=== PATIENT | female | born 1960 | race American Indian/Alaskan Native ===

== ENCOUNTER 2025-09-04 16:32 | Inpatient (IN) | payer OTHER, MEDICAID ==
[~2025-09-04] VITALS: Ht 160 cm; Wt 45.4 kg
--- NOTE | 2025-09-04 18:36 | ED.PDOC ---
Musculoskeletal HPI Comments 64-year-old female who came to ER with son due to bilateral lower extremity swelling. Per son, patient lives with his stepdad who claims that he does not take care of his mom. Patient coming in with bilateral leg swelling, multiple scabs and shallow laceration on both legs. Patient has been seen by her provider but the issue about her legs has never been addressed. Chief Complaint: Lower Extremity Time Seen by MD: 18:36 Reviewed Notes: Nurses Notes Information Source: Patient, Relative Mode of Arrival: EMS Location: Bilateral Extremity Location: Leg Past Medical History PAST MEDICAL HISTORY: HTN Surgical History: Denies all surgeries SLATE PICKER History: Denies all SLATE PICKER Hx Family History Family History: Reviewed,noncontributory to illness Social History Smoker: Non-Smoker Alcohol: Denies ETOH Use Drugs: Denies Drug Use Lives In: Home Constitutional: denies: chills, diaphoresis, fatigue, fever, malaise, sweats, weakness, others EENTM: denies: blurred vision, double vision, ear bleeding, ear discharge, ear drainage, ear pain, ear ringing, eye pain, eye redness, hearing loss, mouth pain, mouth swelling, nasal discharge, nose bleeding, nose congestion, nose pain, photophobia, tearing, throat pain, throat swelling, voice changes, others Respiratory: denies: cough, hemoptysis, orthopnea, SOB at rest, shortness of breath, SOB with excertion, stridor, wheezing, others Cardiovascular: denies: chest pain, dizzy spells, diaphoresis, Dyspnea on exertion, edema, irregular heart beat, left arm pain, lightheadedness, palpitati ons, PND, syncope, others Gastrointestinal: denies: abdomen distended, abdominal pain, blood streaked bowels, constipated, diarrhea, dysphagia, difficulty swallowing, hematemesis, melena, nausea, poor appetite, poor fluid intake, rectal bleeding, rectal pain, vomiting, others Genitourinary: denies: abnormal vagina bleeding, burning, dyspareunia, dysuria, flank pain, frequency, hematuria, incontinence, pain, , vagina discharge, urgency, others Neurological: denies: dizziness, fainting, headache, left sided numbness, left sided weakness, numbness, paresthesia, pre-existing deficit, right sided numbness, right sided weakness, seizure, speech problems, tingling, tremors, weakness, others Musculoskeletal: denies: back pain, gout, joint pain, joint swelling, muscle pain, muscle stiffness, neck pain, others Integumetry: reports: wounds (Both legs); denies: bruises, change in color, change in hair/nails, dryness, laceration, lesions, lumps, rash, others Allergic/Immunocompromised: denies: Difficulty Healing, Frequent Infections, Hives, Itching, others Hematologic/Lymphatic: denies: anemia, blood clots, easy bleeding, easy bruising, swollen glands, others Endocrine: denies: excessive hunger, excessive sweating, excessive thirst, excessive urination, flushing, intolerance to cold, intolerance to heat, unexplained weight gain, unexplained weight loss, others Psychiatric: denies: anxiety, bipolar disorder, depression, hopeless, panic disorder, schizophrenia, sleepless, suicidal, others Physical Exam General Appearance: No Apparent Distress, Normal HEENT: Normal ENT Inspection, Pharynx Normal, TMs Normal Neck: Full Range of Motion, Non-Tender, Normal, Normal Inspection Respiratory: Chest Non-Tender, Lungs Clear, No Accessory Muscle Use, No Respiratory Distress, Normal Breath Sounds Cardiovascular: No Edema, No JVD, No Murmur, No Gallop, Normal Peripheral Pulses, Regular Rate/Rhythm Breast Exam: Deferred Gastrointestinal: No Organomegaly, Non Tender, No Pulsatile Mass, Normal Bowel Sounds, Soft Genitalia: Deferred Pelvic: Deferred Rectal: Deferred Extremities: No calf tenderness, Normal capillary refill, Normal range of motion, Pedal edema (+2 pedal edema), Other (Multiple scabs both legs, shallow ulcers both legs,right >left) Musculoskeletal : Apperance: Normal Neurologic: Alert, charge coordinator II-XII nml as Tested, No Motor Deficits, Normal Affect, Normal Mood, No Sensory Deficits Cerebellar Function: Normal Reflexes: Normal Skin: Dry, Normal Color, Warm Lymphatic: No Adenopathy Was a procedure done? Was a procedure done?: No Differential Diagnosis EXT Differential Diagnosis: Cellulitis, CHF, Septic, Other X-Ray, Labs, Meds, VS Vital Signs Date Time Temp Pulse Resp B/P (MAP) Pulse Ox O2 Delivery O2 Flow Rate FiO2 09/04/25 19:33 98.2 108 16 147/83 100 98.2 Lab Test 09/04/25 21:20 09/04/25 19:55 Range/Units Urine Color Yellow Yellow Urine Clarity Clear Clear Urine pH 6.0 5.0-9.0 Urine Specific [place] 1.013 1.001-1.035 Urine Protein Negative Negative Urine Ketones Negative Negative Urine Blood Negative Negative /uL Urine Nitrite Negative Negative Urine Bilirubin Negative Negative Urine Urobilinogen 4 H Negative mg/dL Urine Leukocyte Esterase Negative Negative /uL Urine RBC <1 0 - 4 /hpf Urine Microscopic WBC 1 0-5 /HPF Urine Squamous Epithelial Cells Few <5 /hpf Urine Bacteria Few H None Seen /hpf Urine Glucose Normal Normal mg/dL White Blood Count 9.2 4.4-10.8 10^3/uL Red Blood Count 3.48 L 4.0-5.20 10^6/uL Hemoglobin 10.7 L 12.2-16.2 g/dL Hematocrit 31.6 L 36.0-46.0 % Mean Corpuscular Volume 90.7 80.0-100.0 fL Mean Corpuscular Hemoglobin 30.6 28.0-32.0 pg Mean Corpuscular Hemoglobin Concent 33.7 32.0-36.0 g/dL Red Cell Distribution Width 14.8 H 11.8-14.3 % Platelet Count 625 H 140-450 10^3/uL Mean Platelet Volume 6.4 L 6.9-10.8 fL Neutrophils (%) (Auto) 65.4 37.0-80.0 % Lymphocytes (%) (Auto) 26.1 10.0-50.0 % Monocytes (%) (Auto) 7.6 0.0-12.0 % Eosinophils (%) (Auto) 0.5 0.0-7.0 % Basophils (%) (Auto) 0.4 0.0-2.0 % Neutrophils # (Auto) 6.0 1.6-8.6 10 ^3/uL Lymphocytes # (Auto) 2.4 0.4-5.4 10 ^3/uL Monocytes # (Auto) 0.7 0-1.3 10 ^3/uL Eosinophils # (Auto) 0 0-0.8 10 ^3/uL Basophils # (Auto) 0 0-0.2 10 ^3/uL Nucleated Red Blood Cells 0.0 % Sodium Level 139 136-145 mmol/L Potassium Level 2.9 L 3.5-5.1 mmol/L Chloride Level 100 98-107 mmol/L Carbon Dioxide Level 34 H 20-31 mmol/L Anion Gap 5 5-15 Blood Urea Nitrogen 10 9-23 mg/dL Creatinine 0.47 L 0.550-1.02 mg/dL Glomerular Filtration Rate Calc 105 >90 mL/min BUN/Creatinine Ratio 21.3 H 10.0-20.0 Serum Glucose 94 74-106 mg/dL Calcium Level 8.6 L 8.7-10.4 mg/dL Total Bilirubin 0.3 0.2-1.0 mg/dL Direct Bilirubin 0.1 <0.3 mg/dL Aspartate Amino Transferase (AST) 22 13-40 U/L Alanine Aminotransferase (ALT) 24 7-40 U/L Alkaline Phosphatase 115 46-116 U/L Troponin I High Sensitivity 11 </=34 ng/L Total Protein 7.1 5.7-8.2 g/dL Albumin 3.4 3.2-4.8 g/dL Time of 1ST Reevaluation: 18:32 Reevaluation 1ST: Unchanged Patient Education/Counseling: Diagnosis, Treatment Family Education/Counseling: Diagnosis, Treatment Comments This is a patient who presents with ulcers of the legs and edema. She is not in heart failure, not in renal failure, nor hepatic failure. She is also not hypoalbuminemic. Patient is according to the son has been progressively getting weaker and is able to barely ambulate at home. Patient will be admitted for further evaluation and treatment of progressive weakness, pedal edema and possible pneumonia on the chest x-ray. She is not septic but she will receive antibiotics and blood cultures. Departure 1 Departure Time of Disposition: 21:46 Impression: Primary Impression: Physical deconditioning Additional Impressions: Pedal edema Pneumonia Disposition: ADMITTED INPATIENT Admit to: Med Surg Condition: Stable Discharged With: Self, Relative Critical Care Note Critical Care Time?: No Stability Stability form required: No Heart Score Heart Score: Heart Score Response (Comments) Value History N/A 0 EKG N/A 0 Age N/A 0 Risk Factors N/A 0 Troponin N/A 0 Total 0 I personally scribed for ALCON MARRERO MD ([email or web address]) on 09/04/25 at 18:36. Electronically submitted by Marvin Ludwig ([email or web address]). ALCON MARRERO MD Sep 04, 2025 18:36
[2025-09-04 20:05] LABS: Hematocrit 31.6 % (36.0-46.0); Hemoglobin 10.7 g/dL (12.2-16.2); Mean Corpuscular Hemoglobin 30.6 pg (28.0-32.0); Mean Corpuscular Volume 90.7 fL (80.0-100.0); Nucleated Red Blood Cells % 0.0 %
[2025-09-04 20:23] LABS: Alanine Aminotransferase 24 U/L (7-40); Albumin 3.4 g/dL (3.2-4.8); Alkaline Phosphatase 115 U/L (46-116); Anion Gap 5 (5-15); BUN/Creatinine Ratio 21.3 (10.0-20.0); Bilirubin, Direct 0.1 mg/dL (<0.3); Blood Urea Nitrogen 10 mg/dL (9-23); Chloride 100 mmol/L (98-107); Glucose 94 mg/dL (74-106); Sodium 139 mmol/L (136-145); Total Protein 7.1 g/dL (5.7-8.2)
--- NOTE | 2025-09-04 21:17 | DVH ---
EXAM: XY CHEST XRAY 1 VIEW HISTORY: edema TECHNIQUE: 1 view of the chest COMPARISON: None FINDINGS/IMPRESSION: LUNGS: Left perihilar to hilar hazy opacification which may reflect underlying infiltrate however cystic lung change in the left lung apex with a surrounding opacification. Recommend further evaluation with CT of the chest with contrast. MEDIASTINUM: Unremarkable. BONES: No acute osseous abnormality. OTHER: None.
[2025-09-04 21:18] LABS: Bilirubin, Total 0.3 mg/dL (0.2-1.0); Calcium 8.6 mg/dL (8.7-10.4); Carbon Dioxide 34 mmol/L (20-31); Potassium 2.9 mmol/L (3.5-5.1)
[2025-09-04 21:42] LABS: Urine Protein, UAD Negative (Negative)
[2025-09-04] MEDS ORDERED: DOCUSATE SOD 100 MG CAP PO PRN (23:45)
[2025-09-04] MEDS ORDERED: ONDANSETRON HCL 4 MG/2 ML VIAL IV PRN (23:45)
[2025-09-04] MEDS ORDERED: MORPHINE SULFATE INJ 2 MG/ml SYRG IV PRN (23:45)
[2025-09-04] MEDS ORDERED: NITROGLYCERIN 0.4 MG SL TAB SL PRN (23:45)
[2025-09-04 23:47] VITALS: PULSE 79; RESP 28; O2SAT 98
--- NOTE | 2025-09-04 23:47 | DVHHP2 ---
History of Present Illness Reason for Visit: Pneumonia, unspecified organism History of Present Illness The patient is a 64-year-old female with past medical history of hypertension who presented to [facility] ED with complaint of bilateral lower extremity swelling and open wound. As reported by son, patient lives with his stepfather who does not take care of his mom. Patient was seen and evaluated in the ED with with bilateral leg swelling, multiple scabs and shallow laceration on both legs. Son reports that patient has been seen by her provider but the issue about her legs has never been addressed. Laboratory data shows WBC 9.2, hemoglobin 10.7, hematocrit 31.6, platelets 625, sodium 139, potassium 2.9, BUN 10, creatinine 0.47, GFR 105, glucose 94, calcium 8.6, troponin 11, TSH 1.16, blood pressure 147/83, heart rate 108, temperature 98.3 F, O2 saturation 99% on room air. Chest x-ray revealing left perihilar to hilar hazy opacification which may reflect underlying infiltrates however cystic lung change in the left lung apex with a surrounding opacification. Patient was started on IV antibiotic regimen Zosyn, please see medication orders section in the computer. On my assessment, son at bedside, patient denied chest pain, no headache, dizziness, diaphoresis, shortness of breaths, no nausea, vomiting, fever, no chills. Patient was admitted for further evaluation and medical management. Past Medical History HTN Past Surgical History Denies all surgeries Family History Reviewed, noncontributory to the management of this case. Past Social History The patient lives at home, denies smoking, alcohol or illicit drugs abuse. Review of Systems Constitutional: Yes: Weakness; No: Fever, Chills, Sweats, Malaise, Other Eyes: No: Pain, Vision change, Conjunctivae inflammation, Eyelid inflammation, Other, Redness ENT: No: Ear pain, Ear discharge, Nose pain, Nose discharge, Nose congestion, Mouth pain, Mouth swelling, Throat pain, Throat swelling, Other Respiratory: No: Cough, Dry, Shortness of breath, SOB with excertion, Wheezing, Hemoptysis, Pleuritic Pain, Sputum, Wheezing, Other Cardiovascular: Edema (Lower extremity); No: Chest Pain, Palpitations, Orthopnea, Paroxysmal Noc. Dyspnea, Lt Headedness, Other Gastrointestinal: No: Nausea, Vomiting, Abdominal Pain, Diarrhea, Constipation, Melena, Hematochezia, Other Genitourinary: No Dysuria, No Frequency, No Incontinence, No Hematuria, No Retention, No Other Musculoskeletal: No: other, neck pain, shoulder pain, arm pain, back pain, hand pain, leg pain, foot pain Skin: Other (Open wound bilateral legs); No: Rash, Lesions, Jaundice, Bruising Neurological: No: Weakness, Numbness, Incoordination, Change in speech, Confusion, Seizures, Other Allergies: Coded Allergies: NO KNOWN ALLERGIES (Unverified , 09/04/25) Exam Vital Signs Vital Signs Date Time Temp Pulse Resp B/P (MAP) Pulse Ox O2 Delivery O2 Flow Rate FiO2 09/04/25 19:33 98.2 108 16 147/83 100 98.2 General Appearance: Alert, Oriented X3, Cooperative, No acute distress HEENT: Atraumatic, PERRLA, EOMI, Mucous membr. moist/pink Respiratory: Normal air movement, Other (Diminished breath sounds) Cardiovascular: Regular rate, Normal S1, Normal S2, No murmurs Abdominal: Normal bowel sounds, Soft, No tenderness, No hepatospenomegaly, No masses Extremities: No clubbing, No cyanosis, Normal pulses, No tenderness/swelling, Other (Pedal edema) Skin: No rashes, No significant lesion Neuro: Normal speech, Normal tone, Sensation intact, Cranial nerves 3-12 NL, Reflexes 2+, Other (Generalized weakness) Psych/Mental Status: Mental status NL, Mood NL Labs/Xrays Labs Test 09/04/25 22:08 09/04/25 21:20 09/04/25 19:55 Range/Units Urine Color Yellow Yellow Urine Clarity Clear Clear Urine pH 6.0 5.0-9.0 Urine Specific [place] 1.013 1.001-1.035 Urine Protein Negative Negative Urine Ketones Negative Negative Urine Blood Negative Negative /uL Urine Nitrite Negative Negative Urine Bilirubin Negative Negative Urine Urobilinogen 4 H Negative mg/dL Urine Leukocyte Esterase Negative Negative /uL Urine RBC <1 0 - 4 /hpf Urine Microscopic WBC 1 0-5 /HPF Urine Squamous Epithelial Cells Few <5 /hpf Urine Bacteria Few H None Seen /hpf Urine Glucose Normal Normal mg/dL White Blood Count 9.2 4.4-10.8 10^3/uL Red Blood Count 3.48 L 4.0-5.20 10^6/uL Hemoglobin 10.7 L 12.2-16.2 g/dL Hematocrit 31.6 L 36.0-46.0 % Mean Corpuscular Volume 90.7 80.0-100.0 fL Mean Corpuscular Hemoglobin 30.6 28.0-32.0 pg Mean Corpuscular Hemoglobin Concent 33.7 32.0-36.0 g/dL Red Cell Distribution Width 14.8 H 11.8-14.3 % Platelet Count 625 H 140-450 10^3/uL Mean Platelet Volume 6.4 L 6.9-10.8 fL Neutrophils (%) (Auto) 65.4 37.0-80.0 % Lymphocytes (%) (Auto) 26.1 10.0-50.0 % Monocytes (%) (Auto) 7.6 0.0-12.0 % Eosinophils (%) (Auto) 0.5 0.0-7.0 % Basophils (%) (Auto) 0.4 0.0-2.0 % Neutrophils # (Auto) 6.0 1.6-8.6 10 ^3/uL Lymphocytes # (Auto) 2.4 0.4-5.4 10 ^3/uL Monocytes # (Auto) 0.7 0-1.3 10 ^3/uL Eosinophils # (Auto) 0 0-0.8 10 ^3/uL Basophils # (Auto) 0 0-0.2 10 ^3/uL Nucleated Red Blood Cells 0.0 % Sodium Level 139 136-145 mmol/L Potassium Level 2.9 L 3.5-5.1 mmol/L Chloride Level 100 98-107 mmol/L Carbon Dioxide Level 34 H 20-31 mmol/L Anion Gap 5 5-15 Blood Urea Nitrogen 10 9-23 mg/dL Creatinine 0.47 L 0.550-1.02 mg/dL Glomerular Filtration Rate Calc 105 >90 mL/min BUN/Creatinine Ratio 21.3 H 10.0-20.0 Serum Glucose 94 74-106 mg/dL Calcium Level 8.6 L 8.7-10.4 mg/dL Total Bilirubin 0.3 0.2-1.0 mg/dL Direct Bilirubin 0.1 <0.3 mg/dL Aspartate Amino Transferase (AST) 22 13-40 U/L Alanine Aminotransferase (ALT) 24 7-40 U/L Alkaline Phosphatase 115 46-116 U/L Troponin I High Sensitivity 11 </=34 ng/L Total Protein 7.1 5.7-8.2 g/dL Albumin 3.4 3.2-4.8 g/dL Thyroid Stimulating Hormone (TSH) 1.16 0.55-4.78 uIU/mL PATIENT: SHAYY IVERSON ACCT: [id number] UNIT: [id number] : 1960 LOC: ER ROOM / BED: / AGE / SEX: 64 / F ADM STATUS: REG ER SERVICE 34 ORDERING PHYSICIAN: ALCON MARRERO MD PROCEDURE(s): CXR1 - CHEST XRAY 1 VIEW REASON: edema ORDER NUMBER(s): [id number], ACCESSION NUMBER(s): [id number] EXAM: XY CHEST XRAY 1 VIEW HISTORY: edema TECHNIQUE: 1 view of the chest COMPARISON: None FINDINGS/IMPRESSION: LUNGS: Left perihilar to hilar hazy opacification which may reflect underlying infiltrate however cystic lung change in the left lung apex with a surrounding opacification. Recommend further evaluation with CT of the chest with contrast. MEDIASTINUM: Unremarkable. BONES: No acute osseous abnormality. SEPSIS Sepsis Screen Date sepsis recognized/suspect: Sep 04, 2025 Time Sepsis recognized/suspect: 1640 Recent Procedure: No On Antibiotic Therapy: No Respiratory Rate >20: No Heart Rate >90: No Temp<36 C (96.8 F) or >38.3 C: No SBP <90 or MAP <65 mmHG: No New Acute Mental Status Change: No Is the patient on CPAP, BIPAP,: No Physician Orders Chest Xray 1 View (09/04/25 18:35) Electrocardigram (09/04/25 18:35) Blood Culture (09/04/25 21:43) Ceftriaxone 1gm/50ml (Rocephin) (09/04/25 21:45) Free T4 (Free Thyroxine) (09/04/25 21:46) * Wound Consult (09/04/25 ) Amlodipine Tablet (Norvasc Tablet) (09/05/25 10:00) Clonidine Hcl Tablet (Catapres Tablet) (09/04/25 23:45) Potassium Er Tablet (Klor-Con Tablet) (09/04/25 23:45) Zosyn Extended Infusion (09/05/25 06:00) Furosemide Injection (Lasix Injection) (09/04/25 23:45) Furosemide Injection (Lasix Injection) (09/05/25 10:00) Admit (09/04/25 23:36) Allergies (09/04/25 23:36) Code Status (09/04/25 23:36) 0.9% Ns 1000 Ml (09/04/25 23:45) Oxygen Per Hour (09/04/25 23:36) Hydrocodone-Acet 5/325mg Tab ([place] 5/32 (09/04/25 23:45) Ondansetron Hcl (Zofran) (09/04/25 23:45) Docusate Sodium Capsule (Colace Capsule) (09/04/25 23:45) Zinc Sulfate (09/05/25 10:00) Ascorbic Acid Tablet (Vitamin C Tablet) (09/05/25 10:00) Multiple Vitamin Tablet (Mvi Tab) (09/05/25 10:00) Fall Risk Precautions In Place QSHIFT (09/04/25 23:36) Complete Blood Count (09/05/25 04:00) Comprehensive Metabolic Panel (09/05/25 04:00) Cardiac Diet-2gna,Lofat,Lochol (09/05/25 Breakfast) Condition: Serious (09/04/25 23:36) Acetaminophen Tablet (Tylenol Tablet) (09/04/25 23:45) Maintain Bed Rest (09/04/25 23:36) Nitroglycerin Sublingual (Ntrostat Subli (09/04/25 23:45) Morphine Sulfate Injection (09/04/25 23:45) Stat Ekg For Chest Pain (09/04/25 23:36) Notify Md Of Changes From Base (09/04/25 23:36) Insole Buffer For 24 Hours (09/04/25 23:36) Emergency Dysrhythmia Protocol (09/04/25 23:36) Rhythm Strips Once Every Shift (09/04/25 23:36) Oxygen By Nasal Cannula (09/04/25 23:36) Vital Signs Date Time Temp Pulse Resp B/P (MAP) Pulse Ox O2 Delivery O2 Flow Rate FiO2 09/04/25 19:33 98.2 108 16 147/83 100 98.2 Laboratory Tests Test 09/04/25 19:55 White Blood Count 9.2 10^3/uL (4.4-10.8) Assessment/Plan Assessment/Plan Pneumonia, unspecified organism Pedal edema Thrombocytosis Open wound of right lower leg Generalized weakness Plan 1. Admit to telemetry unit 2. Breathing treatment 3. Pain control management 4. IV antibiotic management 5. Management of fluids and electrolytes 6. Consultation for hospitalist/wound care 7. Diagnostic test chest x-ray 8. DVT prophylaxis-on aspirin 9. Repeat labs CBC, CMP in a.m. 10. Home medication reviewed and reconciled 11. Continue with current medical management 12. Treatment plan discussed with patient and RN. Patient verbalized understanding. Plan discussed with: Patient, Other (RN) My Orders Orders - JEREMIAS HOWE DNP Procedure Category Date Status Time * Wound Consult CONS 09/04/25 Transmitted Amlodipine Tablet PHA 09/05/25 Transmitted (Norvasc Tablet) 10:00 Clonidine Hcl Tablet PHA 09/04/25 Transmitted (Catapres Tablet) 23:45 Potassium Er Tablet PHA 09/04/25 Verified (Klor-Con Tablet) 23:45 Zosyn Extended PHA 09/05/25 Verified Infusion 06:00 Furosemide Injection PHA 09/04/25 Verified (Lasix Injection) 23:45 Furosemide Injection PHA 09/05/25 Verified (Lasix Injection) 10:00 Admit ADMIT 09/04/25 Verified 23:36 Allergies SONIA 09/04/25 Verified 23:36 Code Status CODE 09/04/25 Verified 23:36 0.9% Ns 1000 Ml PHA 09/04/25 Verified 23:45 Oxygen Per Hour RT 09/04/25 Verified 23:36 Hydrocodone-Acet PHA 09/04/25 Verified 5/325mg Tab ([place] 23:45 Ondansetron Hcl PHA 09/04/25 Verified (Zofran) 23:45 Docusate Sodium PHA 09/04/25 Verified Capsule (Colace 23:45 Zinc Sulfate PHA 09/05/25 Verified 10:00 Ascorbic Acid Tablet PHA 09/05/25 Verified (Vitamin C Tablet) 10:00 Multiple Vitamin PHA 09/05/25 Verified Tablet (Mvi Tab) 10:00 Fall Risk Precautions SONIA 09/04/[address] 23:36 Complete Blood Count LAB 09/05/25 Verified 04:00 Comprehensive LAB 09/05/25 Verified Metabolic Panel 04:00 Cardiac DIET 09/05/25 Verified Diet-2gna,Lofat,Lochol Breakfast Condition: Serious [facility] 09/04/25 Verified 23:36 Acetaminophen Tablet [facility] 09/04/25 Verified (Tylenol Tablet) 23:45 Maintain Bed Rest [facility] 09/04/25 Verified 23:36 Nitroglycerin [facility] 09/04/25 Verified Sublingual (Ntrostat 23:45 Morphine Sulfate [facility] 09/04/25 Verified Injection 23:45 Stat Ekg For Chest [facility] 09/04/25 Verified Pain 23:36 Notify Md Of Changes [facility] 09/04/25 Verified From Base 23:36 Insole Buffer For [facility] 09/04/25 Verified 24 Hours 23:36 Emergency Dysrhythmia [facility] 09/04/25 Verified Protocol 23:36 Rhythm Strips Once [facility] 09/04/25 Verified Every Shift 23:36 Oxygen By Nasal RT 09/04/25 Verified Cannula 23:36 Problem List: (1) Pneumonia, unspecified organism (2) Pedal edema (3) Thrombocytosis (4) Open wound of right lower leg (5) Generalized weakness Date of Service: Sep 04, 2025 Billing Provider: JEREMIAS HOWE DNP Common Visit Codes: [id number] INP/OBS CARE (HIGH) JEREMIAS HOWE DNP Sep 04, 2025 23:47
[2025-09-05] VITALS (10 sets, daily range): BP systolic 118–157; BP diastolic 76–95; PULSE 71–94; RESP 16–20; TEMP 97.4–98.4; O2SAT 91–100
[2025-09-05] MEDS: POTASSIUM CHL 20 Meq TABLET PO ONE (00:22)
[2025-09-05] MEDS: SODIUM CHLORIDE 0.9% 1,000 ML IV SCH (00:25)
[2025-09-05] MEDS: cefTRIAXone SOD 1,000 MG VL ONE (00:26)
[2025-09-05] MEDS: FUROSEMIDE 20 MG/2 ML VIAL IV ONE (01:29)
[2025-09-05 03:05] LABS: Hematocrit 30.2 % (36.0-46.0); Hemoglobin 10.2 g/dL (12.2-16.2); Mean Corpuscular Hemoglobin 30.5 pg (28.0-32.0); Mean Corpuscular Volume 90.5 fL (80.0-100.0); Nucleated Red Blood Cells % 0.0 %
[2025-09-05 03:21] LABS: Alanine Aminotransferase 19 U/L (7-40); Albumin 3.2 g/dL (3.2-4.8); Alkaline Phosphatase 99 U/L (46-116); Anion Gap 8 (5-15); BUN/Creatinine Ratio 21.1 (10.0-20.0); Bilirubin, Total 0.4 mg/dL (0.2-1.0); Chloride 99 mmol/L (98-107); Glucose 90 mg/dL (74-106); Sodium 141 mmol/L (136-145); Total Protein 6.6 g/dL (5.7-8.2)
[2025-09-05 03:24] LABS: Blood Urea Nitrogen 8 mg/dL (9-23); Calcium 8.4 mg/dL (8.7-10.4); Carbon Dioxide 34 mmol/L (20-31); Potassium 3.1 mmol/L (3.5-5.1)
[2025-09-05] MEDS: PIPERACILLIN-TAZOB 3.375GM 100 ML IV SCH ×2 (05:56→10:16)
[2025-09-05] MEDS: POTASSIUM EFFERVESENT TAB 25 MEQ PO ONE (08:57)
[2025-09-05] MEDS: ZINC SULFATE 220mg CAP or TAB PO SCH (08:59)
[2025-09-05] MEDS: MULTIPLE VITAMIN TAB PO SCH (08:59)
[2025-09-05] MEDS: ASCORBIC ACID 500 MG TAB PO SCH (09:00)
[2025-09-05] MEDS ORDERED: FUROSEMIDE 20 MG/2 ML VIAL IV SCH (10:00)
[2025-09-05 10:03] LABS: Base Excess 10.0 mmol/L (-2.0-3.0)
[2025-09-05] MEDS: ENOXAPARIN SOD 40 MG/0.4 ML SYRINGE SC SCH (10:16)
[2025-09-05] MEDS: HYDROcodone-ACET 5/325MG TAB PO PRN (10:25)
[2025-09-05 10:51] LABS: INR 1.02 (0.9-1.15); Partial Thromboplastin Time 27.3 SEC (24.5-34.5); Prothrombin Time 10.8 sec (9.3-11.8)
--- NOTE | 2025-09-05 10:53 | DVH ---
CLINICAL INFORMATION: Lobar pneumonia. TECHNIQUE: Axial CT imaging of the chest was performed without IV contrast. Sagittal and coronal reformatted images were made, stored and reviewed. Evaluation is limited without IV contrast. One or more of the following dose reduction techniques were used: Automated exposure control. Adjustment of mA and/or kV according to patient size. CTDIvol = 4.56 mGy DLP = 191.4 mGy-cm COMPARISON: XY CHEST XRAY 1 VIEW on DOS: 09/04/25 FINDINGS: Aorta: At moderate atherosclerotic calcification of the thoracic aorta. No aneurysm. Cardiac: Heart size is within normal limits. Trace pericardial effusion. Dense coronary artery calcification. Mediastinum/ronna: Mildly prominent mediastinal lymph nodes, with the largest measuring up to 1.4 x 0.9 cm in the AP window, likely reactive lymph nodes. Lungs: Focal consolidation in the left upper lobe with cavitation. The consolidation extends up to 12.2 x 4.6 x 7.1 cm. The cavitation measures up to 5.3 cm in greatest dimension. There is a small left pleural effusion. Pulmonary arteries: No gross abnormality. Chest wall: No mass or other abnormality. Upper abdomen: Visualized structures in the upper abdomen are unremarkable. Bones: Chronic appearing mild compression fracture at the superior endplate of the T7 vertebral body with up to 20% loss of height. No acute appearing fracture. No suspicious intraosseous lesion. IMPRESSION: 1. Focal consolidation in involving large portions of the left upper lobe with cavitation near the left lung apex, likely infectious or inflammatory etiology. Differential considerations could include TB or fungal infection. Malignancy would be less likely but not completely excluded. 2. Small left pleural effusion. Potentially critical findings Critical Result: Left upper lobe consolidation with cavitation. Differential considerations include TB or fungal infection. Findings discussed with the patient's RN, Sally at 09/05/2025 12:50 PM FLAGSETTER, and acknowledged receipt and understanding of the findings. ..
[2025-09-05 10:57] LABS: Magnesium 1.9 mg/dL (1.6-2.6); Triglycerides 111.0 mg/dL (< 150)
[2025-09-05 10:58] LABS: HDL Cholesterol 41.0 mg/dL (40-59)
[2025-09-05 10:59] LABS: Cholesterol 142.0 mg/dL (< 200)
--- NOTE | 2025-09-05 13:52 | DVHPNRES ---
Progress Note Date Seen: Sep 05, 2025 Resident Creating Document: KAYE LEONARDO Medical Necessity Reason Pt with a Central, PICC or Fol: No Subjective Review of Systems Patient is a 64-year-old female with past medical history of HTN, presented to [facility] ED with complaint of bilateral lower extremity swelling and open wounds. Patient is poor historian. According to the son, the patient resides with his stepfather, who reportedly does not provide adequate care for her. The son stated that although the patient has been seen by her primary care provider, the issue concerning her legs has never been addressed. Chest x-ray revealing left perihilar to hilar hazy opacification which may reflect underlying infiltrates however cystic lung change in the left lung apex with a surrounding opacification. Past surgical history: Denies all surgeries Home medications: Past Hospitalization: Social & Personal history: Smoking >40 years 1 pack a day. Alcohol >20 years. Drug: denies Allergies: none Patient seen and examined at bedside. Patient is alert and oriented to time, place person and responding to all questions. Eyes: No Pain, No Vision change, No Conjunctivae inflammation, No Eyelid inflammation, No Other, No Redness ENT: No Ear pain, No Ear discharge, No Nose pain, No Nose discharge, No Nose congestion, No Mouth pain, No Mouth swelling, No Throat pain, No Throat swelling, No Other Cardiovascular: No Chest Pain, No Palpitations, No Orthopnea, No Paroxysmal No Dyspnea, No Edema, No Lt Headedness, No Other Respiratory: No Cough, No Dry, No Shortness of breath, No SOB with exertion, No Wheezing, No Hemoptysis, No Pleuritic Pain, No Sputum, No Other Gastrointestinal: No Nausea, No Vomiting, No Abdominal Pain, No Diarrhea, No Constipation, No Melena, No Hematochezia, No Other Genitourinary: No Dysuria, No Frequency, No Incontinence, No Hematuria, No Retention, No Other Musculoskeletal: No other, No neck pain, No shoulder pain, No arm pain, No back pain, No hand pain, leg pain, foot pain Skin: Rash, No Lesions, No Jaundice, No Bruising, No Other Objective vital signs Vital Sign Date Time Temp Pulse Resp B/P (MAP) Pulse Ox O2 Delivery O2 Flow Rate FiO2 09/05/25 13:00 97.9 93 20 123/87 (99) 94 97.9 09/05/25 08:00 Nasal Cannula* 2 28 Total Intake and Output 09/04/25 09/04/25 09/05/25 15:00 23:00 07:00 Intake Total 220 ml Output Total 400 ml Balance -180 ml medications Current Medications Medications Dose Ordered Sig/Denae Route Start Time Stop Time Status Last Admin Dose Admin Amlodipine Besylate 5 mg DAILY PO 09/05/25 10:00 09/05/25 09:00 5 MG Clonidine HCl 0.1 mg Q4HP PRN PO 09/04/25 23:45 Sodium Chloride 1,000 ml @ 60 mls/hr [id number] IV 09/04/25 23:45 09/05/25 00:25 60 MLS/HR Acetaminophen/ Hydrocodone Bitart 1 tab Q4HP PRN PO 09/04/25 23:45 09/05/25 10:25 1 TAB Ondansetron HCl 4 mg Q4HP PRN IV 09/04/25 23:45 Docusate Sodium 100 mg BIDPRN PRN PO 09/04/25 23:45 Zinc Sulfate 220 mg DAILY PO 09/05/25 10:00 09/05/25 08:59 220 MG Ascorbic Acid 500 mg BID PO 09/05/25 10:00 09/05/25 09:00 500 MG Multivitamins 1 tab DAILY PO 09/05/25 10:00 09/05/25 08:59 1 TAB Acetaminophen 650 mg Q6HP PRN PO 09/04/25 23:45 Nitroglycerin 0.4 mg Q5MINP PRN SL 09/04/25 23:45 Morphine Sulfate 2 mg Q30M PRN IV 09/04/25 23:45 Aspirin 81 mg DAILY PO 09/05/25 10:00 09/05/25 08:59 81 MG Enoxaparin Sodium 40 mg DAILY SC 09/05/25 10:00 09/05/25 10:16 40 MG Piperacillin Sod/ Tazobactam Sod 100 ml @ 25 mls/hr Q8H IV 09/05/25 09:45 09/05/25 10:16 25 MLS/HR Examination General Appearance: Generalized weakness. Cachectic, thin Head Exam: Normal inspection Neck Exam: Normal inspection. Non-tender. Normal alignment Pulmonary/Respiratory: Diminished breath sounds. Chest non-tender. Clear bilateral breath sounds, no crackles, no wheezing. Cardiovascular/Chest: Regular rate and rhythm. Systolic murmurs. No JVD. Peripheral Pulses: 2+ Radial (R). 2+ Radial (L). 2+ Pedal (R). 2+ Pedal (L) Abdominal Exam: Normal bowel sounds. Soft. normal abdomen, no visible veins, Nontender. No hepatospenomegaly. No masses Ankle Exam: Negative ankle edema Lower extremities: Bilateral leg swelling, multiple scabs, and shallow lacerations on both legs. Pedal edema Neuro/Mental Status: A&O x2. Coherent. Thoughts/Psych: Normal thought pattern. Appropriate mood and affect. Good judgement and insight Skin Exam: Normal inspection. Normal color. Warm. Dry laboratory and microbiology Laboratory Tests 09/05/25 02:30 Test 09/05/25 02:30 Range/Units Serum Glucose 90 74-106 mg/dL Labs and/or images reviewed: Labs reviewed by me (RN), Image(s) reviewed by me Problem List/Assessment/Plan Problem List/Assessment/Plan # Acute respiratory failure # Community acquired pneumonia Gram +/-, rule out tuberculosis, fungal # Rule out malignancy # Sepsis due to above # Left pleural effusion Chest CT: Focal consolidation in involving large portions of the left upper lobe with cavitation near the left lung apex, likely infectious or inflammatory etiology. Small left pleural effusion. Chest X-ray: Left perihilar to hilar hazy opacification which may reflect underlying infiltrate however cystic lung change in the left lung apex with a surrounding opacification. Zinc sulfate 220 Mg PO daily Zosyn IV q8h Zofran 4 MG IV q4h Nitroglycerin 0.4 MG SL q5 Multiple vitamin pain management with Morphin and [place] Lovenox 40 Mg SC daily Clonidine 0.1 MG PO q4h Aspirin 81 MG PO daily Vitamin C 500 Mg PO bid Amlodipine 5 MG PO daily IV NS 1000 mL QuantiFERON-TB Gold UA and UDS ABG Blood culture Wound culture Infectious disease consult Wound consult Dietary consult # Cellulitis of bilateral limbs # Rule out DVT # Rule out osteomyelitis Currently under empiric IV antibiotics (Zosyn, Vancomycin and Micafungin) Ordered pancultures Wound care on board Ordered bilateral lower limb CT and venous US # Hypokalemia Replenished # Chronic normocytic anemia # Thrombocytosis Secondary to sepsis # Severe protein malnutrition (BMI 17.4) Nutritional consult placed # Questionable Dementia Diet: Cardiac DVT prophylaxis: Lovenox 40mg Goals of care: Full code Plan discussed with patient Plan discussed with Dr. Bolton Plan discussed with: Patient, Son, Other Visit Coding STANDARD RES Billing Provider: FROYLAN BOLTON MD Date of Service if different f: Sep 05, 2025 Common Visit Codes: [id number] INP/OBS CARE(HIGH) KAYE LEONARDO RESIDENT Sep 05, 2025 13:52 RUPALI CHILDS RESIDENT Sep 05, 2025 23:59
[2025-09-05] MEDS ORDERED: VANCOMYCIN PER PHARMACY 0 MG IV SCH (23:45)
[2025-09-06] VITALS (8 sets, daily range): BP systolic 123–177; BP diastolic 66–90; PULSE 71–91; RESP 14–20; TEMP 97.4–98.2; O2SAT 93–99
[2025-09-06] MEDS: MICAFUNGIN SODIUM 100 MG in SODIUM CHL 0.9% 100 ML IV ONE (01:00)
--- NOTE | 2025-09-06 01:15 | DVH ---
Bilateral lower extremity venous duplex Clinical History: bilateral limb swelling Comparison: None Technique: Duplex Doppler evaluation of the deep venous systems of both lower extremities from the common femoral veins to the popliteal veins including color Doppler and spectral/pulsed waveform analysis was performed. Findings: RIGHT SIDE: The common femoral vein demonstrates appropriate compressibility and waveform variability. There is compressibility/patency of the great saphenous vein at the proximal thigh. The femoral vein demonstrates appropriate compressibility and waveform variability. The deep femoral vein demonstrates appropriate compressibility and waveform variability. The popliteal vein demonstrates appropriate compressibility and waveform variability. There is normal compressibility at the tibioperoneal trunk. LEFT SIDE: The common femoral vein demonstrates appropriate compressibility and waveform variability. There is compressibility/patency of the great saphenous vein at the proximal thigh. The femoral vein demonstrates appropriate compressibility and waveform variability. The deep femoral vein demonstrates appropriate compressibility and waveform variability. The popliteal vein demonstrates appropriate compressibility and waveform variability. There is normal compressibility at the tibioperoneal trunk. Impression: 1. No right or left femoropopliteal venous thrombosis.
[2025-09-06] MEDS: VANCOMYCIN 1GM/250ML KIT 250 ML IV ONE (01:23)
[2025-09-06 03:02] LABS: Amphetamine Screen, Urine Neg (NEGATIVE); Cannabinoid Screen, Urine Neg (NEGATIVE); Opiate Scree,Urine Neg (NEGATIVE)
[2025-09-06 03:09] LABS: Urine Protein, UAD Negative (Negative)
[2025-09-06 03:15] LABS: Barbiturate Scree,Urine Neg (NEGATIVE); Benzodiazephine Screen, Urine Neg (NEGATIVE); Cocaine Screen, Urine Neg (NEGATIVE); Phencyclidine Screen, Urine Neg (NEGATIVE)
[2025-09-06] MEDS: POTASSIUM EFFERVESENT TAB 25 MEQ PO ONE (09:09)
[2025-09-06 12:18] LABS: Chloride 102 mmol/L (98-107); Sodium 138 mmol/L (136-145)
--- NOTE | 2025-09-06 12:18 | DVH ---
EXAMINATION: CT LEFT LOWER EXTREMITY W/O CON INDICATION: R/o osteomyellitis. Pain and swelling. COMPARISON: None TECHNIQUE: CT of the left lower extremity was performed without contrast. Volume transverse images were obtained and reconstructed in multiple planes using bone and soft tissue algorithms. Radiation Dose : CTDIvol 7.75 mGy, DLP 763.02 mGy*cm. The dose indicators for CT are the volume Computed Tomography (CT) Dose Index (CTDIvol) and the Dose Length Product (DLP), and are measured in units of mGy and mGy-cm, respectively. These indicators are not patient dose, but values generated from the CT scanner acquisition factors. The report includes radiation exposure data for exposures received during this examination. FINDINGS: Generalized soft tissue edema throughout the left lower extremity predominantly inferiorly. No organized fluid collections. No fracture or malalignment. No destructive bony changes. Rivas catheter in-situ. IMPRESSION: Soft tissue swelling with no obvious CT evidence for osteomyelitis. All CT scans at this medical facility are performed using dose modulation techniques as appropriate to a performed exam including the following: Automated exposure control was utilized; adjustment of the MA and/or KV according to patient size; and use of iterative reconstruction technique.
[2025-09-06 12:19] LABS: Anion Gap 6 (5-15); Carbon Dioxide 30 mmol/L (20-31)
[2025-09-06 12:20] LABS: Calcium 8.6 mg/dL (8.7-10.4); Potassium 5.2 mmol/L (3.5-5.1)
[2025-09-06 12:24] LABS: BUN/Creatinine Ratio 16.7 (10.0-20.0)
[2025-09-06 12:25] LABS: Blood Urea Nitrogen 7 mg/dL (9-23); Glucose 74 mg/dL (74-106)
[2025-09-06 13:27] LABS: Hemoglobin 11.1 g/dL (12.2-16.2)
[2025-09-06 13:29] LABS: Hematocrit 33.1 % (36.0-46.0); Mean Corpuscular Hemoglobin 30.6 pg (28.0-32.0); Mean Corpuscular Volume 91.5 fL (80.0-100.0); Nucleated Red Blood Cells % 0.1 %
--- NOTE | 2025-09-06 14:25 | DVHPNRES ---
Progress Note Date Seen: Sep 06, 2025 Resident Creating Document: KAYE LEONARDO Medical Necessity Reason Pt with a Central, PICC or Fol: No Subjective Review of Systems Patient is a 64-year-old female with past medical history of HTN, presented to [facility] ED with complaint of bilateral lower extremity swelling and open wounds. Patient is poor historian. According to the son, the patient resides with his stepfather, who reportedly does not provide adequate care for her. The son stated that although the patient has been seen by her primary care provider, the issue concerning her legs has never been addressed. Chest x-ray revealing left perihilar to hilar hazy opacification which may reflect underlying infiltrates however cystic lung change in the left lung apex with a surrounding opacification. On 09/03/25, Patient was seen and examined at bedside. Overnight events were reviewed. Patient unable to express her symptoms this morning. Past surgical history: Denies all surgeries Home medications: Past Hospitalization: Social & Personal history: Smoking >40 years 1 pack a day. Alcohol >20 years. Drug: denies Allergies: none Patient seen and examined at bedside. Patient is alert and oriented to time, place person and responding to all questions. Eyes: No Pain, No Vision change, No Conjunctivae inflammation, No Eyelid inflammation, No Other, No Redness ENT: No Ear pain, No Ear discharge, No Nose pain, No Nose discharge, No Nose congestion, No Mouth pain, No Mouth swelling, No Throat pain, No Throat swelling, No Other Cardiovascular: No Chest Pain, No Palpitations, No Orthopnea, No Paroxysmal No Dyspnea, No Edema, No Lt Headedness, No Other Respiratory: No Cough, No Dry, No Shortness of breath, No SOB with exertion, No Wheezing, No Hemoptysis, No Pleuritic Pain, No Sputum, No Other Gastrointestinal: No Nausea, No Vomiting, No Abdominal Pain, No Diarrhea, No Constipation, No Melena, No Hematochezia, No Other Genitourinary: No Dysuria, No Frequency, No Incontinence, No Hematuria, No Retention, No Other Musculoskeletal: No other, No neck pain, No shoulder pain, No arm pain, No back pain, No hand pain, leg pain, foot pain Skin: Rash, No Lesions, No Jaundice, No Bruising, No Other Objective vital signs Vital Sign Date Time Temp Pulse Resp B/P (MAP) Pulse Ox O2 Delivery O2 Flow Rate FiO2 09/06/25 09:08 137/74 09/06/25 08:58 98.1 87 20 97 98.1 09/06/25 08:00 Room Air* 0 21 Total Intake and Output 09/05/25 09/05/25 09/06/25 15:00 23:00 07:00 Intake Total 100 ml 200 ml 650 ml Output Total 200 ml 1300 ml Balance 100 ml 0 ml -650 ml medications Current Medications Medications Dose Ordered Sig/Denae Route Start Time Stop Time Status Last Admin Dose Admin Amlodipine Besylate 5 mg DAILY PO 09/05/25 10:00 09/06/25 09:08 5 MG Clonidine HCl 0.1 mg Q4HP PRN PO 09/04/25 23:45 09/05/25 22:22 0.1 MG Acetaminophen/ Hydrocodone Bitart 1 tab Q4HP PRN PO 09/04/25 23:45 09/05/25 10:25 1 TAB Ondansetron HCl 4 mg Q4HP PRN IV 09/04/25 23:45 Docusate Sodium 100 mg BIDPRN PRN PO 09/04/25 23:45 Zinc Sulfate 220 mg DAILY PO 09/05/25 10:00 09/06/25 09:03 220 MG Ascorbic Acid 500 mg BID PO 09/05/25 10:00 09/06/25 09:03 500 MG Multivitamins 1 tab DAILY PO 09/05/25 10:00 09/06/25 09:03 1 TAB Acetaminophen 650 mg Q6HP PRN PO 09/04/25 23:45 Nitroglycerin 0.4 mg Q5MINP PRN SL 09/04/25 23:45 Morphine Sulfate 2 mg Q30M PRN IV 09/04/25 23:45 Aspirin 81 mg DAILY PO 09/05/25 10:00 09/06/25 09:09 81 MG Enoxaparin Sodium 40 mg DAILY SC 09/05/25 10:00 09/06/25 09:09 40 MG Piperacillin Sod/ Tazobactam Sod 100 ml @ 25 mls/hr Q8H IV 09/05/25 09:45 09/06/25 09:03 25 MLS/HR Vancomycin HCl 0 ml @ 0 mls/hr PER PHARMACY IV 09/05/25 23:45 Micafungin Sodium 100 mg/Sodium Chloride 100 ml @ 100 mls/hr DAILY IV 09/07/25 10:00 Vancomycin HCl 250 ml @ 250 mls/hr Q12H IV 09/06/25 14:15 Examination General Appearance: Generalized weakness. Cachectic, thin Head Exam: Normal inspection Neck Exam: Normal inspection. Non-tender. Normal alignment Pulmonary/Respiratory: Diminished breath sounds. Chest non-tender. Clear bilateral breath sounds, no crackles, no wheezing. Cardiovascular/Chest: Regular rate and rhythm. Systolic murmurs. No JVD. Peripheral Pulses: 2+ Radial (R). 2+ Radial (L). 2+ Pedal (R). 2+ Pedal (L) Abdominal Exam: Normal bowel sounds. Soft. normal abdomen, no visible veins, Nontender. No hepatospenomegaly. No masses Ankle Exam: Negative ankle edema Lower extremities: Bilateral leg swelling, multiple scabs, and shallow lacerations on both legs. Pedal edema Neuro/Mental Status: A&O x2. Coherent. Thoughts/Psych: Normal thought pattern. Appropriate mood and affect. Good judgement and insight Skin Exam: Normal inspection. Normal color. Warm. Dry laboratory and microbiology Laboratory Tests 09/06/25 12:56 09/06/25 11:32 Test 09/06/25 11:32 Range/Units Serum Glucose 74 74-106 mg/dL Microbiology Date/Time Source Procedure Growth Status 09/05/25 11:23 Leg Right Gram Stain - Final Resulted 09/05/25 11:23 Leg Right Wound Culture - Preliminary Resulted 09/04/25 21:29 Blood Blood Culture - Preliminary NO GROWTH AFTER 24 HOURS OF INCUBATION. Resulted Labs and/or images reviewed: Labs reviewed by me, Image(s) reviewed by me Problem List/Assessment/Plan Problem List/Assessment/Plan # Tuberculosis vs Fungal infection # Rule out malignancy # Sepsis due to above # Left pleural effusion # Acute hypoxic respiratory failure # Chronic normocytic anemia Chest CT: Focal consolidation in involving large portions of the left upper lobe with cavitation near the left lung apex, likely infectious or inflammatory etiology. Small left pleural effusion. Chest X-ray: Left perihilar to hilar hazy opacification which may reflect underlying infiltrate however cystic lung change in the left lung apex with a surrounding opacification. Echocardiogram pending QuantiFERON-TB Gold - 09/06 still pending Zinc sulfate 220 Mg PO daily Zosyn IV q8h Zofran 4 MG IV q4h Nitroglycerin 0.4 MG SL q5 Multiple vitamin pain management with Morphin and [place] Lovenox 40 Mg SC daily Clonidine 0.1 MG PO q4h Aspirin 81 MG PO daily Vitamin C 500 Mg PO bid Amlodipine 5 MG PO daily IV NS 1000 mL UA and UDS ABG Blood culture Wound culture Infectious disease consult Wound consult Dietary consult MRSA negative Started 09/03 Vancomycin per pharmacy Diet: Cardiac DVT prophylaxis: Lovenox 40mg Goals of care: Full code Plan discussed with patient Plan discussed with Dr. Bolton Plan discussed with: Patient, Other (RN) My Orders My Orders Orders - KAYE LEONARDO Procedure Category Date Status Time Basic Metabolic Panel LAB 09/07/25 Verified 04:00 Complete Blood Count LAB 09/07/25 Verified 04:00 Visit Coding STANDARD RES Billing Provider: CRYSTAL ROMEO MD Date of Service if different f: Sep 06, 2025 Common Visit Codes: [id number] INP/OBS CARE(HIGH) KAYE LEONARDO Sep 06, 2025 14:25
--- NOTE | 2025-09-06 16:19 | DVHSR ---
APPROVED REPORT EXAM: Two-dimensional and M-mode echocardiogram with Doppler and color Doppler. Blood Pressure: 137/74 mmHg INDICATION Dyspnea RISK FACTORS Height: 5'3", Weight: 99 DIMENSIONS LVDd 2.0 (3.8-5.7cm) LA (2D) 3.4 (1.9-4.0cm) Aortic Root 2.7 (2.0-3.7cm) LVDs 1.4 (2.5-4.0cm) LA (MM) (1.9-4.0cm) Aortic Cusp Exc 0.6 (1.5-2.0cm) EF (%) 60.0 (55-70%) Rt. Atrium 3.3 (1.9-4.0cm) Asc. Aorta 2.1 cm IVSd 1.4 (0.7-1.1cm) RV (D) (1.8-2.4cm) PWd 1.3 (0.7-1.1cm) Mitral Valve Mitral Mitral Stenosis E/A ratio 0.0 2D MVA cm2 Aortic Valve Aortic Valve Aortic Stenosis V1 1.09m/s AO Mean GR. 11mmHg V2 2.29m/s AO Peak GR. 21mmHg LVOT Diameter 1.9 (1.8-2.4cm) Doppler TANO 1.35cm2 2D TANO 1.06cm2 Tricuspid Valve TR Velocity 2.90m/s RVSP 42mmHg Other Information Quality : Technically Limited Rhythm : Technically limited study due to body habitus and patient position. Conclusion lvef 60% severe lvh aortic sclerosis, modeate to severe , TANO by planimeter is 1.1 cm2 mean gradient is 11 mmhg, this is closer to a mild (coronary CT calcium of AV can be helpful) RV enlarged left atrium enlarged
[2025-09-06] MEDS: VANCOMYCIN 1GM/250ML KIT 250 ML IV SCH (16:20)
--- NOTE | 2025-09-06 21:20 | DVH ---
EXAMINATION: CT LOWER EXTREMITY NON JOINT RIGH INDICATION: CELLULITIS COMPARISON: CT LEFT LOWER EXTREMITY W/O CON on DOS: 09/06/25 TECHNIQUE: CT of the right leg was performed without contrast. Volume transverse images were obtained reconstructed in multiple planes using bone and soft tissue algorithms. FINDINGS: Large [id number] limits assessment. Mild subcutaneous stranding in the lower leg. Superficial appearing ulceration at the medial aspect of the proximal lower leg with dressing material in place. Circumferential subcutaneous stranding and edema from the mid to distal lower leg extending into the ankle and foot, slightly greater in degree than the imaged portions of the contralateral leg. No obvious fluid collection. Soft tissue gas. Diffuse osteopenia without erosion or periostitis to suggest osteomyelitis. No obvious hip or knee effusion. Mild appearing degenerative change. Unremarkable CT appearance of muscles and tendons. Peripheral atherosclerosis. IMPRESSION: 1. Soft tissue ulceration at the medial aspect of the proximal lower leg. No evidence of abscess or osteomyelitis by noncontrast CT assessment. 2. Asymmetric subcutaneous fluid in the mid to distal lower leg extending to the foot, which may be passive or infectious/inflammatory.
[2025-09-07] VITALS (8 sets, daily range): BP systolic 107–162; BP diastolic 63–91; PULSE 65–91; RESP 16–18; TEMP 97.9–98.3; O2SAT 92–97
[2025-09-07 10:23] LABS: Nucleated Red Blood Cells % 0.1 %
[2025-09-07 10:25] LABS: Hematocrit 34.9 % (36.0-46.0); Hemoglobin 11.6 g/dL (12.2-16.2); Mean Corpuscular Hemoglobin 30.6 pg (28.0-32.0); Mean Corpuscular Volume 92.4 fL (80.0-100.0)
[2025-09-07 10:32] LABS: Anion Gap 7 (5-15); Chloride 100 mmol/L (98-107); Potassium 5.0 mmol/L (3.5-5.1); Sodium 139 mmol/L (136-145)
[2025-09-07 10:33] LABS: Calcium 9.0 mg/dL (8.7-10.4)
[2025-09-07 10:38] LABS: BUN/Creatinine Ratio 14.3 (10.0-20.0); Glucose 78 mg/dL (74-106)
[2025-09-07 10:42] LABS: Blood Urea Nitrogen 7 mg/dL (9-23); Carbon Dioxide 32 mmol/L (20-31)
[2025-09-07] MEDS: MICAFUNGIN SODIUM 100 MG in SODIUM CHL 0.9% 100 ML IV SCH (10:47)
--- NOTE | 2025-09-07 14:42 | DVHPNRES ---
Progress Note Date Seen: Sep 07, 2025 Resident Creating Document: KAYE LEONARDO Medical Necessity Reason Pt with a Central, PICC or Fol: No Subjective Review of Systems Patient is a 64-year-old female with past medical history of HTN, presented to [facility] ED with complaint of bilateral lower extremity swelling and open wounds. Patient is poor historian. According to the son, the patient resides with his stepfather, who reportedly does not provide adequate care for her. The son stated that although the patient has been seen by her primary care provider, the issue concerning her legs has never been addressed. Chest x-ray revealing left perihilar to hilar hazy opacification which may reflect underlying infiltrates however cystic lung change in the left lung apex with a surrounding opacification. On 09/06/25, Patient was seen and examined at bedside. Overnight events were reviewed. Patient unable to express her symptoms this morning. On 09/07/25, Patient appeared more alert and responsive. Two sputum samples were successfully collected and sent to the laboratory for analysis. Past surgical history: Denies all surgeries Home medications: Past Hospitalization: Social & Personal history: Smoking >40 years 1 pack a day. Alcohol >20 years. Drug: denies Allergies: none Patient seen and examined at bedside. Patient is alert and oriented to time, place person and responding to all questions. Eyes: No Pain, No Vision change, No Conjunctivae inflammation, No Eyelid inflammation, No Other, No Redness ENT: No Ear pain, No Ear discharge, No Nose pain, No Nose discharge, No Nose congestion, No Mouth pain, No Mouth swelling, No Throat pain, No Throat swelling, No Other Cardiovascular: No Chest Pain, No Palpitations, No Orthopnea, No Paroxysmal No Dyspnea, No Edema, No Lt Headedness, No Other Respiratory: No Cough, No Dry, No Shortness of breath, No SOB with exertion, No Wheezing, No Hemoptysis, No Pleuritic Pain, No Sputum, No Other Gastrointestinal: No Nausea, No Vomiting, No Abdominal Pain, No Diarrhea, No Constipation, No Melena, No Hematochezia, No Other Genitourinary: No Dysuria, No Frequency, No Incontinence, No Hematuria, No Retention, No Other Musculoskeletal: No other, No neck pain, No shoulder pain, No arm pain, No back pain, No hand pain, leg pain, foot pain Skin: Rash, No Lesions, No Jaundice, No Bruising, No Other Objective vital signs Vital Sign Date Time Temp Pulse Resp B/P (MAP) Pulse Ox O2 Delivery O2 Flow Rate FiO2 09/07/25 09:48 136/74 09/07/25 09:00 97.9 88 18 95 97.9 09/06/25 20:00 Nasal Cannula* 2 28 Total Intake and Output 09/06/25 09/06/25 09/07/25 15:00 23:00 07:00 Intake Total 100 ml 700 ml 475 ml Output Total 575 ml 400 ml Balance 100 ml 125 ml 75 ml medications Current Medications Medications Dose Ordered Sig/Denae Route Start Time Stop Time Status Last Admin Dose Admin Amlodipine Besylate 5 mg DAILY PO 09/05/25 10:00 09/07/25 09:48 5 MG Clonidine HCl 0.1 mg Q4HP PRN PO 09/04/25 23:45 09/07/25 00:44 0.1 MG Acetaminophen/ Hydrocodone Bitart 1 tab Q4HP PRN PO 09/04/25 23:45 09/07/25 00:43 1 TAB Ondansetron HCl 4 mg Q4HP PRN IV 09/04/25 23:45 Docusate Sodium 100 mg BIDPRN PRN PO 09/04/25 23:45 Zinc Sulfate 220 mg DAILY PO 09/05/25 10:00 09/07/25 09:42 220 MG Ascorbic Acid 500 mg BID PO 09/05/25 10:00 09/07/25 09:42 500 MG Multivitamins 1 tab DAILY PO 09/05/25 10:00 09/07/25 09:42 1 TAB Acetaminophen 650 mg Q6HP PRN PO 09/04/25 23:45 Nitroglycerin 0.4 mg Q5MINP PRN SL 09/04/25 23:45 Morphine Sulfate 2 mg Q30M PRN IV 09/04/25 23:45 Aspirin 81 mg DAILY PO 09/05/25 10:00 09/07/25 09:42 81 MG Enoxaparin Sodium 40 mg DAILY SC 09/05/25 10:00 09/07/25 09:42 40 MG Piperacillin Sod/ Tazobactam Sod 100 ml @ 25 mls/hr Q8H IV 09/05/25 09:45 09/07/25 12:21 25 MLS/HR Vancomycin HCl 0 ml @ 0 mls/hr PER PHARMACY IV 09/05/25 23:45 Micafungin Sodium 100 mg/Sodium Chloride 100 ml @ 100 mls/hr DAILY IV 09/07/25 10:00 09/07/25 10:47 100 MLS/HR Vancomycin HCl 250 ml @ 250 mls/hr Q12H IV 09/06/25 14:15 09/07/25 01:59 250 MLS/HR Examination General Appearance: Generalized weakness. Cachectic, thin Head Exam: Normal inspection Neck Exam: Normal inspection. Non-tender. Normal alignment Pulmonary/Respiratory: Diminished breath sounds. Chest non-tender. Clear bilateral breath sounds, no crackles, no wheezing. Cardiovascular/Chest: Regular rate and rhythm. Systolic murmurs. No JVD. Peripheral Pulses: 2+ Radial (R). 2+ Radial (L). 2+ Pedal (R). 2+ Pedal (L) Abdominal Exam: Normal bowel sounds. Soft. normal abdomen, no visible veins, Nontender. No hepatospenomegaly. No masses Ankle Exam: Negative ankle edema Lower extremities: Bilateral leg swelling, multiple scabs, and shallow lacerations on both legs. Pedal edema Neuro/Mental Status: A&O x2. Coherent. Thoughts/Psych: Normal thought pattern. Appropriate mood and affect. Good judgement and insight Skin Exam: Normal inspection. Normal color. Warm. +1 sacral decubitus wound noted. laboratory and microbiology Laboratory Tests 09/07/25 09:30 Test 09/07/25 09:30 Range/Units Serum Glucose 78 74-106 mg/dL Microbiology Date/Time Source Procedure Growth Status 09/06/25 03:30 Nose MRSA Screen - Final Complete 09/06/25 02:06 Voided Urine Urine Culture - Preliminary No growth Resulted 09/04/25 21:29 Blood Blood Culture - Preliminary NO GROWTH AFTER 48 HOURS OF INCUBATION. Resulted Labs and/or images reviewed: Labs reviewed by me, Image(s) reviewed by me Problem List/Assessment/Plan Problem List/Assessment/Plan # Acute respiratory failure # Community acquired pneumonia Gram +/-, rule out tuberculosis, fungal # Rule out malignancy # Sepsis due to above # Left pleural effusion Chest CT: Focal consolidation in involving large portions of the left upper lobe with cavitation near the left lung apex, likely infectious or inflammatory etiology. Small left pleural effusion. Chest X-ray: Left perihilar to hilar hazy opacification which may reflect underlying infiltrate however cystic lung change in the left lung apex with a surrounding opacification. Zinc sulfate 220 Mg PO daily Currently under empiric IV antibiotics (Zosyn, Vancomycin and Micafungin) Lovenox 40 Mg SC daily QuantiFERON-TB Gold negative Ordered panculture Infectious disease consult Wound consult Dietary consult Pending echocardiogram Send out for sample of AFB culture on 09/07/2025 with respiratory induction # Cellulitis of bilateral limbs # Rule out DVT # Rule out osteomyelitis Currently under empiric IV antibiotics (Zosyn, Vancomycin and Micafungin) Ordered pancultures Wound care on board Ordered bilateral lower limb CT and venous US # Hypokalemia Replenished # Chronic normocytic anemia # Thrombocytosis Secondary to sepsis # Severe protein malnutrition (BMI 17.4) Nutritional consult placed # Questionable Dementia On multivitamins To be evaluated as outpatient Diet: Cardiac DVT prophylaxis: Lovenox 40mg Goals of care: Full code Plan discussed with patient Plan discussed with Dr. Grijalva Plan discussed with: Patient, Other (RN) My Orders My Orders Orders - KAYE LEONARDO RESIDENT Procedure Category Date Status Time Notify Provider NOTICE 09/06/25 Transmitted Malnutrition 16:18 Dietary Evaluation Review Recommendations by RD: Increase Calorie Intake Comments: Nutrition Recommendation 1) Ensure high protein 240ml TID 2) Lukas 1 pk BID 3) Monitor PO intake, lab values, weight trend, and I/O Expected Outcomes/Goals: Gain/maintain body weight Wound to improve FU 3-5 days Body Fat Depletion (Severe): Mod to Severe Depletion Muscle Mass (Severe): Mod to Severe Depletion Fluid Accumulation (Non Severe: Mild fluid retention Protein Calorie Malnutrition: Severe Visit Coding STANDARD RES Billing Provider: CRYSTAL GRIJALVA MD Date of Service if different f: Sep 07, 2025 Common Visit Codes: [id number] INP/OBS CARE(HIGH) KAYE LEONARDO RESIDENT Sep 07, 2025 14:42 RUPALI CHILDS Sep 07, 2025 23:00
[2025-09-07] MEDS: PIPERACILLIN-TAZOB 3.375GM 100 ML IV SCH (21:00)
[2025-09-08] VITALS (8 sets, daily range): BP systolic 118–144; BP diastolic 63–87; PULSE 69–88; RESP 16–18; TEMP 97.8–98.3; O2SAT 95–98
[2025-09-08] MEDS: VANCOMYCIN 750MG KIT 100 ML IV SCH (00:29)
[2025-09-08 06:06] LABS: Hematocrit 34.8 % (36.0-46.0); Hemoglobin 11.4 g/dL (12.2-16.2); Mean Corpuscular Hemoglobin 30.5 pg (28.0-32.0); Mean Corpuscular Volume 92.9 fL (80.0-100.0); Nucleated Red Blood Cells % 0.2 %
[2025-09-08 06:17] LABS: Anion Gap 7 (5-15); Carbon Dioxide 30 mmol/L (20-31); Chloride 102 mmol/L (98-107); Potassium 3.7 mmol/L (3.5-5.1); Sodium 139 mmol/L (136-145)
[2025-09-08 06:23] LABS: BUN/Creatinine Ratio 12.8 (10.0-20.0); Glucose 80 mg/dL (74-106)
[2025-09-08 06:26] LABS: Blood Urea Nitrogen 6 mg/dL (9-23); Calcium 8.6 mg/dL (8.7-10.4)
--- NOTE | 2025-09-08 13:20 | DVHPNRES ---
Progress Note Date Seen: Sep 08, 2025 Resident Creating Document: KAYE LEONARDO Medical Necessity Reason Pt with a Central, PICC or Fol: Yes (RN) The following are medically ne: Rivas Catheter Subjective Review of Systems Patient is a 64-year-old female with past medical history of HTN, presented to [facility] ED with complaint of bilateral lower extremity swelling and open wounds. Patient is poor historian. According to the son, the patient resides with his stepfather, who reportedly does not provide adequate care for her. The son stated that although the patient has been seen by her primary care provider, the issue concerning her legs has never been addressed. Chest x-ray revealing left perihilar to hilar hazy opacification which may reflect underlying infiltrates however cystic lung change in the left lung apex with a surrounding opacification. On 09/06/25, Patient was seen and examined at bedside. Overnight events were reviewed. Patient unable to express her symptoms this morning. On 09/07/25, Patient appeared more alert and responsive. Two sputum samples were successfully collected and sent to the laboratory for analysis. On 09/08/25, QuantiFERON-TB Gold negative; sputum samples collected and sent to lab yesterday, results pending. Wound care ongoing. Past surgical history: Denies all surgeries Home medications: Past Hospitalization: Social & Personal history: Smoking >40 years 1 pack a day. Alcohol >20 years. Drug: denies Allergies: none Patient seen and examined at bedside. Patient is alert and oriented to time, place person and responding to all questions. Eyes: No Pain, No Vision change, No Conjunctivae inflammation, No Eyelid inflammation, No Other, No Redness ENT: No Ear pain, No Ear discharge, No Nose pain, No Nose discharge, No Nose congestion, No Mouth pain, No Mouth swelling, No Throat pain, No Throat swelling, No Other Cardiovascular: No Chest Pain, No Palpitations, No Orthopnea, No Paroxysmal No Dyspnea, No Edema, No Lt Headedness, No Other Respiratory: No Cough, No Dry, No Shortness of breath, No SOB with exertion, No Wheezing, No Hemoptysis, No Pleuritic Pain, No Sputum, No Other Gastrointestinal: No Nausea, No Vomiting, No Abdominal Pain, No Diarrhea, No Constipation, No Melena, No Hematochezia, No Other Genitourinary: No Dysuria, No Frequency, No Incontinence, No Hematuria, No Retention, No Other Musculoskeletal: No other, No neck pain, No shoulder pain, No arm pain, No back pain, No hand pain, leg pain, foot pain Skin: Rash, No Lesions, No Jaundice, No Bruising, No Other Objective vital signs Vital Sign Date Time Temp Pulse Resp B/P (MAP) Pulse Ox O2 Delivery O2 Flow Rate FiO2 09/08/25 10:03 144/75 09/08/25 08:35 97.8 73 18 98 97.8 09/08/25 08:00 Room Air* 0 21 Total Intake and Output 09/07/25 09/07/25 09/08/25 15:00 23:00 07:00 Intake Total 100 ml 350 ml 700 ml Output Total 1700 ml Balance 100 ml 350 ml -1000 ml medications Current Medications Medications Dose Ordered Sig/Denae Route Start Time Stop Time Status Last Admin Dose Admin Amlodipine Besylate 5 mg DAILY PO 09/05/25 10:00 09/08/25 10:03 5 MG Clonidine HCl 0.1 mg Q4HP PRN PO 09/04/25 23:45 09/07/25 00:44 0.1 MG Acetaminophen/ Hydrocodone Bitart 1 tab Q4HP PRN PO 09/04/25 23:45 09/08/25 00:25 1 TAB Ondansetron HCl 4 mg Q4HP PRN IV 09/04/25 23:45 Docusate Sodium 100 mg BIDPRN PRN PO 09/04/25 23:45 Zinc Sulfate 220 mg DAILY PO 09/05/25 10:00 09/08/25 09:58 220 MG Ascorbic Acid 500 mg BID PO 09/05/25 10:00 09/08/25 09:58 500 MG Multivitamins 1 tab DAILY PO 09/05/25 10:00 09/08/25 10:04 1 TAB Acetaminophen 650 mg Q6HP PRN PO 09/04/25 23:45 Nitroglycerin 0.4 mg Q5MINP PRN SL 09/04/25 23:45 Morphine Sulfate 2 mg Q30M PRN IV 09/04/25 23:45 Aspirin 81 mg DAILY PO 09/05/25 10:00 09/08/25 09:57 81 MG Enoxaparin Sodium 40 mg DAILY SC 09/05/25 10:00 09/08/25 10:03 40 MG Vancomycin HCl 0 ml @ 0 mls/hr PER PHARMACY IV 09/05/25 23:45 Micafungin Sodium 100 mg/Sodium Chloride 100 ml @ 100 mls/hr DAILY IV 09/07/25 10:00 09/08/25 09:56 100 MLS/HR Vancomycin HCl 100 ml @ 100 mls/hr Q8H IV 09/08/25 00:00 09/08/25 08:13 100 MLS/HR Piperacillin Sod/ Tazobactam Sod 100 ml @ 25 mls/hr Q8H IV 09/07/25 20:00 09/08/25 12:53 25 MLS/HR Examination General Appearance: Generalized weakness. Cachectic, thin Head Exam: Normal inspection Neck Exam: Normal inspection. Non-tender. Normal alignment Pulmonary/Respiratory: Diminished breath sounds. Chest non-tender. Clear bilateral breath sounds, no crackles, no wheezing. Cardiovascular/Chest: Regular rate and rhythm. Systolic murmurs. No JVD. Peripheral Pulses: 2+ Radial (R). 2+ Radial (L). 2+ Pedal (R). 2+ Pedal (L) Abdominal Exam: Normal bowel sounds. Soft. normal abdomen, no visible veins, Nontender. No hepatospenomegaly. No masses Ankle Exam: Negative ankle edema Lower extremities: Bilateral leg swelling, multiple scabs, and shallow lacerations on both legs. Pedal edema Neuro/Mental Status: A&O x2. Coherent. Thoughts/Psych: Normal thought pattern. Appropriate mood and affect. Good judgement and insight Skin Exam: Normal inspection. Normal color. Warm. +1 sacral decubitus wound noted. laboratory and microbiology Laboratory Tests 09/08/25 05:11 Test 09/08/25 05:11 Range/Units Serum Glucose 80 74-106 mg/dL Microbiology Date/Time Source Procedure Growth Status 09/07/25 15:13 Sputum Gram Stain - Final Resulted 09/07/25 15:13 Sputum Respiratory Culture - Preliminary No growth Resulted 09/06/25 03:30 Nose MRSA Screen - Final Complete 09/06/25 02:06 Voided Urine Urine Culture - Final Complete 09/04/25 21:29 Blood Blood Culture - Preliminary NO GROWTH AFTER 72 HOURS OF INCUBATION. Resulted Labs and/or images reviewed: Labs reviewed by me, Image(s) reviewed by me Problem List/Assessment/Plan Problem List/Assessment/Plan Problem List/Assessment/Plan # Acute respiratory failure # Acute on chronic, diastolic, congestive heart failure (HFpEF, EF 60%) # Community acquired pneumonia Gram +/-, rule out tuberculosis, fungal # Rule out malignancy # Sepsis due to above # Left pleural effusion Chest CT: Focal consolidation in involving large portions of the left upper lobe with cavitation near the left lung apex, likely infectious or inflammatory etiology. Small left pleural effusion. Chest X-ray: Left perihilar to hilar hazy opacification which may reflect underlying infiltrate however cystic lung change in the left lung apex with a surrounding opacification. Zinc sulfate 220 Mg PO daily Currently under empiric IV antibiotics (Zosyn, Vancomycin and Micafungin) Lovenox 40 Mg SC daily QuantiFERON-TB Gold negative Ordered panculture Infectious disease consult Wound consult: Enterobacter cloacae, Staphylococcus aureus Dietary consult Echocardiogram: lvef 60%. severe lvh. aortic sclerosis, modeate to severe , TANO by planimeter is 1.1 cm2 mean gradient is 11 mmhg, this is closer to a mild (coronary CT calcium of AV can be helpful). RV enlarged. left atrium enlarged Send out for sample of AFB culture on 09/07/2025 with respiratory induction # Cellulitis of bilateral limbs # Ruled out DVT # Ruled out osteomyelitis Lower Extremity CT: Soft tissue swelling with no obvious CT evidence for osteomyelitis. Extremity Venous Study: No right or left femoropopliteal venous thrombosis. Currently under empiric IV antibiotics (Zosyn, Vancomycin and Micafungin) Ordered pancultures Wound care on board Ordered bilateral lower limb CT and venous US # Hypokalemia Replenished # Chronic normocytic anemia # Thrombocytosis Secondary to sepsis # Severe protein malnutrition (BMI 17.4) Nutritional consult placed # Questionable Dementia On multivitamins To be evaluated as outpatient Diet: Cardiac DVT prophylaxis: Lovenox 40mg Goals of care: Full code Plan discussed with patient Plan discussed with Dr. Grijalva Plan discussed with: Patient, Other (RN) Dietary Evaluation Review Recommendations by RD: Increase Calorie Intake Comments: Nutrition Recommendation 1) Ensure high protein 240ml TID 2) Lukas 1 pk BID 3) Monitor PO intake, lab values, weight trend, and I/O Expected Outcomes/Goals: Gain/maintain body weight Wound to improve FU 3-5 days Body Fat Depletion (Severe): Mod to Severe Depletion Muscle Mass (Severe): Mod to Severe Depletion Fluid Accumulation (Non Severe: Mild fluid retention Protein Calorie Malnutrition: Severe Visit Coding STANDARD RES Billing Provider: CRYSTAL GRIJALVA MD Date of Service if different f: Sep 08, 2025 Common Visit Codes: [id number] INP/OBS CARE(HIGH) JORDENLORELEIASHTYN RESIDENT Sep 08, 2025 13:20
[2025-09-09] VITALS (7 sets, daily range): BP systolic 125–144; BP diastolic 64–97; PULSE 61–84; RESP 15–19; TEMP 97.5–98; O2SAT 94–97
[2025-09-09] MEDS: VANCOMYCIN 750MG KIT 100 ML IV SCH (01:05)
[2025-09-09 06:16] LABS: Anion Gap 8 (5-15); Carbon Dioxide 30 mmol/L (20-31); Chloride 103 mmol/L (98-107); Sodium 141 mmol/L (136-145)
[2025-09-09 06:18] LABS: Hematocrit 31.4 % (36.0-46.0); Hemoglobin 10.5 g/dL (12.2-16.2); Mean Corpuscular Hemoglobin 30.5 pg (28.0-32.0); Mean Corpuscular Volume 91.5 fL (80.0-100.0); Nucleated Red Blood Cells % 0.1 %
[2025-09-09 06:22] LABS: BUN/Creatinine Ratio 15.1 (10.0-20.0); Glucose 84 mg/dL (74-106)
[2025-09-09 06:26] LABS: Blood Urea Nitrogen 8 mg/dL (9-23); Calcium 8.4 mg/dL (8.7-10.4); Potassium 3.1 mmol/L (3.5-5.1)
[2025-09-09] MEDS: POTASSIUM EFFERVESENT TAB 25 MEQ PO ONE (12:27)
--- NOTE | 2025-09-09 13:46 | DVHPNRES ---
Progress Note Date Seen: Sep 09, 2025 Resident Creating Document: KAYE LEONARDO Medical Necessity Reason Pt with a Central, PICC or Fol: Yes (RN) The following are medically ne: Rivas Catheter Subjective Review of Systems Patient is a 64-year-old female with past medical history of HTN, presented to [facility] ED with complaint of bilateral lower extremity swelling and open wounds. Patient is poor historian. According to the son, the patient resides with his stepfather, who reportedly does not provide adequate care for her. The son stated that although the patient has been seen by her primary care provider, the issue concerning her legs has never been addressed. Chest x-ray revealing left perihilar to hilar hazy opacification which may reflect underlying infiltrates however cystic lung change in the left lung apex with a surrounding opacification. On 09/06/25, Patient was seen and examined at bedside. Overnight events were reviewed. Patient unable to express her symptoms this morning. On 09/07/25, Patient appeared more alert and responsive. Two sputum samples were successfully collected and sent to the laboratory for analysis. On 09/08/25, QuantiFERON-TB Gold negative; sputum samples collected and sent to lab yesterday, results pending. Wound care ongoing. On 09/09/25, Patient stable, no acute distress. Airborne precautions ongoing for suspected/confirmed TB. Rivas and IV access intact. Final sputum for AFB was collected today. Past surgical history: Denies all surgeries Home medications: Past Hospitalization: Social & Personal history: Smoking >40 years 1 pack a day. Alcohol >20 years. Drug: denies Allergies: none Patient seen and examined at bedside. Patient is alert and oriented to time, place person and responding to all questions. Eyes: No Pain, No Vision change, No Conjunctivae inflammation, No Eyelid inflammation, No Other, No Redness ENT: No Ear pain, No Ear discharge, No Nose pain, No Nose discharge, No Nose congestion, No Mouth pain, No Mouth swelling, No Throat pain, No Throat swelling, No Other Cardiovascular: No Chest Pain, No Palpitations, No Orthopnea, No Paroxysmal No Dyspnea, No Edema, No Lt Headedness, No Other Respiratory: No Cough, No Dry, No Shortness of breath, No SOB with exertion, No Wheezing, No Hemoptysis, No Pleuritic Pain, No Sputum, No Other Gastrointestinal: No Nausea, No Vomiting, No Abdominal Pain, No Diarrhea, No Constipation, No Melena, No Hematochezia, No Other Genitourinary: No Dysuria, No Frequency, No Incontinence, No Hematuria, No Retention, No Other Musculoskeletal: No other, No neck pain, No shoulder pain, No arm pain, No back pain, No hand pain, leg pain, foot pain Skin: Rash, No Lesions, No Jaundice, No Bruising, No Other Objective vital signs Vital Sign Date Time Temp Pulse Resp B/P (MAP) Pulse Ox O2 Delivery O2 Flow Rate FiO2 09/09/25 09:37 144/97 09/09/25 09:00 97.7 79 17 97 97.7 09/09/25 08:00 Room Air* 0 21 Total Intake and Output 09/08/25 09/08/25 09/09/25 15:00 23:00 07:00 Intake Total 200 ml 350 ml 200 ml Output Total 275 ml Balance 200 ml 75 ml 200 ml medications Current Medications Medications Dose Ordered Sig/Denae Route Start Time Stop Time Status Last Admin Dose Admin Amlodipine Besylate 5 mg DAILY PO 09/05/25 10:00 09/09/25 09:37 5 MG Clonidine HCl 0.1 mg Q4HP PRN PO 09/04/25 23:45 09/07/25 00:44 0.1 MG Acetaminophen/ Hydrocodone Bitart 1 tab Q4HP PRN PO 09/04/25 23:45 09/08/25 00:25 1 TAB Ondansetron HCl 4 mg Q4HP PRN IV 09/04/25 23:45 Docusate Sodium 100 mg BIDPRN PRN PO 09/04/25 23:45 Zinc Sulfate 220 mg DAILY PO 09/05/25 10:00 09/09/25 09:37 220 MG Ascorbic Acid 500 mg BID PO 09/05/25 10:00 09/09/25 09:37 500 MG Multivitamins 1 tab DAILY PO 09/05/25 10:00 09/09/25 09:37 1 TAB Acetaminophen 650 mg Q6HP PRN PO 09/04/25 23:45 Nitroglycerin 0.4 mg Q5MINP PRN SL 09/04/25 23:45 Morphine Sulfate 2 mg Q30M PRN IV 09/04/25 23:45 Aspirin 81 mg DAILY PO 09/05/25 10:00 09/09/25 09:37 81 MG Enoxaparin Sodium 40 mg DAILY SC 09/05/25 10:00 09/09/25 09:37 40 MG Vancomycin HCl 0 ml @ 0 mls/hr PER PHARMACY IV 09/05/25 23:45 Micafungin Sodium 100 mg/Sodium Chloride 100 ml @ 100 mls/hr DAILY IV 09/07/25 10:00 09/09/25 10:00 100 MLS/HR Piperacillin Sod/ Tazobactam Sod 100 ml @ 25 mls/hr Q8H IV 09/07/25 20:00 09/09/25 13:21 25 MLS/HR Vancomycin HCl 100 ml @ 100 mls/hr Q10H IV 09/09/25 00:00 09/09/25 12:26 100 MLS/HR laboratory and microbiology Laboratory Tests 09/09/25 04:55 Test 09/09/25 04:55 Range/Units Serum Glucose 84 74-106 mg/dL Microbiology Date/Time Source Procedure Growth Status 09/07/25 15:13 Sputum Gram Stain - Final Resulted 09/07/25 15:13 Sputum Respiratory Culture - Preliminary Resulted 09/06/25 03:30 Nose MRSA Screen - Final Complete 09/06/25 02:06 Voided Urine Urine Culture - Final Complete 09/04/25 21:29 Blood Blood Culture - Preliminary NO GROWTH AFTER 72 HOURS OF INCUBATION. Resulted Labs and/or images reviewed: Labs reviewed by me, Image(s) reviewed by me Problem List/Assessment/Plan Problem List/Assessment/Plan Problem List/Assessment/Plan # Acute respiratory failure # Acute on chronic, diastolic, congestive heart failure (HFpEF, EF 60%) # Community acquired pneumonia Gram +/-, rule out tuberculosis, fungal # Rule out malignancy # Sepsis due to above # Left pleural effusion Chest CT: Focal consolidation in involving large portions of the left upper lobe with cavitation near the left lung apex, likely infectious or inflammatory etiology. Small left pleural effusion. Chest X-ray: Left perihilar to hilar hazy opacification which may reflect underlying infiltrate however cystic lung change in the left lung apex with a surrounding opacification. Zinc sulfate 220 Mg PO daily Currently under empiric IV antibiotics (Zosyn, Vancomycin and Micafungin) Lovenox 40 Mg SC daily QuantiFERON-TB Gold negative Ordered panculture Infectious disease consult Wound consult: Enterobacter cloacae, Staphylococcus aureus Dietary consult Echocardiogram: lvef 60%. severe lvh. aortic sclerosis, modeate to severe , TANO by planimeter is 1.1 cm2 mean gradient is 11 mmhg, this is closer to a mild (coronary CT calcium of AV can be helpful). RV enlarged. left atrium enlarged Send out for sample of AFB culture on 09/07/2025 with respiratory induction # Cellulitis of bilateral limbs # Ruled out DVT # Ruled out osteomyelitis Lower Extremity CT: Soft tissue swelling with no obvious CT evidence for osteomyelitis. Extremity Venous Study: No right or left femoropopliteal venous thrombosis. Currently under empiric IV antibiotics (Zosyn, Vancomycin and Micafungin) Ordered pancultures Wound care on board Ordered bilateral lower limb CT and venous US # Hypokalemia Replenished # Chronic normocytic anemia # Thrombocytosis Secondary to sepsis # Severe protein malnutrition (BMI 17.4) Nutritional consult placed # Questionable Dementia On multivitamins To be evaluated as outpatient Diet: Cardiac DVT prophylaxis: Lovenox 40mg Goals of care: Full code Plan discussed with patient Plan discussed with Dr. Grijalva Plan discussed with: Patient, Other (RN) My Orders My Orders Orders - KAYE LEONARDO Procedure Category Date Status Time Complete Blood Count LAB 09/10/25 Verified 04:00 Basic Metabolic Panel LAB 09/10/25 Verified 04:00 Dietary Evaluation Review Recommendations by RD: Increase Calorie Intake Comments: Nutrition Recommendation 1) Ensure high protein 240ml TID 2) Lukas 1 pk BID 3) Monitor PO intake, lab values, weight trend, and I/O Expected Outcomes/Goals: Gain/maintain body weight Wound to improve FU 3-5 days Body Fat Depletion (Severe): Mod to Severe Depletion Muscle Mass (Severe): Mod to Severe Depletion Fluid Accumulation (Non Severe: Mild fluid retention Protein Calorie Malnutrition: Severe Visit Coding STANDARD RES Billing Provider: CRYSTAL GRIJALVA MD Date of Service if different f: Sep 09, 2025 Common Visit Codes: [id number] INP/OBS CARE(HIGH) KAYE LEONARDO Sep 09, 2025 13:46
--- NOTE | 2025-09-09 18:09 | DVHINCON2 ---
Date of service: Sep 09, 2025 Family History: Patient reports no known family medical history. Allergies: Coded Allergies: NO KNOWN ALLERGIES (Unverified , 09/04/25) Home Meds No Active Prescriptions or Reported Meds Current Medications Current Medications Medications (Trade) Dose Ordered Sig/Denae Route PRN Reason Start Time Stop Time Status Last Admin Vancomycin HCl 100 ml @ 100 mls/hr Q10H IV 09/09/25 00:00 09/09/25 12:26 Vital Signs Vital Signs Date Time Temp Pulse Resp B/P (MAP) Pulse Ox O2 Delivery O2 Flow Rate FiO2 09/09/25 13:00 97.9 80 16 125/64 (84) 96 97.9 09/09/25 08:00 Room Air* 0 21 Labs/Diagnostic Data Labs Test 09/09/25 04:55 09/08/25 22:59 09/08/25 14:58 09/08/25 07:39 Range/Units White Blood Count 8.0 4.4-10.8 10^3/uL Red Blood Count 3.43 L 4.0-5.20 10^6/uL Hemoglobin 10.5 L 12.2-16.2 g/dL Hematocrit 31.4 L 36.0-46.0 % Mean Corpuscular Volume 91.5 80.0-100.0 fL Mean Corpuscular Hemoglobin 30.5 28.0-32.0 pg Mean Corpuscular Hemoglobin Concent 33.4 32.0-36.0 g/dL Red Cell Distribution Width 14.8 H 11.8-14.3 % Platelet Count 683 H 140-450 10^3/uL Mean Platelet Volume 6.9 6.9-10.8 fL Neutrophils (%) (Auto) 71.9 37.0-80.0 % Lymphocytes (%) (Auto) 20.7 10.0-50.0 % Monocytes (%) (Auto) 4.8 0.0-12.0 % Eosinophils (%) (Auto) 1.8 0.0-7.0 % Basophils (%) (Auto) 0.8 0.0-2.0 % Neutrophils # (Auto) 5.8 1.6-8.6 10 ^3/uL Lymphocytes # (Auto) 1.7 0.4-5.4 10 ^3/uL Monocytes # (Auto) 0.4 0-1.3 10 ^3/uL Eosinophils # (Auto) 0.1 0-0.8 10 ^3/uL Basophils # (Auto) 0.1 0-0.2 10 ^3/uL Nucleated Red Blood Cells 0.1 % Sodium Level 141 136-145 mmol/L Potassium Level 3.1 L 3.5-5.1 mmol/L Chloride Level 103 98-107 mmol/L Carbon Dioxide Level 30 20-31 mmol/L Anion Gap 8 5-15 Blood Urea Nitrogen 8 L 9-23 mg/dL Creatinine 0.53 L 0.550-1.02 mg/dL Glomerular Filtration Rate Calc 102 >90 mL/min BUN/Creatinine Ratio 15.1 10.0-20.0 Serum Glucose 84 74-106 mg/dL Calcium Level 8.4 L 8.7-10.4 mg/dL Random Vancomycin Level 12.2 H 5-10 ug/mL Vancomycin Level Trough 21.4 H 5-10 ug/mL Miscellaneous Test Sent to [facility] Test 09/06/25 12:56 09/06/25 02:06 09/05/25 13:28 09/05/25 10:10 Range/Units B-Type Natriuretic Peptide 248.69 0-100 pg/mL Urine Color Light-yellow Yellow Urine Clarity Clear Clear Urine pH 8.0 5.0-9.0 Urine Specific [place] 1.015 1.001-1.035 Urine Protein Negative Negative Urine Ketones Negative Negative Urine Blood 1+ H Negative /uL Urine Nitrite Negative Negative Urine Bilirubin Negative Negative Urine Urobilinogen Normal Negative mg/dL Urine Leukocyte Esterase Negative Negative /uL Urine RBC 36 0 - 4 /hpf Urine Microscopic WBC 1 0-5 /HPF Urine Squamous Epithelial Cells None seen <5 /hpf Urine Bacteria None seen None Seen /hpf Urine Glucose Normal Normal mg/dL Urine Opiates Screen Neg NEGATIVE Urine Fentanyl Screen Neg NEGATIVE Urine Barbiturates Screen Neg NEGATIVE Urine Phencyclidine Screen Neg NEGATIVE Urine Amphetamines Screen Neg NEGATIVE Urine Benzodiazepines Screen Neg NEGATIVE Urine Cocaine Screen Neg NEGATIVE Urine Cannabinoids Screen Neg NEGATIVE TB Test (QFT) Gold Plus Negative Negative TB Test (QFT) Nil 0.04 . IU/mL TB Test (QFT) Mitogen >10.00 . IU/mL TB Test (QFT) Antigen 1 0.06 . IU/mL TB Test (QFT) Antigen 2 0.04 . IU/mL TB Test (QFT) Criteria Comment . Prothrombin Time 10.8 9.3-11.8 sec Prothrombin Time INR 1.02 0.9-1.15 Activated Partial Thromboplast Time 27.3 24.5-34.5 SEC Lactic Acid Level 1.0 0.4-2.0 mmol/L Test 09/05/25 09:53 09/05/25 02:30 09/04/25 22:08 09/04/25 19:55 Range/Units Blood Gas Specimen Type Arterial Blood Gas Sample Site Left radial Blood Gas Patient Temperature 37.0 Arterial Blood Date Drawn [id number] Arterial Blood pH 7.559 *H 7.350-7.450 Arterial Blood Partial Pressure CO2 37.7 32.0-45.0 mmHg Arterial Blood Partial Pressure O2 55.1 L 83.0-108.0 mmHg Arterial Blood HCO3 32.9 H 21.0-28.0 mmol/L Arterial Blood Oxygen Saturation 88.9 L 94.0-98.0 % Arterial Blood Base Excess 10.0 H -2.0-3.0 mmol/L Arterial Blood Oxyhemoglobin 87.3 L 94.0-98.0 % Arterial Blood Carboxyhemoglobin 1.5 0.5-1.5 % Arterial Blood Methemoglobin 0.3 0.0-1.5 % Arterial Blood Deoxyhemoglobin 10.9 H 0.0-5.0 % Tevin Test Yes Blood Gas Total Hemoglobin 11.10 L 12.0-16.0 g/dL Blood Gas Liter Flow 0.00 Blood Gas Modality Room air FiO2 % 21.0 Blood Gas Critical Value Read Back Yes Blood Gas Notified Whom Douglas rogers Blood Gas Notified Time [id number] Blood Gas Notified By Rosa kasper Hemoglobin A1c 5.5 <5.7 % A1C Phosphorus Level 3.2 2.4-5.1 mg/dL Magnesium Level 1.9 1.6-2.6 mg/dL Total Bilirubin 0.4 0.2-1.0 mg/dL Aspartate Amino Transferase (AST) 19 13-40 U/L Alanine Aminotransferase (ALT) 19 7-40 U/L Alkaline Phosphatase 99 46-116 U/L Total Protein 6.6 5.7-8.2 g/dL Albumin 3.2 3.2-4.8 g/dL Triglycerides Level 111 < 150 mg/dL Cholesterol Level 142 < 200 mg/dL LDL Cholesterol 85 < 100 mg/dL HDL Cholesterol 41 40-59 mg/dL Vitamin B12 Level 617 211-911 pg/mL Vitamin D 25-Hydroxy 30.4 30.0-100 ng/mL Free Thyroxine (T4) Calculated 1.18 0.89-1.76 ng/dL Direct Bilirubin 0.1 <0.3 mg/dL Troponin I High Sensitivity 11 </=34 ng/L Thyroid Stimulating Hormone (TSH) 1.16 0.55-4.78 uIU/mL Microbiology Date/Time Source Procedure Growth Status 09/08/25 07:39 Sputum AFB Broth Culture Pending Resulted 09/08/25 07:39 Sputum - Final Resulted 09/08/25 07:39 Sputum - Final Resulted 09/08/25 07:39 Sputum Acid Fast Bacilli Culture Pending Resulted 09/06/25 03:30 Nose MRSA Screen - Final Complete 09/06/25 02:06 Voided Urine Urine Culture - Final Complete 09/04/25 21:29 Blood Blood Culture - Preliminary NO GROWTH AFTER 72 HOURS OF INCUBATION. Resulted Problems(with codes): (1) Pneumonia (2) Physical deconditioning (3) Pedal edema (4) Generalized weakness (5) Open wound of right lower leg (6) Pneumonia, unspecified organism (7) Thrombocytosis Plan/Recommendation ASSESSMENT AND PLAN: ID Problem List: \-- Cavitary pneumonia with concern for TB versus fungal versus other etiologies \-- TB rule out in progress \-- Bilateral lower extremity ulcers with Staphylococcus aureus (MSSA) and Enterobacter cloacae \-- Dementia (poor historian, A\&O x2) \-- Cachexia and weight loss \-- Hypertension \-- Social concerns: limited caregiver support ( unable to care for patient) Assessment: Ms. Jayleen Story is a 64 y.o. female with a past medical history of dementia and hypertension who presents with bilateral lower extremity wounds and a cavitary pulmonary lesion. She is a poor historian. On presentation she was afebrile with tachycardia and normal blood pressure. She appears cachectic and disheveled, with generalized weakness and multiple shallow ulcers on the dorsal, anterior, and posterior aspects of both legs, some extending to the subcutaneous tissue, but without lower extremity edema. Initial labs: WBC 9.2, Hgb 10.7, platelets 625. BUN reported as 139 and 10 in the transcript (value unclear), sodium 139, creatinine 0.47. TSH 1.16. Chest X?ray reportedly shows a left perihilar hazy opacity and a cystic/cavitary- appearing change in the left lung apex with surrounding opacification concerning for fungal versus TB pneumonia. She denies shortness of breath and dizziness but endorses weight loss and subjective fevers (amount unclear). No history of smoking, alcohol use, IV drug use, or travel. No prior surgeries per patient. No known allergies. She has undergone TB rule out with AFB smears negative 3, respiratory culture without growth, and MTB PCR negative 1 to date; QuantiFERON?TB Gold is negative. Wound cultures are growing MSSA and Enterobacter cloacae (not [facility]- induced, per report). She has been treated with vancomycin, piperacillin ?tazobactam (Zosyn), and micafungin. Overall suspicion for active TB is low; fungal pneumonia remains a possible diagnosis along with other infectious and noninfectious causes. Plan: Cavitary pneumonia / possible TB vs fungal vs other etiologies \-- TB rule out in progress: continue airborne isolation per hospital protocol until rule out is complete. \-- AFB smears are negative 3; MTB PCR is negative 1. Obtain one additional MTB PCR; if negative, this will complete the TB rule out per current plan. \-- QuantiFERON?TB Gold is negative; overall clinical suspicion for active TB is low. \-- No need for empiric TB treatment at this time given low suspicion. \-- For possible fungal pneumonia: Obtain/continue routine sputum culture and monitor for fungal growth. Send/confirm fungal testing as planned: Aspergillus antibodies Valley fever (coccidioides) antibodies Fungitell Galactomannan \-- Results can be followed as an outpatient to determine if treatment for cavitary fungal pneumonia is warranted; no empiric micafungin is recommended at this time. \-- Differential for cavitary lesion includes: aspiration pneumonia, bacterial pneumonia, fungal pneumonia, AFB/NTM infection, and noninfectious etiologies including malignancy. \-- Recommend serial chest CT follow?up approximately every 3 months to ensure stability of the cavitary lesion and to monitor for progression. Bilateral lower extremity ulcers (MSSA and Enterobacter cloacae) \-- Current therapy: vancomycin, Zosyn, and micafungin. \-- Given MSSA (not MRSA) and Enterobacter cloacae: Discontinue vancomycin (MSSA identified; no MRSA reported). Discontinue micafungin (no clear indication for empiric antifungal treatment of wounds at this time). Continue Zosyn to treat MSSA and Enterobacter cloacae. \-- Total planned duration: 14 days of antimicrobial therapy for the wounds. At discharge, transition to oral levofloxacin 500 mg PO once daily to complete the 14?day course (including inpatient days). \-- Continue local wound care per primary/wound care team (details not provided in transcript). Cachexia, weight loss, and wound healing support \-- Patient is cachectic with reported weight loss; this may impair wound healing. \-- Recommend formal nutrition evaluation. \-- Encourage increased protein intake to optimize wound healing, per nutrition guidance. Dementia, poor history, and social support concerns \-- Patient has dementia, is A\&O 2, and is a poor historian. She lives with her , who reports that he cannot adequately care for her. \-- Recommend social work consult to: Assess home safety and caregiving capacity. Arrange appropriate support services or alternative placement as needed. Assist with discharge planning in the context of cognitive impairment and limited caregiver support. Isolation Precautions: TB rule?out isolation per hospital protocol (in addition to standard precautions). Assessment and plan were discussed with the patient as able, given dementia. Plan is subject to change pending incorporation of new incoming inf ormation/diagnostics. Updates may be added as an addendum to this note. Thank you for involving Infectious Diseases in the care of this patient. ID will continue to follow. Please contact Infectious Disease with any questions or concerns. Yudy Mcbride M.D. \ History: History obtained from: patient (poor historian due to dementia). Ms. Jayleen Story is a 64 y.o. female with a past medical history of dementia and hypertension who presents with bilateral lower extremity wounds. She lives with her , who reports he is not able to take care of her adequately. She has bilateral leg swelling (by history), multiple scabs, and ulcers on her legs. On exam she is cachectic and appears disheveled. She reports weight loss and subjective fevers (amount not quantified). She denies shortness of breath and dizziness. She reports no travel history. She denies smoking, alcohol use, and IV drug use. She reports no prior surgeries. She has no known allergies. In the ED, her white blood cell count was 9.2, hemoglobin 10.7, platelet count 625, sodium 139, creatinine 0.47, TSH 1.16. BUN was reported as 139 and 10 in the transcript (value unclear). Chest X?ray reportedly showed a left perihilar hazy opacity and a cystic/cavitary?appearing change in the left lung apex with surrounding opacification, possibly concerning for fungal versus TB pneumonia. She was started empirically on Zosyn. She was admitted for TB rule out. To date, AFB smears are negative 3, respiratory culture shows no growth, and QuantiFERON?TB Gold is negative. Wound cultures are growing MSSA and Enterobacter cloacae (reported as not [facility]?induced). She has been treated with vancomycin, Zosyn, and micafungin. Dementia limits her ability to provide a detailed exposure history for TB or other infections. Review of Systems: (ROS limited by dementia; only items explicitly documented in the transcript are listed.) -CONSTITUTIONAL: Endorses weight loss and subjective fevers (amount unclear). -HEENT: Not discussed in transcript. -RESPIRATORY: Denies shortness of breath. -CARDIOVASCULAR: Not discussed in transcript. -GI: Not discussed in transcript. -: Not discussed in transcript. -MSK: Generalized weakness. -SKIN: Bilateral leg wounds/ulcers as described in HPI. -NEUROLOGICAL: A\&O 2. No other neuro ROS elements discussed. -PSYCHIATRIC: Dementia; otherwise ROS not discussed. Past Medical History: \-- Dementia \-- Hypertension (Additional past medical history: not provided in transcript.) Past Surgical History: \-- No prior surgeries per patient. (Additional surgical history: not provided in transcript.) Home Medications: Home medication list: Not provided in transcript. Allergies: \-- No known drug allergies. Family History: Not provided in transcript. Social History: \-- Lives with ; reports he is unable to take care of her. \-- Tobacco: Denies smoking. \-- Alcohol: Denies alcohol use. \-- Illicit drugs: Denies IV drug use. \-- Travel: No travel history per patient. \-- Other social details: Not provided in transcript. Objective: Vital Signs on Arrival (per transcript): Temp: 98.2 F BP: 147/83 mmHg Pulse: 108 bpm Resp: 16/min SpO?: Not provided in transcript Weight/BMI: Not provided in transcript Most Recent Vital Signs: Most recent vitals beyond the above: Not provided in transcript. Physical Exam: General: Cachectic, disheveled-appearing female with generalized weakness. Neck: Supple. No masses. HEENT: PERRL. Normal lids and conjunctiva. Moist mucous membranes. Oropharynx without lesions, exudates or excessive erythema. Normal appearance of the external aspects of the nose and ears. Heart: Regular rhythm, normal rate. No murmur. No lower extremity edema. Lungs: Normal respiratory effort. Clear to auscultation bilaterally. No wheezes. No crackles. Abdomen: Soft. Non-tender. Non-distended. No masses or abdominal hernia. Msk: No digital cyanosis. Normal strength and tone in all 4 limbs, though overall generalized weakness noted clinically. Skin: Warm and dry, no rashes. Multiple shallow ulcers and scabs on the dorsal, anterior, and posterior aspects of both lower legs, some extending into subcutaneous tissue. Neuro: Alert. No facial droop or slurred speech. Extra-ocular movements intact. Sensation intact to soft touch in all 4 limbs. A\&O 2. Psych: Dementia present. Mood and affect otherwise appropriate as observed. Oriented to person and place only (A\&O 2). Lines: Vascular access and other lines: Not provided in transcript. Diagnostic Studies: Available diagnostic studies were reviewed as documented in the transcript. Significant relevant results and findings are outlined below and/or addressed in the Assessment and Plan above. Laboratory / Microbiology: \-- CBC on admission: WBC 9.2, Hgb 10.7, platelets 625. \-- Chemistry: Sodium 139, creatinine 0.47. BUN reported as both 139 and 10 in the transcript (value unclear). \-- TSH: 1.16. \-- Urinalysis: No pyuria reported. TB / Respiratory workup: \-- AFB smears: negative 3. \-- Respiratory culture: no growth to date. \-- MTB PCR: negative 1 (needs one additional negative MTB PCR to complete TB rule out per plan). \-- QuantiFERON?TB Gold: negative (reported as Conferon gold is negative). Wound cultures: \-- Growth of Staphylococcus aureus, MSSA. \-- Growth of Enterobacter cloacae (reported as not [facility] induced). Other serologies/fungal markers: \-- Planned/ordered per transcript (results not yet provided): Aspergillus antibodies, valley fever (coccidioides) antibodies, Fungitell, galactomannan. Pertinent Imaging: Chest X?ray (date not specified in transcript): \-- Left perihilar hazy opacity. \-- Cystic/cavitary-appearing change in the left lung apex with surrounding opacification, possibly concerning for fungal versus TB pneumonia. (Additional imaging details, including CT findings and dates, are not provided in the transcript.) Plan discussed with: Patient YUDY MCBRIDE MD Sep 09, 2025 18:09
[2025-09-09 23:15] LABS: COVID19 ANTIGEN SOFIA FIA NEGATIVE (NEGATIVE)
[2025-09-10] VITALS (8 sets, daily range): BP systolic 113–149; BP diastolic 63–93; PULSE 70–90; RESP 14–19; TEMP 97.4–98.5; O2SAT 93–98
[2025-09-10 07:14] LABS: Hematocrit 32.7 % (36.0-46.0); Hemoglobin 11.0 g/dL (12.2-16.2); Mean Corpuscular Hemoglobin 31.0 pg (28.0-32.0); Mean Corpuscular Volume 92.1 fL (80.0-100.0); Nucleated Red Blood Cells % 0.0 %
[2025-09-10 07:25] LABS: Chloride 104 mmol/L (98-107); Sodium 141 mmol/L (136-145)
[2025-09-10 07:26] LABS: Anion Gap 10 (5-15); Calcium 8.7 mg/dL (8.7-10.4); Carbon Dioxide 27 mmol/L (20-31)
[2025-09-10 07:31] LABS: BUN/Creatinine Ratio 20.0 (10.0-20.0); Blood Urea Nitrogen 11 mg/dL (9-23); Glucose 81 mg/dL (74-106)
[2025-09-10 07:32] LABS: Potassium 3.2 mmol/L (3.5-5.1)
[2025-09-10] MEDS: POTASSIUM EFFERVESENT TAB 25 MEQ PO ONE (12:05)
--- NOTE | 2025-09-10 14:08 | DVHPNRES ---
Progress Note Date Seen: Sep 10, 2025 Resident Creating Document: KAYE LEONARDO Medical Necessity Reason Pt with a Central, PICC or Fol: Yes (RN) The following are medically ne: Rivas Catheter Subjective Review of Systems Patient is a 64-year-old female with past medical history of HTN, presented to [facility] ED with complaint of bilateral lower extremity swelling and open wounds. Patient is poor historian. According to the son, the patient resides with his stepfather, who reportedly does not provide adequate care for her. The son stated that although the patient has been seen by her primary care provider, the issue concerning her legs has never been addressed. Chest x-ray revealing left perihilar to hilar hazy opacification which may reflect underlying infiltrates however cystic lung change in the left lung apex with a surrounding opacification. On 09/06/25, Patient was seen and examined at bedside. Overnight events were reviewed. Patient unable to express her symptoms this morning. On 09/07/25, Patient appeared more alert and responsive. Two sputum samples were successfully collected and sent to the laboratory for analysis. On 09/08/25, QuantiFERON-TB Gold negative; sputum samples collected and sent to lab yesterday, results pending. Wound care ongoing. On 09/09/25, Patient stable, no acute distress. Airborne precautions ongoing for suspected/confirmed TB. Rivas and IV access intact. Final sputum for AFB was collected today. On 09/10/25, Patient appeared more alert and responsive. Echocardiogram shows moderate to severe . Cardiology on board. Past surgical history: Denies all surgeries Home medications: Past Hospitalization: Social & Personal history: Smoking >40 years 1 pack a day. Alcohol >20 years. Drug: denies Allergies: none Patient seen and examined at bedside. Patient is alert and oriented to time, place person and responding to all questions. Eyes: No Pain, No Vision change, No Conjunctivae inflammation, No Eyelid inflammation, No Other, No Redness ENT: No Ear pain, No Ear discharge, No Nose pain, No Nose discharge, No Nose congestion, No Mouth pain, No Mouth swelling, No Throat pain, No Throat swelling, No Other Cardiovascular: No Chest Pain, No Palpitations, No Orthopnea, No Paroxysmal No Dyspnea, No Edema, No Lt Headedness, No Other Respiratory: No Cough, No Dry, No Shortness of breath, No SOB with exertion, No Wheezing, No Hemoptysis, No Pleuritic Pain, No Sputum, No Other Gastrointestinal: No Nausea, No Vomiting, No Abdominal Pain, No Diarrhea, No Constipation, No Melena, No Hematochezia, No Other Genitourinary: No Dysuria, No Frequency, No Incontinence, No Hematuria, No Retention, No Other Musculoskeletal: No other, No neck pain, No shoulder pain, No arm pain, No back pain, No hand pain, leg pain, foot pain Skin: Rash, No Lesions, No Jaundice, No Bruising, No Other Objective vital signs Vital Sign Date Time Temp Pulse Resp B/P (MAP) Pulse Ox O2 Delivery O2 Flow Rate FiO2 09/10/25 13:02 97.4 81 16 141/79 (99) 98 97.4 09/10/25 08:00 Nasal Cannula* 2 28 Total Intake and Output 09/09/25 09/09/25 09/10/25 15:00 23:00 07:00 Intake Total 275 ml 750 ml Output Total 1150 ml Balance 275 ml -400 ml medications Current Medications Medications Dose Ordered Sig/Denae Route Start Time Stop Time Status Last Admin Dose Admin Amlodipine Besylate 5 mg DAILY PO 09/05/25 10:00 09/10/25 12:07 5 MG Clonidine HCl 0.1 mg Q4HP PRN PO 09/04/25 23:45 09/07/25 00:44 0.1 MG Acetaminophen/ Hydrocodone Bitart 1 tab Q4HP PRN PO 09/04/25 23:45 09/08/25 00:25 1 TAB Ondansetron HCl 4 mg Q4HP PRN IV 09/04/25 23:45 Docusate Sodium 100 mg BIDPRN PRN PO 09/04/25 23:45 Zinc Sulfate 220 mg DAILY PO 09/05/25 10:00 09/10/25 12:06 220 MG Ascorbic Acid 500 mg BID PO 09/05/25 10:00 09/10/25 12:06 500 MG Multivitamins 1 tab DAILY PO 09/05/25 10:00 09/10/25 12:06 1 TAB Acetaminophen 650 mg Q6HP PRN PO 09/04/25 23:45 Nitroglycerin 0.4 mg Q5MINP PRN SL 09/04/25 23:45 Morphine Sulfate 2 mg Q30M PRN IV 09/04/25 23:45 Aspirin 81 mg DAILY PO 09/05/25 10:00 09/10/25 12:06 81 MG Enoxaparin Sodium 40 mg DAILY SC 09/05/25 10:00 09/10/25 12:09 40 MG Vancomycin HCl 0 ml @ 0 mls/hr PER PHARMACY IV 09/05/25 23:45 Micafungin Sodium 100 mg/Sodium Chloride 100 ml @ 100 mls/hr DAILY IV 09/07/25 10:00 09/10/25 12:05 100 MLS/HR Piperacillin Sod/ Tazobactam Sod 100 ml @ 25 mls/hr Q8H IV 09/07/25 20:00 09/10/25 04:00 25 MLS/HR Examination General Appearance: Generalized weakness. Cachectic, thin Head Exam: Normal inspection Neck Exam: Normal inspection. Non-tender. Normal alignment Pulmonary/Respiratory: Diminished breath sounds. Chest non-tender. Clear bilateral breath sounds, no crackles, no wheezing. Cardiovascular/Chest: Regular rate and rhythm. Systolic murmurs. No JVD. Peripheral Pulses: 2+ Radial (R). 2+ Radial (L). 2+ Pedal (R). 2+ Pedal (L) Abdominal Exam: Normal bowel sounds. Soft. normal abdomen, no visible veins, Nontender. No hepatospenomegaly. No masses Ankle Exam: Negative ankle edema Lower extremities: Bilateral leg swelling, multiple scabs, and shallow lacerations on both legs. Pedal edema Neuro/Mental Status: A&O x2. Coherent. Thoughts/Psych: Normal thought pattern. Appropriate mood and affect. Good judgement and insight Skin Exam: Normal inspection. Normal color. Warm. +1 sacral decubitus wound noted. laboratory and microbiology Laboratory Tests 09/10/25 05:05 Test 09/10/25 05:05 Range/Units Serum Glucose 81 74-106 mg/dL Microbiology Date/Time Source Procedure Growth Status 09/09/25 10:43 Sputum AFB Broth Culture Pending Resulted 09/09/25 10:43 Sputum - Final Resulted 09/09/25 10:43 Sputum - Final Resulted 09/09/25 10:43 Sputum Acid Fast Bacilli Culture Pending Resulted 09/06/25 03:30 Nose MRSA Screen - Final Complete 09/06/25 02:06 Voided Urine Urine Culture - Final Complete 09/04/25 21:29 Blood Blood Culture - Final NO GROWTH AFTER 5 DAYS OF INCUBATION. Complete Labs and/or images reviewed: Labs reviewed by me, Image(s) reviewed by me Problem List/Assessment/Plan Problem List/Assessment/Plan # Acute respiratory failure # Acute on chronic, diastolic, congestive heart failure (HFpEF, EF 60%) # Community acquired pneumonia Gram +/-, rule out tuberculosis, fungal # Rule out malignancy # Sepsis due to above # Left pleural effusion Chest CT: Focal consolidation in involving large portions of the left upper lobe with cavitation near the left lung apex, likely infectious or inflammatory etiology. Small left pleural effusion. Chest X-ray: Left perihilar to hilar hazy opacification which may reflect underlying infiltrate however cystic lung change in the left lung apex with a surrounding opacification. Zinc sulfate 220 Mg PO daily Currently under empiric IV antibiotics (Zosyn, Vancomycin and Micafungin) Lovenox 40 Mg SC daily QuantiFERON-TB Gold negative Ordered panculture Infectious disease consult Wound consult: Enterobacter cloacae, Staphylococcus aureus Send out for sample of AFB culture on 09/07/2025 with respiratory induction # questionable moderate to severe Aortic stenosis Echocardiogram: lvef 60%. severe lvh. aortic sclerosis, modeate to severe , TANO by planimeter is 1.1 cm2 mean gradient is 11 mmhg, this is closer to a mild (coronary CT calcium of AV can be helpful). RV enlarged. left atrium enlarged Cardiology consult # Cellulitis of bilateral limbs # Ruled out DVT # Ruled out osteomyelitis Lower Extremity CT: Soft tissue swelling with no obvious CT evidence for osteomyelitis. Extremity Venous Study: No right or left femoropopliteal venous thrombosis. Currently under empiric IV antibiotics (Zosyn, Vancomycin and Micafungin) Ordered pancultures Wound care on board Ordered bilateral lower limb CT and venous US # Hypokalemia Replenished # Chronic normocytic anemia # Thrombocytosis Secondary to sepsis # Severe protein malnutrition (BMI 17.4) Dietary consult # Questionable Dementia On multivitamins To be evaluated as outpatient Diet: Cardiac DVT prophylaxis: Lovenox 40mg Goals of care: Full code Plan discussed with patient Plan discussed with Dr. Grijalva Plan discussed with: Patient, Other (RN) My Orders My Orders Orders - KAYE LEONARDO RESIDENT Procedure Category Date Status Time * Cardiology Consult CONS 09/10/25 Transmitted 11:59 Basic Metabolic Panel LAB 09/11/25 Verified 04:00 Complete Blood Count LAB 09/11/25 Verified 04:00 Dietary Evaluation Review Recommendations by RD: Increase Calorie Intake Comments: Nutrition Recommendation 1) Ensure high protein 240ml TID 2) Lukas 1 pk BID 3) Monitor PO intake, lab values, weight trend, and I/O Expected Outcomes/Goals: Gain/maintain body weight Wound to improve FU 3-5 days Body Fat Depletion (Severe): Mod to Severe Depletion Muscle Mass (Severe): Mod to Severe Depletion Fluid Accumulation (Non Severe: Mild fluid retention Protein Calorie Malnutrition: Severe Visit Coding STANDARD RES Billing Provider: CRYSTAL GRIJALVA MD Date of Service if different f: Sep 10, 2025 Common Visit Codes: [id number] INP/OBS CARE(HIGH) KAYE LEONARDO RESIDENT Sep 10, 2025 14:08
--- NOTE | 2025-09-10 15:34 | DVHINCON2 ---
Date Seen: Sep 10, 2025 Referring Physician MD Xavi resident Reason for Consultation Moderate to severe History of Present Illness This is a 64-year-old female patient who presents to emergency room with chief complaint of bilateral lower extremity edema. At the time of assessment, the patient is confused and does not remember why she came to the emergency room. History obtained from bedside RN and medical records. Cardiology has been consulted at this time for moderate to severe aortic stenosis. No twelve lead electrocardiogram was done upon admission. A twelve lead electrocardiogram was ordered and obtained at time of assessment and reveals normal sinus rhythm with PACs (and very low voltage in lead I). The patient denies all cardiac symptoms including chest pain, shortness of breath, palpitations, or dizziness. Significant past medical history includes hypertension, dyslipidemia, and tobacco use. Past Medical History Past medical history reviewed. No other significant than mentioned above. Past Surgical History Denies Family History: Patient reports no known family medical history. Family History Family history reviewed. Social History The patient has a 40 pack-year history, smokes one pack per day Patient admits to occasional alcohol use Patient denies drug use Allergies: Coded Allergies: NO KNOWN ALLERGIES (Unverified , 09/04/25) Home Meds No Active Prescriptions or Reported Meds Home Meds Home medications reviewed. Review of Systems Constitutional: No symptom reported Ears, Nose, & Throat: No symptom reported Eyes: No symptom reported Neurological: No symptoms reported Pulmonary/Respiratory: No symptoms reported Cardiovascular: Bilateral lower extremity edema and wounds Gastrointestinal: No symptom reported Genitourinary: No symptom reported Musculoskeletal: No symptom reported Skin: Bilateral lower extremity wounds Psychiatric: No symptom reported Endocrine: No symptom reported Hematologic/Lymphatic: No symptom reported Vital Signs Vital Signs Date Time Temp Pulse Resp B/P (MAP) Pulse Ox O2 Delivery O2 Flow Rate FiO2 09/10/25 13:02 97.4 81 16 141/79 (99) 98 97.4 09/10/25 08:00 Nasal Cannula* 2 28 Physical Exam General Appearance: Cooperative. Thin, frail Pulmonary/Respiratory: Clear, bilateral breaths sounds. Cardiovascular/Chest: Regular rate and rhythm. Systolic murmur Peripheral Pulses: 2+ Radial (R). 2+ Radial (L). Abdominal Exam: Normal bowel sounds. Ankle Exam: Negative ankle edema Lower extremities: Negative lower extremity edema Neuro/Mental Status: A/OX2-3, confused Thoughts/Psych: Appropriate mood and affect Appearance: No acute distress. Skin Exam: Multiple wounds to bilateral lower extremities, covered at this time Labs/Diagnostic Data Labs Test 09/10/25 05:05 09/09/25 00:00 09/08/25 22:59 09/08/25 07:39 Range/Units White Blood Count 10.4 # 4.4-10.8 10^3/uL Red Blood Count 3.55 L 4.0-5.20 10^6/uL Hemoglobin 11.0 L 12.2-16.2 g/dL Hematocrit 32.7 L 36.0-46.0 % Mean Corpuscular Volume 92.1 80.0-100.0 fL Mean Corpuscular Hemoglobin 31.0 28.0-32.0 pg Mean Corpuscular Hemoglobin Concent 33.7 32.0-36.0 g/dL Red Cell Distribution Width 15.3 H 11.8-14.3 % Platelet Count 717 H 140-450 10^3/uL Mean Platelet Volume 6.8 L 6.9-10.8 fL Neutrophils (%) (Auto) 70.0 37.0-80.0 % Lymphocytes (%) (Auto) 21.7 10.0-50.0 % Monocytes (%) (Auto) 6.0 0.0-12.0 % Eosinophils (%) (Auto) 1.6 0.0-7.0 % Basophils (%) (Auto) 0.7 0.0-2.0 % Neutrophils # (Auto) 7.3 1.6-8.6 10 ^3/uL Lymphocytes # (Auto) 2.3 0.4-5.4 10 ^3/uL Monocytes # (Auto) 0.6 0-1.3 10 ^3/uL Eosinophils # (Auto) 0.2 0-0.8 10 ^3/uL Basophils # (Auto) 0.1 0-0.2 10 ^3/uL Nucleated Red Blood Cells 0.0 % Sodium Level 141 136-145 mmol/L Potassium Level 3.2 L 3.5-5.1 mmol/L Chloride Level 104 98-107 mmol/L Carbon Dioxide Level 27 20-31 mmol/L Anion Gap 10 5-15 Blood Urea Nitrogen 11 9-23 mg/dL Creatinine 0.55 0.550-1.02 mg/dL Glomerular Filtration Rate Calc 101 >90 mL/min BUN/Creatinine Ratio 20.0 10.0-20.0 Serum Glucose 81 74-106 mg/dL Calcium Level 8.7 8.7-10.4 mg/dL Magnesium Level 2.2 1.6-2.6 mg/dL Vancomycin Level Trough 22.6 H 5-10 ug/mL Influenza Type A Antigen Negative Negative Influenza Type B Antigen Negative Negative SARS-CoV-2 Antigen (Rapid) Negative NEGATIVE Random Vancomycin Level 12.2 H 5-10 ug/mL Miscellaneous Test Sent to [facility] Test 09/06/25 12:56 09/06/25 02:06 09/05/25 13:28 09/05/25 10:10 Range/Units B-Type Natriuretic Peptide 248.69 0-100 pg/mL Urine Color Light-yellow Yellow Urine Clarity Clear Clear Urine pH 8.0 5.0-9.0 Urine Specific Crowheart 1.015 1.001-1.035 Urine Protein Negative Negative Urine Ketones Negative Negative Urine Blood 1+ H Negative /uL Urine Nitrite Negative Negative Urine Bilirubin Negative Negative Urine Urobilinogen Normal Negative mg/dL Urine Leukocyte Esterase Negative Negative /uL Urine RBC 36 0 - 4 /hpf Urine Microscopic WBC 1 0-5 /HPF Urine Squamous Epithelial Cells None seen <5 /hpf Urine Bacteria None seen None Seen /hpf Urine Glucose Normal Normal mg/dL Urine Opiates Screen Neg NEGATIVE Urine Fentanyl Screen Neg NEGATIVE Urine Barbiturates Screen Neg NEGATIVE Urine Phencyclidine Screen Neg NEGATIVE Urine Amphetamines Screen Neg NEGATIVE Urine Benzodiazepines Screen Neg NEGATIVE Urine Cocaine Screen Neg NEGATIVE Urine Cannabinoids Screen Neg NEGATIVE TB Test (QFT) Gold Plus Negative Negative TB Test (QFT) Nil 0.04 . IU/mL TB Test (QFT) Mitogen >10.00 . IU/mL TB Test (QFT) Antigen 1 0.06 . IU/mL TB Test (QFT) Antigen 2 0.04 . IU/mL TB Test (QFT) Criteria Comment . Prothrombin Time 10.8 9.3-11.8 sec Prothrombin Time INR 1.02 0.9-1.15 Activated Partial Thromboplast Time 27.3 24.5-34.5 SEC Lactic Acid Level 1.0 0.4-2.0 mmol/L Test 09/05/25 09:53 09/05/25 02:30 09/04/25 22:08 09/04/25 19:55 Range/Units Blood Gas Specimen Type Arterial Blood Gas Sample Site Left radial Blood Gas Patient Temperature 37.0 Arterial Blood Date Drawn [id number] Arterial Blood pH 7.559 *H 7.350-7.450 Arterial Blood Partial Pressure CO2 37.7 32.0-45.0 mmHg Arterial Blood Partial Pressure O2 55.1 L 83.0-108.0 mmHg Arterial Blood HCO3 32.9 H 21.0-28.0 mmol/L Arterial Blood Oxygen Saturation 88.9 L 94.0-98.0 % Arterial Blood Base Excess 10.0 H -2.0-3.0 mmol/L Arterial Blood Oxyhemoglobin 87.3 L 94.0-98.0 % Arterial Blood Carboxyhemoglobin 1.5 0.5-1.5 % Arterial Blood Methemoglobin 0.3 0.0-1.5 % Arterial Blood Deoxyhemoglobin 10.9 H 0.0-5.0 % Tevin Test Yes Blood Gas Total Hemoglobin 11.10 L 12.0-16.0 g/dL Blood Gas Liter Flow 0.00 Blood Gas Modality Room air FiO2 % 21.0 Blood Gas Critical Value Read Back Yes Blood Gas Notified Whom Douglas rogres Blood Gas Notified Time [id number] Blood Gas Notified By Rosa kasper Hemoglobin A1c 5.5 <5.7 % A1C Phosphorus Level 3.2 2.4-5.1 mg/dL Total Bilirubin 0.4 0.2-1.0 mg/dL Aspartate Amino Transferase (AST) 19 13-40 U/L Alanine Aminotransferase (ALT) 19 7-40 U/L Alkaline Phosphatase 99 46-116 U/L Total Protein 6.6 5.7-8.2 g/dL Albumin 3.2 3.2-4.8 g/dL Triglycerides Level 111 < 150 mg/dL Cholesterol Level 142 < 200 mg/dL LDL Cholesterol 85 < 100 mg/dL HDL Cholesterol 41 40-59 mg/dL Vitamin B12 Level 617 211-911 pg/mL Vitamin D 25-Hydroxy 30.4 30.0-100 ng/mL Free Thyroxine (T4) Calculated 1.18 0.89-1.76 ng/dL Direct Bilirubin 0.1 <0.3 mg/dL Troponin I High Sensitivity 11 </=34 ng/L Thyroid Stimulating Hormone (TSH) 1.16 0.55-4.78 uIU/mL Microbiology Date/Time Source Procedure Growth Status 09/09/25 10:43 Sputum AFB Broth Culture Pending Resulted 09/09/25 10:43 Sputum - Final Resulted 09/09/25 10:43 Sputum - Final Resulted 09/09/25 10:43 Sputum Acid Fast Bacilli Culture Pending Resulted 09/06/25 03:30 Nose MRSA Screen - Final Complete 09/06/25 02:06 Voided Urine Urine Culture - Final Complete 09/04/25 21:29 Blood Blood Culture - Final NO GROWTH AFTER 5 DAYS OF INCUBATION. Complete Assessment Rule out severe aortic valve stenosis Rule out tuberculosis Hypertension Dyslipidemia Hypokalemia Thrombocythemia Tobacco use Plan/Recommendation We will continue with the following plan/recommendations (Dr. Reis): Case reviewed and discussed with . A transthoracic echocardiogram reveals an EF of 60% with moderate to severe , aortic valve area of 1.1 cm2, mean gradient is 11 mmHg with peak gradient 21 mmHg. Given that these measurements are not consistent with severe aortic stenosis, we will recommend for the patient to undergo a coronary angiogram with left heart catheterization and transesophageal echocardiogram for further valvular evaluation. At this time, the patient is currently being worked up for tuberculosis. Plans for invasive cardiac workup once patient is cleared from infectious disease standpoint. In the meantime, continue with close cardiac surveillance and notify cardiology team immediately for any ECG changes or changes in patient clinical presentation. Thank you for allowing us to care for this patient. Please call with any questions or concerns. Critical care time spent: 44 minutes This medical document was created using an electronic medical record system with voice recognition software and computerized dictation system. Although this document has been carefully reviewed, there might still be some phonetic and typographical errors. Occasional wrong-word or ``sound-alike substitutions may have occurred due to the inherent limitations of voice recognition software. These areas are purely typographical due to imperfections of the software programs and do not reflect any compromise in the patient's medical care. Please read the chart carefully and recognize, using context, where these substitutions have occurred. Plan discussed with: Patient NYHA Physical activity limitations: NA Date of Service: Sep 10, 2025 Billing Provider: GAVIN CAMPBELLP Cardiology Common Codes: [id number] INP/OBS CARE (High) Cardiology Consultation Codes: [id number] CONSULT <45MIN GAVIN CAMPBELL [facility] Sep 10, 2025 15:34
--- NOTE | 2025-09-10 22:12 | DVHINCON2 ---
Date Seen: Sep 10, 2025 Referring Physician MD X[place] resident Reason for Consultation Moderate to severe History of Present Illness This is a 64-year-old female with a past medical history of hypertension, dyslipidemia, and tobacco use who presents to emergency room with chief complaint of bilateral lower extremity edema. At the time of assessment, the patient is confused and does not remember why she came to the emergency room. History obtained from bedside RN and medical records. No twelve lead electrocardiogram was done upon admission. A twelve lead electrocardiogram was ordered and obtained at time of assessment and reveals normal sinus rhythm with PACs (and very low voltage in lead I). The patient denies all cardiac symptoms including chest pain, shortness of breath, palpitations, or dizziness. Chest x- ray shows left perihilar to hilar hazy opacification which may reflect underlying infiltrate however cystic lung change in the left lung apex with a surrounding opacification. Cardiology has been consulted at this time for moderate to severe aortic stenosis. Past Medical History Past medical history reviewed. No other significant than mentioned above. Past Surgical History Denies Family History: Patient reports no known family medical history. Allergies: Coded Allergies: NO KNOWN ALLERGIES (Unverified , 09/04/25) Home Meds No Active Prescriptions or Reported Meds Review of Systems Constitutional: No symptom reported Ears, Nose, & Throat: No symptom reported Eyes: No symptom reported Neurological: No symptoms reported Pulmonary/Respiratory: No symptoms reported Cardiovascular: Bilateral lower extremity edema and wounds Gastrointestinal: No symptom reported Genitourinary: No symptom reported Musculoskeletal: No symptom reported Skin: Bilateral lower extremity wounds Psychiatric: No symptom reported Endocrine: No symptom reported Hematologic/Lymphatic: No symptom reported Vital Signs Vital Signs Date Time Temp Pulse Resp B/P (MAP) Pulse Ox O2 Delivery O2 Flow Rate FiO2 09/10/25 13:02 97.4 81 16 141/79 (99) 98 97.4 09/10/25 08:00 Nasal Cannula* 2 28 Physical Exam GENERAL: A/OX2-3, confused. Thin, frail EYES: PERRL, EOMI. Anicteric. HENT: Moist mucous membranes. LUNGS: Clear to auscultation bilaterally. CARDIOVASCULAR: Regular rate and rhythm. ABDOMEN: Soft, nontender and nondistended. EXTREMITIES: No edema. SKIN: Multiple wounds to bilateral lower extremities, covered at this time. Labs/Diagnostic Data Labs Test 09/10/25 05:05 09/09/25 00:00 09/08/25 22:59 09/08/25 07:39 Range/Units White Blood Count 10.4 # 4.4-10.8 10^3/uL Red Blood Count 3.55 L 4.0-5.20 10^6/uL Hemoglobin 11.0 L 12.2-16.2 g/dL Hematocrit 32.7 L 36.0-46.0 % Mean Corpuscular Volume 92.1 80.0-100.0 fL Mean Corpuscular Hemoglobin 31.0 28.0-32.0 pg Mean Corpuscular Hemoglobin Concent 33.7 32.0-36.0 g/dL Red Cell Distribution Width 15.3 H 11.8-14.3 % Platelet Count 717 H 140-450 10^3/uL Mean Platelet Volume 6.8 L 6.9-10.8 fL Neutrophils (%) (Auto) 70.0 37.0-80.0 % Lymphocytes (%) (Auto) 21.7 10.0-50.0 % Monocytes (%) (Auto) 6.0 0.0-12.0 % Eosinophils (%) (Auto) 1.6 0.0-7.0 % Basophils (%) (Auto) 0.7 0.0-2.0 % Neutrophils # (Auto) 7.3 1.6-8.6 10 ^3/uL Lymphocytes # (Auto) 2.3 0.4-5.4 10 ^3/uL Monocytes # (Auto) 0.6 0-1.3 10 ^3/uL Eosinophils # (Auto) 0.2 0-0.8 10 ^3/uL Basophils # (Auto) 0.1 0-0.2 10 ^3/uL Nucleated Red Blood Cells 0.0 % Sodium Level 141 136-145 mmol/L Potassium Level 3.2 L 3.5-5.1 mmol/L Chloride Level 104 98-107 mmol/L Carbon Dioxide Level 27 20-31 mmol/L Anion Gap 10 5-15 Blood Urea Nitrogen 11 9-23 mg/dL Creatinine 0.55 0.550-1.02 mg/dL Glomerular Filtration Rate Calc 101 >90 mL/min BUN/Creatinine Ratio 20.0 10.0-20.0 Serum Glucose 81 74-106 mg/dL Calcium Level 8.7 8.7-10.4 mg/dL Magnesium Level 2.2 1.6-2.6 mg/dL Vancomycin Level Trough 22.6 H 5-10 ug/mL Influenza Type A Antigen Negative Negative Influenza Type B Antigen Negative Negative SARS-CoV-2 Antigen (Rapid) Negative NEGATIVE Random Vancomycin Level 12.2 H 5-10 ug/mL Miscellaneous Test Sent to [facility] Test 09/06/25 12:56 09/06/25 02:06 09/05/25 13:28 09/05/25 10:10 Range/Units B-Type Natriuretic Peptide 248.69 0-100 pg/mL Urine Color Light-yellow Yellow Urine Clarity Clear Clear Urine pH 8.0 5.0-9.0 Urine Specific Valentine 1.015 1.001-1.035 Urine Protein Negative Negative Urine Ketones Negative Negative Urine Blood 1+ H Negative /uL Urine Nitrite Negative Negative Urine Bilirubin Negative Negative Urine Urobilinogen Normal Negative mg/dL Urine Leukocyte Esterase Negative Negative /uL Urine RBC 36 0 - 4 /hpf Urine Microscopic WBC 1 0-5 /HPF Urine Squamous Epithelial Cells None seen <5 /hpf Urine Bacteria None seen None Seen /hpf Urine Glucose Normal Normal mg/dL Urine Opiates Screen Neg NEGATIVE Urine Fentanyl Screen Neg NEGATIVE Urine Barbiturates Screen Neg NEGATIVE Urine Phencyclidine Screen Neg NEGATIVE Urine Amphetamines Screen Neg NEGATIVE Urine Benzodiazepines Screen Neg NEGATIVE Urine Cocaine Screen Neg NEGATIVE Urine Cannabinoids Screen Neg NEGATIVE TB Test (QFT) Gold Plus Negative Negative TB Test (QFT) Nil 0.04 . IU/mL TB Test (QFT) Mitogen >10.00 . IU/mL TB Test (QFT) Antigen 1 0.06 . IU/mL TB Test (QFT) Antigen 2 0.04 . IU/mL TB Test (QFT) Criteria Comment . Prothrombin Time 10.8 9.3-11.8 sec Prothrombin Time INR 1.02 0.9-1.15 Activated Partial Thromboplast Time 27.3 24.5-34.5 SEC Lactic Acid Level 1.0 0.4-2.0 mmol/L Test 09/05/25 09:53 09/05/25 02:30 09/04/25 22:08 09/04/25 19:55 Range/Units Blood Gas Specimen Type Arterial Blood Gas Sample Site Left radial Blood Gas Patient Temperature 37.0 Arterial Blood Date Drawn [id number] Arterial Blood pH 7.559 *H 7.350-7.450 Arterial Blood Partial Pressure CO2 37.7 32.0-45.0 mmHg Arterial Blood Partial Pressure O2 55.1 L 83.0-108.0 mmHg Arterial Blood HCO3 32.9 H 21.0-28.0 mmol/L Arterial Blood Oxygen Saturation 88.9 L 94.0-98.0 % Arterial Blood Base Excess 10.0 H -2.0-3.0 mmol/L Arterial Blood Oxyhemoglobin 87.3 L 94.0-98.0 % Arterial Blood Carboxyhemoglobin 1.5 0.5-1.5 % Arterial Blood Methemoglobin 0.3 0.0-1.5 % Arterial Blood Deoxyhemoglobin 10.9 H 0.0-5.0 % Tevin Test Yes Blood Gas Total Hemoglobin 11.10 L 12.0-16.0 g/dL Blood Gas Liter Flow 0.00 Blood Gas Modality Room air FiO2 % 21.0 Blood Gas Critical Value Read Back Yes Blood Gas Notified Whom Douglas méndez. Blood Gas Notified Time [id number] Blood Gas Notified By Rosa kasper Hemoglobin A1c 5.5 <5.7 % A1C Phosphorus Level 3.2 2.4-5.1 mg/dL Total Bilirubin 0.4 0.2-1.0 mg/dL Aspartate Amino Transferase (AST) 19 13-40 U/L Alanine Aminotransferase (ALT) 19 7-40 U/L Alkaline Phosphatase 99 46-116 U/L Total Protein 6.6 5.7-8.2 g/dL Albumin 3.2 3.2-4.8 g/dL Triglycerides Level 111 < 150 mg/dL Cholesterol Level 142 < 200 mg/dL LDL Cholesterol 85 < 100 mg/dL HDL Cholesterol 41 40-59 mg/dL Vitamin B12 Level 617 211-911 pg/mL Vitamin D 25-Hydroxy 30.4 30.0-100 ng/mL Free Thyroxine (T4) Calculated 1.18 0.89-1.76 ng/dL Direct Bilirubin 0.1 <0.3 mg/dL Troponin I High Sensitivity 11 </=34 ng/L Thyroid Stimulating Hormone (TSH) 1.16 0.55-4.78 uIU/mL Microbiology Date/Time Source Procedure Growth Status 09/09/25 10:43 Sputum AFB Broth Culture Pending Resulted 09/09/25 10:43 Sputum - Final Resulted 09/09/25 10:43 Sputum - Final Resulted 09/09/25 10:43 Sputum Acid Fast Bacilli Culture Pending Resulted 09/06/25 03:30 Nose MRSA Screen - Final Complete 09/06/25 02:06 Voided Urine Urine Culture - Final Complete 09/04/25 21:29 Blood Blood Culture - Final NO GROWTH AFTER 5 DAYS OF INCUBATION. Complete Assessment Rule out severe aortic valve stenosis. Rule out tuberculosis. Hypertension. Dyslipidemia. Hypokalemia. Thrombocythemia. Tobacco use. Plan/Recommendation I agree with your ongoing assessment and care of plan. Patient has been seen by Vaishali Wylie NP on my behalf, her and I discussed the plan with the patient. A transthoracic echocardiogram reveals an EF of 60% with moderate to severe , aortic valve area of 1.1 cm2, mean gradient is 11 mmHg with peak gradient 21 mmHg. Given that these measurements are not consistent with severe aortic stenosis, we will recommend for the patient to undergo a coronary angiogram with left heart catheterization and transesophageal echocardiogram for further valvular ev aluation. At this time, the patient is currently being worked up for tuberculosis. Plans for invasive cardiac workup once patient is cleared from infectious disease standpoint. In the meantime, continue with close cardiac surveillance and notify cardiology team immediately for any ECG changes or changes in patient clinical presentation. Additional plan as per the hospital course. Plan discussed with: Other NYHA Physical activity limitations: NA Date of Service: Sep 10, 2025 Billing Provider: JOSE MIKE MD Cardiology Common Codes: [id number] INP/OBS CARE (High) Cardiology Consultation Codes: [id number] CONSULT <45MIN JOSE MIKE MD Sep 10, 2025 15:44
[2025-09-10] MEDS ORDERED: VANCOMYCIN 750mg/100mL IV SCH (22:30)
[2025-09-11] VITALS (8 sets, daily range): BP systolic 123–158; BP diastolic 68–97; PULSE 67–85; RESP 16–19; TEMP 97.1–98.2; O2SAT 95–100
[2025-09-11] MEDS: VANCOMYCIN 750mg/100mL IV SCH (01:30)
[2025-09-11 06:24] LABS: Hematocrit 31.0 % (36.0-46.0); Hemoglobin 10.4 g/dL (12.2-16.2); Mean Corpuscular Hemoglobin 30.9 pg (28.0-32.0); Mean Corpuscular Volume 92.1 fL (80.0-100.0); Nucleated Red Blood Cells % 0.1 %
[2025-09-11 06:36] LABS: Chloride 106 mmol/L (98-107); Potassium 3.8 mmol/L (3.5-5.1)
[2025-09-11 06:37] LABS: Anion Gap 6 (5-15)
[2025-09-11 06:38] LABS: Calcium 8.8 mg/dL (8.7-10.4)
[2025-09-11 06:42] LABS: BUN/Creatinine Ratio 16.1 (10.0-20.0); Blood Urea Nitrogen 10 mg/dL (9-23); Carbon Dioxide 33 mmol/L (20-31); Glucose 87 mg/dL (74-106); Sodium 145 mmol/L (136-145)
--- NOTE | 2025-09-11 12:35 | ECG ---
[facility] Test Date: 2025-09-10 Test Time: 15:03:07 Pat Name: SHAYY MARINO Department: Room: 0282 Gender: F Teacher Counselor: renato : 1960 Requested By: GAVIN CAMPBELL Order Number: [id number] Reading MD: Yovanny Antony Measurements Intervals [place] Rate: 84 P: 90 NH: 134 QRS: 87 QRSD: 79 T: 94 QT: 380 QTc: 450 Interpretive Statements Sinus rhythm Atrial premature complexes Borderline right axis deviation Nonspecific T abnormalities, lateral leads Electronically Signed On 09-16-2025 8:12:39 PST by Yovanny Antony Please click the below link to view image of tracing.
--- NOTE | 2025-09-11 12:55 | DVH ---
CHEST RADIOGRAPH INDICATION: pNA TECHNIQUE: Single frontal view of the chest was obtained COMPARISON: XY CHEST XRAY 1 VIEW on DOS: 09/04/25 FINDINGS: Lines and Tubes: None Lungs: Slightly improving consolidation left upper lung field Pleura: No effusion. No pneumothorax. Cardiomediastinal contours: Unremarkable Bones: No acute osseous abnormality. IMPRESSION: 1. Slightly improving consolidation left upper lobe. Recommend follow-up
--- NOTE | 2025-09-11 15:11 | DVHPNRES ---
Progress Note Date Seen: Sep 11, 2025 Resident Creating Document: RUPALI CHILDS RESIDENT Medical Necessity Reason Pt with a Central, PICC or Fol: Yes (RN) The following are medically ne: Rivas Catheter Subjective Review of Systems Jayleen Story is a 64-year-old female who presents to the ED with complaint of bilateral lower extremity swelling and open wounds. Patient is poor historian. According to the son, the patient resides with his stepfather, who reportedly does not provide adequate care for her. The son stated that although the patient has been seen by her primary care provider, the issue concerning her legs has never been addressed. Denies any other associated symptoms. Upon arrival to ED patient was desaturating requiring nasal cannula 2 L/min. Past medical history: Hypertension Surgical history: Denies all surgeries Family history: Noncontributory Social history: Lives with in [place] (next of kin). Current tobacco abuse (40 pack-year history of smoking) ethanol abuse. Denies other drug abuse Allergies: none Home medication: Benzonatate, lisinopril 20 mg p.o. daily, atorvastatin 40 mg p.o. daily, hydroxyzine 25 mg p.o. daily Patient seen and examined at bedside. Currently has no new complaints. Objective vital signs Vital Sign Date Time Temp Pulse Resp B/P (MAP) Pulse Ox O2 Delivery O2 Flow Rate FiO2 09/11/25 13:59 142/76 09/11/25 09:00 98.0 74 16 99 98.0 09/11/25 08:00 Room Air* 0 N/A Nasal Cannula* Total Intake and Output 09/10/25 09/10/25 09/11/25 15:00 23:00 07:00 Intake Total 600 ml Output Total 900 ml Balance -300 ml medications Current Medications Medications Dose Ordered Sig/Denae Route Start Time Stop Time Status Last Admin Dose Admin Amlodipine Besylate 5 mg DAILY PO 09/05/25 10:00 09/11/25 10:41 5 MG Clonidine HCl 0.1 mg Q4HP PRN PO 09/04/25 23:45 09/11/25 12:49 0.1 MG Acetaminophen/ Hydrocodone Bitart 1 tab Q4HP PRN PO 09/04/25 23:45 09/08/25 00:25 1 TAB Ondansetron HCl 4 mg Q4HP PRN IV 09/04/25 23:45 Docusate Sodium 100 mg BIDPRN PRN PO 09/04/25 23:45 Zinc Sulfate 220 mg DAILY PO 09/05/25 10:00 09/11/25 10:18 220 MG Ascorbic Acid 500 mg BID PO 09/05/25 10:00 09/11/25 10:17 500 MG Multivitamins 1 tab DAILY PO 09/05/25 10:00 09/11/25 10:17 1 TAB Acetaminophen 650 mg Q6HP PRN PO 09/04/25 23:45 Nitroglycerin 0.4 mg Q5MINP PRN SL 09/04/25 23:45 Morphine Sulfate 2 mg Q30M PRN IV 09/04/25 23:45 Aspirin 81 mg DAILY PO 09/05/25 10:00 09/11/25 10:17 81 MG Enoxaparin Sodium 40 mg DAILY SC 09/05/25 10:00 09/11/25 10:18 40 MG Vancomycin HCl 0 ml @ 0 mls/hr PER PHARMACY IV 09/05/25 23:45 Micafungin Sodium 100 mg/Sodium Chloride 100 ml @ 100 mls/hr DAILY IV 09/07/25 10:00 09/11/25 10:17 100 MLS/HR Piperacillin Sod/ Tazobactam Sod 100 ml @ 25 mls/hr Q8H IV 09/07/25 20:00 09/11/25 12:18 25 MLS/HR Vancomycin HCl 100 ml @ 100 mls/hr Q12H IV 09/11/25 01:30 09/11/25 13:30 100 MLS/HR Atorvastatin Calcium 40 mg HS PO 09/11/25 22:00 Examination Patient lying in bed, in no acute distress General: Lucid, cachectic, afebrile, mucosae are moist Cardiovascular: Normal S1 and S2. Crescendo decrescendo mid-peaking murmur best heard in aortic foci intensity 5/6, gallops or rubs Respiratory: Normal ventilation mechanics. Clear lung sounds on auscultation Abdomen: Soft, nontender, no organomegaly, normal bowel sounds MSK/skin: Mobilizes 4 limbs. Skin is dry and warm. Presents bilateral infrapatellar lower limb erythema associated with nonhealing wounds with no purulent discharge at this point. Neurological: Oriented in 3 spheres. No motor no sensitive deficits. Pupils are isocoric and reactive laboratory and microbiology Laboratory Tests 09/11/25 05:07 Test 09/11/25 05:07 Range/Units Serum Glucose 87 74-106 mg/dL Microbiology Date/Time Source Procedure Growth Status 09/09/25 10:43 Sputum AFB Broth Culture Pending Resulted 09/09/25 10:43 Sputum - Final Resulted 09/09/25 10:43 Sputum - Final Resulted 09/09/25 10:43 Sputum Acid Fast Bacilli Culture Pending Resulted 09/06/25 03:30 Nose MRSA Screen - Final Complete 09/06/25 02:06 Voided Urine Urine Culture - Final Complete 09/04/25 21:29 Blood Blood Culture - Final NO GROWTH AFTER 5 DAYS OF INCUBATION. Complete Problem List/Assessment/Plan Problem List/Assessment/Plan # Acute respiratory failure # Community acquired pneumonia Gram +/-, rule out tuberculosis, fungal pneumonia # Rule out malignancy # Sepsis due to above # Left pleural effusion Chest CT: Focal consolidation in involving large portions of the left upper lobe with cavitation near the left lung apex, likely infectious or inflammatory etiology. Small left pleural effusion. Chest X-ray: Left perihilar to hilar hazy opacification which may reflect underlying infiltrate however cystic lung change in the left lung apex with a surrounding opacification. Currently under empiric IV antibiotics (Zosyn, Vancomycin and Micafungin) Ordered panculture. Sputum culture negative Infectious disease consult, awaiting recommendations. Dietary consult Pending echocardiogram QuantiFERON-TB Gold negative. Send out for sample of AFB culture on 09/07/2025 with respiratory induction. Already obtained three samples # Cellulitis of bilateral limbs # Ruled out DVT # Ruled out osteomyelitis Currently under empiric IV antibiotics (Zosyn, Vancomycin and Micafungin) Wound cultures show MSSA and Enterobacter cloacae. Continue with broad-spectrum due to cavitary lesion in lung. Wound care on board Ordered bilateral lower limb CT and venous US which ruled out DVT, abscess and osteomyelitis # Questionable moderate to severe Aortic stenosis Echocardiogram: lvef 60%. severe lvh. aortic sclerosis, modeate to severe , TANO by planimeter is 1.1 cm2 mean gradient is 11 mmhg, this is closer to a mild (coronary CT calcium of AV can be helpful). RV enlarged. left atrium enlarged Cardiology consult: Recommend eventual coronary angiography and BETH to characterize better aortic valve disease, once cleared from Infectious Disease standpoint of view. # Hypokalemia Replenished # Chronic normocytic anemia # Thrombocytosis Secondary to sepsis Currently on prophylactic enoxaparin # Severe protein malnutrition (BMI 17) Nutritional consult placed # Questionable Dementia On multivitamins To be evaluated as outpatient Goals of care discussed with patient and family for over 18 minutes: Full code status Discussed plan with Dr. Grijalva, patient and nurses: Currently on telemetry status. Downgrade to med surge. Patient's isolated until infectious disease clears isolation. Ruling out tuberculosis fungal infection. Continue with broad-spectrum antibiotics. Once cleared by Infectious Disease standpoint of view, cardiology we will evaluate coronary angiography and eventual BETH. Plan discussed with: Patient, Other (Nurses) My Orders My Orders Orders - RUPALI CHILDS Procedure Category Date Status Time Vancomycin 750mg Kit PHA 09/11/25 In Process (Vancomycin Hcl) 01:30 Atorvastatin (Lipitor) PHA 09/11/25 In Process 22:00 Chest Xray 1 View XY 09/11/25 Resulted 09:50 Vancomycin,Trough LAB 09/12/25 Verified 12:30 Vancomycin Per SONIA 09/12/25 In Process Pharmacy Protoc 13:30 Creatinine LAB 09/12/25 Verified 12:30 Dietary Evaluation Review Recommendations by RD: Increase Calorie Intake Comments: Nutrition Recommendation 1) Ensure high protein 240ml TID 2) Lukas 1 pk BID 3) Monitor PO intake, lab values, weight trend, and I/O Expected Outcomes/Goals: Gain/maintain body weight Wound to improve FU 3-5 days Body Fat Depletion (Severe): Mod to Severe Depletion Muscle Mass (Severe): Mod to Severe Depletion Fluid Accumulation (Non Severe: Mild fluid retention Protein Calorie Malnutrition: Severe Visit Coding STANDARD RES Billing Provider: CRYSTAL GRIJALVA MD Date of Service if different f: Sep 11, 2025 Common Visit Codes: [id number] INP/OBS CARE(HIGH) RUPALI CHILDS RESIDENT Sep 11, 2025 15:11
--- NOTE | 2025-09-11 20:49 | DVHPN2 ---
Consult Progress Note Date Seen: Sep 11, 2025 Subjective Patient reports: Feels better (no diarrhea or rash) Objective vital signs Vital Sign Date Time Temp Pulse Resp B/P (MAP) Pulse Ox O2 Delivery O2 Flow Rate FiO2 09/11/25 17:00 97.5 79 16 123/68 (86) 97 97.5 09/11/25 08:00 Room Air* 0 N/A Nasal Cannula* Total Intake and Output 09/10/25 09/10/25 09/11/25 15:00 23:00 07:00 Intake Total 600 ml Output Total 900 ml Balance -300 ml medications Current Medications Medications Dose Ordered Sig/Denae Route Start Time Stop Time Status Last Admin Dose Admin Amlodipine Besylate 5 mg DAILY PO 09/05/25 10:00 09/11/25 10:41 5 MG Clonidine HCl 0.1 mg Q4HP PRN PO 09/04/25 23:45 09/11/25 12:49 0.1 MG Acetaminophen/ Hydrocodone Bitart 1 tab Q4HP PRN PO 09/04/25 23:45 09/08/25 00:25 1 TAB Ondansetron HCl 4 mg Q4HP PRN IV 09/04/25 23:45 Docusate Sodium 100 mg BIDPRN PRN PO 09/04/25 23:45 Zinc Sulfate 220 mg DAILY PO 09/05/25 10:00 09/11/25 10:18 220 MG Ascorbic Acid 500 mg BID PO 09/05/25 10:00 09/11/25 10:17 500 MG Multivitamins 1 tab DAILY PO 09/05/25 10:00 09/11/25 10:17 1 TAB Acetaminophen 650 mg Q6HP PRN PO 09/04/25 23:45 Nitroglycerin 0.4 mg Q5MINP PRN SL 09/04/25 23:45 Morphine Sulfate 2 mg Q30M PRN IV 09/04/25 23:45 Aspirin 81 mg DAILY PO 09/05/25 10:00 09/11/25 10:17 81 MG Enoxaparin Sodium 40 mg DAILY SC 09/05/25 10:00 09/11/25 10:18 40 MG Vancomycin HCl 0 ml @ 0 mls/hr PER PHARMACY IV 09/05/25 23:45 Cancel Piperacillin Sod/ Tazobactam Sod 100 ml @ 25 mls/hr Q8H IV 09/07/25 20:00 09/11/25 12:18 25 MLS/HR Atorvastatin Calcium 40 mg HS PO 09/11/25 22:00 laboratory and microbiology Laboratory Tests 09/11/25 05:07 Test 09/11/25 05:07 Range/Units Serum Glucose 87 74-106 mg/dL Problem List/Assessment/Plan Problem List/Assessment/Plan ASSESSMENT AND PLAN: ID Problem List: \-- Cavitary pneumonia with concern for TB versus fungal versus other etiologies \-- TB rule out in progress \-- Bilateral lower extremity ulcers with Staphylococcus aureus (MSSA) and Enterobacter cloacae \-- Dementia (poor historian, A\&O x2) \-- Cachexia and weight loss \-- Hypertension \-- Social concerns: limited caregiver support ( unable to care for patient) Assessment: Ms. Jayleen Story is a 64 y.o. female with a past medical history of dementia and hypertension who presents with bilateral lower extremity wounds and a cavitary pulmonary lesion. She is a poor historian. On presentation she was afebrile with tachycardia and normal blood pressure. She appears cachectic and disheveled, with generalized weakness and multiple shallow ulcers on the dorsal, anterior, and posterior aspects of both legs, some extending to the subcutaneous tissue, but without lower extremity edema. Initial labs: WBC 9.2, Hgb 10.7, platelets 625. BUN reported as 139 and 10 in the transcript (value unclear), sodium 139, creatinine 0.47. TSH 1.16. Chest X?ray reportedly shows a left perihilar hazy opacity and a cystic/cavitary- appearing change in the left lung apex with surrounding opacification concerning for fungal versus TB pneumonia. She denies shortness of breath and dizziness but endorses weight loss and subjective fevers (amount unclear). No history of smoking, alcohol use, IV drug use, or travel. No prior surgeries per patient. No known allergies. She has undergone TB rule out with AFB smears negative 3, respiratory culture without growth, and MTB PCR negative 1 to date; QuantiFERON?TB Gold is negative. Wound cultures are growing MSSA and Enterobacter cloacae (not [facility]- induced, per report). She has been treated with vancomycin, piperacillin?tazobactam (Zosyn), and micafungin. Overall suspicion for active TB is low; fungal pneumonia remains a possible diagnosis along with other infectious and noninfectious causes. Plan: Cavitary pneumonia / possible TB vs fungal vs other etiologies \-- TB rule out in progress: continue airborne isolation per hospital protocol until rule out is complete. \-- AFB smears are negative 3; MTB PCR is negative 1. Obtain one additional MTB PCR; if negative, this will complete the TB rule out per current plan. \-- QuantiFERON?TB Gold is negative; overall clinical suspicion for active TB is low. \-- No need for empiric TB treatment at this time given low suspicion. \-- For possible fungal pneumonia: Obtain/continue routine sputum culture and monitor for fungal growth. Send/confirm fungal testing as planned: Aspergillus antibodies [place] fever (coccidioides) antibodies Fungitell Galactomannan \-- Results can be followed as an outpatient to determine if treatment for cavitary fungal pneumonia is warranted; no empiric micafungin is recommended at this time. \-- Differential for cavitary lesion includes: aspiration pneumonia, bacterial pneumonia, fungal pneumonia, AFB/NTM infection, and noninfectious etiologies including malignancy. \-- Recommend serial chest CT follow?up approximately every 3 months to ensure stability of the cavitary lesion and to monitor for progression. Bilateral lower extremity ulcers (MSSA and Enterobacter cloacae) \-- Current therapy: vancomycin, Zosyn, and micafungin. \-- Given MSSA (not MRSA) and Enterobacter cloacae: Discontinue vancomycin (MSSA identified; no MRSA reported). Discontinue micafungin (no clear indication for empiric antifungal treatment of wounds at this time). Continue Zosyn to treat MSSA and Enterobacter cloacae. \-- Total planned duration: 14 days of antimicrobial therapy for the wounds. At discharge, transition to oral levofloxacin 500 mg PO once daily to complete the 14?day course (including inpatient days). \-- Continue local wound care per primary/wound care team (details not provided in transcript). Cachexia, weight loss, and wound healing support \-- Patient is cachectic with reported weight loss; this may impair wound healing. \-- Recommend formal nutrition evaluation. \-- Encourage increased protein intake to optimize wound healing, per nutrition guidance. Dementia, poor history, and social support concerns \-- Patient has dementia, is A\&O 2, and is a poor historian. She lives with her , who reports that he cannot adequately care for her. \-- Recommend social work consult to: Assess home safety and caregiving capacity. Arrange appropriate support services or alternative placement as needed. Assist with discharge planning in the context of cognitive impairment and limited caregiver support. Isolation Precautions: TB rule?out isolation per hospital protocol (in addition to standard precautions). Assessment and plan were discussed with the patient as able, given dementia. Plan is subject to change pending incorporation of new incoming information/diagnostics. Updates may be added as an addendum to this note. Thank you for involving Infectious Diseases in the care of this patient. ID will continue to follow. Please contact Infectious Disease with any questions or concerns. Yudy Garcia M.D. \ Physical Exam: General: Cachectic, disheveled-appearing female with generalized weakness. Neck: Supple. No masses. HEENT: PERRL. Normal lids and conjunctiva. Moist mucous membranes. Oropharynx without lesions, exudates or excessive erythema. Normal appearance of the external aspects of the nose and ears. Heart: Regular rhythm, normal rate. No murmur. No lower extremity edema. Lungs: Normal respiratory effort. Clear to auscultation bilaterally. No wheezes. No crackles. Abdomen: Soft. Non-tender. Non-distended. No masses or abdominal hernia. Msk: No digital cyanosis. Normal strength and tone in all 4 limbs, though overall generalized weakness noted clinically. Skin: Warm and dry, no rashes. Multiple shallow ulcers and scabs on the dorsal, anterior, and posterior aspects of both lower legs, some extending into subcutaneous tissue. Neuro: Alert. No facial droop or slurred speech. Extra-ocular movements intact. Sensation intact to soft touch in all 4 limbs. A\&O 2. Psych: Dementia present. Mood and affect otherwise appropriate as observed. Oriented to person and place only (A\&O 2). Plan discussed with: Patient Dietary Evaluation Review Recommendations by RD: Increase Calorie Intake Comments: Nutrition Recommendation 1) Ensure high protein 240ml TID 2) Lukas 1 pk BID 3) Monitor PO intake, lab values, weight trend, and I/O Expected Outcomes/Goals: Gain/maintain body weight Wound to improve FU 3-5 days Body Fat Depletion (Severe): Mod to Severe Depletion Muscle Mass (Severe): Mod to Severe Depletion Fluid Accumulation (Non Severe: Mild fluid retention Protein Calorie Malnutrition: Severe YUDY GARCIA MD Sep 11, 2025 20:49
[2025-09-11] MEDS: ATORVASTATIN 20 MG TAB PO SCH (22:47)
--- NOTE | 2025-09-11 22:57 | DVHPN2 ---
Progress Note - Dictate Date Seen: Sep 11, 2025 Medical Necessity Reason Pt with a Central, PICC or Fol: No The following are medically ne: Rivas Catheter Subjective Patient was seen and evaluated in follow up. Patient is on 2 LPM NC. Patient has no new complaints. Patient reports feeling better today. Telemetry reviewed. vital signs Vital Sign Date Time Temp Pulse Resp B/P (MAP) Pulse Ox O2 Delivery O2 Flow Rate FiO2 09/11/25 17:00 97.5 79 16 123/68 (86) 97 97.5 09/11/25 08:00 Room Air* 0 N/A Nasal Cannula* Total Intake and Output 09/10/25 09/10/25 09/11/25 15:00 23:00 07:00 Intake Total 600 ml Output Total 900 ml Balance -300 ml medications Current Medications Medications Dose Ordered Sig/Denae Route Start Time Stop Time Status Last Admin Dose Admin Amlodipine Besylate 5 mg DAILY PO 09/05/25 10:00 09/11/25 10:41 5 MG Clonidine HCl 0.1 mg Q4HP PRN PO 09/04/25 23:45 09/11/25 12:49 0.1 MG Acetaminophen/ Hydrocodone Bitart 1 tab Q4HP PRN PO 09/04/25 23:45 09/08/25 00:25 1 TAB Ondansetron HCl 4 mg Q4HP PRN IV 09/04/25 23:45 Docusate Sodium 100 mg BIDPRN PRN PO 09/04/25 23:45 Zinc Sulfate 220 mg DAILY PO 09/05/25 10:00 09/11/25 10:18 220 MG Ascorbic Acid 500 mg BID PO 09/05/25 10:00 09/11/25 10:17 500 MG Multivitamins 1 tab DAILY PO 09/05/25 10:00 09/11/25 10:17 1 TAB Acetaminophen 650 mg Q6HP PRN PO 09/04/25 23:45 Nitroglycerin 0.4 mg Q5MINP PRN SL 09/04/25 23:45 Morphine Sulfate 2 mg Q30M PRN IV 09/04/25 23:45 Aspirin 81 mg DAILY PO 09/05/25 10:00 09/11/25 10:17 81 MG Enoxaparin Sodium 40 mg DAILY SC 09/05/25 10:00 09/11/25 10:18 40 MG Vancomycin HCl 0 ml @ 0 mls/hr PER PHARMACY IV 09/05/25 23:45 Cancel Piperacillin Sod/ Tazobactam Sod 100 ml @ 25 mls/hr Q8H IV 09/07/25 20:00 09/11/25 20:26 25 MLS/HR Atorvastatin Calcium 40 mg HS PO 09/11/25 22:00 objective GENERAL: A/OX2-3, confused. Thin, frail EYES: PERRL, EOMI. Anicteric. HENT: Moist mucous membranes. LUNGS: Clear to auscultation bilaterally. CARDIOVASCULAR: Regular rate and rhythm. ABDOMEN: Soft, nontender and nondistended. EXTREMITIES: No edema. SKIN: Multiple wounds to bilateral lower extremities, covered at this time. laboratory and microbiology Laboratory Tests 09/11/25 05:07 Test 09/11/25 05:07 Range/Units Serum Glucose 87 74-106 mg/dL Problem List Rule out severe aortic valve stenosis. Rule out tuberculosis. Hypertension. Dyslipidemia. Hypokalemia. Thrombocythemia. Tobacco use. Assessment/Plan Continued all current supportive medical care. Morphine and [place] for pain management. Amlodipine, Clonidine. Aspirin, Lipitor. DVT prophylactics. IV antibiotics as ordered. Additional plan as per the hospital course. Dietary Evaluation Review Recommendations by RD: Increase Calorie Intake Comments: Nutrition Recommendation 1) Ensure high protein 240ml TID 2) Lukas 1 pk BID 3) Monitor PO intake, lab values, weight trend, and I/O Expected Outcomes/Goals: Gain/maintain body weight Wound to improve FU 3-5 days Body Fat Depletion (Severe): Mod to Severe Depletion Muscle Mass (Severe): Mod to Severe Depletion Fluid Accumulation (Non Severe: Mild fluid retention Protein Calorie Malnutrition: Severe Plan discussed with: JOSE Mejia MD Sep 11, 2025 21:19
[2025-09-12] VITALS (8 sets, daily range): BP systolic 112–144; BP diastolic 55–88; PULSE 55–92; RESP 17–19; TEMP 97–97.8; O2SAT 95–99
[2025-09-12 09:19] LABS: Hemoglobin 10.6 g/dL (12.2-16.2); Nucleated Red Blood Cells % 0.0 %
[2025-09-12 09:21] LABS: Hematocrit 32.2 % (36.0-46.0); Mean Corpuscular Hemoglobin 30.4 pg (28.0-32.0); Mean Corpuscular Volume 92.3 fL (80.0-100.0)
[2025-09-12 09:28] LABS: Chloride 102 mmol/L (98-107); Potassium 3.8 mmol/L (3.5-5.1); Sodium 142 mmol/L (136-145)
[2025-09-12 09:29] LABS: Anion Gap 8 (5-15); Calcium 9.0 mg/dL (8.7-10.4)
[2025-09-12 09:31] LABS: Carbon Dioxide 32 mmol/L (20-31)
[2025-09-12 09:34] LABS: BUN/Creatinine Ratio 13.8 (10.0-20.0); Blood Urea Nitrogen 9 mg/dL (9-23); Glucose 86 mg/dL (74-106)
--- NOTE | 2025-09-12 17:55 | DVHPNRES ---
Progress Note Date Seen: Sep 12, 2025 Resident Creating Document: RYAN KESSLER Medical Necessity Reason Pt with a Central, PICC or Fol: No The following are medically ne: Rivas Catheter Subjective Review of Systems Patient was seen today at bedside Labs and chart review Patient NC O2 2 L/min Reported feeling better today Wound culture methicillin sensitive Staphylococcus aureus and Enterobacter Colace On Zosyn for pneumonia and also wound infection Patient was seen by Cardiology, recommendation reviewed and appreciated TB gold test negative, negative for COVID and fl pending Blastomyces antibody/cocciseodes aspergillus antibody As per Infectious Disease AFB smears are negative 3; MTB PCR is negative 1. Obtain one additional MTB PCR; if negative, this will complete the TB rule out per current plan.QuantiFERON?TB Gold is negative; overall clinical suspicion for active TB is low. Objective vital signs Vital Sign Date Time Temp Pulse Resp B/P (MAP) Pulse Ox O2 Delivery O2 Flow Rate FiO2 09/12/25 17:00 97.6 85 19 120/55 (76) 98 97.6 09/12/25 08:00 Room Air* 0 N/A Nasal Cannula* Total Intake and Output 09/11/25 09/11/25 09/12/25 15:00 23:00 07:00 Intake Total 200 ml 800 ml 100 ml Output Total 1240 ml 500 ml Balance 200 ml -440 ml -400 ml medications Current Medications Medications Dose Ordered Sig/Denae Route Start Time Stop Time Status Last Admin Dose Admin Amlodipine Besylate 5 mg DAILY PO 09/05/25 10:00 09/12/25 09:52 5 MG Clonidine HCl 0.1 mg Q4HP PRN PO 09/04/25 23:45 09/11/25 12:49 0.1 MG Acetaminophen/ Hydrocodone Bitart 1 tab Q4HP PRN PO 09/04/25 23:45 09/08/25 00:25 1 TAB Ondansetron HCl 4 mg Q4HP PRN IV 09/04/25 23:45 Docusate Sodium 100 mg BIDPRN PRN PO 09/04/25 23:45 Zinc Sulfate 220 mg DAILY PO 09/05/25 10:00 09/12/25 09:52 220 MG Ascorbic Acid 500 mg BID PO 09/05/25 10:00 09/12/25 09:52 500 MG Multivitamins 1 tab DAILY PO 09/05/25 10:00 09/12/25 09:52 1 TAB Acetaminophen 650 mg Q6HP PRN PO 09/04/25 23:45 Nitroglycerin 0.4 mg Q5MINP PRN SL 09/04/25 23:45 Morphine Sulfate 2 mg Q30M PRN IV 09/04/25 23:45 Aspirin 81 mg DAILY PO 09/05/25 10:00 09/12/25 09:53 81 MG Enoxaparin Sodium 40 mg DAILY SC 09/05/25 10:00 09/12/25 09:53 40 MG Vancomycin HCl 0 ml @ 0 mls/hr PER PHARMACY IV 09/05/25 23:45 Cancel Piperacillin Sod/ Tazobactam Sod 100 ml @ 25 mls/hr Q8H IV 09/07/25 20:00 09/12/25 12:12 25 MLS/HR Atorvastatin Calcium 40 mg HS PO 09/11/25 22:00 09/11/25 22:47 40 MG Examination General examination- awake, not in acute distress HEENT- [place], no acute nasal discharge Cardiovascular- S1-S2 audible, rate and rhythm regular, no murmur Respiratory- CTAB, no wheeze or rhonchi Gastrointestinal-nontender, bowel sound+. Nondistended Musculoskeletal-no acute joint swelling or tenderness or redness Lower extremity- leg edema+ Neurological- cranial nerves intact, no acute dysarthria or dysphagia Psychiatry- AAOX 1-2 Skin- no acute rash or purpura laboratory and microbiology Laboratory Tests 09/12/25 13:40 09/12/25 08:54 Test 09/12/25 08:54 Range/Units Serum Glucose 86 74-106 mg/dL Microbiology Date/Time Source Procedure Growth Status 09/09/25 10:43 Sputum AFB Broth Culture Pending Resulted 09/09/25 10:43 Sputum - Final Resulted 09/09/25 10:43 Sputum - Final Resulted 09/09/25 10:43 Sputum Acid Fast Bacilli Culture Pending Resulted 09/06/25 03:30 Nose MRSA Screen - Final Complete 09/06/25 02:06 Voided Urine Urine Culture - Final Complete 09/04/25 21:29 Blood Blood Culture - Final NO GROWTH AFTER 5 DAYS OF INCUBATION. Complete Problem List/Assessment/Plan Problem List/Assessment/Plan Problem List/Assessment/Plan # Acute respiratory failure # Community acquired pneumonia Gram +/-, rule out tuberculosis, fungal pneumonia # Rule out malignancy # Sepsis due to above # Left pleural effusion Chest CT: Focal consolidation in involving large portions of the left upper lobe with cavitation near the left lung apex, likely infectious or inflammatory etiology. Small left pleural effusion. Chest X-ray: Left perihilar to hilar hazy opacification which may reflect underlying infiltrate however cystic lung change in the left lung apex with a surrounding opacification. Currently under empiric IV antibiotics (Zosyn, Vancomycin and Micafungin) Ordered panculture. Sputum culture negative Infectious disease consult, awaiting recommendations. Dietary consult Pending echocardiogram QuantiFERON-TB Gold negative. Send out for sample of AFB culture on 09/07/2025 with respiratory induction. Already obtained three samples # Cellulitis of bilateral limbs # Ruled out DVT # Ruled out osteomyelitis Currently under empiric IV antibiotics (Zosyn, Vancomycin and Micafungin) Wound cultures show MSSA and Enterobacter cloacae. Continue with broad-spectrum due to cavitary lesion in lung. Wound care on board Ordered bilateral lower limb CT and venous US which ruled out DVT, abscess and osteomyelitis # Questionable moderate to severe Aortic stenosis Echocardiogram: lvef 60%. severe lvh. aortic sclerosis, modeate to severe , TANO by planimeter is 1.1 cm2 mean gradient is 11 mmhg, this is closer to a mild (coronary CT calcium of AV can be helpful). RV enlarged. left atrium enlarged Cardiology consult: Recommend eventual coronary angiography and BETH to characterize better aortic valve disease, once cleared from Infectious Disease standpoint of view. # Hypokalemia Replenished # Chronic normocytic anemia # Thrombocytosis Secondary to sepsis Currently on prophylactic enoxaparin # Severe protein malnutrition (BMI 17) Nutritional consult placed # Questionable Dementia On multivitamins To be evaluated as outpatient Goals of care discussed with patient and family for over 18 minutes: Full code status Discussed plan with Dr. Grijalva, patient and nurses: . Patient's isolated until infectious disease clears isolation. Ruling out tuberculosis fungal infection. Continue with broad-spectrum antibiotics. Once cleared by Infectious Disease standpoint of view, cardiology we will evaluate coronary angiography and eventual BETH. Plan discussed with: Patient, Other (Nurses) Plan discussed with: Patient, Other (RN) Dietary Evaluation Review Recommendations by RD: Increase Calorie Intake Comments: Nutrition Recommendation 1) Ensure high protein 240ml TID 2) Lukas 1 pk BID 3) Monitor PO intake, lab values, weight trend, and I/O Expected Outcomes/Goals: Gain/maintain body weight Wound to improve FU 3-5 days Body Fat Depletion (Severe): Mod to Severe Depletion Muscle Mass (Severe): Mod to Severe Depletion Fluid Accumulation (Non Severe: Mild fluid retention Protein Calorie Malnutrition: Severe Visit Coding STANDARD RES Billing Provider: CRYSTAL GRIJALVA MD Date of Service if different f: Sep 12, 2025 Common Visit Codes: 31370-[id number] INP/OBS CARE(HIGH) RYAN KESSLER RESIDENT Sep 12, 2025 17:55
--- NOTE | 2025-09-12 19:31 | DVHPN2 ---
Progress Note - Dictate Date Seen: Sep 12, 2025 Medical Necessity Reason Pt with a Central, PICC or Fol: No The following are medically ne: Rivas Catheter Subjective Patient was seen and evaluated in follow up. Patient is now on room air. Patient does not voice any current complaints.CO2 32. Telemetry reviewed. vital signs Vital Sign Date Time Temp Pulse Resp B/P (MAP) Pulse Ox O2 Delivery O2 Flow Rate FiO2 09/12/25 13:00 97.3 78 18 121/65 (83) 97 97.3 09/12/25 08:00 Room Air* 0 N/A Nasal Cannula* Total Intake and Output 09/11/25 09/11/25 09/12/25 15:00 23:00 07:00 Intake Total 200 ml 800 ml 100 ml Output Total 1240 ml 500 ml Balance 200 ml -440 ml -400 ml medications Current Medications Medications Dose Ordered Sig/Denae Route Start Time Stop Time Status Last Admin Dose Admin Amlodipine Besylate 5 mg DAILY PO 09/05/25 10:00 09/12/25 09:52 5 MG Clonidine HCl 0.1 mg Q4HP PRN PO 09/04/25 23:45 09/11/25 12:49 0.1 MG Acetaminophen/ Hydrocodone Bitart 1 tab Q4HP PRN PO 09/04/25 23:45 09/08/25 00:25 1 TAB Ondansetron HCl 4 mg Q4HP PRN IV 09/04/25 23:45 Docusate Sodium 100 mg BIDPRN PRN PO 09/04/25 23:45 Zinc Sulfate 220 mg DAILY PO 09/05/25 10:00 09/12/25 09:52 220 MG Ascorbic Acid 500 mg BID PO 09/05/25 10:00 09/12/25 09:52 500 MG Multivitamins 1 tab DAILY PO 09/05/25 10:00 09/12/25 09:52 1 TAB Acetaminophen 650 mg Q6HP PRN PO 09/04/25 23:45 Nitroglycerin 0.4 mg Q5MINP PRN SL 09/04/25 23:45 Morphine Sulfate 2 mg Q30M PRN IV 09/04/25 23:45 Aspirin 81 mg DAILY PO 09/05/25 10:00 09/12/25 09:53 81 MG Enoxaparin Sodium 40 mg DAILY SC 09/05/25 10:00 09/12/25 09:53 40 MG Vancomycin HCl 0 ml @ 0 mls/hr PER PHARMACY IV 09/05/25 23:45 Cancel Piperacillin Sod/ Tazobactam Sod 100 ml @ 25 mls/hr Q8H IV 09/07/25 20:00 09/12/25 12:12 25 MLS/HR Atorvastatin Calcium 40 mg HS PO 09/11/25 22:00 09/11/25 22:47 40 MG objective GENERAL: A/OX2-3, confused. Thin, frail EYES: PERRL, EOMI. Anicteric. HENT: Moist mucous membranes. LUNGS: Clear to auscultation bilaterally. CARDIOVASCULAR: Regular rate and rhythm. ABDOMEN: Soft, nontender and nondistended. EXTREMITIES: No edema. SKIN: Multiple wounds to bilateral lower extremities, covered at this time. laboratory and microbiology Laboratory Tests 09/12/25 08:54 Test 09/12/25 08:54 Range/Units Serum Glucose 86 74-106 mg/dL Problem List Rule out severe aortic valve stenosis. Rule out tuberculosis. Hypertension. Dyslipidemia. Hypokalemia. Thrombocythemia. Tobacco use. Assessment/Plan Continued all current supportive medical care. Morphine and [place] for pain management. Amlodipine, Clonidine. Aspirin, Lipitor. DVT prophylactics. IV antibiotics as ordered. Additional plan as per the hospital course. Dietary Evaluation Review Recommendations by RD: Increase Calorie Intake Comments: Nutrition Recommendation 1) Ensure high protein 240ml TID 2) Lukas 1 pk BID 3) Monitor PO intake, lab values, weight trend, and I/O Expected Outcomes/Goals: Gain/maintain body weight Wound to improve FU 3-5 days Body Fat Depletion (Severe): Mod to Severe Depletion Muscle Mass (Severe): Mod to Severe Depletion Fluid Accumulation (Non Severe: Mild fluid retention Protein Calorie Malnutrition: Severe Plan discussed with: Patient JOSE MIKE MD Sep 12, 2025 14:40
[2025-09-13] VITALS (8 sets, daily range): BP systolic 120–152; BP diastolic 62–90; PULSE 69–80; RESP 16–19; TEMP 97.6–98.4; O2SAT 94–100
[2025-09-13 07:21] LABS: Anion Gap 8 (5-15); Carbon Dioxide 30 mmol/L (20-31); Potassium 4.1 mmol/L (3.5-5.1); Sodium 145 mmol/L (136-145)
[2025-09-13 07:22] LABS: Calcium 9.0 mg/dL (8.7-10.4); Hemoglobin 10.2 g/dL (12.2-16.2)
[2025-09-13 07:24] LABS: Hematocrit 30.6 % (36.0-46.0); Mean Corpuscular Hemoglobin 31.0 pg (28.0-32.0); Mean Corpuscular Volume 92.7 fL (80.0-100.0); Nucleated Red Blood Cells % 0.1 %
[2025-09-13 07:27] LABS: BUN/Creatinine Ratio 13.3 (10.0-20.0); Blood Urea Nitrogen 10 mg/dL (9-23); Glucose 85 mg/dL (74-106); Magnesium 2.3 mg/dL (1.6-2.6)
[2025-09-13 07:32] LABS: Chloride 107 mmol/L (98-107)
--- NOTE | 2025-09-13 16:59 | DVHPNRES ---
Progress Note Date Seen: Sep 13, 2025 Resident Creating Document: BETTIE CERRATO Medical Necessity Reason Pt with a Central, PICC or Fol: No The following are medically ne: Rivas Catheter Subjective Review of Systems Patient was seen and examined at bedside today. She reports having no complaints. She denies chest pain, shortness of breath, pain in the ulcer site, bowel bladder symptoms. Objective vital signs Vital Sign Date Time Temp Pulse Resp B/P (MAP) Pulse Ox O2 Delivery O2 Flow Rate FiO2 09/13/25 12:50 97.7 70 16 136/72 (93) 97 97.7 09/13/25 08:00 Room Air* 0 N/A Nasal Cannula* Total Intake and Output 09/12/25 09/12/25 09/13/25 15:00 23:00 07:00 Intake Total 100 ml 100 ml Balance 100 ml 100 ml medications Current Medications Medications Dose Ordered Sig/Denae Route Start Time Stop Time Status Last Admin Dose Admin Amlodipine Besylate 5 mg DAILY PO 09/05/25 10:00 09/13/25 09:14 5 MG Clonidine HCl 0.1 mg Q4HP PRN PO 09/04/25 23:45 09/11/25 12:49 0.1 MG Acetaminophen/ Hydrocodone Bitart 1 tab Q4HP PRN PO 09/04/25 23:45 09/08/25 00:25 1 TAB Ondansetron HCl 4 mg Q4HP PRN IV 09/04/25 23:45 Docusate Sodium 100 mg BIDPRN PRN PO 09/04/25 23:45 Zinc Sulfate 220 mg DAILY PO 09/05/25 10:00 09/13/25 09:14 220 MG Ascorbic Acid 500 mg BID PO 09/05/25 10:00 09/13/25 09:14 500 MG Multivitamins 1 tab DAILY PO 09/05/25 10:00 09/13/25 09:14 1 TAB Acetaminophen 650 mg Q6HP PRN PO 09/04/25 23:45 Nitroglycerin 0.4 mg Q5MINP PRN SL 09/04/25 23:45 Morphine Sulfate 2 mg Q30M PRN IV 09/04/25 23:45 Aspirin 81 mg DAILY PO 09/05/25 10:00 09/13/25 09:14 81 MG Enoxaparin Sodium 40 mg DAILY SC 09/05/25 10:00 09/13/25 09:14 40 MG Vancomycin HCl 0 ml @ 0 mls/hr PER PHARMACY IV 09/05/25 23:45 Cancel Piperacillin Sod/ Tazobactam Sod 100 ml @ 25 mls/hr Q8H IV 09/07/25 20:00 09/13/25 12:00 25 MLS/HR Atorvastatin Calcium 40 mg HS PO 09/11/25 22:00 09/12/25 22:02 40 MG Examination Pt is lying on bed General Appearance: Alert, Oriented X3, Cooperative, Mild distress HEENT: Atraumatic, Mucous membranes moist/pink Respiratory: Clear to auscultation, Normal air movement, No added sounds Cardiovascular: Regular rate, Normal S1, Normal S2, No murmurs Abdominal/ : Active bowel sounds, Soft, no distention, no tenderness Extremities: No edema, Normal pulses, No tenderness/swelling Skin: 4x4 cm ulcer over right rivera, ulcer over left leg. Neuro: Normal speech, sensorimotor deficits none Psych/Mental Status: Mental status NL, Mood NL Nurse was there as radiology clerk during examination laboratory and microbiology Laboratory Tests 09/13/25 06:40 Test 09/13/25 06:40 Range/Units Serum Glucose 85 74-106 mg/dL Microbiology Date/Time Source Procedure Growth Status 09/09/25 10:43 Sputum AFB Broth Culture Pending Resulted 09/09/25 10:43 Sputum - Final Resulted 09/09/25 10:43 Sputum - Final Resulted 09/09/25 10:43 Sputum Acid Fast Bacilli Culture Pending Resulted 09/06/25 03:30 Nose MRSA Screen - Final Complete 09/06/25 02:06 Voided Urine Urine Culture - Final Complete 09/04/25 21:29 Blood Blood Culture - Final NO GROWTH AFTER 5 DAYS OF INCUBATION. Complete Labs and/or images reviewed: Labs reviewed by me, Image(s) reviewed by me Problem List/Assessment/Plan Problem List/Assessment/Plan # Acute respiratory failure # Community acquired pneumonia Gram +/-, rule out tuberculosis, fungal pneumonia # Rule out malignancy # Sepsis due to above # Left pleural effusion Chest CT: Focal consolidation in involving large portions of the left upper lobe with cavitation near the left lung apex, likely infectious or inflammatory etiology. Small left pleural effusion. Chest X-ray: Left perihilar to hilar hazy opacification which may reflect underlying infiltrate however cystic lung change in the left lung apex with a surrounding opacification. Currently under empiric IV antibiotics (Zosyn, Vancomycin and Micafungin) Ordered panculture. Sputum culture negative Infectious disease consult, awaiting recommendations. Dietary consult Pending echocardiogram QuantiFERON-TB Gold negative. Send out for sample of AFB culture on 09/07/2025 with respiratory induction. Already obtained three samples # Cellulitis of bilateral limbs # Ruled out DVT # Ruled out osteomyelitis Currently under empiric IV antibiotics (Zosyn, Vancomycin and Micafungin) Wound cultures show MSSA and Enterobacter cloacae. Continue with broad-spectrum due to cavitary lesion in lung. Wound care on board Ordered bilateral lower limb CT and venous US which ruled out DVT, abscess and osteomyelitis # Questionable moderate to severe Aortic stenosis Echocardiogram: lvef 60%. severe lvh. aortic sclerosis, modeate to severe , TANO by planimeter is 1.1 cm2 mean gradient is 11 mmhg, this is closer to a mild (coronary CT calcium of AV can be helpful). RV enlarged. left atrium enlarged Cardiology consult: Recommend eventual coronary angiography and BETH to characterize better aortic valve disease, once cleared from Infectious Disease standpoint of view. # Hypokalemia Replenished # Chronic normocytic anemia # Thrombocytosis Secondary to sepsis Currently on prophylactic enoxaparin # Severe protein malnutrition (BMI 17) Nutritional consult placed # Questionable Dementia On multivitamins To be evaluated as outpatient GI prophylaxis: Pantoprazole DVT prophylaxis: Lovenox Diet: Cardiac Goals of care discussed with the patient for more than 27 minutes: Full code status Case discussed with Dr. Grijalva, patient and RN Plan discussed with: Patient, Other (RN) Dietary Evaluation Review Recommendations by RD: Increase Calorie Intake Comments: Nutrition Recommendation 1) Ensure high protein 240ml TID 2) Lukas 1 pk BID 3) Monitor PO intake, lab values, weight trend, and I/O Expected Outcomes/Goals: Gain/maintain body weight Wound to improve FU 3-5 days Body Fat Depletion (Severe): Mod to Severe Depletion Muscle Mass (Severe): Mod to Severe Depletion Fluid Accumulation (Non Severe: Mild fluid retention Protein Calorie Malnutrition: Severe Visit Coding STANDARD RES Billing Provider: CRYSTAL GRIJALVA MD Date of Service if different f: Sep 13, 2025 Common Visit Codes: [id number] INP/OBS CARE(MOD) BETTIE CERRATO Sep 13, 2025 16:59 CRYSTAL GRIJALVA MD Sep 14, 2025 18:52
[2025-09-14] VITALS (8 sets, daily range): BP systolic 117–161; BP diastolic 60–122; PULSE 67–93; RESP 16–19; TEMP 97.8–98.9; O2SAT 93–98
--- NOTE | 2025-09-14 00:38 | DVHPN2 ---
Progress Note - Dictate Date Seen: Sep 13, 2025 Medical Necessity Reason Pt with a Central, PICC or Fol: No The following are medically ne: Rivas Catheter Subjective Patient was seen and evaluated in follow up. No overnight events. She reports having no complaints. CBC and chemistry panel are unremarkable. Telemetry reviewed. vital signs Vital Sign Date Time Temp Pulse Resp B/P (MAP) Pulse Ox O2 Delivery O2 Flow Rate FiO2 09/13/25 21:00 97.9 80 19 120/62 (81) 94 97.9 09/13/25 08:00 Room Air* 0 N/A Nasal Cannula* Total Intake and Output 09/13/25 09/13/25 09/14/25 15:00 23:00 07:00 Intake Total 218 ml Output Total 600 ml Balance -382 ml medications Current Medications Medications Dose Ordered Sig/Denae Route Start Time Stop Time Status Last Admin Dose Admin Amlodipine Besylate 5 mg DAILY PO 09/05/25 10:00 09/13/25 09:14 5 MG Clonidine HCl 0.1 mg Q4HP PRN PO 09/04/25 23:45 09/11/25 12:49 0.1 MG Acetaminophen/ Hydrocodone Bitart 1 tab Q4HP PRN PO 09/04/25 23:45 09/08/25 00:25 1 TAB Ondansetron HCl 4 mg Q4HP PRN IV 09/04/25 23:45 Docusate Sodium 100 mg BIDPRN PRN PO 09/04/25 23:45 Zinc Sulfate 220 mg DAILY PO 09/05/25 10:00 09/13/25 09:14 220 MG Ascorbic Acid 500 mg BID PO 09/05/25 10:00 09/13/25 20:40 500 MG Multivitamins 1 tab DAILY PO 09/05/25 10:00 09/13/25 09:14 1 TAB Acetaminophen 650 mg Q6HP PRN PO 09/04/25 23:45 Nitroglycerin 0.4 mg Q5MINP PRN SL 09/04/25 23:45 Morphine Sulfate 2 mg Q30M PRN IV 09/04/25 23:45 Aspirin 81 mg DAILY PO 09/05/25 10:00 09/13/25 09:14 81 MG Enoxaparin Sodium 40 mg DAILY SC 09/05/25 10:00 09/13/25 09:14 40 MG Vancomycin HCl 0 ml @ 0 mls/hr PER PHARMACY IV 09/05/25 23:45 Cancel Piperacillin Sod/ Tazobactam Sod 100 ml @ 25 mls/hr Q8H IV 09/07/25 20:00 09/13/25 20:40 25 MLS/HR Atorvastatin Calcium 40 mg HS PO 09/11/25 22:00 09/13/25 20:40 40 MG Pantoprazole Sodium 40 mg DAILY IV 09/14/25 10:00 objective GENERAL: A/OX2-3, confused. Thin, frail EYES: PERRL, EOMI. Anicteric. HENT: Moist mucous membranes. LUNGS: Clear to auscultation bilaterally. CARDIOVASCULAR: Regular rate and rhythm. ABDOMEN: Soft, nontender and nondistended. EXTREMITIES: No edema. SKIN: Multiple wounds to bilateral lower extremities, covered at this time. laboratory and microbiology Laboratory Tests 09/13/25 06:40 Test 09/13/25 06:40 Range/Units Serum Glucose 85 74-106 mg/dL Problem List Rule out severe aortic valve stenosis. Rule out tuberculosis. Hypertension. Dyslipidemia. Hypokalemia. Thrombocythemia. Tobacco use. Assessment/Plan Continued all current supportive medical care. Morphine and [place] for pain management. Amlodipine, Clonidine. Aspirin, Lipitor. DVT prophylactics. IV antibiotics as ordered. Additional plan as per the hospital course. Dietary Evaluation Review Recommendations by RD: Increase Calorie Intake Comments: Nutrition Recommendation 1) Ensure high protein 240ml TID 2) Lukas 1 pk BID 3) Monitor PO intake, lab values, weight trend, and I/O Expected Outcomes/Goals: Gain/maintain body weight Wound to improve FU 3-5 days Body Fat Depletion (Severe): Mod to Severe Depletion Muscle Mass (Severe): Mod to Severe Depletion Fluid Accumulation (Non Severe: Mild fluid retention Protein Calorie Malnutrition: Severe Plan discussed with: Patient JOSE MIKE MD Sep 14, 2025 00:38
[2025-09-14 06:36] LABS: Hematocrit 30.6 % (36.0-46.0); Hemoglobin 10.2 g/dL (12.2-16.2); Mean Corpuscular Hemoglobin 30.9 pg (28.0-32.0); Mean Corpuscular Volume 92.2 fL (80.0-100.0); Nucleated Red Blood Cells % 0.2 %
[2025-09-14 06:44] LABS: Alanine Aminotransferase 25 U/L (7-40); Alkaline Phosphatase 87 U/L (46-116); Anion Gap 8 (5-15); BUN/Creatinine Ratio 20.6 (10.0-20.0); Blood Urea Nitrogen 13 mg/dL (9-23); Calcium 8.8 mg/dL (8.7-10.4); Carbon Dioxide 30 mmol/L (20-31); Chloride 105 mmol/L (98-107); Glucose 85 mg/dL (74-106); Potassium 3.8 mmol/L (3.5-5.1); Sodium 143 mmol/L (136-145); Total Protein 6.7 g/dL (5.7-8.2)
[2025-09-14 06:45] LABS: Albumin 3.4 g/dL (3.2-4.8); Bilirubin, Total 0.4 mg/dL (0.2-1.0)
[2025-09-14] MEDS: PANTOPRAZOLE 40 MG/10 ML VIAL INJ IV SCH (10:51)
--- NOTE | 2025-09-14 16:16 | DVHPNRES ---
Progress Note Date Seen: Sep 14, 2025 Resident Creating Document: BETTIE CERRATO Medical Necessity Reason Pt with a Central, PICC or Fol: No The following are medically ne: Rivas Catheter Subjective Review of Systems Patient was seen and examined at bedside today. She reports feeling better. She denies chest pain, shortness of breath, pain in the ulcer site, bowel bladder symptoms or any other complaints. Objective vital signs Vital Sign Date Time Temp Pulse Resp B/P (MAP) Pulse Ox O2 Delivery O2 Flow Rate FiO2 09/14/25 12:38 98.4 93 18 161/122 (135) 93 98.4 09/13/25 20:00 Room Air* 0 N/A Nasal Cannula* Total Intake and Output 09/13/25 09/13/25 09/14/25 15:00 23:00 07:00 Intake Total 438 ml Output Total 600 ml Balance -162 ml medications Current Medications Medications Dose Ordered Sig/Dneae Route Start Time Stop Time Status Last Admin Dose Admin Amlodipine Besylate 5 mg DAILY PO 09/05/25 10:00 09/14/25 10:52 5 MG Clonidine HCl 0.1 mg Q4HP PRN PO 09/04/25 23:45 09/11/25 12:49 0.1 MG Ondansetron HCl 4 mg Q4HP PRN IV 09/04/25 23:45 Docusate Sodium 100 mg BIDPRN PRN PO 09/04/25 23:45 Zinc Sulfate 220 mg DAILY PO 09/05/25 10:00 09/14/25 10:52 220 MG Ascorbic Acid 500 mg BID PO 09/05/25 10:00 09/14/25 10:52 500 MG Multivitamins 1 tab DAILY PO 09/05/25 10:00 09/14/25 10:52 1 TAB Acetaminophen 650 mg Q6HP PRN PO 09/04/25 23:45 Nitroglycerin 0.4 mg Q5MINP PRN SL 09/04/25 23:45 Aspirin 81 mg DAILY PO 09/05/25 10:00 09/14/25 10:52 81 MG Enoxaparin Sodium 40 mg DAILY SC 09/05/25 10:00 09/14/25 10:53 40 MG Vancomycin HCl 0 ml @ 0 mls/hr PER PHARMACY IV 09/05/25 23:45 Cancel Piperacillin Sod/ Tazobactam Sod 100 ml @ 25 mls/hr Q8H IV 09/07/25 20:00 09/14/25 12:14 25 MLS/HR Atorvastatin Calcium 40 mg HS PO 09/11/25 22:00 09/13/25 20:40 40 MG Pantoprazole Sodium 40 mg DAILY IV 09/14/25 10:00 09/14/25 10:51 40 MG Examination Examination Pt is lying on bed General Appearance: Alert, Oriented X3, Cooperative, Mild distress HEENT: Atraumatic, Mucous membranes moist/pink Respiratory: Clear to auscultation, Normal air movement, No added sounds Cardiovascular: Regular rate, Normal S1, Normal S2, No murmurs Abdominal/ : Active bowel sounds, Soft, no distention, no tenderness Extremities: No edema, Normal pulses, No tenderness/swelling Skin: 4x4 cm ulcer over right rivera, ulcer over left leg. Neuro: Normal speech, sensorimotor deficits none Psych/Mental Status: Mental status NL, Mood NL Nurse was there as journeyman pipe fitter during examination l laboratory and microbiology Laboratory Tests 09/14/25 05:19 Test 09/14/25 05:19 Range/Units Serum Glucose 85 74-106 mg/dL Microbiology Date/Time Source Procedure Growth Status 09/09/25 10:43 Sputum AFB Broth Culture Pending Resulted 09/09/25 10:43 Sputum - Final Resulted 09/09/25 10:43 Sputum - Final Resulted 09/09/25 10:43 Sputum Acid Fast Bacilli Culture Pending Resulted 09/06/25 03:30 Nose MRSA Screen - Final Complete 09/06/25 02:06 Voided Urine Urine Culture - Final Complete 09/04/25 21:29 Blood Blood Culture - Final NO GROWTH AFTER 5 DAYS OF INCUBATION. Complete Labs and/or images reviewed: Labs reviewed by me, Image(s) reviewed by me Problem List/Assessment/Plan Problem List/Assessment/Plan # Acute respiratory failure # Community acquired pneumonia Gram +/-, rule out tuberculosis, fungal pneumonia # Rule out malignancy # Sepsis due to above # Left pleural effusion Chest CT: Focal consolidation in involving large portions of the left upper lobe with cavitation near the left lung apex, likely infectious or inflammatory etiology. Small left pleural effusion. Chest X-ray: Left perihilar to hilar hazy opacification which may reflect underlying infiltrate however cystic lung change in the left lung apex with a surrounding opacification. Currently under empiric IV antibiotics (Zosyn, Vancomycin and Micafungin) Ordered panculture. Sputum culture negative Infectious disease consult, awaiting recommendations. Dietary consult QuantiFERON-TB Gold negative. Send out for sample of AFB culture on 09/07/2025 with respiratory induction. Already obtained three samples MTB PCR ordered, results pending. # Cellulitis of bilateral limbs # Ruled out DVT # Ruled out osteomyelitis Currently under empiric IV antibiotics (Zosyn, Vancomycin and Micafungin) Wound cultures show MSSA and Enterobacter cloacae. Continue with broad-spectrum due to cavitary lesion in lung. Wound care on board Ordered bilateral lower limb CT and venous US which ruled out DVT, abscess and osteomyelitis # Questionable moderate to severe Aortic stenosis Echocardiogram: lvef 60%. severe lvh. aortic sclerosis, modeate to severe , TANO by planimeter is 1.1 cm2 mean gradient is 11 mmhg, this is closer to a mild (coronary CT calcium of AV can be helpful). RV enlarged. left atrium enlarged Cardiology consult: Recommend eventual coronary angiography and BETH to characterize better aortic valve disease, once cleared from Infectious Disease standpoint of view. # Hypokalemia Replenished # Chronic normocytic anemia # Thrombocytosis Secondary to sepsis Currently on prophylactic enoxaparin # Severe protein malnutrition (BMI 17) Nutritional consult placed # Questionable Dementia On multivitamins To be evaluated as outpatient GI prophylaxis: Pantoprazole DVT prophylaxis: Lovenox Diet: Cardiac Goals of care discussed with the patient for more than 27 minutes: Full code status Case discussed with Dr. Grijalva, patient and RN Plan discussed with: Patient, Other (RN) Plan discussed with: Patient (RN) My Orders My Orders Orders - BETTIE CERRATO Procedure Category Date Status Time Pantoprazole PHA 09/14/25 In Process (Protonix) 10:00 Dietary Evaluation Review Recommendations by RD: Increase Calorie Intake Comments: Nutrition Recommendation 1) Ensure high protein 240ml TID 2) Lukas 1 pk BID 3) Monitor PO intake, lab values, weight trend, and I/O Expected Outcomes/Goals: Gain/maintain body weight Wound to improve FU 3-5 days Body Fat Depletion (Severe): Mod to Severe Depletion Muscle Mass (Severe): Mod to Severe Depletion Fluid Accumulation (Non Severe: Mild fluid retention Protein Calorie Malnutrition: Severe Visit Coding STANDARD RES Billing Provider: CRYSTAL GRIJALVA MD Date of Service if different f: Sep 14, 2025 Common Visit Codes: [id number] INP/OBS CARE(HIGH) BETTIE CERRATO Sep 14, 2025 16:16 CRYSTAL GRIJALVA MD Sep 14, 2025 18:37
--- NOTE | 2025-09-14 23:21 | DVHPN2 ---
Progress Note - Dictate Date Seen: Sep 14, 2025 Medical Necessity Reason Pt with a Central, PICC or Fol: No The following are medically ne: Rivas Catheter Subjective Patient was seen and evaluated in follow up. No overnight events. Patient is comfortable in bed. HCT 30.6. Telemetry reviewed. vital signs Vital Sign Date Time Temp Pulse Resp B/P (MAP) Pulse Ox O2 Delivery O2 Flow Rate FiO2 09/14/25 12:38 98.4 93 18 161/122 (135) 93 98.4 09/13/25 20:00 Room Air* 0 N/A Nasal Cannula* Total Intake and Output 09/13/25 09/13/25 09/14/25 15:00 23:00 07:00 Intake Total 438 ml Output Total 600 ml Balance -162 ml medications Current Medications Medications Dose Ordered Sig/Denae Route Start Time Stop Time Status Last Admin Dose Admin Amlodipine Besylate 5 mg DAILY PO 09/05/25 10:00 09/14/25 10:52 5 MG Clonidine HCl 0.1 mg Q4HP PRN PO 09/04/25 23:45 09/11/25 12:49 0.1 MG Ondansetron HCl 4 mg Q4HP PRN IV 09/04/25 23:45 Docusate Sodium 100 mg BIDPRN PRN PO 09/04/25 23:45 Zinc Sulfate 220 mg DAILY PO 09/05/25 10:00 09/14/25 10:52 220 MG Ascorbic Acid 500 mg BID PO 09/05/25 10:00 09/14/25 10:52 500 MG Multivitamins 1 tab DAILY PO 09/05/25 10:00 09/14/25 10:52 1 TAB Acetaminophen 650 mg Q6HP PRN PO 09/04/25 23:45 Nitroglycerin 0.4 mg Q5MINP PRN SL 09/04/25 23:45 Aspirin 81 mg DAILY PO 09/05/25 10:00 09/14/25 10:52 81 MG Enoxaparin Sodium 40 mg DAILY SC 09/05/25 10:00 09/14/25 10:53 40 MG Vancomycin HCl 0 ml @ 0 mls/hr PER PHARMACY IV 09/05/25 23:45 Cancel Piperacillin Sod/ Tazobactam Sod 100 ml @ 25 mls/hr Q8H IV 09/07/25 20:00 09/14/25 12:14 25 MLS/HR Atorvastatin Calcium 40 mg HS PO 09/11/25 22:00 09/13/25 20:40 40 MG Pantoprazole Sodium 40 mg DAILY IV 09/14/25 10:00 09/14/25 10:51 40 MG objective GENERAL: A/OX2-3, confused. Thin, frail EYES: PERRL, EOMI. Anicteric. HENT: Moist mucous membranes. LUNGS: Clear to auscultation bilaterally. CARDIOVASCULAR: Regular rate and rhythm. ABDOMEN: Soft, nontender and nondistended. EXTREMITIES: No edema. SKIN: Multiple wounds to bilateral lower extremities, covered at this time. laboratory and microbiology Laboratory Tests 09/14/25 05:19 Test 09/14/25 05:19 Range/Units Serum Glucose 85 74-106 mg/dL Problem List Rule out severe aortic valve stenosis. Rule out tuberculosis. Hypertension. Dyslipidemia. Hypokalemia. Thrombocythemia. Tobacco use. Assessment/Plan Continued all current supportive medical care. Tylenol for pain management. Amlodipine, Clonidine. Aspirin, Lipitor. DVT prophylactics. IV antibiotics as ordered. Additional plan as per the hospital course. Dietary Evaluation Review Recommendations by RD: Increase Calorie Intake Comments: Nutrition Recommendation 1) Ensure high protein 240ml TID 2) Lukas 1 pk BID 3) Monitor PO intake, lab values, weight trend, and I/O Expected Outcomes/Goals: Gain/maintain body weight Wound to improve FU 3-5 days Body Fat Depletion (Severe): Mod to Severe Depletion Muscle Mass (Severe): Mod to Severe Depletion Fluid Accumulation (Non Severe: Mild fluid retention Protein Calorie Malnutrition: Severe Plan discussed with: Patient JOSE MIKE MD Sep 14, 2025 14:03
[2025-09-15] VITALS (8 sets, daily range): BP systolic 122–141; BP diastolic 57–70; PULSE 60–86; RESP 14–20; TEMP 97.4–98.2; O2SAT 93–98
[2025-09-15 08:28] LABS: Hematocrit 32.4 % (36.0-46.0); Hemoglobin 11.1 g/dL (12.2-16.2); Mean Corpuscular Hemoglobin 31.8 pg (28.0-32.0); Mean Corpuscular Volume 92.4 fL (80.0-100.0); Nucleated Red Blood Cells % 0.2 %
[2025-09-15 08:41] LABS: Alanine Aminotransferase 29 U/L (7-40); Albumin 3.5 g/dL (3.2-4.8); Alkaline Phosphatase 98 U/L (46-116); Anion Gap 8 (5-15); BUN/Creatinine Ratio 14.7 (10.0-20.0); Blood Urea Nitrogen 10 mg/dL (9-23); Calcium 8.9 mg/dL (8.7-10.4); Carbon Dioxide 30 mmol/L (20-31); Chloride 104 mmol/L (98-107); Glucose 88 mg/dL (74-106); Potassium 4.1 mmol/L (3.5-5.1); Sodium 142 mmol/L (136-145); Total Protein 7.0 g/dL (5.7-8.2)
[2025-09-15 08:42] LABS: Bilirubin, Total 0.5 mg/dL (0.2-1.0)
[2025-09-15] MEDS: SODIUM CHL 3% HYPERTONIC 500 ML BAG IN ONE (14:30)
--- NOTE | 2025-09-15 15:15 | DVHPNRES ---
Progress Note Date Seen: Sep 15, 2025 Resident Creating Document: BETTIE CERRATO Medical Necessity Reason Pt with a Central, PICC or Fol: No The following are medically ne: Rivas Catheter Subjective Review of Systems Patient was seen and examined at bedside today. She reports feeling better. She denies chest pain, shortness of breath, pain in the ulcer site, bowel bladder symptoms or any other complaints. Objective vital signs Vital Sign Date Time Temp Pulse Resp B/P (MAP) Pulse Ox O2 Delivery O2 Flow Rate FiO2 09/15/25 12:31 97.4 66 20 130/70 (90) 93 97.4 09/15/25 08:00 Room Air* 0 21 Total Intake and Output 09/14/25 09/14/25 09/15/25 15:00 23:00 07:00 Intake Total 740 ml 100 ml Output Total 600 ml Balance 140 ml 100 ml medications Current Medications Medications Dose Ordered Sig/Denae Route Start Time Stop Time Status Last Admin Dose Admin Amlodipine Besylate 5 mg DAILY PO 09/05/25 10:00 09/15/25 10:02 5 MG Clonidine HCl 0.1 mg Q4HP PRN PO 09/04/25 23:45 09/11/25 12:49 0.1 MG Ondansetron HCl 4 mg Q4HP PRN IV 09/04/25 23:45 Docusate Sodium 100 mg BIDPRN PRN PO 09/04/25 23:45 Zinc Sulfate 220 mg DAILY PO 09/05/25 10:00 09/15/25 10:02 220 MG Ascorbic Acid 500 mg BID PO 09/05/25 10:00 09/15/25 10:01 500 MG Multivitamins 1 tab DAILY PO 09/05/25 10:00 09/15/25 10:01 1 TAB Acetaminophen 650 mg Q6HP PRN PO 09/04/25 23:45 Nitroglycerin 0.4 mg Q5MINP PRN SL 09/04/25 23:45 Aspirin 81 mg DAILY PO 09/05/25 10:00 09/15/25 10:01 81 MG Enoxaparin Sodium 40 mg DAILY SC 09/05/25 10:00 09/15/25 10:00 40 MG Vancomycin HCl 0 ml @ 0 mls/hr PER PHARMACY IV 09/05/25 23:45 Cancel Piperacillin Sod/ Tazobactam Sod 100 ml @ 25 mls/hr Q8H IV 09/07/25 20:00 09/15/25 12:00 25 MLS/HR Atorvastatin Calcium 40 mg HS PO 09/11/25 22:00 09/14/25 20:19 40 MG Pantoprazole Sodium 40 mg DAILY IV 09/14/25 10:00 09/15/25 10:00 40 MG Examination Pt is lying on bed General Appearance: Alert, Oriented X3, Cooperative, Mild distress HEENT: Atraumatic, Mucous membranes moist/pink Respiratory: Clear to auscultation, Normal air movement, No added sounds Cardiovascular: Regular rate, Normal S1, Normal S2, No murmurs Abdominal/ : Active bowel sounds, Soft, no distention, no tenderness Extremities: No edema, Normal pulses, No tenderness/swelling Skin: 4x4 cm ulcer over right rivera, ulcer over left leg. Neuro: Normal speech, sensorimotor deficits none Psych/Mental Status: Mental status NL, Mood NL Nurse was there as courier during examination l laboratory and microbiology Laboratory Tests 09/15/25 08:04 Test 09/15/25 08:04 Range/Units Serum Glucose 88 74-106 mg/dL Microbiology Date/Time Source Procedure Growth Status 09/09/25 10:43 Sputum AFB Broth Culture Pending Resulted 09/09/25 10:43 Sputum - Final Resulted 09/09/25 10:43 Sputum - Final Resulted 09/09/25 10:43 Sputum Acid Fast Bacilli Culture Pending Resulted 09/06/25 03:30 Nose MRSA Screen - Final Complete 09/06/25 02:06 Voided Urine Urine Culture - Final Complete 09/04/25 21:29 Blood Blood Culture - Final NO GROWTH AFTER 5 DAYS OF INCUBATION. Complete Labs and/or images reviewed: Labs reviewed by me, Image(s) reviewed by me Problem List/Assessment/Plan Problem List/Assessment/Plan # Acute respiratory failure # Community acquired pneumonia Gram +/-, rule out tuberculosis, fungal pneumonia # Rule out malignancy # Sepsis due to above # Left pleural effusion Chest CT: Focal consolidation in involving large portions of the left upper lobe with cavitation near the left lung apex, likely infectious or inflammatory etiology. Small left pleural effusion. Chest X-ray: Left perihilar to hilar hazy opacification which may reflect underlying infiltrate however cystic lung change in the left lung apex with a surrounding opacification. Currently under empiric IV antibiotics (Zosyn, Vancomycin and Micafungin) Ordered panculture. Sputum culture negative Infectious disease consult, awaiting recommendations. Dietary consult QuantiFERON-TB Gold negative. Send out for sample of AFB culture on 09/07/2025 with respiratory induction. Already obtained three samples MTB PCR ordered, results pending. Sputum induction with hypertonic normal saline ordered # Cellulitis of bilateral limbs # Ruled out DVT # Ruled out osteomyelitis Currently under empiric IV antibiotics (Zosyn, Vancomycin and Micafungin) Wound cultures show MSSA and Enterobacter cloacae. Continue with broad-spectrum due to cavitary lesion in lung. Wound care on board Ordered bilateral lower limb CT and venous US which ruled out DVT, abscess and osteomyelitis # Questionable moderate to severe Aortic stenosis Echocardiogram: lvef 60%. severe lvh. aortic sclerosis, modeate to severe , TANO by planimeter is 1.1 cm2 mean gradient is 11 mmhg, this is closer to a mild (coronary CT calcium of AV can be helpful). RV enlarged. left atrium enlarged Cardiology consult: Recommend eventual coronary angiography and BETH to characterize better aortic valve disease, once cleared from Infectious Disease standpoint of view. # Hypokalemia Replenished # Chronic normocytic anemia # Thrombocytosis Secondary to sepsis Currently on prophylactic enoxaparin # Severe protein malnutrition (BMI 17) Nutritional consult placed # Questionable Dementia On multivitamins To be evaluated as outpatient GI prophylaxis: Pantoprazole DVT prophylaxis: Lovenox Diet: Cardiac Goals of care discussed with the patient for more than 27 minutes: Full code status Case discussed with Dr. Grijalva, patient and RN Plan discussed with: Patient, Other (RN) Plan discussed with: Patient, Other (RN) My Orders My Orders Orders - BETTIE CERRATO Procedure Category Date Status Time Sputum Induction RT 09/15/25 Logged 14:27 Dietary Evaluation Review Recommendations by RD: Increase Calorie Intake Comments: Nutrition Recommendation 1) Ensure high protein 240ml TID 2) Lukas 1 pk BID 3) Monitor PO intake, lab values, weight trend, and I/O Expected Outcomes/Goals: Gain/maintain body weight Wound to improve FU 3-5 days Body Fat Depletion (Severe): Mod to Severe Depletion Muscle Mass (Severe): Mod to Severe Depletion Fluid Accumulation (Non Severe: Mild fluid retention Protein Calorie Malnutrition: Severe Visit Coding STANDARD RES Billing Provider: CRYSTAL GRIJALVA MD Date of Service if different f: Sep 15, 2025 Common Visit Codes: [id number] INP/OBS CARE(MOD) BETTIE CERRATO Sep 15, 2025 15:15 CRYSTAL GRIJALVA MD Sep 16, 2025 19:56
--- NOTE | 2025-09-15 20:35 | DVHPN2 ---
Consult Progress Note Objective vital signs Vital Sign Date Time Temp Pulse Resp B/P (MAP) Pulse Ox O2 Delivery O2 Flow Rate FiO2 09/15/25 16:31 98.1 86 17 122/66 (84) 98 98.1 09/15/25 08:00 Room Air* 0 21 Total Intake and Output 09/14/25 09/14/25 09/15/25 15:00 23:00 07:00 Intake Total 740 ml 100 ml Output Total 600 ml Balance 140 ml 100 ml medications Current Medications Medications Dose Ordered Sig/Denae Route Start Time Stop Time Status Last Admin Dose Admin Amlodipine Besylate 5 mg DAILY PO 09/05/25 10:00 09/15/25 10:02 5 MG Clonidine HCl 0.1 mg Q4HP PRN PO 09/04/25 23:45 09/11/25 12:49 0.1 MG Ondansetron HCl 4 mg Q4HP PRN IV 09/04/25 23:45 Docusate Sodium 100 mg BIDPRN PRN PO 09/04/25 23:45 Zinc Sulfate 220 mg DAILY PO 09/05/25 10:00 09/15/25 10:02 220 MG Ascorbic Acid 500 mg BID PO 09/05/25 10:00 09/15/25 10:01 500 MG Multivitamins 1 tab DAILY PO 09/05/25 10:00 09/15/25 10:01 1 TAB Acetaminophen 650 mg Q6HP PRN PO 09/04/25 23:45 Nitroglycerin 0.4 mg Q5MINP PRN SL 09/04/25 23:45 Aspirin 81 mg DAILY PO 09/05/25 10:00 09/15/25 10:01 81 MG Enoxaparin Sodium 40 mg DAILY SC 09/05/25 10:00 09/15/25 10:00 40 MG Vancomycin HCl 0 ml @ 0 mls/hr PER PHARMACY IV 09/05/25 23:45 Cancel Piperacillin Sod/ Tazobactam Sod 100 ml @ 25 mls/hr Q8H IV 09/07/25 20:00 09/15/25 20:18 25 MLS/HR Atorvastatin Calcium 40 mg HS PO 09/11/25 22:00 09/14/25 20:19 40 MG Pantoprazole Sodium 40 mg DAILY IV 09/14/25 10:00 09/15/25 10:00 40 MG laboratory and microbiology Laboratory Tests 09/15/25 08:04 Test 09/15/25 08:04 Range/Units Serum Glucose 88 74-106 mg/dL Problem List/Assessment/Plan Problem List/Assessment/Plan ASSESSMENT AND PLAN: ID Problem List: \-- Cavitary pneumonia with concern for TB versus fungal versus other etiologies \-- TB rule out in progress \-- Bilateral lower extremity ulcers with Staphylococcus aureus (MSSA) and Enterobacter cloacae \-- Dementia (poor historian, A\&O x2) \-- Cachexia and weight loss \-- Hypertension \-- Social concerns: limited caregiver support ( unable to care for patient) Assessment: Ms. Jayleen Story is a 64 y.o. female with a past medical history of dementia and hypertension who presents with bilateral lower extremity wounds and a cavitary pulmonary lesion. She is a poor historian. On presentation she was afebrile with tachycardia and normal blood pressure. She appears cachectic and disheveled, with generalized weakness and multiple shallow ulcers on the dorsal, anterior, and posterior aspects of both legs, some extending to the subcutaneous tissue, but without lower extremity edema. Initial labs: WBC 9.2, Hgb 10.7, platelets 625. BUN reported as 139 and 10 in the transcript (value unclear), sodium 139, creatinine 0.47. TSH 1.16. Chest X?ray reportedly shows a left perihilar hazy opacity and a cystic/cavitary- appearing change in the left lung apex with surrounding opacification concerning for fungal versus TB pneumonia. She denies shortness of breath and dizziness but endorses weight loss and subjective fevers (amount unclear). No history of smoking, alcohol use, IV drug use, or travel. No prior surgeries per patient. No known allergies. She has undergone TB rule out with AFB smears negative 3, respiratory culture without growth, and MTB PCR negative 1 to date; QuantiFERON?TB Gold is negative. Wound cultures are growing MSSA and Enterobacter cloacae (not [facility]- induced, per report). She has been treated with vancomycin, piperacillin?tazobactam (Zosyn), and micafungin. Overall suspicion for active TB is low; fungal pneumonia remains a possible diagnosis along with other infectious and noninfectious causes. Plan: Cavitary pneumonia / possible TB vs fungal vs other etiologies \-- TB rule out in progress: continue airborne isolation per hospital protocol until rule out is complete. \-- AFB smears are negative 3; MTB PCR is negative 1. Obtain one additional MTB PCR; if negative, this will complete the TB rule out per current plan. \-- QuantiFERON?TB Gold is negative; overall clinical suspicion for active TB is low. \-- No need for empiric TB treatment at this time given low suspicion. \-- For possible fungal pneumonia: Obtain/continue routine sputum culture and monitor for fungal growth. Send/confirm fungal testing as planned: Aspergillus antibodies [place] fever (coccidioides) antibodies Fungitell Galactomannan \-- Results can be followed as an outpatient to determine if treatment for cavitary fungal pneumonia is warranted; no empiric micafungin is recommended at this time. \-- Differential for cavitary lesion includes: aspiration pneumonia, bacterial pneumonia, fungal pneumonia, AFB/NTM infection, and noninfectious etiologies including malignancy. \-- Recommend serial chest CT follow?up approximately every 3 months to ensure stability of the cavitary lesion and to monitor for progression. Bilateral lower extremity ulcers (MSSA and Enterobacter cloacae) \-- Current therapy: vancomycin, Zosyn, and micafungin. \-- Given MSSA (not MRSA) and Enterobacter cloacae: Discontinue vancomycin (MSSA identified; no MRSA reported). Discontinue micafungin (no clear indication for empiric antifungal treatment of wounds at this time). Continue Zosyn to treat MSSA and Enterobacter cloacae. \-- Total planned duration: 14 days of antimicrobial therapy for the wounds. At discharge, transition to oral levofloxacin 500 mg PO once daily to complete the 14?day course (including inpatient days). \-- Continue local wound care per primary/wound care team (details not provided in transcript). Cachexia, weight loss, and wound healing support \-- Patient is cachectic with reported weight loss; this may impair wound healing. \-- Recommend formal nutrition evaluation. \-- Encourage increased protein intake to optimize wound healing, per nutrition guidance. Dementia, poor history, and social support concerns \-- Patient has dementia, is A\&O 2, and is a poor historian. She lives with her , who reports that he cannot adequately care for her. \-- Recommend social work consult to: Assess home safety and caregiving capacity. Arrange appropriate support services or alternative placement as needed. Assist with discharge planning in the context of cognitive impairment and limited caregiver support. Isolation Precautions: TB rule?out isolation per hospital protocol (in addition to standard precautions). Assessment and plan were discussed with the patient as able, given dementia. Plan is subject to change pending incorporation of new incoming information/diagnostics. Updates may be added as an addendum to this note. Thank you for involving Infectious Diseases in the care of this patient. ID will continue to follow. Please contact Infectious Disease with any questions or concerns. Yudy Garcia M.D. \ Physical Exam: General: Cachectic, disheveled-appearing female with generalized weakness. Neck: Supple. No masses. HEENT: PERRL. Normal lids and conjunctiva. Moist mucous membranes. Oropharynx without lesions, exudates or excessive erythema. Normal appearance of the external aspects of the nose and ears. Heart: Regular rhythm, normal rate. No murmur. No lower extremity edema. Lungs: Normal respiratory effort. Clear to auscultation bilaterally. No wheezes. No crackles. Abdomen: Soft. Non-tender. Non-distended. No masses or abdominal hernia. Msk: No digital cyanosis. Normal strength and tone in all 4 limbs, though overall generalized weakness noted clinically. Skin: Warm and dry, no rashes. Multiple shallow ulcers and scabs on the dorsal, anterior, and posterior aspects of both lower legs, some extending into subcutaneous tissue. Neuro: Alert. No facial droop or slurred speech. Extra-ocular movements intact. Sensation intact to soft touch in all 4 limbs. A\&O 2. Psych: Dementia present. Mood and affect otherwise appropriate as observed. Oriented to person and place only (A\&O 2). Dietary Evaluation Review Recommendations by RD: Increase Calorie Intake Comments: Nutrition Recommendation 1) Ensure high protein 240ml TID 2) Lukas 1 pk BID 3) Monitor PO intake, lab values, weight trend, and I/O Expected Outcomes/Goals: Gain/maintain body weight Wound to improve FU 3-5 days Body Fat Depletion (Severe): Mod to Severe Depletion Muscle Mass (Severe): Mod to Severe Depletion Fluid Accumulation (Non Severe: Mild fluid retention Protein Calorie Malnutrition: Severe YUDY GARCIA MD Sep 15, 2025 20:35
--- NOTE | 2025-09-15 20:38 | DVHPN2 ---
Consult Progress Note Date Seen: Sep 15, 2025 Subjective Patient reports: Feels better (no fever or chills, resolved cough) Objective vital signs Vital Sign Date Time Temp Pulse Resp B/P (MAP) Pulse Ox O2 Delivery O2 Flow Rate FiO2 09/15/25 16:31 98.1 86 17 122/66 (84) 98 98.1 09/15/25 08:00 Room Air* 0 21 Total Intake and Output 09/14/25 09/14/25 09/15/25 15:00 23:00 07:00 Intake Total 740 ml 100 ml Output Total 600 ml Balance 140 ml 100 ml medications Current Medications Medications Dose Ordered Sig/Denae Route Start Time Stop Time Status Last Admin Dose Admin Amlodipine Besylate 5 mg DAILY PO 09/05/25 10:00 09/15/25 10:02 5 MG Clonidine HCl 0.1 mg Q4HP PRN PO 09/04/25 23:45 09/11/25 12:49 0.1 MG Ondansetron HCl 4 mg Q4HP PRN IV 09/04/25 23:45 Docusate Sodium 100 mg BIDPRN PRN PO 09/04/25 23:45 Zinc Sulfate 220 mg DAILY PO 09/05/25 10:00 09/15/25 10:02 220 MG Ascorbic Acid 500 mg BID PO 09/05/25 10:00 09/15/25 10:01 500 MG Multivitamins 1 tab DAILY PO 09/05/25 10:00 09/15/25 10:01 1 TAB Acetaminophen 650 mg Q6HP PRN PO 09/04/25 23:45 Nitroglycerin 0.4 mg Q5MINP PRN SL 09/04/25 23:45 Aspirin 81 mg DAILY PO 09/05/25 10:00 09/15/25 10:01 81 MG Enoxaparin Sodium 40 mg DAILY SC 09/05/25 10:00 09/15/25 10:00 40 MG Vancomycin HCl 0 ml @ 0 mls/hr PER PHARMACY IV 09/05/25 23:45 Cancel Piperacillin Sod/ Tazobactam Sod 100 ml @ 25 mls/hr Q8H IV 09/07/25 20:00 09/15/25 20:18 25 MLS/HR Atorvastatin Calcium 40 mg HS PO 09/11/25 22:00 09/14/25 20:19 40 MG Pantoprazole Sodium 40 mg DAILY IV 09/14/25 10:00 09/15/25 10:00 40 MG laboratory and microbiology Laboratory Tests 09/15/25 08:04 Test 09/15/25 08:04 Range/Units Serum Glucose 88 74-106 mg/dL Problem List/Assessment/Plan Problem List/Assessment/Plan ASSESSMENT AND PLAN: ID Problem List: \-- Cavitary pneumonia with concern for TB versus fungal versus other etiologies \-- TB rule out in progress \-- Bilateral lower extremity ulcers with Staphylococcus aureus (MSSA) and Enterobacter cloacae \-- Dementia (poor historian, A\&O x2) \-- Cachexia and weight loss \-- Hypertension \-- Social concerns: limited caregiver support ( unable to care for patient) Assessment: Ms. Jayleen Story is a 64 y.o. female with a past medical history of dementia and hypertension who presents with bilateral lower extremity wounds and a cavitary pulmonary lesion. She is a poor historian. On presentation she was afebrile with tachycardia and normal blood pressure. She appears cachectic and disheveled, with generalized weakness and multiple shallow ulcers on the dorsal, anterior, and posterior aspects of both legs, some extending to the subcutaneous tissue, but without lower extremity edema. Initial labs: WBC 9.2, Hgb 10.7, platelets 625. BUN reported as 139 and 10 in the transcript (value unclear), sodium 139, creatinine 0.47. TSH 1.16. Chest X?ray reportedly shows a left perihilar hazy opacity and a cystic/cavitary- appearing change in the left lung apex with surrounding opacification concerning for fungal versus TB pneumonia. She denies shortness of breath and dizziness but endorses weight loss and subjective fevers (amount unclear). No history of smoking, alcohol use, IV drug use, or travel. No prior surgeries per patient. No known allergies. She has undergone TB rule out with AFB smears negative 3, respiratory culture without growth, and MTB PCR negative 1 to date; QuantiFERON?TB Gold is negative. Wound cultures are growing MSSA and Enterobacter cloacae (not [facility]- induced, per report). She has been treated with vancomycin, piperacillin?tazobactam (Zosyn), and micafungin. Overall suspicion for active TB is low; fungal pneumonia remains a possible diagnosis along with other infectious and noninfectious causes. 09/15: AFB sputum stain negative x 3 and MTB pcr negative x 2 Plan: Cavitary pneumonia / possible TB vs fungal vs other etiologies \-- TB rule out in progress: continue airborne isolation per hospital protocol until rule out is complete. \-- AFB smears are negative 3; MTB PCR is negative 2 is negative. from infectious disease perspective, patient can be dced without isolation, patient can followup in infectious disease clinic in 1 week to continue to follow AFB sputum results (appt date on 09/21/25 at 1PM). defer to infection control team to remove isolation and would inform department of public health of discharge plans/coordination. \-- QuantiFERON?TB Gold is negative; overall clinical suspicion for active TB is low. \-- No need for empiric TB treatment at this time given low suspicion. \-- For possible fungal pneumonia: Obtain/continue routine sputum culture and monitor for fungal growth. Send/confirm fungal testing as planned: Aspergillus antibodies [place] fever (coccidioides) antibodies Fungitell Galactomannan \-- Results can be followed as an outpatient to determine if treatment for cavitary fungal pneumonia is warranted; no empiric micafungin is recommended at this time. \-- Differential for cavitary lesion includes: aspiration pneumonia, bacterial pneumonia, fungal pneumonia, AFB/NTM infection, and noninfectious etiologies including malignancy. \-- Recommend serial chest CT follow?up approximately every 3 months to ensure stability of the cavitary lesion and to monitor for progression. Bilateral lower extremity ulcers (MSSA and Enterobacter cloacae) Continue Zosyn to treat MSSA and Enterobacter cloacae. \-- Total planned duration: 14 days of antimicrobial therapy for the wounds. At discharge, transition to oral levofloxacin 500 mg PO once daily to complete the 14?day course (including inpatient days). EOT date on 09/21/25 \-- Continue local wound care per primary/wound care team (details not provided in transcript). Cachexia, weight loss, and wound healing support \-- Patient is cachectic with reported weight loss; this may impair wound healing. \-- Recommend formal nutrition evaluation. \-- Encourage increased protein intake to optimize wound healing, per nutrition guidance. Dementia, poor history, and social support concerns \-- Patient has dementia, is A\&O 2, and is a poor historian. She lives with her , who reports that he cannot adequately care for her. \-- Recommend social work consult to: Assess home safety and caregiving capacity. Arrange appropriate support services or alternative placement as needed. Assist with discharge planning in the context of cognitive impairment and limited caregiver support. Isolation Precautions: TB rule?out isolation per hospital protocol (in addition to standard precautions). Assessment and plan were discussed with the patient as able, given dementia. Plan is subject to change pending incorporation of new incoming information/diagnostics. Updates may be added as an addendum to this note. Thank you for involving Infectious Diseases in the care of this patient. ID will continue to follow. Please contact Infectious Disease with any questions or concerns. Yudy Garcia M.D. \ Physical Exam: General: Cachectic, disheveled-appearing female with generalized weakness. Neck: Supple. No masses. HEENT: PERRL. Normal lids and conjunctiva. Moist mucous membranes. Oropharynx without lesions, exudates or excessive erythema. Normal appearance of the external aspects of the nose and ears. Heart: Regular rhythm, normal rate. No murmur. No lower extremity edema. Lungs: Normal respiratory effort. Clear to auscultation bilaterally. No wheezes. No crackles. Abdomen: Soft. Non-tender. Non-distended. No masses or abdominal hernia. Msk: No digital cyanosis. Normal strength and tone in all 4 limbs, though overall generalized weakness noted clinically. Skin: Warm and dry, no rashes. Multiple shallow ulcers and scabs on the dorsal, anterior, and posterior aspects of both lower legs, some extending into subcutaneous tissue. Neuro: Alert. No facial droop or slurred speech. Extra-ocular movements intact. Sensation intact to soft touch in all 4 limbs. A\&O 2. Psych: Dementia present. Mood and affect otherwise appropriate as observed. Oriented to person and place only (A\&O 2). Plan discussed with: Patient Dietary Evaluation Review Recommendations by RD: Increase Calorie Intake Comments: Nutrition Recommendation 1) Ensure high protein 240ml TID 2) Lukas 1 pk BID 3) Monitor PO intake, lab values, weight trend, and I/O Expected Outcomes/Goals: Gain/maintain body weight Wound to improve FU 3-5 days Body Fat Depletion (Severe): Mod to Severe Depletion Muscle Mass (Severe): Mod to Severe Depletion Fluid Accumulation (Non Severe: Mild fluid retention Protein Calorie Malnutrition: Severe YUDY GARCIA MD Sep 15, 2025 20:38
[2025-09-16] VITALS (10 sets, daily range): BP systolic 126–138; BP diastolic 57–70; PULSE 62–79; RESP 16–20; TEMP 97.6–98.2; O2SAT 93–99
--- NOTE | 2025-09-16 04:30 | DVHPN2 ---
Progress Note - Dictate Date Seen: Sep 15, 2025 Medical Necessity Reason Pt with a Central, PICC or Fol: No The following are medically ne: Rivas Catheter Subjective Patient was seen and evaluated in follow up. Sitter is at bedside. AFB sputum stain negative x 3 and MTB pcr negative x 2. Patient reports cough resolved. vital signs Vital Sign Date Time Temp Pulse Resp B/P (MAP) Pulse Ox O2 Delivery O2 Flow Rate FiO2 09/15/25 12:31 97.4 66 20 130/70 (90) 93 97.4 09/14/25 20:30 Room Air* 0 21 Total Intake and Output 09/14/25 09/14/25 09/15/25 14:59 22:59 06:59 Intake Total 740 ml 100 ml Output Total 600 ml Balance 140 ml 100 ml medications Current Medications Medications Dose Ordered Sig/Denae Route Start Time Stop Time Status Last Admin Dose Admin Amlodipine Besylate 5 mg DAILY PO 09/05/25 10:00 09/15/25 10:02 5 MG Clonidine HCl 0.1 mg Q4HP PRN PO 09/04/25 23:45 09/11/25 12:49 0.1 MG Ondansetron HCl 4 mg Q4HP PRN IV 09/04/25 23:45 Docusate Sodium 100 mg BIDPRN PRN PO 09/04/25 23:45 Zinc Sulfate 220 mg DAILY PO 09/05/25 10:00 09/15/25 10:02 220 MG Ascorbic Acid 500 mg BID PO 09/05/25 10:00 09/15/25 10:01 500 MG Multivitamins 1 tab DAILY PO 09/05/25 10:00 09/15/25 10:01 1 TAB Acetaminophen 650 mg Q6HP PRN PO 09/04/25 23:45 Nitroglycerin 0.4 mg Q5MINP PRN SL 09/04/25 23:45 Aspirin 81 mg DAILY PO 09/05/25 10:00 09/15/25 10:01 81 MG Enoxaparin Sodium 40 mg DAILY SC 09/05/25 10:00 09/15/25 10:00 40 MG Vancomycin HCl 0 ml @ 0 mls/hr PER PHARMACY IV 09/05/25 23:45 Cancel Piperacillin Sod/ Tazobactam Sod 100 ml @ 25 mls/hr Q8H IV 09/07/25 20:00 09/15/25 12:00 25 MLS/HR Atorvastatin Calcium 40 mg HS PO 09/11/25 22:00 09/14/25 20:19 40 MG Pantoprazole Sodium 40 mg DAILY IV 09/14/25 10:00 09/15/25 10:00 40 MG objective GENERAL: A/OX2-3, confused. Thin, frail EYES: PERRL, EOMI. Anicteric. HENT: Moist mucous membranes. LUNGS: Clear to auscultation bilaterally. CARDIOVASCULAR: Regular rate and rhythm. ABDOMEN: Soft, nontender and nondistended. EXTREMITIES: No edema. SKIN: Multiple wounds to bilateral lower extremities, covered at this time. laboratory and microbiology Laboratory Tests 09/15/25 08:04 Test 09/15/25 08:04 Range/Units Serum Glucose 88 74-106 mg/dL Problem List Rule out severe aortic valve stenosis. Rule out tuberculosis. Hypertension. Dyslipidemia. Hypokalemia. Thrombocythemia. Tobacco use. Assessment/Plan Continued all current supportive medical care. Tylenol for pain management. Amlodipine, Clonidine. Aspirin, Lipitor. DVT prophylactics. IV antibiotics as ordered. Additional plan as per the hospital course. Dietary Evaluation Review Recommendations by RD: Increase Calorie Intake Comments: Nutrition Recommendation 1) Ensure high protein 240ml TID 2) Lukas 1 pk BID 3) Monitor PO intake, lab values, weight trend, and I/O Expected Outcomes/Goals: Gain/maintain body weight Wound to improve FU 3-5 days Body Fat Depletion (Severe): Mod to Severe Depletion Muscle Mass (Severe): Mod to Severe Depletion Fluid Accumulation (Non Severe: Mild fluid retention Protein Calorie Malnutrition: Severe Plan discussed with: Patient JOSE MIKE MD Sep 15, 2025 13:23
[2025-09-16] MEDS: SODIUM CHL 3% HYPERTONIC 500 ML BAG IN ONE (07:05)
[2025-09-16 07:09] LABS: Hematocrit 35.7 % (36.0-46.0); Hemoglobin 11.6 g/dL (12.2-16.2); Mean Corpuscular Hemoglobin 30.2 pg (28.0-32.0); Mean Corpuscular Volume 93.2 fL (80.0-100.0); Nucleated Red Blood Cells % 0.0 %
[2025-09-16 07:29] LABS: Alanine Aminotransferase 39 U/L (7-40); Albumin 3.4 g/dL (3.2-4.8); Alkaline Phosphatase 103 U/L (46-116); Anion Gap 12 (5-15); BUN/Creatinine Ratio 19.0 (10.0-20.0); Blood Urea Nitrogen 11 mg/dL (9-23); Calcium 8.7 mg/dL (8.7-10.4); Carbon Dioxide 25 mmol/L (20-31); Chloride 106 mmol/L (98-107); Potassium 4.0 mmol/L (3.5-5.1); Sodium 143 mmol/L (136-145); Total Protein 6.7 g/dL (5.7-8.2)
[2025-09-16 07:30] LABS: Bilirubin, Total 0.4 mg/dL (0.2-1.0); Glucose 72 mg/dL (74-106)
[2025-09-16] MEDS ORDERED: LEVO500T91 PO (15:51)
[2025-09-16] MEDS ORDERED: AML5T PO (15:51)
--- NOTE | 2025-09-16 15:58 | DVHDSRES ---
Discharge Summary Date of Admission Resident Creating Document: BETTIE CERRATO Sep 04, 2025 at 23:36 Date of Discharge: Sep 16, 2025 Admitting Diagnosis Pneumonia due to Gram-positive or Gram-negative organism Labs/Diagnostic Data: Laboratory Results Test 09/16/25 06:32 09/13/25 06:40 09/12/25 13:40 09/12/25 08:54 White Blood Count 9.1 10^3/uL (4.4-10.8) Red Blood Count 3.84 10^6/uL (4.0-5.20) Hemoglobin 11.6 g/dL (12.2-16.2) Hematocrit 35.7 % (36.0-46.0) Mean Corpuscular Volume 93.2 fL (80.0-100.0) Mean Corpuscular Hemoglobin 30.2 pg (28.0-32.0) Mean Corpuscular Hemoglobin Concent 32.4 g/dL (32.0-36.0) Red Cell Distribution Width 16.0 % (11.8-14.3) Platelet Count 631 10^3/uL (140-450) Mean Platelet Volume 7.6 fL (6.9-10.8) Neutrophils (%) (Auto) 55.6 % (37.0-80.0) Lymphocytes (%) (Auto) 36.6 % (10.0-50.0) Monocytes (%) (Auto) 3.7 % (0.0-12.0) Eosinophils (%) (Auto) 2.9 % (0.0-7.0) Basophils (%) (Auto) 1.2 % (0.0-2.0) Neutrophils # (Auto) 5.1 10 ^3/uL (1.6-8.6) Lymphocytes # (Auto) 3.3 10 ^3/uL (0.4-5.4) Monocytes # (Auto) 0.3 10 ^3/uL (0-1.3) Eosinophils # (Auto) 0.3 10 ^3/uL (0-0.8) Basophils # (Auto) 0.1 10 ^3/uL (0-0.2) Nucleated Red Blood Cells 0.0 % Sodium Level 143 mmol/L (136-145) Potassium Level 4.0 mmol/L (3.5-5.1) Chloride Level 106 mmol/L (98-107) Carbon Dioxide Level 25 mmol/L (20-31) Anion Gap 12 (5-15) Blood Urea Nitrogen 11 mg/dL (9-23) Creatinine 0.58 mg/dL (0.550-1.02) Glomerular Filtration Rate Calc 100 mL/min (>90) BUN/Creatinine Ratio 19.0 (10.0-20.0) Serum Glucose 72 mg/dL (74-106) Calcium Level 8.7 mg/dL (8.7-10.4) Total Bilirubin 0.4 mg/dL (0.2-1.0) Aspartate Amino Transferase (AST) 40 U/L (13-40) Alanine Aminotransferase (ALT) 39 U/L (7-40) Alkaline Phosphatase 103 U/L (46-116) Total Protein 6.7 g/dL (5.7-8.2) Albumin 3.4 g/dL (3.2-4.8) Magnesium Level 2.3 mg/dL (1.6-2.6) Vancomycin Level Trough 12.5 ug/mL (5-10) Erythrocyte Sedimentation Rate 80 mm/hr (0-20) C-Reactive Protein High Sensitivity 0.55 mg/dL (<1.0) Test 09/11/25 20:08 09/10/25 20:05 09/09/25 00:00 09/08/25 07:39 Random Vancomycin Level 12.4 ug/mL (5-10) Influenza Type A Antigen Negative (Negative) Influenza Type B Antigen Negative (Negative) SARS-CoV-2 Antigen (Rapid) Negative (NEGATIVE) [facility]iscellaneous [facility] Test 09/06/25 12:56 09/06/25 02:06 09/05/25 13:28 09/05/25 10:10 B-Type Natriuretic Peptide 248.69 pg/mL (0-100) Urine Color Light-yellow (Yellow) Urine Clarity Clear (Clear) Urine pH 8.0 (5.0-9.0) Urine Specific Howard 1.015 (1.001-1.035) Urine Protein Negative (Negative) Urine Ketones Negative (Negative) Urine Blood 1+ /uL (Negative) Urine Nitrite Negative (Negative) Urine Bilirubin Negative (Negative) Urine Urobilinogen Normal mg/dL (Negative) Urine Leukocyte Esterase Negative /uL (Negative) Urine RBC 36 /hpf (0 - 4) Urine Microscopic WBC 1 /HPF (0-5) Urine Squamous Epithelial Cells None seen /hpf (<5) Urine Bacteria None seen /hpf (None Seen) Urine Glucose Normal mg/dL (Normal) Urine Opiates Screen Neg (NEGATIVE) Urine Fentanyl Screen Neg (NEGATIVE) Urine Barbiturates Screen Neg (NEGATIVE) Urine Phencyclidine Screen Neg (NEGATIVE) Urine Amphetamines Screen Neg (NEGATIVE) Urine Benzodiazepines Screen Neg (NEGATIVE) Urine Cocaine Screen Neg (NEGATIVE) Urine Cannabinoids Screen Neg (NEGATIVE) TB Test (QFT) Gold Plus Negative (Negative) TB Test (QFT) Nil 0.04 IU/mL (.) TB Test (QFT) Mitogen >10.00 IU/mL (.) TB Test (QFT) Antigen 1 0.06 IU/mL (.) TB Test (QFT) Antigen 2 0.04 IU/mL (.) TB Test (QFT) Criteria Comment (.) Prothrombin Time 10.8 sec (9.3-11.8) Prothrombin Time INR 1.02 (0.9-1.15) Activated Partial Thromboplast Time 27.3 SEC (24.5-34.5) Lactic Acid Level 1.0 mmol/L (0.4-2.0) Test 09/05/25 09:53 09/05/25 02:30 09/04/25 22:08 09/04/25 19:55 Blood Gas Specimen Type Arterial Blood Gas Sample Site Left radial Blood Gas Patient Temperature 37.0 Arterial Blood Date Drawn [id number] Arterial Blood pH 7.559 (7.350-7.450) Arterial Blood Partial Pressure CO2 37.7 mmHg (32.0-45.0) Arterial Blood Partial Pressure O2 55.1 mmHg (83.0-108.0) Arterial Blood HCO3 32.9 mmol/L (21.0-28.0) Arterial Blood Oxygen Saturation 88.9 % (94.0-98.0) Arterial Blood Base Excess 10.0 mmol/L (-2.0-3.0) Arterial Blood Oxyhemoglobin 87.3 % (94.0-98.0) Arterial Blood Carboxyhemoglobin 1.5 % (0.5-1.5) Arterial Blood Methemoglobin 0.3 % (0.0-1.5) Arterial Blood Deoxyhemoglobin 10.9 % (0.0-5.0) Tevin Test Yes Blood Gas Total Hemoglobin 11.10 g/dL (12.0-16.0) Blood Gas Liter Flow 0.00 Blood Gas Modality Room air FiO2 % 21.0 Blood Gas Critical Value Read Back Yes Blood Gas Notified Whom Douglas méndez. Blood Gas Notified Time [id number] Blood Gas Notified By Rosa kasper Hemoglobin A1c 5.5 % A1C (<5.7) Phosphorus Level 3.2 mg/dL (2.4-5.1) Triglycerides Level 111 mg/dL (< 150) Cholesterol Level 142 mg/dL (< 200) LDL Cholesterol 85 mg/dL (< 100) HDL Cholesterol 41 mg/dL (40-59) Vitamin B12 Level 617 pg/mL (211-911) Vitamin D 25-Hydroxy 30.4 ng/mL (30.0-100) Free Thyroxine (T4) Calculated 1.18 ng/dL (0.89-1.76) Direct Bilirubin 0.1 mg/dL (<0.3) Troponin I High Sensitivity 11 ng/L (</=34) Thyroid Stimulating Hormone (TSH) 1.16 uIU/mL (0.55-4.78) Other Laboratory Tests 09/16/25 06:32 Brief Hx & Hospital Course: Md Shayy Story, 64-year-old female with a history of hypertension and dementia presented with bilateral lower extremity wounds and swelling, along with generalized weakness and weight loss. Initial imaging revealed a cavitary pulmonary lesion concerning for tuberculosis versus fungal or other infectious etiologies. She was admitted for further evaluation and management. CT chest demonstrated left upper lobe cavitary consolidation. The patient was placed in airborne isolation. AFB sputum smears were negative 3 times, MTB PCR negative 2 times negative QuantiFERON gold. Infectious Disease associates low suspicion for active TB in discontinued airborne isolation. Fungal pneumonia was ruled out. No empiric however patient received micafungin. For extremity wound cultures grew MSSA and Enterobacter cloacae. Imaging ruled out DVT, abscess and osteomyelitis. Treated with IV broad-spectrum antibiotics, transitioned to oral levofloxacin to complete a 14 day course. The patient was progressively confused during the hospitalization, to workup for dementia TSH, vitamin B12 within normal limits, further workup in progress, mini-mental status exam score 17, moderate to severe cognitive impairment. However, the patient was waiting for SNF placement. But multiple attempts from social service were failed, later the patient was decided to go home with home health service. However, before arranging home health service and walker for the patient the decided to leave against medical advice. They verbalized understanding of the consequences chose to leave AMA. Conditions treated during this hospitalization: Acute respiratory failure, resolved Community-acquired pneumonia Gram-positive were negative, ID help on board. Sepsis POA, resolved, status post Zosyn,Vancomycin and Micafungin for 7 days Left pleural effusion mild, resolved Cellulitis of bilateral limbs due to MSSA and Enterobacter cloacae status post IV antibiotic on wound care Hypertensive heart disease Aortic sclerosis, moderate to severe aortic stenosis Hypokalemia, resolved Chronic normocytic anemia, H&H stable Reactive thrombocytosis, no need to follow up Severe protein energy malnutrition, RD on board continue dietary supplements Dementia, TSH, vitamin B12 within normal limits, further workup in progress, mini-mental status exam score 17, moderate to severe cognitive impairment. Acute care myopathy, deconditioned, fall precaution, nutrition, SNF for rehab Clinically stable for placement, pending SNF acceptance, social workers on board. However, later patient wanted home health service. Before it was arranged patient left AMA. Case discussed with Dr. Grijalva, patient and RN Operations or Procedures PATIENT: SHAYY IVERSON ACCT: [id number] UNIT: [id number] : 1960 LOC: ER ROOM / BED: / AGE / SEX: 64 / F ADM STATUS: REG ER SERVICE 664 ORDERING PHYSICIAN: ALCON MARRERO MD PROCEDURE(s): CXR1 - CHEST XRAY 1 VIEW REASON: edema ORDER NUMBER(s): [id number], ACCESSION NUMBER(s): [id number] EXAM: XY CHEST XRAY 1 VIEW HISTORY: edema TECHNIQUE: 1 view of the chest COMPARISON: None FINDINGS/IMPRESSION: LUNGS: Left perihilar to hilar hazy opacification which may reflect underlying infiltrate however cystic lung change in the left lung apex with a surrounding opacification. Recommend further evaluation with CT of the chest with contrast. MEDIASTINUM: Unremarkable. BONES: No acute osseous abnormality. OTHER: None. PATIENT: SHAYY IVERSON ACCT: [id number] UNIT: [id number] : 1960 LOC: [facility] ROOM / BED: 0214T / A AGE / SEX: 64 / F ADM STATUS: ADM IN SERVICE 0844 ORDERING PHYSICIAN: RUPALI CHILDS PROCEDURE(s): CX2CT - CHEST WITHOUT CONTRAST REASON: Lobar PNA ORDER NUMBER(s): [id number], ACCESSION NUMBER(s): [id number] CLINICAL INFORMATION: Lobar pneumonia. TECHNIQUE: Axial CT imaging of the chest was performed without IV contrast. Sagittal and coronal reformatted images were made, stored and reviewed. Evaluation is limited without IV contrast. One or more of the following dose reduction techniques were used: Automated exposure control. Adjustment of mA and/or kV according to patient size. CTDIvol = 4.56 mGy DLP = 191.4 mGy-cm COMPARISON: XY CHEST XRAY 1 VIEW on DOS: 09/04/25 FINDINGS: Aorta: At moderate atherosclerotic calcification of the thoracic aorta. No aneurysm. Cardiac: Heart size is within normal limits. Trace pericardial effusion. Dense coronary artery calcification. Mediastinum/ronna: Mildly prominent mediastinal lymph nodes, with the largest measuring up to 1.4 x 0.9 cm in the AP window, likely reactive lymph nodes. Lungs: Focal consolidation in the left upper lobe with cavitation. The consolidation extends up to 12.2 x 4.6 x 7.1 cm. The cavitation measures up to 5.3 cm in greatest dimension. There is a small left pleural effusion. Pulmonary arteries: No gross abnormality. Chest wall: No mass or other abnormality. Upper abdomen: Visualized structures in the upper abdomen are unremarkable. Bones: Chronic appearing mild compression fracture at the superior endplate of the T7 vertebral body with up to 20% loss of height. No acute appearing fracture. No suspicious intraosseous lesion. IMPRESSION: 1. Focal consolidation in involving large portions of the left upper lobe with cavitation near the left lung apex, likely infectious or inflammatory etiology. Differential considerations could include TB or fungal infection. Malignancy would be less likely but not completely excluded. 2. Small left pleural effusion. Potentially critical findings PATIENT: SHAYY IVERSON ACCT: [id number] UNIT: [id number] : 1960 LOC: [facility] ROOM / BED: [id number] / A AGE / SEX: 64 / F ADM STATUS: ADM IN SERVICE 0000 ORDERING PHYSICIAN: JEREMIAS HOWE DNP PROCEDURE(s): RLEX - LOWER EXTREMITY NON JOINT RIGH REASON: CELLULITIS ORDER NUMBER(s): [id number], ACCESSION NUMBER(s): [id number] EXAMINATION: CT LOWER EXTREMITY NON JOINT RIGH INDICATION: CELLULITIS COMPARISON: CT LEFT LOWER EXTREMITY W/O CON on DOS: 09/06/25 TECHNIQUE: CT of the right leg was performed without contrast. Volume transverse images were obtained reconstructed in multiple planes using bone and soft tissue algorithms. FINDINGS: Large [id number] limits assessment. Mild subcutaneous stranding in the lower leg. Superficial appearing ulceration at the medial aspect of the proximal lower leg with dressing material in place. Circumferential subcutaneous stranding and edema from the mid to distal lower leg extending into the ankle and foot, slightly greater in degree than the imaged portions of the contralateral leg. No obvious fluid collection. Soft tissue gas. Diffuse osteopenia without erosion or periostitis to suggest osteomyelitis. No obvious hip or knee effusion. Mild appearing degenerative change. Unremarkable CT appearance of muscles and tendons. Peripheral atherosclerosis. IMPRESSION: 1. Soft tissue ulceration at the medial aspect of the proximal lower leg. No evidence of abscess or osteomyelitis by noncontrast CT assessment. 2. Asymmetric subcutaneous fluid in the mid to distal lower leg extending to the foot, which may be passive or infectious/inflammatory. ENT: SHAYY IVERSON ACCT: [id number] UNIT: [id number] : 1960 LOC: [facility] ROOM / BED: [facility] / A AGE / SEX: 64 / F ADM STATUS: ADM IN SERVICE 0001 ORDERING PHYSICIAN: RUPALI CHILDS PROCEDURE(s): BLDVT - BiLat Lower DVT REASON: bilateral limb swelling ORDER NUMBER(s): [id number], ACCESSION NUMBER(s): [id number] Bilateral lower extremity venous duplex Clinical History: bilateral limb swelling Comparison: None Technique: Duplex Doppler evaluation of the deep venous systems of both lower extremities from the common femoral veins to the popliteal veins including color Doppler and spectral/pulsed waveform analysis was performed. Findings: RIGHT SIDE: The common femoral vein demonstrates appropriate compressibility and waveform variability. There is compressibility/patency of the great saphenous vein at the proximal thigh. The femoral vein demonstrates appropriate compressibility and waveform variability. The deep femoral vein demonstrates appropriate compressibility and waveform variability. The popliteal vein demonstrates appropriate compressibility and waveform variability. There is normal compressibility at the tibioperoneal trunk. LEFT SIDE: The common femoral vein demonstrates appropriate compressibility and waveform variability. There is compressibility/patency of the great saphenous vein at the proximal thigh. The femoral vein demonstrates appropriate compressibility and waveform variability. The deep femoral vein demonstrates appropriate compressibility and waveform variability. The popliteal vein demonstrates appropriate compressibility and waveform variability. There is normal compressibility at the tibioperoneal trunk. Impression: 1. No right or left femoropopliteal venous thrombosis. PATIENT: SAHYY IVERSON ACCT: [id number] UNIT: [id number] : 1960 [facility]GE / SEX: 64 / F ADM STATUS: ADM IN SERVICE 0700 ORDERING PHYSICIAN: RUPALI CHILDS RESIDENT PROCEDURE(s): LLEX - LEFT LOWER EXTREMITY W/O CON REASON: R/o osteomyellitis ORDER NUMBER(s): [id number], ACCESSION NUMBER(s): [id number] EXAMINATION: CT LEFT LOWER EXTREMITY W/O CON INDICATION: R/o osteomyellitis. Pain and swelling. COMPARISON: None TECHNIQUE: CT of the left lower extremity was performed without contrast. Volume transverse images were obtained and reconstructed in multiple planes using bone and soft tissue algorithms. Radiation Dose : CTDIvol 7.75 mGy, DLP 763.02 mGy*cm. The dose indicators for CT are the volume Computed Tomography (CT) Dose Index (CTDIvol) and the Dose Length Product (DLP), and are measured in units of mGy and mGy-cm, respectively. These indicators are not patient dose, but values generated from the CT scanner acquisition factors. The report includes radiation exposure data for exposures received during this examination. FINDINGS: Generalized soft tissue edema throughout the left lower extremity predominantly inferiorly. No organized fluid collections. No fracture or malalignment. No destructive bony changes. Rivas catheter in-situ. IMPRESSION: Soft tissue swelling with no obvious CT evidence for osteomyelitis. PATIENT: SHAYY STORY ACCT: [id number] UNIT: [id number] : 1960 LOC: [facility] AGE / SEX: 64 / F ADM STATUS: ADM IN SERVICE 0950 ORDERING PHYSICIAN: RUPALI CHILDS PROCEDURE(s): CXR1 - CHEST XRAY 1 VIEW REASON: pNA ORDER NUMBER(s): [id number], ACCESSION NUMBER(s): [id number] CHEST RADIOGRAPH INDICATION: pNA TECHNIQUE: Single frontal view of the chest was obtained COMPARISON: XY CHEST XRAY 1 VIEW on DOS: 09/04/25 FINDINGS: Lines and Tubes: None Lungs: Slightly improving consolidation left upper lung field Pleura: No effusion. No pneumothorax. Cardiomediastinal contours: Unremarkable Bones: No acute osseous abnormality. IMPRESSION: 1. Slightly improving consolidation left upper lobe. Recommend follow-up ENT: SHAYY IVERSON ACCT: [id number] UNIT: [id number] : 1960 LOC: [facility] ROOM / BED: [address] [place] [address] A AGE / SEX: 64 / F ADM STATUS: ADM IN SERVICE 1158 ORDERING PHYSICIAN: CRYSTAL GRIJALVA MD PROCEDURE(s): ECIDC - ECHO 2D MODE CARDIAC DOP REASON: SOB ORDER NUMBER(s): [id number], ACCESSION NUMBER(s): [id number] APPROVED REPORT EXAM: Two-dimensional and M-mode echocardiogram with Doppler and color Doppler. Blood Pressure: 137/74 mmHg INDICATION Dyspnea RISK FACTORS Height: 5'3", Weight: 99 DIMENSIONS LVDd 2.0 (3.8-5.7cm) LA (2D) 3.4 (1.9-4.0cm) Aortic Root 2.7 (2.0- 3.7cm) LVDs 1.4 (2.5-4.0cm) LA (MM) (1.9-4.0cm) Aortic Cusp Exc 0.6 (1.5- 2.0cm) EF (%) 60.0 (55-70%) Rt. Atrium 3.3 (1.9-4.0cm) Asc. Aorta 2.1 cm IVSd 1.4 (0.7-1.1cm) RV (D) (1.8-2.4cm) PWd 1.3 (0.7-1.1cm) Mitral Valve Mitral Mitral Stenosis E/A ratio 0.0 2D MVA cm2 Aortic Valve Aortic Valve Aortic Stenosis V1 1.09m/s AO Mean GR. 11mmHg V2 2.29m/s AO Peak GR. 21mmHg LVOT Diameter 1.9 (1.8-2.4cm) Doppler TANO 1.35cm2 2D TANO 1.06cm2 Tricuspid Valve TR Velocity 2.90m/s RVSP 42mmHg Other Information Quality : Technically Limited Rhythm : Technically limited study due to body habitus and patient position. Other Information Quality : Technically Limited Rhythm : Technically limited study due to body habitus and patient position. Conclusion lvef 60% severe lvh aortic sclerosis, modeate to severe , TANO by planimeter is 1.1 cm2 mean gradient is 11 mmhg, this is closer to a mild (coronary CT calcium of AV can be helpful) RV enlarged left atrium enlarged Condition at Discharge: Undetermined Final Diagnosis/Problems List Acute respiratory failure Community-acquired pneumonia Gram-positive were negative Sepsis POA, resolved Left pleural effusion mild Cellulitis of bilateral limbs due to MSSA and Enterobacter cloacae Hypertensive heart disease Aortic sclerosis, moderate to severe aortic stenosis Hypokalemia Chronic normocytic anemia, Reactive thrombocytosis Severe protein energy malnutrition Dementia Acute care myopathy Clinically stable for placement Discharge Disposition: AMA Discharge Instruct/Medications Diet: Consistent carbohydrate Activity: No Restrictions, As Tolerated Follow Up/Referral: Follow up outpatient with PCP and Infectious Disease clinic. Medications: As per EMR Scheduled Amlodipine Besylate (Norvasc Tablet), 5 MG PO DAILY Levofloxacin Hemihydrate (Levaquin 500 Mg), 500 MG PO DAILY Discharge Statement: "Patient was advised to return to the ER or call 911 if any headaches, dizziness, shortness of breath, chest pain, abdominal pain, bleeding, fevers, or worsening of medical condition. Patient was counseled about treatment plan, medications, possible side effects, patientverbalized understanding. All questions were answered to the best of my ability. This discharge took greater then 30 minutes in planning, reviewing documentation, counseling the patient, and discussing with other team members." ASSESSMENT ASSESSMENT Assessment Pneumonia with Gram-positive or Gram-negative organism Visit Coding STANDARD RES Billing Provider: BETTIE CERRATO Date of Service if different f: Sep 28, 2025 Common Visit Codes: 22136-JYJ/OBS DISCH DAY >30min BETTIE CERRATO RESIDENT Sep 16, 2025 15:58
--- NOTE | 2025-09-16 19:26 | DVHPNRES ---
Progress Note Date Seen: Sep 16, 2025 Resident Creating Document: BETTIE CERRATO RESIDENT Medical Necessity Reason Pt with a Central, PICC or Fol: No The following are medically ne: Rivas Catheter Subjective Review of Systems Patient was seen and examined at bedside today. She reports feeling better. She denies chest pain, shortness of breath, pain in the ulcer site, bowel bladder symptoms or any other complaints. I spoke to the patient's son this afternoon, all questions were answered. He was thankful for the care. Objective vital signs Vital Sign Date Time Temp Pulse Resp B/P (MAP) Pulse Ox O2 Delivery O2 Flow Rate FiO2 09/16/25 17:00 97.7 79 20 129/57 (81) 99 97.7 09/16/25 12:00 Room Air* 0 21 Total Intake and Output 09/15/25 09/15/25 09/16/25 15:00 23:00 07:00 Intake Total 100 ml 660 ml 750 ml Output Total 700 ml 650 ml Balance 100 ml -40 ml 100 ml medications Current Medications Medications Dose Ordered Sig/Denae Route Start Time Stop Time Status Last Admin Dose Admin Amlodipine Besylate 5 mg DAILY PO 09/05/25 10:00 09/16/25 09:26 5 MG Clonidine HCl 0.1 mg Q4HP PRN PO 09/04/25 23:45 09/11/25 12:49 0.1 MG Ondansetron HCl 4 mg Q4HP PRN IV 09/04/25 23:45 Docusate Sodium 100 mg BIDPRN PRN PO 09/04/25 23:45 Zinc Sulfate 220 mg DAILY PO 09/05/25 10:00 09/16/25 09:25 220 MG Ascorbic Acid 500 mg BID PO 09/05/25 10:00 09/16/25 09:26 500 MG Multivitamins 1 tab DAILY PO 09/05/25 10:00 09/16/25 09:26 1 TAB Acetaminophen 650 mg Q6HP PRN PO 09/04/25 23:45 Nitroglycerin 0.4 mg Q5MINP PRN SL 09/04/25 23:45 Aspirin 81 mg DAILY PO 09/05/25 10:00 09/16/25 09:25 81 MG Vancomycin HCl 0 ml @ 0 mls/hr PER PHARMACY IV 09/05/25 23:45 Cancel Piperacillin Sod/ Tazobactam Sod 100 ml @ 25 mls/hr Q8H IV 09/07/25 20:00 09/16/25 11:51 25 MLS/HR Atorvastatin Calcium 40 mg HS PO 09/11/25 22:00 09/15/25 21:44 40 MG Pantoprazole Sodium 40 mg DAILY IV 09/14/25 10:00 09/16/25 09:25 40 MG Examination Examination Pt is lying on bed General Appearance: Alert, Oriented X3, Cooperative, Mild distress HEENT: Atraumatic, Mucous membranes moist/pink Respiratory: Clear to auscultation, Normal air movement, No added sounds Cardiovascular: Regular rate, Normal S1, Normal S2, No murmurs Abdominal/ : Active bowel sounds, Soft, no distention, no tenderness Extremities: No edema, Normal pulses, No tenderness/swelling Skin: 4x4 cm ulcer over right rivera, ulcer over left leg. Neuro: Normal speech, sensorimotor deficits none Psych/Mental Status: Mental status NL, Mood NL Nurse was there as braided band assembler during examination laboratory and microbiology Laboratory Tests 09/16/25 06:32 Test 09/16/25 06:32 Range/Units Serum Glucose 72 L 74-106 mg/dL Microbiology Date/Time Source Procedure Growth Status 09/09/25 10:43 Sputum AFB Broth Culture Pending Resulted 09/09/25 10:43 Sputum - Final Resulted 09/09/25 10:43 Sputum - Final Resulted 09/09/25 10:43 Sputum Acid Fast Bacilli Culture Pending Resulted 09/06/25 03:30 Nose MRSA Screen - Final Complete 09/06/25 02:06 Voided Urine Urine Culture - Final Complete 09/04/25 21:29 Blood Blood Culture - Final NO GROWTH AFTER 5 DAYS OF INCUBATION. Complete Labs and/or images reviewed: Labs reviewed by me, Image(s) reviewed by me Problem List/Assessment/Plan Problem List/Assessment/Plan # Acute hypoxic respiratory failure # Community acquired pneumonia Gram +/-, ruled out tuberculosis, fungal pneumonia # Rule out malignancy # Sepsis due to above # Left pleural effusion Chest CT: Focal consolidation in involving large portions of the left upper lobe with cavitation near the left lung apex, likely infectious or inflammatory etiology. Small left pleural effusion. Chest X-ray: Left perihilar to hilar hazy opacification which may reflect underlying infiltrate however cystic lung change in the left lung apex with a surrounding opacification. Currently under empiric IV antibiotics (Zosyn, Vancomycin and Micafungin) Ordered panculture. Sputum culture negative Infectious disease consult, awaiting recommendations. Dietary consult QuantiFERON-TB Gold negative. Send out for sample of AFB culture on 09/07/2025 with respiratory induction. Already obtained three samples MTB PCR ordered, results pending. Sputum induction with hypertonic normal saline ordered Infectious disease consult was appreciated on 09/15/2025, according to ID: AFB smears are negative 3; MTB PCR is negative 2 is negative. from infectious disease perspective, patient can be dced without isolation, patient can followup in infectious disease clinic in 1 week to continue to follow AFB sputum results (appt date on 09/21/25 at 1PM). defer to infection control team to remove isolation and would inform department of public health of discharge plans/coordination. Physical therapy was consulted for evaluation. Discharge disposition will be decided based on physical therapy evaluation. # Cellulitis of bilateral limbs # Ruled out DVT # Ruled out osteomyelitis Currently under empiric IV antibiotics (Zosyn, Vancomycin and Micafungin) Wound cultures show MSSA and Enterobacter cloacae. Continue with broad-spectrum due to cavitary lesion in lung. Wound care on board Ordered bilateral lower limb CT and venous US which ruled out DVT, abscess and osteomyelitis # Questionable moderate to severe Aortic stenosis Echocardiogram: lvef 60%. severe lvh. aortic sclerosis, modeate to severe , TANO by planimeter is 1.1 cm2 mean gradient is 11 mmhg, this is closer to a mild (coronary CT calcium of AV can be helpful). RV enlarged. left atrium enlarged Cardiology consult: Recommend eventual coronary angiography and BETH to characterize better aortic valve disease, once cleared from Infectious Disease standpoint of view. # Hypokalemia Replenished # Chronic normocytic anemia # Thrombocytosis Secondary to sepsis Currently on prophylactic enoxaparin # Severe protein malnutrition (BMI 17) Nutritional consult placed # Questionable Dementia On multivitamins To be evaluated as outpatient GI prophylaxis: Pantoprazole DVT prophylaxis: Lovenox Diet: Cardiac Goals of care discussed with the patient for more than 27 minutes: Full code status Case discussed with Dr. Grijalva, patient and RN Plan discussed with: Patient, Other (RN) Plan discussed with: Patient, Son, Other (RN) My Orders My Orders Orders - BETTIE CERRATO Procedure Category Date Status Time Discharge DISCHARGE 09/16/25 Transmitted 15:44 Schedule For Dc SONIA 09/16/25 In Process Clinic F/U 15:44 Apply Z-Guard SONIA 09/16/25 In Process 13:05 Pt Request For Service PT 09/16/25 Logged 19:07 Dietary Evaluation Review Recommendations by RD: Increase Calorie Intake Comments: Nutrition Recommendation 1) Ensure high protein 240ml TID 2) Lukas 1 pk BID 3) Monitor PO intake, lab values, weight trend, and I/O Expected Outcomes/Goals: Gain/maintain body weight Wound to improve FU 3-5 days Body Fat Depletion (Severe): Mod to Severe Depletion Muscle Mass (Severe): Mod to Severe Depletion Fluid Accumulation (Non Severe: Mild fluid retention Protein Calorie Malnutrition: Severe Visit Coding STANDARD RES Billing Provider: CRYSTAL GRIJALVA MD Date of Service if different f: Sep 16, 2025 BETTIE CERRATO RESIDENT Sep 16, 2025 19:26 PAU SALAS RESIDENT Sep 19, 2025 10:22
--- NOTE | 2025-09-16 23:02 | DVHPN2 ---
Progress Note - Dictate Date Seen: Sep 16, 2025 Medical Necessity Reason Pt with a Central, PICC or Fol: No The following are medically ne: Rivas Catheter Subjective Patient was seen and evaluated in follow up. Sitter is at bedside. Patient complains of generalized discomfort. GLUC 72. vital signs Vital Sign Date Time Temp Pulse Resp B/P (MAP) Pulse Ox O2 Delivery O2 Flow Rate FiO2 09/16/25 12:28 97.7 71 18 137/67 (90) 97 97.7 09/16/25 12:00 Room Air* 0 21 Total Intake and Output 09/15/25 09/15/25 09/16/25 15:00 23:00 07:00 Intake Total 100 ml 660 ml 750 ml Output Total 700 ml 650 ml Balance 100 ml -40 ml 100 ml medications Current Medications Medications Dose Ordered Sig/Denae Route Start Time Stop Time Status Last Admin Dose Admin Amlodipine Besylate 5 mg DAILY PO 09/05/25 10:00 09/16/25 09:26 5 MG Clonidine HCl 0.1 mg Q4HP PRN PO 09/04/25 23:45 09/11/25 12:49 0.1 MG Ondansetron HCl 4 mg Q4HP PRN IV 09/04/25 23:45 Docusate Sodium 100 mg BIDPRN PRN PO 09/04/25 23:45 Zinc Sulfate 220 mg DAILY PO 09/05/25 10:00 09/16/25 09:25 220 MG Ascorbic Acid 500 mg BID PO 09/05/25 10:00 09/16/25 09:26 500 MG Multivitamins 1 tab DAILY PO 09/05/25 10:00 09/16/25 09:26 1 TAB Acetaminophen 650 mg Q6HP PRN PO 09/04/25 23:45 Nitroglycerin 0.4 mg Q5MINP PRN SL 09/04/25 23:45 Aspirin 81 mg DAILY PO 09/05/25 10:00 09/16/25 09:25 81 MG Vancomycin HCl 0 ml @ 0 mls/hr PER PHARMACY IV 09/05/25 23:45 Cancel Piperacillin Sod/ Tazobactam Sod 100 ml @ 25 mls/hr Q8H IV 09/07/25 20:00 09/16/25 11:51 25 MLS/HR Atorvastatin Calcium 40 mg HS PO 09/11/25 22:00 09/15/25 21:44 40 MG Pantoprazole Sodium 40 mg DAILY IV 09/14/25 10:00 09/16/25 09:25 40 MG objective GENERAL: A/OX2-3, confused. Thin, frail EYES: PERRL, EOMI. Anicteric. HENT: Moist mucous membranes. LUNGS: Clear to auscultation bilaterally. CARDIOVASCULAR: Regular rate and rhythm. ABDOMEN: Soft, nontender and nondistended. EXTREMITIES: No edema. SKIN: Multiple wounds to bilateral lower extremities, covered at this time. laboratory and microbiology Laboratory Tests 09/16/25 06:32 Test 09/16/25 06:32 Range/Units Serum Glucose 72 L 74-106 mg/dL Problem List Rule out severe aortic valve stenosis. Rule out tuberculosis. Hypertension. Dyslipidemia. Hypokalemia. Thrombocythemia. Tobacco use. Assessment/Plan Continued all current supportive medical care. Tylenol for pain management. Amlodipine, Clonidine. Aspirin, Lipitor. GI prophylactics. IV antibiotics as ordered. Additional plan as per the hospital course. Dietary Evaluation Review Recommendations by RD: Increase Calorie Intake Comments: Nutrition Recommendation 1) Ensure high protein 240ml TID 2) Lukas 1 pk BID 3) Monitor PO intake, lab values, weight trend, and I/O Expected Outcomes/Goals: Gain/maintain body weight Wound to improve FU 3-5 days Body Fat Depletion (Severe): Mod to Severe Depletion Muscle Mass (Severe): Mod to Severe Depletion Fluid Accumulation (Non Severe: Mild fluid retention Protein Calorie Malnutrition: Severe Plan discussed with: Patient JOSE MIKE MD Sep 16, 2025 13:32
[2025-09-17] VITALS (9 sets, daily range): BP systolic 120–156; BP diastolic 58–79; PULSE 68–76; RESP 17–18; TEMP 97.2–98.2; O2SAT 96–100
[2025-09-17 06:57] LABS: Hematocrit 31.1 % (36.0-46.0); Hemoglobin 10.2 g/dL (12.2-16.2); Mean Corpuscular Hemoglobin 30.6 pg (28.0-32.0); Mean Corpuscular Volume 93.1 fL (80.0-100.0); Nucleated Red Blood Cells % 0.0 %
[2025-09-17 07:12] LABS: Anion Gap 9 (5-15); Carbon Dioxide 30 mmol/L (20-31); Chloride 106 mmol/L (98-107); Sodium 145 mmol/L (136-145)
[2025-09-17 07:14] LABS: Calcium 8.9 mg/dL (8.7-10.4)
[2025-09-17 07:18] LABS: Glucose 77 mg/dL (74-106)
[2025-09-17 07:19] LABS: BUN/Creatinine Ratio 8.2 (10.0-20.0); Blood Urea Nitrogen 5 mg/dL (9-23); Potassium 3.2 mmol/L (3.5-5.1)
[2025-09-17] MEDS: POTASSIUM EFFERVESENT TAB 25 MEQ PO ONE (09:47)
--- NOTE | 2025-09-17 15:04 | DVHPN2 ---
Progress Note - Dictate Date Seen: Sep 17, 2025 Medical Necessity Reason Pt with a Central, PICC or Fol: No The following are medically ne: Rivas Catheter Subjective Patient was seen and evaluated in follow up. Sitter is at bedside. Patient's expressed concern about the patient's care post discharge and is interested in HH. K 3.2, patients potassium was replaced. vital signs Vital Sign Date Time Temp Pulse Resp B/P (MAP) Pulse Ox O2 Delivery O2 Flow Rate FiO2 09/17/25 12:20 98.1 74 18 120/74 (89) 100 98.1 09/17/25 10:00 Room Air 09/17/25 10:00 0 21 Total Intake and Output 09/16/25 09/16/25 09/17/25 15:00 23:00 07:00 Intake Total 100 ml 940 ml 100 ml Output Total 950 ml 600 ml Balance 100 ml -10 ml -500 ml medications Current Medications Medications Dose Ordered Sig/Denae Route Start Time Stop Time Status Last Admin Dose Admin Amlodipine Besylate 5 mg DAILY PO 09/05/25 10:00 09/17/25 09:48 5 MG Clonidine HCl 0.1 mg Q4HP PRN PO 09/04/25 23:45 09/11/25 12:49 0.1 MG Ondansetron HCl 4 mg Q4HP PRN IV 09/04/25 23:45 Docusate Sodium 100 mg BIDPRN PRN PO 09/04/25 23:45 Zinc Sulfate 220 mg DAILY PO 09/05/25 10:00 09/17/25 09:48 220 MG Ascorbic Acid 500 mg BID PO 09/05/25 10:00 09/17/25 09:48 500 MG Multivitamins 1 tab DAILY PO 09/05/25 10:00 09/17/25 09:48 1 TAB Acetaminophen 650 mg Q6HP PRN PO 09/04/25 23:45 Nitroglycerin 0.4 mg Q5MINP PRN SL 09/04/25 23:45 Aspirin 81 mg DAILY PO 09/05/25 10:00 09/17/25 09:48 81 MG Vancomycin HCl 0 ml @ 0 mls/hr PER PHARMACY IV 09/05/25 23:45 Cancel Piperacillin Sod/ Tazobactam Sod 100 ml @ 25 mls/hr Q8H IV 09/07/25 20:00 09/17/25 12:49 25 MLS/HR Atorvastatin Calcium 40 mg HS PO 09/11/25 22:00 09/15/25 21:44 40 MG Pantoprazole Sodium 40 mg DAILY IV 09/14/25 10:00 09/17/25 09:48 40 MG objective GENERAL: A/OX2-3, confused. Thin, frail EYES: PERRL, EOMI. Anicteric. HENT: Moist mucous membranes. LUNGS: Clear to auscultation bilaterally. CARDIOVASCULAR: Regular rate and rhythm. ABDOMEN: Soft, nontender and nondistended. EXTREMITIES: No edema. SKIN: Multiple wounds to bilateral lower extremities, covered at this time. laboratory and microbiology Laboratory Tests 09/17/25 05:40 Test 09/17/25 05:40 Range/Units Serum Glucose 77 74-106 mg/dL Problem List Rule out severe aortic valve stenosis. Rule out tuberculosis. Hypertension. Dyslipidemia. Hypokalemia. Thrombocythemia. Tobacco use. Assessment/Plan Continued all current supportive medical care. Amlodipine, Clonidine. Aspirin, Lipitor. GI prophylactics. IV antibiotics as ordered. Additional plan as per the hospital course. Dietary Evaluation Review Recommendations by RD: Increase Calorie Intake Comments: Nutrition Recommendation 1) Ensure high protein 240ml TID 2) Lukas 1 pk BID 3) Monitor PO intake, lab values, weight trend, and I/O Expected Outcomes/Goals: Gain/maintain body weight Wound to improve FU 3-5 days Body Fat Depletion (Severe): Mod to Severe Depletion Muscle Mass (Severe): Mod to Severe Depletion Fluid Accumulation (Non Severe: Mild fluid retention Protein Calorie Malnutrition: Severe Plan discussed with: Patient JOSE MIKE MD Sep 17, 2025 14:48
--- NOTE | 2025-09-17 17:11 | DVHPNRES ---
Progress Note Date Seen: Sep 17, 2025 Resident Creating Document: BETTIE CERRATO Medical Necessity Reason Pt with a Central, PICC or Fol: No The following are medically ne: Rivas Catheter Subjective Review of Systems Patient was seen and examined at bedside today. Reports having mild shortness of breath and mild chest pain, which has been persistent. We will continue monitoring. No other new complaints reported The patient reports her is not comfortable assisting her with activities of daily living, physical therapy evaluation done, awaiting their recommendations. We will consult home health services if patient qualifies. Objective vital signs Vital Sign Date Time Temp Pulse Resp B/P (MAP) Pulse Ox O2 Delivery O2 Flow Rate FiO2 09/17/25 16:30 97.7 76 17 130/75 (93) 100 97.7 09/17/25 10:00 Room Air 09/17/25 10:00 0 21 Total Intake and Output 09/16/25 09/16/25 09/17/25 15:00 23:00 07:00 Intake Total 100 ml 940 ml 100 ml Output Total 950 ml 600 ml Balance 100 ml -10 ml -500 ml medications Current Medications Medications Dose Ordered Sig/Denae Route Start Time Stop Time Status Last Admin Dose Admin Amlodipine Besylate 5 mg DAILY PO 09/05/25 10:00 09/17/25 09:48 5 MG Clonidine HCl 0.1 mg Q4HP PRN PO 09/04/25 23:45 09/11/25 12:49 0.1 MG Ondansetron HCl 4 mg Q4HP PRN IV 09/04/25 23:45 Docusate Sodium 100 mg BIDPRN PRN PO 09/04/25 23:45 Zinc Sulfate 220 mg DAILY PO 09/05/25 10:00 09/17/25 09:48 220 MG Ascorbic Acid 500 mg BID PO 09/05/25 10:00 09/17/25 09:48 500 MG Multivitamins 1 tab DAILY PO 09/05/25 10:00 09/17/25 09:48 1 TAB Acetaminophen 650 mg Q6HP PRN PO 09/04/25 23:45 Nitroglycerin 0.4 mg Q5MINP PRN SL 09/04/25 23:45 Aspirin 81 mg DAILY PO 09/05/25 10:00 09/17/25 09:48 81 MG Vancomycin HCl 0 ml @ 0 mls/hr PER PHARMACY IV 09/05/25 23:45 Cancel Piperacillin Sod/ Tazobactam Sod 100 ml @ 25 mls/hr Q8H IV 09/07/25 20:00 09/17/25 12:49 25 MLS/HR Atorvastatin Calcium 40 mg HS PO 09/11/25 22:00 09/15/25 21:44 40 MG Pantoprazole Sodium 40 mg DAILY IV 09/14/25 10:00 09/17/25 09:48 40 MG Examination Examination Pt is lying on bed General Appearance: Alert, Oriented X3, Cooperative, Mild distress HEENT: Atraumatic, Mucous membranes moist/pink Respiratory: Clear to auscultation, Normal air movement, No added sounds Cardiovascular: Regular rate, Normal S1, Normal S2, No murmurs Abdominal/ : Active bowel sounds, Soft, no distention, no tenderness Extremities: No edema, Normal pulses, No tenderness/swelling Skin: 4x4 cm ulcer over right rivera, ulcer over left leg. Neuro: Normal speech, sensorimotor deficits none Psych/Mental Status: Mental status NL, Mood NL Nurse was there as blade boner during examination laboratory and microbiology Laboratory Tests 09/17/25 05:40 Test 09/17/25 05:40 Range/Units Serum Glucose 77 74-106 mg/dL Microbiology Date/Time Source Procedure Growth Status 09/09/25 10:43 Sputum AFB Broth Culture Pending Resulted 09/09/25 10:43 Sputum - Final Resulted 09/09/25 10:43 Sputum - Final Resulted 09/09/25 10:43 Sputum Acid Fast Bacilli Culture Pending Resulted 09/06/25 03:30 Nose MRSA Screen - Final Complete 09/06/25 02:06 Voided Urine Urine Culture - Final Complete 09/04/25 21:29 Blood Blood Culture - Final NO GROWTH AFTER 5 DAYS OF INCUBATION. Complete Labs and/or images reviewed: Labs reviewed by me, Image(s) reviewed by me Problem List/Assessment/Plan Problem List/Assessment/Plan # Acute respiratory failure # Community acquired pneumonia Gram +/-, rule out tuberculosis, fungal pneumonia # Rule out malignancy # Sepsis due to above # Left pleural effusion Chest CT: Focal consolidation in involving large portions of the left upper lobe with cavitation near the left lung apex, likely infectious or inflammatory etiology. Small left pleural effusion. Chest X-ray: Left perihilar to hilar hazy opacification which may reflect underlying infiltrate however cystic lung change in the left lung apex with a surrounding opacification. Currently under empiric IV antibiotics (Zosyn, Vancomycin and Micafungin) Ordered panculture. Sputum culture negative Infectious disease consult, awaiting recommendations. Dietary consult QuantiFERON-TB Gold negative. Send out for sample of AFB culture on 09/07/2025 with respiratory induction. Already obtained three samples MTB PCR ordered, results pending. Sputum induction with hypertonic normal saline ordered Infectious disease consult was appreciated on 09/15/2025, according to ID: AFB smears are negative 3; MTB PCR is negative 2 is negative. from infectious disease perspective, patient can be dced without isolation, patient can followup in infectious disease clinic in 1 week to continue to follow AFB sputum results (appt date on 09/21/25 at 1PM). defer to infection control team to remove isolation and would inform department of public health of discharge plans/coordination. Physical therapy was consulted for evaluation. Discharge disposition will be decided based on physical therapy evaluation. # Cellulitis of bilateral limbs # Ruled out DVT # Ruled out osteomyelitis Currently under empiric IV antibiotics (Zosyn, Vancomycin and Micafungin) Wound cultures show MSSA and Enterobacter cloacae. Continue with broad-spectrum due to cavitary lesion in lung. Wound care on board Ordered bilateral lower limb CT and venous US which ruled out DVT, abscess and osteomyelitis # Questionable moderate to severe Aortic stenosis Echocardiogram: lvef 60%. severe lvh. aortic sclerosis, modeate to severe , TANO by planimeter is 1.1 cm2 mean gradient is 11 mmhg, this is closer to a mild (coronary CT calcium of AV can be helpful). RV enlarged. left atrium enlarged Cardiology consult: Recommend eventual coronary angiography and BETH to characterize better aortic valve disease, once cleared from Infectious Disease standpoint of view. # Hypokalemia Replenished # Chronic normocytic anemia # Thrombocytosis Secondary to sepsis Currently on prophylactic enoxaparin # Severe protein malnutrition (BMI 17) Nutritional consult placed # Questionable Dementia On multivitamins To be evaluated as outpatient GI prophylaxis: Pantoprazole DVT prophylaxis: Lovenox Diet: Cardiac Goals of care discussed with the patient for more than 27 minutes: Full code status Case discussed with Dr. Grijalva, patient and RN Plan discussed with: Patient, Other (RN) Plan discussed with: Patient, Son, Other (RN) Plan discussed with: Patient, Other (RN) My Orders My Orders Orders - BETTIE CERRATO RESIDENT Procedure Category Date Status Time Pt Request For Service PT 09/16/25 Logged 19:07 Discharge DISCHARGE 09/17/25 Transmitted 15:44 Pt Request For Service PT 09/17/25 Logged 11:20 Dietary Evaluation Review Recommendations by RD: Increase Calorie Intake Comments: Nutrition Recommendation 1) Ensure high protein 240ml TID 2) Lukas 1 pk BID 3) Monitor PO intake, lab values, weight trend, and I/O Expected Outcomes/Goals: Gain/maintain body weight Wound to improve FU 3-5 days Body Fat Depletion (Severe): Mod to Severe Depletion Muscle Mass (Severe): Mod to Severe Depletion Fluid Accumulation (Non Severe: Mild fluid retention Protein Calorie Malnutrition: Severe Visit Coding STANDARD RES Billing Provider: TOREY DUKES MD Date of Service if different f: Sep 17, 2025 Common Visit Codes: [id number] INP/OBS CARE(HIGH) BETTIE CERRATO RESIDENT Sep 17, 2025 17:11 TOREY DUKES MD Sep 17, 2025 23:56
[2025-09-18] VITALS (7 sets, daily range): BP systolic 126–144; BP diastolic 64–84; PULSE 71–97; RESP 16–20; TEMP 97.2–98.3; O2SAT 92–99
[2025-09-18 07:15] LABS: Hemoglobin 10.6 g/dL (12.2-16.2)
[2025-09-18 07:18] LABS: Hematocrit 32.0 % (36.0-46.0); Mean Corpuscular Hemoglobin 30.7 pg (28.0-32.0); Mean Corpuscular Volume 92.8 fL (80.0-100.0); Nucleated Red Blood Cells % 0.3 %
[2025-09-18 08:43] LABS: Albumin 3.6 g/dL (3.2-4.8); Alkaline Phosphatase 92 U/L (46-116); Anion Gap 11 (5-15); BUN/Creatinine Ratio 14.5 (10.0-20.0); Blood Urea Nitrogen 10 mg/dL (9-23); Calcium 9.1 mg/dL (8.7-10.4); Carbon Dioxide 29 mmol/L (20-31); Chloride 105 mmol/L (98-107); Glucose 79 mg/dL (74-106); Potassium 3.8 mmol/L (3.5-5.1); Total Protein 6.9 g/dL (5.7-8.2)
[2025-09-18 08:44] LABS: Alanine Aminotransferase 40 U/L (7-40); Bilirubin, Total 0.4 mg/dL (0.2-1.0); Sodium 145 mmol/L (136-145)
[2025-09-18 09:07] LABS: Blastomyces Antibody DID Negative (Neg:<1:1)
--- NOTE | 2025-09-18 14:43 | DVHPN2 ---
Subjective The patient seen and examined at bedside. The patient feel better today. Reviewed: Care Plan, H&P, Labs, Medications, Previous Orders Changes from previous H/P or p: No Changes General: Per HPI Eyes: No Pain, No Vision change, No Conjunctivae inflammation, No Eyelid inflammation, No Other, No Redness ENT: No Ear pain, No Ear discharge, No Nose pain, No Nose discharge, No Nose congestion, No Mouth pain, No Mouth swelling, No Throat pain, No Throat swelling, No Other Cardiovascular: No Chest Pain, No Palpitations, No Orthopnea, No Paroxysmal Noc. Dyspnea; Edema (Lower extremity); No Lt Headedness, No Other Respiratory: No Cough, No Dry, No Shortness of breath, No SOB with excertion, No Wheezing, No Hemoptysis, No Pleuritic Pain, No Sputum, No Other Gastrointestinal: No Nausea, No Vomiting, No Abdominal Pain, No Diarrhea, No Constipation, No Melena, No Hematochezia, No Other Genitourinary: No Dysuria, No Frequency, No Incontinence, No Hematuria, No Retention, No Other Musculoskeletal: No other, No neck pain, No shoulder pain, No arm pain, No back pain, No hand pain, No leg pain, No foot pain Skin: No Rash, No Lesions, No Jaundice, No Bruising; Other (Open wound bilateral legs) Objective Vitals Vital Signs Date Time Temp Pulse Resp B/P (MAP) Pulse Ox O2 Delivery O2 Flow Rate FiO2 09/18/25 13:00 98.1 73 16 126/64 (84) 96 98.1 09/18/25 08:00 Room Air* 0 21 Intake/Output Intake and Output 09/18/25 07:00 Intake Total 700 ml Output Total 800 ml Balance -100 ml Intake Oral 300 ml IV Total 400 ml Output Urine Total 800 ml General Appearance: Alert, Oriented X3, Cooperative, No acute distress HEENT: Atraumatic, PERRLA, EOMI, Mucous membr. moist/pink Lungs: Clear to auscultation, Normal air movement Cardiovascular: Regular rate, Normal S1, Normal S2, No murmurs, Gallops, Rubs Abdomen: Normal bowel sounds, Soft, No tenderness Medications Current Medications Medications Dose Ordered Sig/Denae Route Start Time Stop Time Status Last Admin Dose Admin Amlodipine Besylate 5 mg DAILY PO 09/05/25 10:00 09/18/25 09:37 5 MG Clonidine HCl 0.1 mg Q4HP PRN PO 09/04/25 23:45 09/11/25 12:49 0.1 MG Ondansetron HCl 4 mg Q4HP PRN IV 09/04/25 23:45 Docusate Sodium 100 mg BIDPRN PRN PO 09/04/25 23:45 Zinc Sulfate 220 mg DAILY PO 09/05/25 10:00 09/18/25 09:35 220 MG Ascorbic Acid 500 mg BID PO 09/05/25 10:00 09/18/25 09:35 500 MG Multivitamins 1 tab DAILY PO 09/05/25 10:00 09/18/25 09:35 1 TAB Acetaminophen 650 mg Q6HP PRN PO 09/04/25 23:45 Nitroglycerin 0.4 mg Q5MINP PRN SL 09/04/25 23:45 Aspirin 81 mg DAILY PO 09/05/25 10:00 09/18/25 09:36 81 MG Vancomycin HCl 0 ml @ 0 mls/hr PER PHARMACY IV 09/05/25 23:45 Cancel Piperacillin Sod/ Tazobactam Sod 100 ml @ 25 mls/hr Q8H IV 09/07/25 20:00 09/18/25 12:22 25 MLS/HR Atorvastatin Calcium 40 mg HS PO 09/11/25 22:00 09/17/25 21:06 40 MG Pantoprazole Sodium 40 mg DAILY IV 09/14/25 10:00 09/18/25 09:35 40 MG Laboratory Results Laboratory Tests 09/18/25 06:08 Chemistry Test 09/18/25 06:08 Albumin 3.6 g/dL (3.2-4.8) Calcium Level 9.1 mg/dL (8.7-10.4) Total Protein 6.9 g/dL (5.7-8.2) LFT Test 09/18/25 06:08 Alanine Aminotransferase (ALT) 40 U/L (7-40) Alkaline Phosphatase 92 U/L (46-116) Aspartate Amino Transferase (AST) 43 U/L (13-40) H Total Bilirubin 0.4 mg/dL (0.2-1.0) Urinalysis Test 09/06/25 02:06 Urine Color Light-yellow (Yellow) Urine Clarity Clear (Clear) Urine pH 8.0 (5.0-9.0) Urine Specific Bell 1.015 (1.001-1.035) Urine Protein Negative (Negative) Urine Ketones Negative (Negative) Urine Blood 1+ /uL (Negative) H Urine Nitrite Negative (Negative) Urine Bilirubin Negative (Negative) Urine Urobilinogen Normal mg/dL (Negative) Urine Leukocyte Esterase Negative /uL (Negative) Urine RBC 36 /hpf (0 - 4) Urine Microscopic WBC 1 /HPF (0-5) Urine Squamous Epithelial Cells None seen /hpf (<5) Urine Bacteria None seen /hpf (None Seen) Urine Glucose Normal mg/dL (Normal) Microbiology Microbiology Date/Time Source Procedure Growth Status 09/09/25 10:43 Sputum AFB Broth Culture Pending Resulted 09/09/25 10:43 Sputum - Final Resulted 09/09/25 10:43 Sputum - Final Resulted 09/09/25 10:43 Sputum Acid Fast Bacilli Culture Pending Resulted 09/06/25 03:30 Nose MRSA Screen - Final Complete 09/06/25 02:06 Voided Urine Urine Culture - Final Complete 09/04/25 21:29 Blood Blood Culture - Final NO GROWTH AFTER 5 DAYS OF INCUBATION. Complete Labs and/or images reviewed: Labs reviewed by me Assessment/Plan Assessment/Plan # Acute respiratory failure # Community acquired pneumonia Gram +/-, rule out tuberculosis, fungal pneumonia # Rule out malignancy # Sepsis due to above # Left pleural effusion Chest CT: Focal consolidation in involving large portions of the left upper lobe with cavitation near the left lung apex, likely infectious or inflammatory etiology. Small left pleural effusion. Chest X-ray: Left perihilar to hilar hazy opacification which may reflect underlying infiltrate however cystic lung change in the left lung apex with a surrounding opacification. Currently under empiric IV antibiotics (Zosyn, Vancomycin and Micafungin) Ordered panculture. Sputum culture negative Infectious disease consult, awaiting recommendations. Dietary consult QuantiFERON-TB Gold negative. Send out for sample of AFB culture on 09/07/2025 with respiratory induction. Already obtained three samples MTB PCR ordered, results pending. Sputum induction with hypertonic normal saline ordered Infectious disease consult was appreciated on 09/15/2025, according to ID: AFB smears are negative 3; MTB PCR is negative 2 is negative. from infectious disease perspective, patient can be dced without isolation, patient can followup in infectious disease clinic in 1 week to continue to follow AFB sputum results (appt date on 09/21/25 at 1PM). defer to infection control team to remove isolation and would inform department of public health of discharge plans/coordination. Physical therapy was consulted for evaluation. Discharge disposition will be decided based on physical therapy evaluation. # Cellulitis of bilateral limbs # Ruled out DVT # Ruled out osteomyelitis Currently under empiric IV antibiotics (Zosyn, Vancomycin and Micafungin) Wound cultures show MSSA and Enterobacter cloacae. Continue with broad-spectrum due to cavitary lesion in lung. Wound care on board Ordered bilateral lower limb CT and venous US which ruled out DVT, abscess and osteomyelitis # Questionable moderate to severe Aortic stenosis Echocardiogram: lvef 60%. severe lvh. aortic sclerosis, modeate to severe , TANO by planimeter is 1.1 cm2 mean gradient is 11 mmhg, this is closer to a mild (coronary CT calcium of AV can be helpful). RV enlarged. left atrium enlarged Cardiology consult: Recommend eventual coronary angiography and BETH to characterize better aortic valve disease, once cleared from Infectious Disease standpoint of view. # Hypokalemia Replenished # Chronic normocytic anemia # Thrombocytosis Secondary to sepsis Currently on prophylactic enoxaparin # Severe protein malnutrition (BMI 17) Nutritional consult placed # Questionable Dementia On multivitamins To be evaluated as outpatient GI prophylaxis: Pantoprazole DVT prophylaxis: Lovenox Diet: Cardiac Continue current management. Plan discussed with: Patient Date of Service: Sep 18, 2025 Billing Provider: TOREY DUKES MD Common Visit Codes: [id number] INP/OBS CARE(HIGH) TOREY DUKES MD Sep 18, 2025 14:43
--- NOTE | 2025-09-18 21:23 | DVHPN2 ---
Progress Note - Dictate Date Seen: Sep 18, 2025 Medical Necessity Reason Pt with a Central, PICC or Fol: No The following are medically ne: Rivas Catheter Subjective Patient was seen and evaluated in follow up. Sitter is at bedside. Physical therapy evaluation done, awaiting their recommendations at this time. Patient denies any complaints. vital signs Vital Sign Date Time Temp Pulse Resp B/P (MAP) Pulse Ox O2 Delivery O2 Flow Rate FiO2 09/18/25 09:37 144/84 09/18/25 09:00 98.3 83 16 99 98.3 09/18/25 08:00 Room Air* 0 21 Total Intake and Output 09/17/25 09/17/25 09/18/25 15:00 23:00 07:00 Intake Total 100 ml 600 ml Output Total 800 ml Balance 100 ml -200 ml medications Current Medications Medications Dose Ordered Sig/Denae Route Start Time Stop Time Status Last Admin Dose Admin Amlodipine Besylate 5 mg DAILY PO 09/05/25 10:00 09/18/25 09:37 5 MG Clonidine HCl 0.1 mg Q4HP PRN PO 09/04/25 23:45 09/11/25 12:49 0.1 MG Ondansetron HCl 4 mg Q4HP PRN IV 09/04/25 23:45 Docusate Sodium 100 mg BIDPRN PRN PO 09/04/25 23:45 Zinc Sulfate 220 mg DAILY PO 09/05/25 10:00 09/18/25 09:35 220 MG Ascorbic Acid 500 mg BID PO 09/05/25 10:00 09/18/25 09:35 500 MG Multivitamins 1 tab DAILY PO 09/05/25 10:00 09/18/25 09:35 1 TAB Acetaminophen 650 mg Q6HP PRN PO 09/04/25 23:45 Nitroglycerin 0.4 mg Q5MINP PRN SL 09/04/25 23:45 Aspirin 81 mg DAILY PO 09/05/25 10:00 09/18/25 09:36 81 MG Vancomycin HCl 0 ml @ 0 mls/hr PER PHARMACY IV 09/05/25 23:45 Cancel Piperacillin Sod/ Tazobactam Sod 100 ml @ 25 mls/hr Q8H IV 09/07/25 20:00 09/18/25 04:00 25 MLS/HR Atorvastatin Calcium 40 mg HS PO 09/11/25 22:00 09/17/25 21:06 40 MG Pantoprazole Sodium 40 mg DAILY IV 09/14/25 10:00 09/18/25 09:35 40 MG objective GENERAL: A/OX2-3, confused. Thin, frail EYES: PERRL, EOMI. Anicteric. HENT: Moist mucous membranes. LUNGS: Clear to auscultation bilaterally. CARDIOVASCULAR: Regular rate and rhythm. ABDOMEN: Soft, nontender and nondistended. EXTREMITIES: No edema. SKIN: Multiple wounds to bilateral lower extremities, covered at this time. laboratory and microbiology Laboratory Tests 09/18/25 06:08 Test 09/18/25 06:08 Range/Units Serum Glucose 79 74-106 mg/dL Problem List Rule out severe aortic valve stenosis. Rule out tuberculosis. Hypertension. Dyslipidemia. Hypokalemia. Thrombocythemia. Tobacco use. Assessment/Plan Continued all current supportive medical care. Amlodipine, Clonidine. Aspirin, Lipitor. GI prophylactics. IV antibiotics as ordered. Additional plan as per the hospital course. Dietary Evaluation Review Recommendations by RD: Increase Calorie Intake Comments: Nutrition Recommendation 1) Ensure high protein 240ml TID 2) Lukas 1 pk BID 3) Monitor PO intake, lab values, weight trend, and I/O Expected Outcomes/Goals: Gain/maintain body weight Wound to improve FU 3-5 days Body Fat Depletion (Severe): Mod to Severe Depletion Muscle Mass (Severe): Mod to Severe Depletion Fluid Accumulation (Non Severe: Mild fluid retention Protein Calorie Malnutrition: Severe Plan discussed with: Patient JOSE MIKE MD Sep 18, 2025 12:19
[2025-09-19] VITALS (7 sets, daily range): BP systolic 129–156; BP diastolic 68–82; PULSE 66–83; RESP 16–18; TEMP 96.9–98.2; O2SAT 92–100
--- NOTE | 2025-09-19 15:08 | DVHPNRES ---
Progress Note Date Seen: Sep 19, 2025 Resident Creating Document: BETTIE CERRATO Medical Necessity Reason Pt with a Central, PICC or Fol: No The following are medically ne: Rivas Catheter Subjective Review of Systems Patient was seen and examined at bedside today. Patient was not able do answer questions, she was confused. She is in A xO 1. Physical therapy recommended SNF placement for the patient, social service working closely with the patient's and multiple SNF. Objective vital signs Vital Sign Date Time Temp Pulse Resp B/P (MAP) Pulse Ox O2 Delivery O2 Flow Rate FiO2 09/19/25 12:35 98.0 83 18 151/82 (105) 98 98.0 09/19/25 08:00 Room Air* 0 21 Total Intake and Output 09/18/25 09/18/25 09/19/25 15:00 23:00 07:00 Intake Total 700 ml 650 ml Output Total 300 ml 450 ml Balance 400 ml 200 ml medications Current Medications Medications Dose Ordered Sig/Denae Route Start Time Stop Time Status Last Admin Dose Admin Amlodipine Besylate 5 mg DAILY PO 09/05/25 10:00 09/19/25 09:48 5 MG Clonidine HCl 0.1 mg Q4HP PRN PO 09/04/25 23:45 09/11/25 12:49 0.1 MG Ondansetron HCl 4 mg Q4HP PRN IV 09/04/25 23:45 Docusate Sodium 100 mg BIDPRN PRN PO 09/04/25 23:45 Zinc Sulfate 220 mg DAILY PO 09/05/25 10:00 09/19/25 09:46 220 MG Ascorbic Acid 500 mg BID PO 09/05/25 10:00 09/19/25 09:46 500 MG Multivitamins 1 tab DAILY PO 09/05/25 10:00 09/19/25 09:47 1 TAB Acetaminophen 650 mg Q6HP PRN PO 09/04/25 23:45 Nitroglycerin 0.4 mg Q5MINP PRN SL 09/04/25 23:45 Aspirin 81 mg DAILY PO 09/05/25 10:00 09/19/25 09:47 81 MG Vancomycin HCl 0 ml @ 0 mls/hr PER PHARMACY IV 09/05/25 23:45 Cancel Atorvastatin Calcium 40 mg HS PO 09/11/25 22:00 09/18/25 21:05 40 MG Pantoprazole Sodium 40 mg DAILY IV 09/14/25 10:00 09/19/25 09:46 40 MG Examination Examination Pt is lying on bed General Appearance: Alert, Oriented X3, Cooperative, Mild distress HEENT: Atraumatic, Mucous membranes moist/pink Respiratory: Clear to auscultation, Normal air movement, No added sounds Cardiovascular: Regular rate, Normal S1, Normal S2, No murmurs Abdominal/ : Active bowel sounds, Soft, no distention, no tenderness Extremities: No edema, Normal pulses, No tenderness/swelling Skin: 4x4 cm ulcer over right rivera, ulcer over left leg. Neuro: Normal speech, sensorimotor deficits none Psych/Mental Status: Mental status NL, Mood NL Nurse was there as manager industrial during examination laboratory and microbiology Laboratory Tests 09/18/25 06:08 Test 09/18/25 06:08 Range/Units Serum Glucose 79 74-106 mg/dL Microbiology Date/Time Source Procedure Growth Status 09/09/25 10:43 Sputum AFB Broth Culture Pending Resulted 09/09/25 10:43 Sputum - Final Resulted 09/09/25 10:43 Sputum - Final Resulted 09/09/25 10:43 Sputum Acid Fast Bacilli Culture Pending Resulted 09/06/25 03:30 Nose MRSA Screen - Final Complete 09/06/25 02:06 Voided Urine Urine Culture - Final Complete 09/04/25 21:29 Blood Blood Culture - Final NO GROWTH AFTER 5 DAYS OF INCUBATION. Complete Labs and/or images reviewed: Labs reviewed by me, Image(s) reviewed by me Problem List/Assessment/Plan Problem List/Assessment/Plan # Acute respiratory failure # Community acquired pneumonia Gram +/-, rule out tuberculosis, fungal pneumonia # Rule out malignancy # Sepsis due to above # Left pleural effusion Chest CT: Focal consolidation in involving large portions of the left upper lobe with cavitation near the left lung apex, likely infectious or inflammatory etiology. Small left pleural effusion. Chest X-ray: Left perihilar to hilar hazy opacification which may reflect underlying infiltrate however cystic lung change in the left lung apex with a surrounding opacification. Currently under empiric IV antibiotics (Zosyn, Vancomycin and Micafungin) Ordered panculture. Sputum culture negative Infectious disease consult, awaiting recommendations. Dietary consult QuantiFERON-TB Gold negative. Send out for sample of AFB culture on 09/07/2025 with respiratory induction. Already obtained three samples MTB PCR negative. Sputum induction with hypertonic normal saline ordered Infectious disease consult was appreciated on 09/15/2025, according to ID: AFB smears are negative 3; MTB PCR is negative 2 is negative. from infectious disease perspective, patient can be dced without isolation, patient can followup in infectious disease clinic in 1 week to continue to follow AFB sputum results (appt date on 09/21/25 at 1PM). defer to infection control team to remove isolation and would inform department of public health of discharge plans/coordination. Physical therapy was consulted for evaluation. Discharge disposition will be decided based on physical therapy evaluation. # Cellulitis of bilateral limbs # Ruled out DVT # Ruled out osteomyelitis Currently under empiric IV antibiotics (Zosyn, Vancomycin and Micafungin) Wound cultures show MSSA and Enterobacter cloacae. Continue with broad-spectrum due to cavitary lesion in lung. Wound care on board Ordered bilateral lower limb CT and venous US which ruled out DVT, abscess and osteomyelitis # Questionable moderate to severe Aortic stenosis Echocardiogram: lvef 60%. severe lvh. aortic sclerosis, modeate to severe , TAON by planimeter is 1.1 cm2 mean gradient is 11 mmhg, this is closer to a mild (coronary CT calcium of AV can be helpful). RV enlarged. left atrium enlarged Cardiology consult: Recommend eventual coronary angiography and BETH to characterize better aortic valve disease, once cleared from Infectious Disease standpoint of view. # Hypokalemia Replenished # Chronic normocytic anemia # Thrombocytosis Secondary to sepsis Currently on prophylactic enoxaparin # Severe protein malnutrition (BMI 17) Nutritional consult placed # Questionable Dementia On multivitamins To be evaluated as outpatient # physical therapy evaluation -therapy recommended SNF placement for patient to begin previous level of function. # social Service Social service on board, multiple SNF contacted for patient's placement. Social for service coordinating with patient's as well. GI prophylaxis: Pantoprazole DVT prophylaxis: Lovenox Diet: Cardiac Goals of care discussed with the patient for more than 27 minutes: Full code status Case discussed with Dr. Grijalva, patient and RN Plan discussed with: Patient, Other (RN) My Orders My Orders Orders - BETTIE CERRATO RESIDENT Procedure Category Date Status Time * Rod Straightener CONS 09/19/25 Transmitted Consult 07:22 Dietary Evaluation Review Recommendations by RD: Increase Calorie Intake Comments: Nutrition Recommendation 1) Ensure high protein 240ml TID 2) Lukas 1 pk BID 3) Monitor PO intake, lab values, weight trend, and I/O Expected Outcomes/Goals: Gain/maintain body weight Wound to improve FU 3-5 days Body Fat Depletion (Severe): Mod to Severe Depletion Muscle Mass (Severe): Mod to Severe Depletion Fluid Accumulation (Non Severe: Mild fluid retention Protein Calorie Malnutrition: Severe Visit Coding STANDARD RES Billing Provider: TOREY DUKES MD Date of Service if different f: Sep 19, 2025 Common Visit Codes: 29496-UQP/OBS DISCH DAY >30min BETTIE CERRATO Sep 19, 2025 15:08 TOREY DUKES MD Sep 20, 2025 00:09
--- NOTE | 2025-09-19 23:28 | DVHPN2 ---
Progress Note - Dictate Date Seen: Sep 19, 2025 Medical Necessity Reason Pt with a Central, PICC or Fol: No The following are medically ne: Rivas Catheter Subjective Patient was seen and evaluated in follow up. No overnight events. PT has recommended for the patient to be discharged to SNF. CM is working on placement. vital signs Vital Sign Date Time Temp Pulse Resp B/P (MAP) Pulse Ox O2 Delivery O2 Flow Rate FiO2 09/19/25 12:35 98.0 83 18 151/82 (105) 98 98.0 09/19/25 08:00 Room Air* 0 21 Total Intake and Output 09/18/25 09/18/25 09/19/25 15:00 23:00 07:00 Intake Total 700 ml 650 ml Output Total 300 ml 450 ml Balance 400 ml 200 ml medications Current Medications Medications Dose Ordered Sig/Denae Route Start Time Stop Time Status Last Admin Dose Admin Amlodipine Besylate 5 mg DAILY PO 09/05/25 10:00 09/19/25 09:48 5 MG Clonidine HCl 0.1 mg Q4HP PRN PO 09/04/25 23:45 09/11/25 12:49 0.1 MG Ondansetron HCl 4 mg Q4HP PRN IV 09/04/25 23:45 Docusate Sodium 100 mg BIDPRN PRN PO 09/04/25 23:45 Zinc Sulfate 220 mg DAILY PO 09/05/25 10:00 09/19/25 09:46 220 MG Ascorbic Acid 500 mg BID PO 09/05/25 10:00 09/19/25 09:46 500 MG Multivitamins 1 tab DAILY PO 09/05/25 10:00 09/19/25 09:47 1 TAB Acetaminophen 650 mg Q6HP PRN PO 09/04/25 23:45 Nitroglycerin 0.4 mg Q5MINP PRN SL 09/04/25 23:45 Aspirin 81 mg DAILY PO 09/05/25 10:00 09/19/25 09:47 81 MG Vancomycin HCl 0 ml @ 0 mls/hr PER PHARMACY IV 09/05/25 23:45 Cancel Atorvastatin Calcium 40 mg HS PO 09/11/25 22:00 09/18/25 21:05 40 MG Pantoprazole Sodium 40 mg DAILY IV 09/14/25 10:00 09/19/25 09:46 40 MG objective GENERAL: A/OX2-3, confused. Thin, frail EYES: PERRL, EOMI. Anicteric. HENT: Moist mucous membranes. LUNGS: Clear to auscultation bilaterally. CARDIOVASCULAR: Regular rate and rhythm. ABDOMEN: Soft, nontender and nondistended. EXTREMITIES: No edema. SKIN: Multiple wounds to bilateral lower extremities, covered at this time. laboratory and microbiology Laboratory Tests 09/18/25 06:08 Test 09/18/25 06:08 Range/Units Serum Glucose 79 74-106 mg/dL Problem List Rule out severe aortic valve stenosis. Rule out tuberculosis. Hypertension. Dyslipidemia. Hypokalemia. Thrombocythemia. Tobacco use. Assessment/Plan Continued all current supportive medical care. Amlodipine, Clonidine. Aspirin, Lipitor. GI prophylactics. Additional plan as per the hospital course. Dietary Evaluation Review Recommendations by RD: Increase Calorie Intake Comments: Nutrition Recommendation 1) Ensure high protein 240ml TID 2) Lukas 1 pk BID 3) Monitor PO intake, lab values, weight trend, and I/O Expected Outcomes/Goals: Gain/maintain body weight Wound to improve FU 3-5 days Body Fat Depletion (Severe): Mod to Severe Depletion Muscle Mass (Severe): Mod to Severe Depletion Fluid Accumulation (Non Severe: Mild fluid retention Protein Calorie Malnutrition: Severe Plan discussed with: Patient JOSE MIKE MD Sep 19, 2025 13:43
[2025-09-20] VITALS (7 sets, daily range): BP systolic 113–145; BP diastolic 67–80; PULSE 66–92; RESP 14–19; TEMP 97.3–98.3; O2SAT 96–100
--- NOTE | 2025-09-20 23:23 | DVHPN2 ---
Progress Note - Dictate Date Seen: Sep 20, 2025 Medical Necessity Reason Pt with a Central, PICC or Fol: No The following are medically ne: Rivas Catheter Subjective Patient was seen and evaluated in follow up. Patient resting in bed. She denies any complaints. CM was consulted for SNF placement, husbands preferred facility is [facility]. vital signs Vital Sign Date Time Temp Pulse Resp B/P (MAP) Pulse Ox O2 Delivery O2 Flow Rate FiO2 09/20/25 16:59 98.0 70 16 135/72 (93) 97 98.0 09/20/25 08:00 Room Air* 0 21 Total Intake and Output 09/19/25 09/19/25 09/20/25 15:00 23:00 07:00 Intake Total 720 ml Output Total 500 ml Balance 220 ml medications Current Medications Medications Dose Ordered Sig/Denae Route Start Time Stop Time Status Last Admin Dose Admin Amlodipine Besylate 5 mg DAILY PO 09/05/25 10:00 09/20/25 08:59 5 MG Clonidine HCl 0.1 mg Q4HP PRN PO 09/04/25 23:45 09/11/25 12:49 0.1 MG Ondansetron HCl 4 mg Q4HP PRN IV 09/04/25 23:45 Docusate Sodium 100 mg BIDPRN PRN PO 09/04/25 23:45 Zinc Sulfate 220 mg DAILY PO 09/05/25 10:00 09/20/25 08:59 220 MG Ascorbic Acid 500 mg BID PO 09/05/25 10:00 09/20/25 21:53 500 MG Multivitamins 1 tab DAILY PO 09/05/25 10:00 09/20/25 08:59 1 TAB Acetaminophen 650 mg Q6HP PRN PO 09/04/25 23:45 Nitroglycerin 0.4 mg Q5MINP PRN SL 09/04/25 23:45 Aspirin 81 mg DAILY PO 09/05/25 10:00 09/20/25 08:58 81 MG Vancomycin HCl 0 ml @ 0 mls/hr PER PHARMACY IV 09/05/25 23:45 Cancel Atorvastatin Calcium 40 mg HS PO 09/11/25 22:00 09/20/25 21:53 40 MG objective GENERAL: A/OX2-3, confused. Thin, frail EYES: PERRL, EOMI. Anicteric. HENT: Moist mucous membranes. LUNGS: Clear to auscultation bilaterally. CARDIOVASCULAR: Regular rate and rhythm. ABDOMEN: Soft, nontender and nondistended. EXTREMITIES: No edema. SKIN: Multiple wounds to bilateral lower extremities, covered at this time. laboratory and microbiology Laboratory Tests 09/18/25 06:08 Test 09/18/25 06:08 Range/Units Serum Glucose 79 74-106 mg/dL Problem List Rule out severe aortic valve stenosis. Rule out tuberculosis. Hypertension. Dyslipidemia. Hypokalemia. Thrombocythemia. Tobacco use. Assessment/Plan Continued all current supportive medical care. Amlodipine, Clonidine. Aspirin, Lipitor. GI prophylactics. Additional plan as per the hospital course. Dietary Evaluation Review Recommendations by RD: Increase Calorie Intake Comments: Nutrition Recommendation 1) Ensure high protein 240ml TID 2) Lukas 1 pk BID 3) Monitor PO intake, lab values, weight trend, and I/O Expected Outcomes/Goals: Gain/maintain body weight Wound to improve FU 3-5 days Body Fat Depletion (Severe): Mod to Severe Depletion Muscle Mass (Severe): Mod to Severe Depletion Fluid Accumulation (Non Severe: Mild fluid retention Protein Calorie Malnutrition: Severe Plan discussed with: Other JOSE MIKE MD Sep 20, 2025 23:23
--- NOTE | 2025-09-20 23:56 | DVHPN2 ---
Consult Progress Note Objective vital signs Vital Sign Date Time Temp Pulse Resp B/P (MAP) Pulse Ox O2 Delivery O2 Flow Rate FiO2 09/20/25 21:00 97.3 92 19 113/67 (82) 96 97.3 09/20/25 20:00 Room Air* 0 21 Total Intake and Output 09/19/25 09/19/25 09/20/25 15:00 23:00 07:00 Intake Total 720 ml Output Total 500 ml Balance 220 ml medications Current Medications Medications Dose Ordered Sig/Denae Route Start Time Stop Time Status Last Admin Dose Admin Amlodipine Besylate 5 mg DAILY PO 09/05/25 10:00 09/20/25 08:59 5 MG Clonidine HCl 0.1 mg Q4HP PRN PO 09/04/25 23:45 09/11/25 12:49 0.1 MG Ondansetron HCl 4 mg Q4HP PRN IV 09/04/25 23:45 Docusate Sodium 100 mg BIDPRN PRN PO 09/04/25 23:45 Zinc Sulfate 220 mg DAILY PO 09/05/25 10:00 09/20/25 08:59 220 MG Ascorbic Acid 500 mg BID PO 09/05/25 10:00 09/20/25 21:53 500 MG Multivitamins 1 tab DAILY PO 09/05/25 10:00 09/20/25 08:59 1 TAB Acetaminophen 650 mg Q6HP PRN PO 09/04/25 23:45 Nitroglycerin 0.4 mg Q5MINP PRN SL 09/04/25 23:45 Aspirin 81 mg DAILY PO 09/05/25 10:00 09/20/25 08:58 81 MG Vancomycin HCl 0 ml @ 0 mls/hr PER PHARMACY IV 09/05/25 23:45 Cancel Atorvastatin Calcium 40 mg HS PO 09/11/25 22:00 09/20/25 21:53 40 MG laboratory and microbiology Laboratory Tests 09/18/25 06:08 Test 09/18/25 06:08 Range/Units Serum Glucose 79 74-106 mg/dL Problem List/Assessment/Plan Problem List/Assessment/Plan ASSESSMENT AND PLAN: ID Problem List: \-- Cavitary pneumonia with concern for TB versus fungal versus other etiologies \-- TB rule out in progress \-- Bilateral lower extremity ulcers with Staphylococcus aureus (MSSA) and Enterobacter cloacae \-- Dementia (matt historianJacklyn\&O x2) \-- Cachexia and weight loss \-- Hypertension \-- Social concerns: limited caregiver support ( unable to care for patient) Assessment: Ms. Jayleen Story is a 64 y.o. female with a past medical history of dementia and hypertension who presents with bilateral lower extremity wounds and a cavitary pulmonary lesion. She is a poor historian. On presentation she was afebrile with tachycardia and normal blood pressure. She appears cachectic and disheveled, with generalized weakness and multiple shallow ulcers on the dorsal, anterior, and posterior aspects of both legs, some extending to the subcutaneous tissue, but without lower extremity edema. Initial labs: WBC 9.2, Hgb 10.7, platelets 625. BUN reported as 139 and 10 in the transcript (value unclear), sodium 139, creatinine 0.47. TSH 1.16. Chest X?ray reportedly shows a left perihilar hazy opacity and a cystic/cavitary- appearing change in the left lung apex with surrounding opacification concerning for fungal versus TB pneumonia. She denies shortness of breath and dizziness but endorses weight loss and subjective fevers (amount unclear). No history of smoking, alcohol use, IV drug use, or travel. No prior surgeries per patient. No known allergies. She has undergone TB rule out with AFB smears negative 3, respiratory culture without growth, and MTB PCR negative 1 to date; QuantiFERON?TB Gold is negative. Wound cultures are growing MSSA and Enterobacter cloacae (not [facility]- induced, per report). She has been treated with vancomycin, piperacillin?tazobactam (Zosyn), and micafungin. Overall suspicion for active TB is low; fungal pneumonia remains a possible diagnosis along with other infectious and noninfectious causes. 09/15: AFB sputum stain negative x 3 and MTB pcr negative x 2 Plan: Cavitary pneumonia / possible TB vs fungal vs other etiologies \-- TB rule out in progress: continue airborne isolation per hospital protocol until rule out is complete. \-- AFB smears are negative 3; MTB PCR is negative 2 is negative. from infectious disease perspective, patient can be dced without isolation, patient can followup in infectious disease clinic in 1 week to continue to follow AFB sputum results (appt date on 09/21/25 at 1PM). defer to infection control team to remove isolation and would inform department of public health of discharge plans/coordination. \-- QuantiFERON?TB Gold is negative; overall clinical suspicion for active TB is low. \-- No need for empiric TB treatment at this time given low suspicion. \-- For possible fungal pneumonia: Obtain/continue routine sputum culture and monitor for fungal growth. Send/confirm fungal testing as planned: Aspergillus antibodies Valley fever (coccidioides) antibodies Fungitell Galactomannan \-- Results can be followed as an outpatient to determine if treatment for cavitary fungal pneumonia is warranted; no empiric micafungin is recommended at this time. \-- Differential for cavitary lesion includes: aspiration pneumonia, bacterial pneumonia, fungal pneumonia, AFB/NTM infection, and noninfectious etiologies including malignancy. \-- Recommend serial chest CT follow?up approximately every 3 months to ensure stability of the cavitary lesion and to monitor for progression. Bilateral lower extremity ulcers (MSSA and Enterobacter cloacae) Continue Zosyn to treat MSSA and Enterobacter cloacae. \-- Total planned duration: 14 days of antimicrobial therapy for the wounds. At discharge, transition to oral levofloxacin 500 mg PO once daily to complete the 14?day course (including inpatient days). EOT date on 09/21/25 \-- Continue local wound care per primary/wound care team (details not provided in transcript). Cachexia, weight loss, and wound healing support \-- Patient is cachectic with reported weight loss; this may impair wound healing. \-- Recommend formal nutrition evaluation. \-- Encourage increased protein intake to optimize wound healing, per nutrition guidance. Dementia, poor history, and social support concerns \-- Patient has dementia, is A\&O 2, and is a poor historian. She lives with her , who reports that he cannot adequately care for her. \-- Recommend social work consult to: Assess home safety and caregiving capacity. Arrange appropriate support services or alternative placement as needed. Assist with discharge planning in the context of cognitive impairment and limited caregiver support. Isolation Precautions: TB rule?out isolation per hospital protocol (in addition to standard precautions). Assessment and plan were discussed with the patient as able, given dementia. Plan is subject to change pending incorporation of new incoming information/diagnostics. Updates may be added as an addendum to this note. Thank you for involving Infectious Diseases in the care of this patient. ID will continue to follow. Please contact Infectious Disease with any questions or concerns. Yudy Garcia M.D. \ Physical Exam: General: Cachectic, disheveled-appearing female with generalized weakness. Neck: Supple. No masses. HEENT: PERRL. Normal lids and conjunctiva. Moist mucous membranes. Oropharynx without lesions, exudates or excessive erythema. Normal appearance of the external aspects of the nose and ears. Heart: Regular rhythm, normal rate. No murmur. No lower extremity edema. Lungs: Normal respiratory effort. Clear to auscultation bilaterally. No wheezes. No crackles. Abdomen: Soft. Non-tender. Non-distended. No masses or abdominal hernia. Msk: No digital cyanosis. Normal strength and tone in all 4 limbs, though overall generalized weakness noted clinically. Skin: Warm and dry, no rashes. Multiple shallow ulcers and scabs on the dorsal, anterior, and posterior aspects of both lower legs, some extending into subcutaneous tissue. Neuro: Alert. No facial droop or slurred speech. Extra-ocular movements intact. Sensation intact to soft touch in all 4 limbs. A\&O 2. Psych: Dementia present. Mood and affect otherwise appropriate as observed. Oriented to person and place only (A\&O 2). Dietary Evaluation Review Recommendations by RD: Increase Calorie Intake Comments: Nutrition Recommendation 1) Ensure high protein 240ml TID 2) Lukas 1 pk BID 3) Monitor PO intake, lab values, weight trend, and I/O Expected Outcomes/Goals: Gain/maintain body weight Wound to improve FU 3-5 days Body Fat Depletion (Severe): Mod to Severe Depletion Muscle Mass (Severe): Mod to Severe Depletion Fluid Accumulation (Non Severe: Mild fluid retention Protein Calorie Malnutrition: Severe YUDY GARICA MD Sep 20, 2025 23:56
--- NOTE | 2025-09-20 23:56 | DVHPN2 ---
Consult Progress Note Date Seen: Sep 20, 2025 Subjective Patient reports: Feels better (BLE wounds improved off all antibiotics) Objective vital signs Vital Sign Date Time Temp Pulse Resp B/P (MAP) Pulse Ox O2 Delivery O2 Flow Rate FiO2 09/20/25 21:00 97.3 92 19 113/67 (82) 96 97.3 09/20/25 20:00 Room Air* 0 21 Total Intake and Output 09/19/25 09/19/25 09/20/25 15:00 23:00 07:00 Intake Total 720 ml Output Total 500 ml Balance 220 ml medications Current Medications Medications Dose Ordered Sig/Denae Route Start Time Stop Time Status Last Admin Dose Admin Amlodipine Besylate 5 mg DAILY PO 09/05/25 10:00 09/20/25 08:59 5 MG Clonidine HCl 0.1 mg Q4HP PRN PO 09/04/25 23:45 09/11/25 12:49 0.1 MG Ondansetron HCl 4 mg Q4HP PRN IV 09/04/25 23:45 Docusate Sodium 100 mg BIDPRN PRN PO 09/04/25 23:45 Zinc Sulfate 220 mg DAILY PO 09/05/25 10:00 09/20/25 08:59 220 MG Ascorbic Acid 500 mg BID PO 09/05/25 10:00 09/20/25 21:53 500 MG Multivitamins 1 tab DAILY PO 09/05/25 10:00 09/20/25 08:59 1 TAB Acetaminophen 650 mg Q6HP PRN PO 09/04/25 23:45 Nitroglycerin 0.4 mg Q5MINP PRN SL 09/04/25 23:45 Aspirin 81 mg DAILY PO 09/05/25 10:00 09/20/25 08:58 81 MG Vancomycin HCl 0 ml @ 0 mls/hr PER PHARMACY IV 09/05/25 23:45 Cancel Atorvastatin Calcium 40 mg HS PO 09/11/25 22:00 09/20/25 21:53 40 MG laboratory and microbiology Laboratory Tests 09/18/25 06:08 Test 09/18/25 06:08 Range/Units Serum Glucose 79 74-106 mg/dL Problem List/Assessment/Plan Problem List/Assessment/Plan ASSESSMENT AND PLAN: ID Problem List: \-- Cavitary pneumonia with concern for TB versus fungal versus other etiologies \-- TB rule out in progress \-- Bilateral lower extremity ulcers with Staphylococcus aureus (MSSA) and Enterobacter cloacae \-- Dementia (poor historian, A\&O x2) \-- Cachexia and weight loss \-- Hypertension \-- Social concerns: limited caregiver support ( unable to care for patient) Assessment: Ms. Jayleen Story is a 64 y.o. female with a past medical history of dementia and hypertension who presents with bilateral lower extremity wounds and a cavitary pulmonary lesion. She is a poor historian. On presentation she was afebrile with tachycardia and normal blood pressure. She appears cachectic and disheveled, with generalized weakness and multiple shallow ulcers on the dorsal, anterior, and posterior aspects of both legs, some extending to the subcutaneous tissue, but without lower extremity edema. Initial labs: WBC 9.2, Hgb 10.7, platelets 625. BUN reported as 139 and 10 in the transcript (value unclear), sodium 139, creatinine 0.47. TSH 1.16. Chest X?ray reportedly shows a left perihilar hazy opacity and a cystic/cavitary- appearing change in the left lung apex with surrounding opacification concerning for fungal versus TB pneumonia. She denies shortness of breath and dizziness but endorses weight loss and subjective fevers (amount unclear). No history of smoking, alcohol use, IV drug use, or travel. No prior surgeries per patient. No known allergies. She has undergone TB rule out with AFB smears negative 3, respiratory culture without growth, and MTB PCR negative 1 to date; QuantiFERON?TB Gold is negative. Wound cultures are growing MSSA and Enterobacter cloacae (not [facility]- induced, per report). She has been treated with vancomycin, piperacillin?tazobactam (Zosyn), and micafungin. Overall suspicion for active TB is low; fungal pneumonia remains a possible diagnosis along with other infectious and noninfectious causes. 09/15: AFB sputum stain negative x 3 and MTB pcr negative x 2 09/19: Zosyn stopped 09/20: BLE ulcers appear well off all antibiotics Plan: Cavitary pneumonia / possible TB vs fungal vs other etiologies \-- TB rule out in progress: continue airborne isolation per hospital protocol until rule out is complete. \-- AFB smears are negative 3; MTB PCR is negative 2 is negative. from infectious disease perspective, patient can be dced without isolation, patient can followup in infectious disease clinic in 1 week to continue to follow AFB sputum results (appt date on 10/02/24 at 1PM). defer to infection control team to remove isolation and would inform department of public health of discharge plans/coordination. \-- QuantiFERON?TB Gold is negative; overall clinical suspicion for active TB is low. \-- No need for empiric TB treatment at this time given low suspicion. \-- For possible fungal pneumonia: Obtain/continue routine sputum culture and monitor for fungal growth. Send/confirm fungal testing as planned: Aspergillus antibodies [place] fever (coccidioides) antibodies Fungitell Galactomannan \-- Results can be followed as an outpatient to determine if treatment for cavitary fungal pneumonia is warranted; no empiric micafungin is recommended at this time. \-- Differential for cavitary lesion includes: aspiration pneumonia, bacterial pneumonia, fungal pneumonia, AFB/NTM infection, and noninfectious etiologies including malignancy. \-- Recommend serial chest CT follow?up approximately every 3 months to ensure stability of the cavitary lesion and to monitor for progression. Bilateral lower extremity ulcers (MSSA and Enterobacter cloacae) sp 10 days course of Zosyn \-- Continue local wound care per primary/wound care team - ulcers appears noncellulitic at this point will monitor of all antibiotics Cachexia, weight loss, and wound healing support \-- Patient is cachectic with reported weight loss; this may impair wound healing. \-- Recommend formal nutrition evaluation. \-- Encourage increased protein intake to optimize wound healing, per nutrition guidance. Dementia, poor history, and social support concerns \-- Patient has dementia, is A\&O 2, and is a poor historian. She lives with her , who reports that he cannot adequately care for her. \-- Recommend social work consult to: Assess home safety and caregiving capacity. Arrange appropriate support services or alternative placement as needed. Assist with discharge planning in the context of cognitive impairment and limited caregiver support. Isolation Precautions: TB rule?out isolation per hospital protocol (in addition to standard precautions). Assessment and plan were discussed with the patient as able, given dementia. Plan is subject to change pending incorporation of new incoming information/diagnostics. Updates may be added as an addendum to this note. Thank you for involving Infectious Diseases in the care of this patient. ID will continue to follow. Please contact Infectious Disease with any questions or concerns. Yudy Garcia M.D. \ Physical Exam: General: Cachectic, disheveled-appearing female with generalized weakness. Neck: Supple. No masses. HEENT: PERRL. Normal lids and conjunctiva. Moist mucous membranes. Oropharynx without lesions, exudates or excessive erythema. Normal appearance of the external aspects of the nose and ears. Heart: Regular rhythm, normal rate. No murmur. No lower extremity edema. Lungs: Normal respiratory effort. Clear to auscultation bilaterally. No wheezes. No crackles. Abdomen: Soft. Non-tender. Non-distended. No masses or abdominal hernia. Msk: No digital cyanosis. Normal strength and tone in all 4 limbs, though overall generalized weakness noted clinically. Skin: Warm and dry, no rashes. Multiple shallow ulcers and scabs on the dorsal, anterior, and posterior aspects of both lower legs, some extending into subcutaneous tissue. Neuro: Alert. No facial droop or slurred speech. Extra-ocular movements intact. Sensation intact to soft touch in all 4 limbs. A\&O 2. Psych: Dementia present. Mood and affect otherwise appropriate as observed. Oriented to person and place only (A\&O 2). Plan discussed with: Patient Dietary Evaluation Review Recommendations by RD: Increase Calorie Intake Comments: Nutrition Recommendation 1) Ensure high protein 240ml TID 2) Lukas 1 pk BID 3) Monitor PO intake, lab values, weight trend, and I/O Expected Outcomes/Goals: Gain/maintain body weight Wound to improve FU 3-5 days Body Fat Depletion (Severe): Mod to Severe Depletion Muscle Mass (Severe): Mod to Severe Depletion Fluid Accumulation (Non Severe: Mild fluid retention Protein Calorie Malnutrition: Severe YUDY GARCIA MD Sep 20, 2025 23:56
[2025-09-21] VITALS (7 sets, daily range): BP systolic 108–157; BP diastolic 58–103; PULSE 74–85; RESP 14–19; TEMP 97.5–98.7; O2SAT 94–98
--- NOTE | 2025-09-21 06:14 | DVHPNRES ---
Progress Note Date Seen: Sep 20, 2025 Resident Creating Document: BETTIE CERRATO Medical Necessity Reason Pt with a Central, PICC or Fol: No The following are medically ne: Rivas Catheter Subjective Review of Systems The patient was seen and examined at bedside. Overnight events were reviewed. She reports feeling better with no new complaints reported. Objective vital signs Vital Sign Date Time Temp Pulse Resp B/P (MAP) Pulse Ox O2 Delivery O2 Flow Rate FiO2 09/21/25 05:00 98.7 85 19 153/91 (111) 97 98.7 09/20/25 20:00 Room Air* 0 21 Total Intake and Output 09/20/25 09/20/25 09/21/25 15:00 23:00 07:00 Intake Total 120 ml Balance 120 ml medications Current Medications Medications Dose Ordered Sig/Denae Route Start Time Stop Time Status Last Admin Dose Admin Amlodipine Besylate 5 mg DAILY PO 09/05/25 10:00 09/20/25 08:59 5 MG Clonidine HCl 0.1 mg Q4HP PRN PO 09/04/25 23:45 09/11/25 12:49 0.1 MG Ondansetron HCl 4 mg Q4HP PRN IV 09/04/25 23:45 Docusate Sodium 100 mg BIDPRN PRN PO 09/04/25 23:45 Zinc Sulfate 220 mg DAILY PO 09/05/25 10:00 09/20/25 08:59 220 MG Ascorbic Acid 500 mg BID PO 09/05/25 10:00 09/20/25 21:53 500 MG Multivitamins 1 tab DAILY PO 09/05/25 10:00 09/20/25 08:59 1 TAB Acetaminophen 650 mg Q6HP PRN PO 09/04/25 23:45 Nitroglycerin 0.4 mg Q5MINP PRN SL 09/04/25 23:45 Aspirin 81 mg DAILY PO 09/05/25 10:00 09/20/25 08:58 81 MG Vancomycin HCl 0 ml @ 0 mls/hr PER PHARMACY IV 09/05/25 23:45 Cancel Atorvastatin Calcium 40 mg HS PO 09/11/25 22:00 09/20/25 21:53 40 MG Examination General Appearance: Alert, Oriented X3, Cooperative, Mild distress HEENT: Atraumatic, Mucous membranes moist/pink Respiratory: Clear to auscultation, Normal air movement, No added sounds Cardiovascular: Regular rate, Normal S1, Normal S2, No murmurs Abdominal/ : Active bowel sounds, Soft, no distention, no tenderness Extremities: No edema, Normal pulses, No tenderness/swelling Skin: 4x4 cm ulcer over right rivera, ulcer over left leg. Neuro: Normal speech, sensorimotor deficits none Psych/Mental Status: Mental status NL, Mood NL Nurse was there as stenocaptioner during examination laboratory and microbiology Laboratory Tests 09/18/25 06:08 Test 09/18/25 06:08 Range/Units Serum Glucose 79 74-106 mg/dL Microbiology Date/Time Source Procedure Growth Status 09/09/25 10:43 Sputum AFB Broth Culture Pending Resulted 09/09/25 10:43 Sputum - Final Resulted 09/09/25 10:43 Sputum - Final Resulted 09/09/25 10:43 Sputum Acid Fast Bacilli Culture Pending Resulted 09/06/25 03:30 Nose MRSA Screen - Final Complete 09/06/25 02:06 Voided Urine Urine Culture - Final Complete 09/04/25 21:29 Blood Blood Culture - Final NO GROWTH AFTER 5 DAYS OF INCUBATION. Complete Labs and/or images reviewed: Labs reviewed by me, Image(s) reviewed by me Problem List/Assessment/Plan Problem List/Assessment/Plan # Acute respiratory failure # Community acquired pneumonia Gram +/-, rule out tuberculosis, fungal pneumonia # Rule out malignancy # Sepsis due to above # Left pleural effusion Chest CT: Focal consolidation in involving large portions of the left upper lobe with cavitation near the left lung apex, likely infectious or inflammatory etiology. Small left pleural effusion. Chest X-ray: Left perihilar to hilar hazy opacification which may reflect underlying infiltrate however cystic lung change in the left lung apex with a surrounding opacification. Currently under empiric IV antibiotics (Zosyn, Vancomycin and Micafungin) Ordered panculture. Sputum culture negative Infectious disease consult, awaiting recommendations. Dietary consult QuantiFERON-TB Gold negative. Send out for sample of AFB culture on 09/07/2025 with respiratory induction. Already obtained three samples MTB PCR negative. Sputum induction with hypertonic normal saline ordered Infectious disease consult was appreciated on 09/15/2025, according to ID: AFB smears are negative 3; MTB PCR is negative 2 is negative. from infectious disease perspective, patient can be dced without isolation, patient can followup in infectious disease clinic in 1 week to continue to follow AFB sputum results (appt date on 09/21/25 at 1PM). defer to infection control team to remove isolation and would inform department of public health of discharge plans/coordination. Physical therapy was consulted for evaluation. Discharge disposition will be decided based on physical therapy evaluation. # Cellulitis of bilateral limbs # Ruled out DVT # Ruled out osteomyelitis Currently under empiric IV antibiotics (Zosyn, Vancomycin and Micafungin) Wound cultures show MSSA and Enterobacter cloacae. Continue with broad-spectrum due to cavitary lesion in lung. Wound care on board Ordered bilateral lower limb CT and venous US which ruled out DVT, abscess and osteomyelitis # Questionable moderate to severe Aortic stenosis Echocardiogram: lvef 60%. severe lvh. aortic sclerosis, modeate to severe , TANO by planimeter is 1.1 cm2 mean gradient is 11 mmhg, this is closer to a mild (coronary CT calcium of AV can be helpful). RV enlarged. left atrium enlarged Cardiology consult: Recommend eventual coronary angiography and BETH to characterize better aortic valve disease, once cleared from Infectious Disease standpoint of view. # Hypokalemia Replenished # Chronic normocytic anemia # Thrombocytosis Secondary to sepsis Currently on prophylactic enoxaparin # Severe protein malnutrition (BMI 17) Nutritional consult placed # Questionable Dementia On multivitamins To be evaluated as outpatient # physical therapy evaluation -therapy recommended SNF placement for patient to begin previous level of function. # social Service Social service on board, multiple SNF contacted for patient's placement. Social for service coordinating with patient's as well. GI prophylaxis: Pantoprazole DVT prophylaxis: Lovenox Diet: Cardiac Goals of care discussed with the patient for more than 27 minutes: Full code status Case discussed with Dr. Dukes, patient and RN Plan discussed with: Patient, Other Dietary Evaluation Review Recommendations by RD: Increase Calorie Intake Comments: Nutrition Recommendation 1) Ensure high protein 240ml TID 2) Lukas 1 pk BID 3) Monitor PO intake, lab values, weight trend, and I/O Expected Outcomes/Goals: Gain/maintain body weight Wound to improve FU 3-5 days Body Fat Depletion (Severe): Mod to Severe Depletion Muscle Mass (Severe): Mod to Severe Depletion Fluid Accumulation (Non Severe: Mild fluid retention Protein Calorie Malnutrition: Severe Visit Coding STANDARD RES Billing Provider: TOREY DUKES MD Date of Service if different f: Sep 21, 2025 Common Visit Codes: 42286-[id number] INP/OBS CARE(HIGH) BETTIE CERRATO RESIDENT Sep 21, 2025 06:14
--- NOTE | 2025-09-21 18:06 | DVHPN2 ---
Progress Note - Dictate Date Seen: Sep 21, 2025 Medical Necessity Reason Pt with a Central, PICC or Fol: No The following are medically ne: Rivas Catheter Subjective Patient was seen and evaluated in follow up. Patient reports feeling better with no new complaints today. CM is working on SNF placement. vital signs Vital Sign Date Time Temp Pulse Resp B/P (MAP) Pulse Ox O2 Delivery O2 Flow Rate FiO2 09/21/25 09:22 157/76 09/21/25 09:00 97.8 75 16 97 97.8 09/21/25 08:00 Room Air* 0 21 Total Intake and Output 09/20/25 09/20/25 09/21/25 15:00 23:00 07:00 Intake Total 120 ml Balance 120 ml medications Current Medications Medications Dose Ordered Sig/Denae Route Start Time Stop Time Status Last Admin Dose Admin Amlodipine Besylate 5 mg DAILY PO 09/05/25 10:00 09/21/25 09:22 5 MG Clonidine HCl 0.1 mg Q4HP PRN PO 09/04/25 23:45 09/11/25 12:49 0.1 MG Ondansetron HCl 4 mg Q4HP PRN IV 09/04/25 23:45 Docusate Sodium 100 mg BIDPRN PRN PO 09/04/25 23:45 Zinc Sulfate 220 mg DAILY PO 09/05/25 10:00 09/21/25 09:22 220 MG Ascorbic Acid 500 mg BID PO 09/05/25 10:00 09/21/25 09:21 500 MG Multivitamins 1 tab DAILY PO 09/05/25 10:00 09/21/25 09:21 1 TAB Acetaminophen 650 mg Q6HP PRN PO 09/04/25 23:45 Nitroglycerin 0.4 mg Q5MINP PRN SL 09/04/25 23:45 Aspirin 81 mg DAILY PO 09/05/25 10:00 09/21/25 09:22 81 MG Vancomycin HCl 0 ml @ 0 mls/hr PER PHARMACY IV 09/05/25 23:45 Cancel Atorvastatin Calcium 40 mg HS PO 09/11/25 22:00 09/20/25 21:53 40 MG objective GENERAL: A/OX2-3, confused. Thin, frail EYES: PERRL, EOMI. Anicteric. HENT: Moist mucous membranes. LUNGS: Clear to auscultation bilaterally. CARDIOVASCULAR: Regular rate and rhythm. ABDOMEN: Soft, nontender and nondistended. EXTREMITIES: No edema. SKIN: Multiple wounds to bilateral lower extremities, covered at this time. laboratory and microbiology Laboratory Tests 09/18/25 06:08 Test 09/18/25 06:08 Range/Units Serum Glucose 79 74-106 mg/dL Problem List Rule out severe aortic valve stenosis. Rule out tuberculosis. Hypertension. Dyslipidemia. Hypokalemia. Thrombocythemia. Tobacco use. Assessment/Plan Continued all current supportive medical care. Amlodipine, Clonidine. Aspirin, Lipitor. GI prophylactics. Additional plan as per the hospital course. Dietary Evaluation Review Recommendations by RD: Increase Calorie Intake Comments: Nutrition Recommendation 1) Ensure high protein 240ml TID 2) Lukas 1 pk BID 3) Monitor PO intake, lab values, weight trend, and I/O Expected Outcomes/Goals: Gain/maintain body weight Wound to improve FU 3-5 days Body Fat Depletion (Severe): Mod to Severe Depletion Muscle Mass (Severe): Mod to Severe Depletion Fluid Accumulation (Non Severe: Mild fluid retention Protein Calorie Malnutrition: Severe Plan discussed with: Patient JOSE MIKE MD Sep 21, 2025 12:59
[2025-09-22] VITALS (8 sets, daily range): BP systolic 115–164; BP diastolic 79–88; PULSE 59–74; RESP 16–18; TEMP 97.5–98; O2SAT 95–99
--- NOTE | 2025-09-22 13:29 | DVHPN2 ---
Progress Note - Dictate Date Seen: Sep 22, 2025 Medical Necessity Reason Pt with a Central, PICC or Fol: No The following are medically ne: Rivas Catheter Subjective Patient was seen and evaluated in follow up. No overnight events. Tele sitter is at bedside. Patient is noted with a weak gait. vital signs Vital Sign Date Time Temp Pulse Resp B/P (MAP) Pulse Ox O2 Delivery O2 Flow Rate FiO2 09/22/25 10:04 146/85 09/22/25 09:00 97.6 68 18 97 97.6 09/22/25 08:00 Room Air* 0 21 Total Intake and Output 09/21/25 09/21/25 09/22/25 15:00 23:00 07:00 Intake Total 100 ml 400 ml 430 ml Balance 100 ml 400 ml 430 ml medications Current Medications Medications Dose Ordered Sig/Denae Route Start Time Stop Time Status Last Admin Dose Admin Amlodipine Besylate 5 mg DAILY PO 09/05/25 10:00 09/22/25 10:04 5 MG Clonidine HCl 0.1 mg Q4HP PRN PO 09/04/25 23:45 09/11/25 12:49 0.1 MG Ondansetron HCl 4 mg Q4HP PRN IV 09/04/25 23:45 Docusate Sodium 100 mg BIDPRN PRN PO 09/04/25 23:45 Zinc Sulfate 220 mg DAILY PO 09/05/25 10:00 09/22/25 10:07 220 MG Ascorbic Acid 500 mg BID PO 09/05/25 10:00 09/22/25 10:07 500 MG Multivitamins 1 tab DAILY PO 09/05/25 10:00 09/22/25 10:07 1 TAB Acetaminophen 650 mg Q6HP PRN PO 09/04/25 23:45 Nitroglycerin 0.4 mg Q5MINP PRN SL 09/04/25 23:45 Aspirin 81 mg DAILY PO 09/05/25 10:00 09/22/25 10:07 81 MG Vancomycin HCl 0 ml @ 0 mls/hr PER PHARMACY IV 09/05/25 23:45 Cancel Atorvastatin Calcium 40 mg HS PO 09/11/25 22:00 09/21/25 21:48 40 MG objective GENERAL: A/OX2-3, confused. Thin, frail EYES: PERRL, EOMI. Anicteric. HENT: Moist mucous membranes. LUNGS: Clear to auscultation bilaterally. CARDIOVASCULAR: Regular rate and rhythm. ABDOMEN: Soft, nontender and nondistended. EXTREMITIES: No edema. SKIN: Multiple wounds to bilateral lower extremities, covered at this time. laboratory and microbiology Laboratory Tests 09/18/25 06:08 Test 09/18/25 06:08 Range/Units Serum Glucose 79 74-106 mg/dL Problem List Rule out severe aortic valve stenosis. Rule out tuberculosis. Hypertension. Dyslipidemia. Hypokalemia. Thrombocythemia. Tobacco use. Assessment/Plan Continued all current supportive medical care. Amlodipine, Clonidine. Aspirin, Lipitor. GI prophylactics. Additional plan as per the hospital course. Dietary Evaluation Review Recommendations by RD: Increase Calorie Intake Comments: Nutrition Recommendation 1) Ensure high protein 240ml TID 2) Lukas 1 pk BID 3) Monitor PO intake, lab values, weight trend, and I/O Expected Outcomes/Goals: Gain/maintain body weight Wound to improve FU 3-5 days Body Fat Depletion (Severe): Mod to Severe Depletion Muscle Mass (Severe): Mod to Severe Depletion Fluid Accumulation (Non Severe: Mild fluid retention Protein Calorie Malnutrition: Severe Plan discussed with: Patient JOSE MIKE MD Sep 22, 2025 13:10
[2025-09-22] MEDS: ACETAMINOPHEN 325 MG TAB PO PRN (14:15)
--- NOTE | 2025-09-22 19:17 | DVHPNRES ---
Progress Note Date Seen: Sep 22, 2025 Resident Creating Document: BETTIE CERRATO Medical Necessity Reason Pt with a Central, PICC or Fol: No The following are medically ne: Rivas Catheter Subjective Review of Systems The patient was seen and examined at bedside, she reports improvement in her symptoms. No new complaints reported. Objective vital signs Vital Sign Date Time Temp Pulse Resp B/P (MAP) Pulse Ox O2 Delivery O2 Flow Rate FiO2 09/22/25 16:40 98.0 70 18 153/81 (105) 95 98.0 09/22/25 08:00 Room Air* 0 21 Total Intake and Output 09/21/25 09/21/25 09/22/25 15:00 23:00 07:00 Intake Total 100 ml 400 ml 430 ml Balance 100 ml 400 ml 430 ml medications Current Medications Medications Dose Ordered Sig/Denae Route Start Time Stop Time Status Last Admin Dose Admin Amlodipine Besylate 5 mg DAILY PO 09/05/25 10:00 09/22/25 10:04 5 MG Clonidine HCl 0.1 mg Q4HP PRN PO 09/04/25 23:45 09/11/25 12:49 0.1 MG Ondansetron HCl 4 mg Q4HP PRN IV 09/04/25 23:45 Docusate Sodium 100 mg BIDPRN PRN PO 09/04/25 23:45 Zinc Sulfate 220 mg DAILY PO 09/05/25 10:00 09/22/25 10:07 220 MG Ascorbic Acid 500 mg BID PO 09/05/25 10:00 09/22/25 10:07 500 MG Multivitamins 1 tab DAILY PO 09/05/25 10:00 09/22/25 10:07 1 TAB Acetaminophen 650 mg Q6HP PRN PO 09/04/25 23:45 09/22/25 14:15 650 MG Nitroglycerin 0.4 mg Q5MINP PRN SL 09/04/25 23:45 Aspirin 81 mg DAILY PO 09/05/25 10:00 09/22/25 10:07 81 MG Vancomycin HCl 0 ml @ 0 mls/hr PER PHARMACY IV 09/05/25 23:45 Cancel Atorvastatin Calcium 40 mg HS PO 09/11/25 22:00 09/21/25 21:48 40 MG Examination General Appearance: Alert, Oriented X3, Cooperative, Mild distress HEENT: Atraumatic, Mucous membranes moist/pink Respiratory: Clear to auscultation, Normal air movement, No added sounds Cardiovascular: Regular rate, Normal S1, Normal S2, No murmurs Abdominal/ : Active bowel sounds, Soft, no distention, no tenderness Extremities: No edema, Normal pulses, No tenderness/swelling Skin: 4x4 cm ulcer over right rivera, ulcer over left leg. Neuro: Normal speech, sensorimotor deficits none Psych/Mental Status: Mental status NL, Mood NL Nurse was there as brush holder inspector during examination laboratory and microbiology Laboratory Tests 09/18/25 06:08 Test 09/18/25 06:08 Range/Units Serum Glucose 79 74-106 mg/dL Microbiology Date/Time Source Procedure Growth Status 09/09/25 10:43 Sputum AFB Broth Culture Pending Resulted 09/09/25 10:43 Sputum - Final Resulted 09/09/25 10:43 Sputum - Final Resulted 09/09/25 10:43 Sputum Acid Fast Bacilli Culture Pending Resulted 09/06/25 03:30 Nose MRSA Screen - Final Complete 09/06/25 02:06 Voided Urine Urine Culture - Final Complete 09/04/25 21:29 Blood Blood Culture - Final NO GROWTH AFTER 5 DAYS OF INCUBATION. Complete Labs and/or images reviewed: Labs reviewed by me, Image(s) reviewed by me Problem List/Assessment/Plan Problem List/Assessment/Plan Acute respiratory failure, resolved Community-acquired pneumonia Gram-positive were negative, ID help on board. Sepsis POA, resolved, status post Zosyn,Vancomycin and Micafungin for 7 days Left pleural effusion mild, resolved Cellulitis of bilateral limbs due to MSSA and Enterobacter cloacae status post IV antibiotic on wound care Hypertensive heart disease Aortic sclerosis, moderate to severe aortic stenosis Hypokalemia, resolved Chronic normocytic anemia, H&H stable Reactive thrombocytosis, no need to follow up Severe protein energy malnutrition, RD on board continue dietary supplements Dementia, workup in progress, mini-mental status exam pending Acute care myopathy, deconditioned, fall precaution, nutrition, SNF for rehab Clinically stable for placement, pending SNF acceptance, social workers on board. GI prophylaxis: Pantoprazole DVT prophylaxis: Lovenox Diet: Cardiac Goals of care discussed with the patient for more than 27 minutes: Full code status Case discussed with Dr. Dukes, patient and RN Plan discussed with: Patient, Other (RN) Dietary Evaluation Review Recommendations by RD: Increase Calorie Intake Comments: Nutrition Recommendation 1) Ensure high protein 240ml TID 2) Lukas 1 pk BID 3) Monitor PO intake, lab values, weight trend, and I/O Expected Outcomes/Goals: Gain/maintain body weight Wound to improve FU 3-5 days Body Fat Depletion (Severe): Mod to Severe Depletion Muscle Mass (Severe): Mod to Severe Depletion Fluid Accumulation (Non Severe: Mild fluid retention Protein Calorie Malnutrition: Severe Visit Coding STANDARD RES Billing Provider: TOREY DUKES MD Date of Service if different f: Sep 22, 2025 Common Visit Codes: [id number] INP/OBS CARE(HIGH) BETTIE CERRATO RESIDENT Sep 22, 2025 19:17
--- NOTE | 2025-09-22 23:32 | DVHPN2 ---
Consult Progress Note Objective vital signs Vital Sign Date Time Temp Pulse Resp B/P (MAP) Pulse Ox O2 Delivery O2 Flow Rate FiO2 09/22/25 21:53 150/100 09/22/25 21:00 97.5 71 18 99 97.5 09/22/25 08:00 Room Air* 0 21 Total Intake and Output 09/21/25 09/21/25 09/22/25 15:00 23:00 07:00 Intake Total 100 ml 400 ml 430 ml Balance 100 ml 400 ml 430 ml medications Current Medications Medications Dose Ordered Sig/Denae Route Start Time Stop Time Status Last Admin Dose Admin Amlodipine Besylate 5 mg DAILY PO 09/05/25 10:00 09/22/25 10:04 5 MG Clonidine HCl 0.1 mg Q4HP PRN PO 09/04/25 23:45 09/22/25 21:53 0.1 MG Ondansetron HCl 4 mg Q4HP PRN IV 09/04/25 23:45 Docusate Sodium 100 mg BIDPRN PRN PO 09/04/25 23:45 Zinc Sulfate 220 mg DAILY PO 09/05/25 10:00 09/22/25 10:07 220 MG Ascorbic Acid 500 mg BID PO 09/05/25 10:00 09/22/25 21:48 500 MG Multivitamins 1 tab DAILY PO 09/05/25 10:00 09/22/25 10:07 1 TAB Acetaminophen 650 mg Q6HP PRN PO 09/04/25 23:45 09/22/25 14:15 650 MG Nitroglycerin 0.4 mg Q5MINP PRN SL 09/04/25 23:45 Aspirin 81 mg DAILY PO 09/05/25 10:00 09/22/25 10:07 81 MG Vancomycin HCl 0 ml @ 0 mls/hr PER PHARMACY IV 09/05/25 23:45 Cancel Atorvastatin Calcium 40 mg HS PO 09/11/25 22:00 09/22/25 21:48 40 MG laboratory and microbiology Laboratory Tests 09/18/25 06:08 Test 09/18/25 06:08 Range/Units Serum Glucose 79 74-106 mg/dL Problem List/Assessment/Plan Problem List/Assessment/Plan ASSESSMENT AND PLAN: ID Problem List: \-- Cavitary pneumonia with concern for TB versus fungal versus other etiologies \-- TB rule out in progress \-- Bilateral lower extremity ulcers with Staphylococcus aureus (MSSA) and Enterobacter cloacae \-- Dementia (poor historian, A\&O x2) \-- Cachexia and weight loss \-- Hypertension \-- Social concerns: limited caregiver support ( unable to care for patient) Assessment: Ms. Jayleen Story is a 64 y.o. female with a past medical history of dementia and hypertension who presents with bilateral lower extremity wounds and a cavitary pulmonary lesion. She is a poor historian. On presentation she was afebrile with tachycardia and normal blood pressure. She appears cachectic and disheveled, with generalized weakness and multiple shallow ulcers on the dorsal, anterior, and posterior aspects of both legs, some extending to the subcutaneous tissue, but without lower extremity edema. Initial labs: WBC 9.2, Hgb 10.7, platelets 625. BUN reported as 139 and 10 in the transcript (value unclear), sodium 139, creatinine 0.47. TSH 1.16. Chest X?ray reportedly shows a left perihilar hazy opacity and a cystic/cavitary- appearing change in the left lung apex with surrounding opacification concerning for fungal versus TB pneumonia. She denies shortness of breath and dizziness but endorses weight loss and subjective fevers (amount unclear). No history of smoking, alcohol use, IV drug use, or travel. No prior surgeries per patient. No known allergies. She has undergone TB rule out with AFB smears negative 3, respiratory culture without growth, and MTB PCR negative 1 to date; QuantiFERON?TB Gold is negative. Wound cultures are growing MSSA and Enterobacter cloacae (not [facility]- induced, per report). She has been treated with vancomycin, piperacillin?tazobactam (Zosyn), and micafungin. Overall suspicion for active TB is low; fungal pneumonia remains a possible diagnosis along with other infectious and noninfectious causes. 09/15: AFB sputum stain negative x 3 and MTB pcr negative x 2 09/19: Zosyn stopped 09/20: BLE ulcers appear well off all antibiotics Plan: Cavitary pneumonia / possible TB vs fungal vs other etiologies \-- TB rule out in progress: continue airborne isolation per hospital protocol until rule out is complete. \-- AFB smears are negative 3; MTB PCR is negative 2 is negative. from infectious disease perspective, patient can be dced without isolation, patient can followup in infectious disease clinic in 1 week to continue to follow AFB sputum results (appt date on 10/02/24 at 1PM). defer to infection control team to remove isolation and would inform department of public health of discharge plans/coordination. \-- QuantiFERON?TB Gold is negative; overall clinical suspicion for active TB is low. \-- No need for empiric TB treatment at this time given low suspicion. \-- For possible fungal pneumonia: Obtain/continue routine sputum culture and monitor for fungal growth. Send/confirm fungal testing as planned: Aspergillus antibodies [place] fever (coccidioides) antibodies Fungitell Galactomannan \-- Results can be followed as an outpatient to determine if treatment for cavitary fungal pneumonia is warranted; no empiric micafungin is recommended at this time. \-- Differential for cavitary lesion includes: aspiration pneumonia, bacterial pneumonia, fungal pneumonia, AFB/NTM infection, and noninfectious etiologies including malignancy. \-- Recommend serial chest CT follow?up approximately every 3 months to ensure stability of the cavitary lesion and to monitor for progression. Bilateral lower extremity ulcers (MSSA and Enterobacter cloacae) sp 10 days course of Zosyn \-- Continue local wound care per primary/wound care team - ulcers appears noncellulitic at this point will monitor of all antibiotics Cachexia, weight loss, and wound healing support \-- Patient is cachectic with reported weight loss; this may impair wound healing. \-- Recommend formal nutrition evaluation. \-- Encourage increased protein intake to optimize wound healing, per nutrition guidance. Dementia, poor history, and social support concerns \-- Patient has dementia, is A\&O 2, and is a poor historian. She lives with her , who reports that he cannot adequately care for her. \-- Recommend social work consult to: Assess home safety and caregiving capacity. Arrange appropriate support services or alternative placement as needed. Assist with discharge planning in the context of cognitive impairment and limited caregiver support. Isolation Precautions: TB rule?out isolation per hospital protocol (in addition to standard precautions). Assessment and plan were discussed with the patient as able, given dementia. Plan is subject to change pending incorporation of new incoming information/diagnostics. Updates may be added as an addendum to this note. Thank you for involving Infectious Diseases in the care of this patient. ID will continue to follow. Please contact Infectious Disease with any questions or concerns. Yudy Garcia M.D. \ Physical Exam: General: Cachectic, disheveled-appearing female with generalized weakness. Neck: Supple. No masses. HEENT: PERRL. Normal lids and conjunctiva. Moist mucous membranes. Oropharynx without lesions, exudates or excessive erythema. Normal appearance of the external aspects of the nose and ears. Heart: Regular rhythm, normal rate. No murmur. No lower extremity edema. Lungs: Normal respiratory effort. Clear to auscultation bilaterally. No wheezes. No crackles. Abdomen: Soft. Non-tender. Non-distended. No masses or abdominal hernia. Msk: No digital cyanosis. Normal strength and tone in all 4 limbs, though overall generalized weakness noted clinically. Skin: Warm and dry, no rashes. Multiple shallow ulcers and scabs on the dorsal, anterior, and posterior aspects of both lower legs, some extending into subcutaneous tissue. Neuro: Alert. No facial droop or slurred speech. Extra-ocular movements intact. Sensation intact to soft touch in all 4 limbs. A\&O 2. Psych: Dementia present. Mood and affect otherwise appropriate as observed. Oriented to person and place only (A\&O 2). Dietary Evaluation Review Recommendations by RD: Increase Calorie Intake Comments: Nutrition Recommendation 1) Ensure high protein 240ml TID 2) Lukas 1 pk BID 3) Monitor PO intake, lab values, weight trend, and I/O Expected Outcomes/Goals: Gain/maintain body weight Wound to improve FU 3-5 days Body Fat Depletion (Severe): Mod to Severe Depletion Muscle Mass (Severe): Mod to Severe Depletion Fluid Accumulation (Non Severe: Mild fluid retention Protein Calorie Malnutrition: Severe YUDY GARCIA MD Sep 22, 2025 23:32
[2025-09-23] VITALS (8 sets, daily range): BP systolic 102–160; BP diastolic 55–74; PULSE 60–73; RESP 18; TEMP 97.5–99.7; O2SAT 95–98
--- NOTE | 2025-09-23 16:26 | DVHPNRES ---
Progress Note Date Seen: Sep 23, 2025 Resident Creating Document: BETTIE CERRATO Medical Necessity Reason Pt with a Central, PICC or Fol: No The following are medically ne: Rivas Catheter Subjective Review of Systems The patient was seen and examined at bedside today. Overnight events were reviewed, Patient says she feels better. No other new complaints reported. Objective vital signs Vital Sign Date Time Temp Pulse Resp B/P (MAP) Pulse Ox O2 Delivery O2 Flow Rate FiO2 09/23/25 09:29 160/74 09/23/25 07:56 98 Room Air* 0 21 09/23/25 05:00 99.7 63 18 99.7 medications Current Medications Medications Dose Ordered Sig/Denae Route Start Time Stop Time Status Last Admin Dose Admin Amlodipine Besylate 5 mg DAILY PO 09/05/25 10:00 09/23/25 09:28 5 MG Clonidine HCl 0.1 mg Q4HP PRN PO 09/04/25 23:45 09/23/25 09:29 0.1 MG Ondansetron HCl 4 mg Q4HP PRN IV 09/04/25 23:45 Docusate Sodium 100 mg BIDPRN PRN PO 09/04/25 23:45 Zinc Sulfate 220 mg DAILY PO 09/05/25 10:00 09/23/25 09:27 220 MG Ascorbic Acid 500 mg BID PO 09/05/25 10:00 09/23/25 09:28 500 MG Multivitamins 1 tab DAILY PO 09/05/25 10:00 09/23/25 09:28 1 TAB Acetaminophen 650 mg Q6HP PRN PO 09/04/25 23:45 09/22/25 14:15 650 MG Nitroglycerin 0.4 mg Q5MINP PRN SL 09/04/25 23:45 Aspirin 81 mg DAILY PO 09/05/25 10:00 09/23/25 09:28 81 MG Vancomycin HCl 0 ml @ 0 mls/hr PER PHARMACY IV 09/05/25 23:45 Cancel Atorvastatin Calcium 40 mg HS PO 09/11/25 22:00 09/22/25 21:48 40 MG Examination General Appearance: Alert, Oriented X3, Cooperative, Mild distress HEENT: Atraumatic, Mucous membranes moist/pink Respiratory: Clear to auscultation, Normal air movement, No added sounds Cardiovascular: Regular rate, Normal S1, Normal S2, No murmurs Abdominal/ : Active bowel sounds, Soft, no distention, no tenderness Extremities: No edema, Normal pulses, No tenderness/swelling Skin: 4x4 cm ulcer over right rivera, ulcer over left leg. Neuro: Normal speech, sensorimotor deficits none Psych/Mental Status: Mental status NL, Mood NL Nurse was there as flagger during examination laboratory and microbiology Laboratory Tests 09/18/25 06:08 Test 09/18/25 06:08 Range/Units Serum Glucose 79 74-106 mg/dL Microbiology Date/Time Source Procedure Growth Status 09/09/25 10:43 Sputum AFB Broth Culture Pending Resulted 09/09/25 10:43 Sputum - Final Resulted 09/09/25 10:43 Sputum - Final Resulted 09/09/25 10:43 Sputum Acid Fast Bacilli Culture Pending Resulted 09/06/25 03:30 Nose MRSA Screen - Final Complete 09/06/25 02:06 Voided Urine Urine Culture - Final Complete 09/04/25 21:29 Blood Blood Culture - Final NO GROWTH AFTER 5 DAYS OF INCUBATION. Complete Labs and/or images reviewed: Labs reviewed by me, Image(s) reviewed by me Problem List/Assessment/Plan Problem List/Assessment/Plan Acute respiratory failure, resolved Community-acquired pneumonia Gram-positive were negative, ID help on board. Sepsis POA, resolved, status post Zosyn,Vancomycin and Micafungin for 7 days Left pleural effusion mild, resolved Cellulitis of bilateral limbs due to MSSA and Enterobacter cloacae status post IV antibiotic on wound care Hypertensive heart disease Aortic sclerosis, moderate to severe aortic stenosis Hypokalemia, resolved Chronic normocytic anemia, H&H stable Reactive thrombocytosis, no need to follow up Severe protein energy malnutrition, RD on board continue dietary supplements Dementia, workup in progress, mini-mental status exam pending Acute care myopathy, deconditioned, fall precaution, nutrition, SNF for rehab Clinically stable for placement, pending SNF acceptance, social workers on board. GI prophylaxis: Pantoprazole DVT prophylaxis: Lovenox Diet: Cardiac Goals of care discussed with the patient for more than 27 minutes: Full code status Case discussed with Dr. Dukes, patient and RN Plan discussed with: Patient, Other (RN) Dietary Evaluation Review Recommendations by RD: Increase Calorie Intake Comments: Nutrition Recommendation 1) Ensure high protein 240ml TID 2) Lukas 1 pk BID 3) Monitor PO intake, lab values, weight trend, and I/O Expected Outcomes/Goals: Gain/maintain body weight Wound to improve FU 3-5 days Body Fat Depletion (Severe): Mod to Severe Depletion Muscle Mass (Severe): Mod to Severe Depletion Fluid Accumulation (Non Severe: Mild fluid retention Protein Calorie Malnutrition: Severe Visit Coding STANDARD RES Billing Provider: TOREY DUKES MD Date of Service if different f: Sep 23, 2025 Common Visit Codes: [id number] INP/OBS CARE(HIGH) BETTIE CERRATO RESIDENT Sep 23, 2025 16:26 TOREY DUKES MD Sep 23, 2025 19:07
--- NOTE | 2025-09-23 22:57 | DVHPN2 ---
Progress Note - Dictate Date Seen: Sep 23, 2025 Medical Necessity Reason Pt with a Central, PICC or Fol: No The following are medically ne: Rivas Catheter Subjective Patient was seen and evaluated in follow up. Tele sitter is at bedside. Patient reports feeling better today. She does not voice any complaints. Patient is afebrile. vital signs Vital Sign Date Time Temp Pulse Resp B/P (MAP) Pulse Ox O2 Delivery O2 Flow Rate FiO2 09/23/25 21:00 97.5 73 18 103/55 (71) 98 97.5 09/23/25 20:00 Room Air* 0 21 medications Current Medications Medications Dose Ordered Sig/Denae Route Start Time Stop Time Status Last Admin Dose Admin Amlodipine Besylate 5 mg DAILY PO 09/05/25 10:00 09/23/25 09:28 5 MG Clonidine HCl 0.1 mg Q4HP PRN PO 09/04/25 23:45 09/23/25 09:29 0.1 MG Ondansetron HCl 4 mg Q4HP PRN IV 09/04/25 23:45 Docusate Sodium 100 mg BIDPRN PRN PO 09/04/25 23:45 Zinc Sulfate 220 mg DAILY PO 09/05/25 10:00 09/23/25 09:27 220 MG Ascorbic Acid 500 mg BID PO 09/05/25 10:00 09/23/25 20:36 500 MG Multivitamins 1 tab DAILY PO 09/05/25 10:00 09/23/25 09:28 1 TAB Acetaminophen 650 mg Q6HP PRN PO 09/04/25 23:45 09/22/25 14:15 650 MG Nitroglycerin 0.4 mg Q5MINP PRN SL 09/04/25 23:45 Aspirin 81 mg DAILY PO 09/05/25 10:00 09/23/25 09:28 81 MG Vancomycin HCl 0 ml @ 0 mls/hr PER PHARMACY IV 09/05/25 23:45 Cancel Atorvastatin Calcium 40 mg HS PO 09/11/25 22:00 09/23/25 20:35 40 MG objective GENERAL: A/OX2-3, confused. Thin, frail EYES: PERRL, EOMI. Anicteric. HENT: Moist mucous membranes. LUNGS: Clear to auscultation bilaterally. CARDIOVASCULAR: Regular rate and rhythm. ABDOMEN: Soft, nontender and nondistended. EXTREMITIES: No edema. SKIN: Multiple wounds to bilateral lower extremities, covered at this time. laboratory and microbiology Laboratory Tests 09/18/25 06:08 Test 09/18/25 06:08 Range/Units Serum Glucose 79 74-106 mg/dL Problem List Rule out severe aortic valve stenosis. Rule out tuberculosis. Hypertension. Dyslipidemia. Hypokalemia. Thrombocythemia. Tobacco use. Assessment/Plan Continued all current supportive medical care. Amlodipine, Clonidine. Aspirin, Lipitor. GI prophylactics. Additional plan as per the hospital course. Dietary Evaluation Review Recommendations by RD: Increase Calorie Intake Comments: Nutrition Recommendation 1) Ensure high protein 240ml TID 2) Lukas 1 pk BID 3) Monitor PO intake, lab values, weight trend, and I/O Expected Outcomes/Goals: Gain/maintain body weight Wound to improve FU 3-5 days Body Fat Depletion (Severe): Mod to Severe Depletion Muscle Mass (Severe): Mod to Severe Depletion Fluid Accumulation (Non Severe: Mild fluid retention Protein Calorie Malnutrition: Severe Plan discussed with: Patient JOSE MIKE MD Sep 23, 2025 22:57
--- NOTE | 2025-09-23 23:41 | DVHPN2 ---
Consult Progress Note Objective vital signs Vital Sign Date Time Temp Pulse Resp B/P (MAP) Pulse Ox O2 Delivery O2 Flow Rate FiO2 09/23/25 21:00 97.5 73 18 103/55 (71) 98 97.5 09/23/25 20:00 Room Air* 0 21 medications Current Medications Medications Dose Ordered Sig/Denae Route Start Time Stop Time Status Last Admin Dose Admin Amlodipine Besylate 5 mg DAILY PO 09/05/25 10:00 09/23/25 09:28 5 MG Clonidine HCl 0.1 mg Q4HP PRN PO 09/04/25 23:45 09/23/25 09:29 0.1 MG Ondansetron HCl 4 mg Q4HP PRN IV 09/04/25 23:45 Docusate Sodium 100 mg BIDPRN PRN PO 09/04/25 23:45 Zinc Sulfate 220 mg DAILY PO 09/05/25 10:00 09/23/25 09:27 220 MG Ascorbic Acid 500 mg BID PO 09/05/25 10:00 09/23/25 20:36 500 MG Multivitamins 1 tab DAILY PO 09/05/25 10:00 09/23/25 09:28 1 TAB Acetaminophen 650 mg Q6HP PRN PO 09/04/25 23:45 09/22/25 14:15 650 MG Nitroglycerin 0.4 mg Q5MINP PRN SL 09/04/25 23:45 Aspirin 81 mg DAILY PO 09/05/25 10:00 09/23/25 09:28 81 MG Vancomycin HCl 0 ml @ 0 mls/hr PER PHARMACY IV 09/05/25 23:45 Cancel Atorvastatin Calcium 40 mg HS PO 09/11/25 22:00 09/23/25 20:35 40 MG laboratory and microbiology Laboratory Tests 09/18/25 06:08 Test 09/18/25 06:08 Range/Units Serum Glucose 79 74-106 mg/dL Problem List/Assessment/Plan Problem List/Assessment/Plan ASSESSMENT AND PLAN: ID Problem List: \-- Cavitary pneumonia with concern for TB versus fungal versus other etiologies \-- TB rule out in progress \-- Bilateral lower extremity ulcers with Staphylococcus aureus (MSSA) and Enterobacter cloacae \-- Dementia (poor historian, A\&O x2) \-- Cachexia and weight loss \-- Hypertension \-- Social concerns: limited caregiver support ( unable to care for patient) Assessment: Ms. Jayleen Story is a 64 y.o. female with a past medical history of dementia and hypertension who presents with bilateral lower extremity wounds and a cavitary pulmonary lesion. She is a poor historian. On presentation she was afebrile with tachycardia and normal blood pressure. She appears cachectic and disheveled, with generalized weakness and multiple shallow ulcers on the dorsal, anterior, and posterior aspects of both legs, some extending to the subcutaneous tissue, but without lower extremity edema. Initial labs: WBC 9.2, Hgb 10.7, platelets 625. BUN reported as 139 and 10 in the transcript (value unclear), sodium 139, creatinine 0.47. TSH 1.16. Chest X?ray reportedly shows a left perihilar hazy opacity and a cystic/cavitary- appearing change in the left lung apex with surrounding opacification concerning for fungal versus TB pneumonia. She denies shortness of breath and dizziness but endorses weight loss and subjective fevers (amount unclear). No history of smoking, alcohol use, IV drug use, or travel. No prior surgeries per patient. No known allergies. She has undergone TB rule out with AFB smears negative 3, respiratory culture without growth, and MTB PCR negative 1 to date; QuantiFERON?TB Gold is negative. Wound cultures are growing MSSA and Enterobacter cloacae (not [facility]- induced, per report). She has been treated with vancomycin, piperacillin?tazobactam (Zosyn), and micafungin. Overall suspicion for active TB is low; fungal pneumonia remains a possible diagnosis along with other infectious and noninfectious causes. 09/15: AFB sputum stain negative x 3 and MTB pcr negative x 2 09/19: Zosyn stopped 09/20: BLE ulcers appear well off all antibiotics Plan: Cavitary pneumonia / possible TB vs fungal vs other etiologies \-- TB rule out in progress: continue airborne isolation per hospital protocol until rule out is complete. \-- AFB smears are negative 3; MTB PCR is negative 2 is negative. from infectious disease perspective, patient can be dced without isolation, patient can followup in infectious disease clinic in 1 week to continue to follow AFB sputum results (appt date on 10/02/24 at 1PM). defer to infection control team to remove isolation and would inform department of public health of discharge plans/coordination. \-- QuantiFERON?TB Gold is negative; overall clinical suspicion for active TB is low. \-- No need for empiric TB treatment at this time given low suspicion. \-- For possible fungal pneumonia: Obtain/continue routine sputum culture and monitor for fungal growth. Send/confirm fungal testing as planned: Aspergillus antibodies [place] fever (coccidioides) antibodies Fungitell Galactomannan \-- Results can be followed as an outpatient to determine if treatment for cavitary fungal pneumonia is warranted; no empiric micafungin is recommended at this time. \-- Differential for cavitary lesion includes: aspiration pneumonia, bacterial pneumonia, fungal pneumonia, AFB/NTM infection, and noninfectious etiologies including malignancy. \-- Recommend serial chest CT follow?up approximately every 3 months to ensure stability of the cavitary lesion and to monitor for progression. Bilateral lower extremity ulcers (MSSA and Enterobacter cloacae) sp 10 days course of Zosyn \-- Continue local wound care per primary/wound care team - ulcers appears noncellulitic at this point will monitor of all antibiotics Cachexia, weight loss, and wound healing support \-- Patient is cachectic with reported weight loss; this may impair wound healing. \-- Recommend formal nutrition evaluation. \-- Encourage increased protein intake to optimize wound healing, per nutrition guidance. Dementia, poor history, and social support concerns \-- Patient has dementia, is A\&O 2, and is a poor historian. She lives with her , who reports that he cannot adequately care for her. \-- Recommend social work consult to: Assess home safety and caregiving capacity. Arrange appropriate support services or alternative placement as needed. Assist with discharge planning in the context of cognitive impairment and limited caregiver support. Isolation Precautions: TB rule?out isolation per hospital protocol (in addition to standard precautions). Assessment and plan were discussed with the patient as able, given dementia. Plan is subject to change pending incorporation of new incoming information/diagnostics. Updates may be added as an addendum to this note. Thank you for involving Infectious Diseases in the care of this patient. ID will continue to follow. Please contact Infectious Disease with any questions or concerns. Yudy Garcia M.D. \ Physical Exam: General: Cachectic, disheveled-appearing female with generalized weakness. Neck: Supple. No masses. HEENT: PERRL. Normal lids and conjunctiva. Moist mucous membranes. Oropharynx without lesions, exudates or excessive erythema. Normal appearance of the external aspects of the nose and ears. Heart: Regular rhythm, normal rate. No murmur. No lower extremity edema. Lungs: Normal respiratory effort. Clear to auscultation bilaterally. No wheezes. No crackles. Abdomen: Soft. Non-tender. Non-distended. No masses or abdominal hernia. Msk: No digital cyanosis. Normal strength and tone in all 4 limbs, though overall generalized weakness noted clinically. Skin: Warm and dry, no rashes. Multiple shallow ulcers and scabs on the dorsal, anterior, and posterior aspects of both lower legs, some extending into subcutaneous tissue. Neuro: Alert. No facial droop or slurred speech. Extra-ocular movements intact. Sensation intact to soft touch in all 4 limbs. A\&O 2. Psych: Dementia present. Mood and affect otherwise appropriate as observed. Oriented to person and place only (A\&O 2). Dietary Evaluation Review Recommendations by RD: Increase Calorie Intake Comments: Nutrition Recommendation 1) Ensure high protein 240ml TID 2) Lukas 1 pk BID 3) Monitor PO intake, lab values, weight trend, and I/O Expected Outcomes/Goals: Gain/maintain body weight Wound to improve FU 3-5 days Body Fat Depletion (Severe): Mod to Severe Depletion Muscle Mass (Severe): Mod to Severe Depletion Fluid Accumulation (Non Severe: Mild fluid retention Protein Calorie Malnutrition: Severe YUDY GARCIA MD Sep 23, 2025 23:41
[2025-09-24] VITALS (7 sets, daily range): BP systolic 102–144; BP diastolic 53–77; PULSE 63–84; RESP 16–18; TEMP 96.9–98.5; O2SAT 96–99
--- NOTE | 2025-09-24 16:20 | DVHPN2 ---
Progress Note - Dictate Date Seen: Sep 24, 2025 Medical Necessity Reason Pt with a Central, PICC or Fol: No The following are medically ne: Rivas Catheter Subjective Patient was seen and evaluated in follow up. No overnight events. Tele sitter remains at bedside. Patient is in good spirits today. CM is working on SNF placement. vital signs Vital Sign Date Time Temp Pulse Resp B/P (MAP) Pulse Ox O2 Delivery O2 Flow Rate FiO2 09/24/25 13:00 98.3 69 17 122/77 (92) 96 98.3 09/24/25 08:00 Room Air* 0 21 Total Intake and Output 09/23/25 09/23/25 09/24/25 15:00 23:00 07:00 Intake Total 800 ml Output Total 500 ml Balance 300 ml medications Current Medications Medications Dose Ordered Sig/Denae Route Start Time Stop Time Status Last Admin Dose Admin Amlodipine Besylate 5 mg DAILY PO 09/05/25 10:00 09/24/25 08:47 5 MG Clonidine HCl 0.1 mg Q4HP PRN PO 09/04/25 23:45 09/23/25 09:29 0.1 MG Ondansetron HCl 4 mg Q4HP PRN IV 09/04/25 23:45 Docusate Sodium 100 mg BIDPRN PRN PO 09/04/25 23:45 Zinc Sulfate 220 mg DAILY PO 09/05/25 10:00 09/24/25 08:47 220 MG Ascorbic Acid 500 mg BID PO 09/05/25 10:00 09/24/25 08:47 500 MG Multivitamins 1 tab DAILY PO 09/05/25 10:00 09/24/25 08:46 1 TAB Acetaminophen 650 mg Q6HP PRN PO 09/04/25 23:45 09/22/25 14:15 650 MG Nitroglycerin 0.4 mg Q5MINP PRN SL 09/04/25 23:45 Aspirin 81 mg DAILY PO 09/05/25 10:00 09/24/25 08:47 81 MG Vancomycin HCl 0 ml @ 0 mls/hr PER PHARMACY IV 09/05/25 23:45 Cancel Atorvastatin Calcium 40 mg HS PO 09/11/25 22:00 09/23/25 20:35 40 MG objective GENERAL: A/OX2-3, confused. Thin, frail EYES: PERRL, EOMI. Anicteric. HENT: Moist mucous membranes. LUNGS: Clear to auscultation bilaterally. CARDIOVASCULAR: Regular rate and rhythm. ABDOMEN: Soft, nontender and nondistended. EXTREMITIES: No edema. SKIN: Multiple wounds to bilateral lower extremities, covered at this time. laboratory and microbiology Laboratory Tests 09/18/25 06:08 Test 09/18/25 06:08 Range/Units Serum Glucose 79 74-106 mg/dL Problem List Rule out severe aortic valve stenosis. Rule out tuberculosis. Hypertension. Dyslipidemia. Hypokalemia. Thrombocythemia. Tobacco use. Assessment/Plan Continued all current supportive medical care. Amlodipine, Clonidine. Aspirin, Lipitor. GI prophylactics. Additional plan as per the hospital course. Dietary Evaluation Review Recommendations by RD: Increase Calorie Intake Comments: Nutrition Recommendation 1) Ensure high protein 240ml TID 2) Lukas 1 pk BID 3) Monitor PO intake, lab values, weight trend, and I/O Expected Outcomes/Goals: Gain/maintain body weight Wound to improve FU 3-5 days Body Fat Depletion (Severe): Mod to Severe Depletion Muscle Mass (Severe): Mod to Severe Depletion Fluid Accumulation (Non Severe: Mild fluid retention Protein Calorie Malnutrition: Severe Plan discussed with: Patient JOSE MIKE MD Sep 24, 2025 13:36
--- NOTE | 2025-09-24 18:07 | DVHPNRES ---
Progress Note Date Seen: Sep 24, 2025 Resident Creating Document: BETTIE CERRATO Medical Necessity Reason Pt with a Central, PICC or Fol: No The following are medically ne: Rivas Catheter Subjective Review of Systems The patient was seen and examined at bedside today. Overnight events were reviewed, Patient says she feels better. No other new complaints reported. Objective vital signs Vital Sign Date Time Temp Pulse Resp B/P (MAP) Pulse Ox O2 Delivery O2 Flow Rate FiO2 09/24/25 17:00 98.5 84 18 144/77 (99) 96 98.5 09/24/25 08:00 Room Air* 0 21 Total Intake and Output 09/23/25 09/23/25 09/24/25 15:00 23:00 07:00 Intake Total 800 ml Output Total 500 ml Balance 300 ml medications Current Medications Medications Dose Ordered Sig/Denae Route Start Time Stop Time Status Last Admin Dose Admin Amlodipine Besylate 5 mg DAILY PO 09/05/25 10:00 09/24/25 08:47 5 MG Clonidine HCl 0.1 mg Q4HP PRN PO 09/04/25 23:45 09/23/25 09:29 0.1 MG Ondansetron HCl 4 mg Q4HP PRN IV 09/04/25 23:45 Docusate Sodium 100 mg BIDPRN PRN PO 09/04/25 23:45 Zinc Sulfate 220 mg DAILY PO 09/05/25 10:00 09/24/25 08:47 220 MG Ascorbic Acid 500 mg BID PO 09/05/25 10:00 09/24/25 08:47 500 MG Multivitamins 1 tab DAILY PO 09/05/25 10:00 09/24/25 08:46 1 TAB Acetaminophen 650 mg Q6HP PRN PO 09/04/25 23:45 09/22/25 14:15 650 MG Nitroglycerin 0.4 mg Q5MINP PRN SL 09/04/25 23:45 Aspirin 81 mg DAILY PO 09/05/25 10:00 09/24/25 08:47 81 MG Vancomycin HCl 0 ml @ 0 mls/hr PER PHARMACY IV 09/05/25 23:45 Cancel Atorvastatin Calcium 40 mg HS PO 09/11/25 22:00 09/23/25 20:35 40 MG Examination Examination General Appearance: Alert, Oriented X3, Cooperative, Mild distress HEENT: Atraumatic, Mucous membranes moist/pink Respiratory: Clear to auscultation, Normal air movement, No added sounds Cardiovascular: Regular rate, Normal S1, Normal S2, No murmurs Abdominal/ : Active bowel sounds, Soft, no distention, no tenderness Extremities: No edema, Normal pulses, No tenderness/swelling Skin: 4x4 cm ulcer over right rivera, ulcer over left leg. Neuro: Normal speech, sensorimotor deficits none Psych/Mental Status: Mental status NL, Mood NL Nurse was there as air defense control officer during examination laboratory and microbiology Laboratory Tests 09/18/25 06:08 Test 09/18/25 06:08 Range/Units Serum Glucose 79 74-106 mg/dL Microbiology Date/Time Source Procedure Growth Status 09/09/25 10:43 Sputum AFB Broth Culture Pending Resulted 09/09/25 10:43 Sputum - Final Resulted 09/09/25 10:43 Sputum - Final Resulted 09/09/25 10:43 Sputum Acid Fast Bacilli Culture Pending Resulted 09/06/25 03:30 Nose MRSA Screen - Final Complete 09/06/25 02:06 Voided Urine Urine Culture - Final Complete 09/04/25 21:29 Blood Blood Culture - Final NO GROWTH AFTER 5 DAYS OF INCUBATION. Complete Labs and/or images reviewed: Labs reviewed by me, Image(s) reviewed by me Problem List/Assessment/Plan Problem List/Assessment/Plan Acute respiratory failure, resolved Community-acquired pneumonia Gram-positive were negative, ID help on board. Sepsis POA, resolved, status post Zosyn,Vancomycin and Micafungin for 7 days Left pleural effusion mild, resolved Cellulitis of bilateral limbs due to MSSA and Enterobacter cloacae status post IV antibiotic on wound care Hypertensive heart disease Aortic sclerosis, moderate to severe aortic stenosis Hypokalemia, resolved Chronic normocytic anemia, H&H stable Reactive thrombocytosis, no need to follow up Severe protein energy malnutrition, RD on board continue dietary supplements Dementia, workup in progress, mini-mental status exam pending Acute care myopathy, deconditioned, fall precaution, nutrition, SNF for rehab Clinically stable for placement, pending SNF acceptance, social workers on board. GI prophylaxis: Pantoprazole DVT prophylaxis: Lovenox Diet: Cardiac Goals of care discussed with the patient for more than 27 minutes: Full code status Case discussed with Dr. Grijalva, patient and RN Plan discussed with: Patient, Other (RN) Plan discussed with: Patient, Other (RN) Dietary Evaluation Review Recommendations by RD: Increase Calorie Intake Comments: Nutrition Recommendation 1) Ensure high protein 240ml TID 2) Lukas 1 pk BID 3) Monitor PO intake, lab values, weight trend, and I/O Expected Outcomes/Goals: Gain/maintain body weight Wound to improve FU 3-5 days Body Fat Depletion (Severe): Mod to Severe Depletion Muscle Mass (Severe): Mod to Severe Depletion Fluid Accumulation (Non Severe: Mild fluid retention Protein Calorie Malnutrition: Severe Visit Coding STANDARD RES Billing Provider: CRYSTAL GRIJALVA MD Date of Service if different f: Sep 24, 2025 Common Visit Codes: 40162-[id number] INP/OBS CARE(MOD) BETTIE CERRATO RESIDENT Sep 24, 2025 18:07 CRYSTAL GRIJALVA MD Sep 27, 2025 21:23
--- NOTE | 2025-09-24 21:16 | DVHPN2 ---
Consult Progress Note Objective vital signs Vital Sign Date Time Temp Pulse Resp B/P (MAP) Pulse Ox O2 Delivery O2 Flow Rate FiO2 09/24/25 17:00 98.5 84 18 144/77 (99) 96 98.5 09/24/25 08:00 Room Air* 0 21 Total Intake and Output 09/23/25 09/23/25 09/24/25 15:00 23:00 07:00 Intake Total 800 ml Output Total 500 ml Balance 300 ml medications Current Medications Medications Dose Ordered Sig/Denae Route Start Time Stop Time Status Last Admin Dose Admin Amlodipine Besylate 5 mg DAILY PO 09/05/25 10:00 09/24/25 08:47 5 MG Clonidine HCl 0.1 mg Q4HP PRN PO 09/04/25 23:45 09/23/25 09:29 0.1 MG Ondansetron HCl 4 mg Q4HP PRN IV 09/04/25 23:45 Docusate Sodium 100 mg BIDPRN PRN PO 09/04/25 23:45 Zinc Sulfate 220 mg DAILY PO 09/05/25 10:00 09/24/25 08:47 220 MG Ascorbic Acid 500 mg BID PO 09/05/25 10:00 09/24/25 08:47 500 MG Multivitamins 1 tab DAILY PO 09/05/25 10:00 09/24/25 08:46 1 TAB Acetaminophen 650 mg Q6HP PRN PO 09/04/25 23:45 09/22/25 14:15 650 MG Nitroglycerin 0.4 mg Q5MINP PRN SL 09/04/25 23:45 Aspirin 81 mg DAILY PO 09/05/25 10:00 09/24/25 08:47 81 MG Vancomycin HCl 0 ml @ 0 mls/hr PER PHARMACY IV 09/05/25 23:45 Cancel Atorvastatin Calcium 40 mg HS PO 09/11/25 22:00 09/23/25 20:35 40 MG laboratory and microbiology Laboratory Tests 09/18/25 06:08 Test 09/18/25 06:08 Range/Units Serum Glucose 79 74-106 mg/dL Problem List/Assessment/Plan Problem List/Assessment/Plan ASSESSMENT AND PLAN: ID Problem List: \-- Cavitary pneumonia with concern for TB versus fungal versus other etiologies \-- TB rule out in progress \-- Bilateral lower extremity ulcers with Staphylococcus aureus (MSSA) and Enterobacter cloacae \-- Dementia (poor historian, A\&O x2) \-- Cachexia and weight loss \-- Hypertension \-- Social concerns: limited caregiver support ( unable to care for patient) Assessment: Ms. Jayleen Story is a 64 y.o. female with a past medical history of dementia and hypertension who presents with bilateral lower extremity wounds and a cavitary pulmonary lesion. She is a poor historian. On presentation she was afebrile with tachycardia and normal blood pressure. She appears cachectic and disheveled, with generalized weakness and multiple shallow ulcers on the dorsal, anterior, and posterior aspects of both legs, some extending to the subcutaneous tissue, but without lower extremity edema. Initial labs: WBC 9.2, Hgb 10.7, platelets 625. BUN reported as 139 and 10 in the transcript (value unclear), sodium 139, creatinine 0.47. TSH 1.16. Chest X?ray reportedly shows a left perihilar hazy opacity and a cystic/cavitary- appearing change in the left lung apex with surrounding opacification concerning for fungal versus TB pneumonia. She denies shortness of breath and dizziness but endorses weight loss and subjective fevers (amount unclear). No history of smoking, alcohol use, IV drug use, or travel. No prior surgeries per patient. No known allergies. She has undergone TB rule out with AFB smears negative 3, respiratory culture without growth, and MTB PCR negative 1 to date; QuantiFERON?TB Gold is negative. Wound cultures are growing MSSA and Enterobacter cloacae (not [facility]- induced, per report). She has been treated with vancomycin, piperacillin?tazobactam (Zosyn), and micafungin. Overall suspicion for active TB is low; fungal pneumonia remains a possible diagnosis along with other infectious and noninfectious causes. 09/15: AFB sputum stain negative x 3 and MTB pcr negative x 2 09/19: Zosyn stopped 09/20: BLE ulcers appear well off all antibiotics Plan: Cavitary pneumonia / possible TB vs fungal vs other etiologies \-- TB rule out in progress: continue airborne isolation per hospital protocol until rule out is complete. \-- AFB smears are negative 3; MTB PCR is negative 2 is negative. from infectious disease perspective, patient can be dced without isolation, patient can followup in infectious disease clinic in 1 week to continue to follow AFB sputum results (appt date on 10/02/24 at 1PM). defer to infection control team to remove isolation and would inform department of public health of discharge plans/coordination. \-- QuantiFERON?TB Gold is negative; overall clinical suspicion for active TB is low. \-- No need for empiric TB treatment at this time given low suspicion. \-- For possible fungal pneumonia: Obtain/continue routine sputum culture and monitor for fungal growth. Send/confirm fungal testing as planned: Aspergillus antibodies [place] fever (coccidioides) antibodies Fungitell Galactomannan \-- Results can be followed as an outpatient to determine if treatment for cavitary fungal pneumonia is warranted; no empiric micafungin is recommended at this time. \-- Differential for cavitary lesion includes: aspiration pneumonia, bacterial pneumonia, fungal pneumonia, AFB/NTM infection, and noninfectious etiologies including malignancy. \-- Recommend serial chest CT follow?up approximately every 3 months to ensure stability of the cavitary lesion and to monitor for progression. Bilateral lower extremity ulcers (MSSA and Enterobacter cloacae) sp 10 days course of Zosyn \-- Continue local wound care per primary/wound care team - ulcers appears noncellulitic at this point will monitor of all antibiotics Cachexia, weight loss, and wound healing support \-- Patient is cachectic with reported weight loss; this may impair wound healing. \-- Recommend formal nutrition evaluation. \-- Encourage increased protein intake to optimize wound healing, per nutrition guidance. Dementia, poor history, and social support concerns \-- Patient has dementia, is A\&O 2, and is a poor historian. She lives with her , who reports that he cannot adequately care for her. \-- Recommend social work consult to: Assess home safety and caregiving capacity. Arrange appropriate support services or alternative placement as needed. Assist with discharge planning in the context of cognitive impairment and limited caregiver support. Isolation Precautions: TB rule?out isolation per hospital protocol (in addition to standard precautions). Assessment and plan were discussed with the patient as able, given dementia. Plan is subject to change pending incorporation of new incoming information/diagnostics. Updates may be added as an addendum to this note. Thank you for involving Infectious Diseases in the care of this patient. ID will continue to follow. Please contact Infectious Disease with any questions or concerns. Yudy Garcia M.D. \ Physical Exam: General: Cachectic, disheveled-appearing female with generalized weakness. Neck: Supple. No masses. HEENT: PERRL. Normal lids and conjunctiva. Moist mucous membranes. Oropharynx without lesions, exudates or excessive erythema. Normal appearance of the external aspects of the nose and ears. Heart: Regular rhythm, normal rate. No murmur. No lower extremity edema. Lungs: Normal respiratory effort. Clear to auscultation bilaterally. No wheezes. No crackles. Abdomen: Soft. Non-tender. Non-distended. No masses or abdominal hernia. Msk: No digital cyanosis. Normal strength and tone in all 4 limbs, though overall generalized weakness noted clinically. Skin: Warm and dry, no rashes. Multiple shallow ulcers and scabs on the dorsal, anterior, and posterior aspects of both lower legs, some extending into subcutaneous tissue. Neuro: Alert. No facial droop or slurred speech. Extra-ocular movements intact. Sensation intact to soft touch in all 4 limbs. A\&O 2. Psych: Dementia present. Mood and affect otherwise appropriate as observed. Oriented to person and place only (A\&O 2). Dietary Evaluation Review Recommendations by RD: Increase Calorie Intake Comments: Nutrition Recommendation 1) Ensure high protein 240ml TID 2) Lukas 1 pk BID 3) Monitor PO intake, lab values, weight trend, and I/O Expected Outcomes/Goals: Gain/maintain body weight Wound to improve FU 3-5 days Body Fat Depletion (Severe): Mod to Severe Depletion Muscle Mass (Severe): Mod to Severe Depletion Fluid Accumulation (Non Severe: Mild fluid retention Protein Calorie Malnutrition: Severe YUDY GARCIA MD Sep 24, 2025 21:16
[2025-09-24] MEDS: MELATONIN 5 MG TAB PO ONE (21:54)
[2025-09-25] VITALS (8 sets, daily range): BP systolic 116–142; BP diastolic 58–89; PULSE 55–91; RESP 14–17; TEMP 97.6–98; O2SAT 90–98
--- NOTE | 2025-09-25 18:11 | DVHPN2 ---
Progress Note - Dictate Date Seen: Sep 25, 2025 Medical Necessity Reason Pt with a Central, PICC or Fol: No The following are medically ne: Rivas Catheter Subjective Patient was seen and evaluated in follow up. The patient reports feeling better today. She does not have any complaints. The patient is awaiting for SNF placement. vital signs Vital Sign Date Time Temp Pulse Resp B/P (MAP) Pulse Ox O2 Delivery O2 Flow Rate FiO2 09/25/25 09:38 142/89 09/25/25 09:30 97.6 55 16 90 97.6 09/25/25 08:00 Room Air* 0 21 Total Intake and Output 09/24/25 09/24/25 09/25/25 15:00 23:00 07:00 Intake Total 1150 ml 1000 ml Balance 1150 ml 1000 ml medications Current Medications Medications Dose Ordered Sig/Denae Route Start Time Stop Time Status Last Admin Dose Admin Amlodipine Besylate 5 mg DAILY PO 09/05/25 10:00 09/25/25 09:38 5 MG Clonidine HCl 0.1 mg Q4HP PRN PO 09/04/25 23:45 09/23/25 09:29 0.1 MG Ondansetron HCl 4 mg Q4HP PRN IV 09/04/25 23:45 Docusate Sodium 100 mg BIDPRN PRN PO 09/04/25 23:45 Zinc Sulfate 220 mg DAILY PO 09/05/25 10:00 09/25/25 09:35 220 MG Ascorbic Acid 500 mg BID PO 09/05/25 10:00 09/25/25 09:36 500 MG Multivitamins 1 tab DAILY PO 09/05/25 10:00 09/25/25 09:36 1 TAB Acetaminophen 650 mg Q6HP PRN PO 09/04/25 23:45 09/22/25 14:15 650 MG Nitroglycerin 0.4 mg Q5MINP PRN SL 09/04/25 23:45 Aspirin 81 mg DAILY PO 09/05/25 10:00 09/25/25 09:36 81 MG Vancomycin HCl 0 ml @ 0 mls/hr PER PHARMACY IV 09/05/25 23:45 Cancel Atorvastatin Calcium 40 mg HS PO 09/11/25 22:00 09/24/25 21:54 40 MG objective GENERAL: Alert and oriented x 3. No acute distress. Thin, frail EYES: PERRL, EOMI. Anicteric. HENT: Moist mucous membranes. LUNGS: Clear to auscultation bilaterally. CARDIOVASCULAR: Regular rate and rhythm. ABDOMEN: Soft, nontender and nondistended. EXTREMITIES: No edema. SKIN: Multiple wounds to bilateral lower extremities, covered at this time. laboratory and microbiology Laboratory Tests 09/18/25 06:08 Test 09/18/25 06:08 Range/Units Serum Glucose 79 74-106 mg/dL Problem List Rule out severe aortic valve stenosis. Rule out tuberculosis. Hypertension. Dyslipidemia. Hypokalemia. Thrombocythemia. Tobacco use. Assessment/Plan Continued all current supportive medical care. Amlodipine, Clonidine. Aspirin, Lipitor. GI prophylactics. Additional plan as per the hospital course. Dietary Evaluation Review Recommendations by RD: Increase Calorie Intake Comments: Nutrition Recommendation 1) Ensure high protein 240ml TID 2) Lukas 1 pk BID 3) Monitor PO intake, lab values, weight trend, and I/O Expected Outcomes/Goals: Gain/maintain body weight Wound to improve FU 3-5 days Body Fat Depletion (Severe): Mod to Severe Depletion Muscle Mass (Severe): Mod to Severe Depletion Fluid Accumulation (Non Severe: Mild fluid retention Protein Calorie Malnutrition: Severe Plan discussed with: Patient JOSE MIKE MD Sep 25, 2025 18:11
--- NOTE | 2025-09-25 19:05 | DVHPNRES ---
Progress Note Date Seen: Sep 25, 2025 Resident Creating Document: BETTIE CERRATO Medical Necessity Reason Pt with a Central, PICC or Fol: No The following are medically ne: Rivas Catheter Objective vital signs Vital Sign Date Time Temp Pulse Resp B/P (MAP) Pulse Ox O2 Delivery O2 Flow Rate FiO2 09/25/25 17:30 97.7 78 16 137/75 (95) 98 97.7 09/25/25 08:00 Room Air* 0 21 Total Intake and Output 09/24/25 09/24/25 09/25/25 15:00 23:00 07:00 Intake Total 1150 ml 1000 ml Balance 1150 ml 1000 ml medications Current Medications Medications Dose Ordered Sig/Denae Route Start Time Stop Time Status Last Admin Dose Admin Amlodipine Besylate 5 mg DAILY PO 09/05/25 10:00 09/25/25 09:38 5 MG Clonidine HCl 0.1 mg Q4HP PRN PO 09/04/25 23:45 09/23/25 09:29 0.1 MG Ondansetron HCl 4 mg Q4HP PRN IV 09/04/25 23:45 Docusate Sodium 100 mg BIDPRN PRN PO 09/04/25 23:45 Zinc Sulfate 220 mg DAILY PO 09/05/25 10:00 09/25/25 09:35 220 MG Ascorbic Acid 500 mg BID PO 09/05/25 10:00 09/25/25 09:36 500 MG Multivitamins 1 tab DAILY PO 09/05/25 10:00 09/25/25 09:36 1 TAB Acetaminophen 650 mg Q6HP PRN PO 09/04/25 23:45 09/22/25 14:15 650 MG Nitroglycerin 0.4 mg Q5MINP PRN SL 09/04/25 23:45 Aspirin 81 mg DAILY PO 09/05/25 10:00 09/25/25 09:36 81 MG Vancomycin HCl 0 ml @ 0 mls/hr PER PHARMACY IV 09/05/25 23:45 Cancel Atorvastatin Calcium 40 mg HS PO 09/11/25 22:00 09/24/25 21:54 40 MG laboratory and microbiology Laboratory Tests 09/18/25 06:08 Test 09/18/25 06:08 Range/Units Serum Glucose 79 74-106 mg/dL Microbiology Date/Time Source Procedure Growth Status 09/09/25 10:43 Sputum AFB Broth Culture Pending Resulted 09/09/25 10:43 Sputum - Final Resulted 09/09/25 10:43 Sputum - Final Resulted 09/09/25 10:43 Sputum Acid Fast Bacilli Culture Pending Resulted 09/06/25 03:30 Nose MRSA Screen - Final Complete 09/06/25 02:06 Voided Urine Urine Culture - Final Complete 09/04/25 21:29 Blood Blood Culture - Final NO GROWTH AFTER 5 DAYS OF INCUBATION. Complete Labs and/or images reviewed: Labs reviewed by me, Image(s) reviewed by me Problem List/Assessment/Plan Problem List/Assessment/Plan Acute respiratory failure, resolved Community-acquired pneumonia Gram-positive were negative, ID help on board. Sepsis POA, resolved, status post Zosyn,Vancomycin and Micafungin for 7 days Left pleural effusion mild, resolved Cellulitis of bilateral limbs due to MSSA and Enterobacter cloacae status post IV antibiotic on wound care Hypertensive heart disease Aortic sclerosis, moderate to severe aortic stenosis Hypokalemia, resolved Chronic normocytic anemia, H&H stable Reactive thrombocytosis, no need to follow up Severe protein energy malnutrition, RD on board continue dietary supplements Dementia, TSH, vitamin B12 within normal limits, further workup in progress, mini-mental status exam score 17, moderate to severe cognitive impairment. Acute care myopathy, deconditioned, fall precaution, nutrition, SNF for rehab Clinically stable for placement, pending SNF acceptance, social workers on board. GI prophylaxis: Pantoprazole DVT prophylaxis: Lovenox Diet: Cardiac Goals of care discussed with the patient for more than 27 minutes: Full code status Case discussed with Dr. Romeo, patient and RN Plan discussed with: Patient, Other (RN) Plan discussed with: Patient, Other (RN) Dietary Evaluation Review Recommendations by RD: Increase Calorie Intake Comments: Nutrition Recommendation 1) Ensure high protein 240ml TID 2) Lukas 1 pk BID 3) Monitor PO intake, lab values, weight trend, and I/O Expected Outcomes/Goals: Gain/maintain body weight Wound to improve FU 3-5 days Body Fat Depletion (Severe): Mod to Severe Depletion Muscle Mass (Severe): Mod to Severe Depletion Fluid Accumulation (Non Severe: Mild fluid retention Protein Calorie Malnutrition: Severe Visit Coding STANDARD RES Billing Provider: CRYSTAL ROMEO MD Date of Service if different f: Sep 25, 2025 Common Visit Codes: [id number] INP/OBS CARE(HIGH) BETTIE CERRATO RESIDENT Sep 25, 2025 19:05
[2025-09-26] VITALS (7 sets, daily range): BP systolic 120–153; BP diastolic 65–77; PULSE 68–78; RESP 16–19; TEMP 97.6–98.1; O2SAT 94–100
--- NOTE | 2025-09-26 02:25 | DVHPN2 ---
Consult Progress Note Objective vital signs Vital Sign Date Time Temp Pulse Resp B/P (MAP) Pulse Ox O2 Delivery O2 Flow Rate FiO2 09/26/25 00:54 97.8 78 17 121/77 (92) 95 97.8 09/25/25 20:00 Room Air* 0 21 medications Current Medications Medications Dose Ordered Sig/Denae Route Start Time Stop Time Status Last Admin Dose Admin Amlodipine Besylate 5 mg DAILY PO 09/05/25 10:00 09/25/25 09:38 5 MG Clonidine HCl 0.1 mg Q4HP PRN PO 09/04/25 23:45 09/23/25 09:29 0.1 MG Ondansetron HCl 4 mg Q4HP PRN IV 09/04/25 23:45 Docusate Sodium 100 mg BIDPRN PRN PO 09/04/25 23:45 Zinc Sulfate 220 mg DAILY PO 09/05/25 10:00 09/25/25 09:35 220 MG Ascorbic Acid 500 mg BID PO 09/05/25 10:00 09/25/25 21:33 500 MG Multivitamins 1 tab DAILY PO 09/05/25 10:00 09/25/25 09:36 1 TAB Acetaminophen 650 mg Q6HP PRN PO 09/04/25 23:45 09/22/25 14:15 650 MG Nitroglycerin 0.4 mg Q5MINP PRN SL 09/04/25 23:45 Aspirin 81 mg DAILY PO 09/05/25 10:00 09/25/25 09:36 81 MG Vancomycin HCl 0 ml @ 0 mls/hr PER PHARMACY IV 09/05/25 23:45 Cancel Atorvastatin Calcium 40 mg HS PO 09/11/25 22:00 09/25/25 21:32 40 MG laboratory and microbiology Laboratory Tests 09/18/25 06:08 Test 09/18/25 06:08 Range/Units Serum Glucose 79 74-106 mg/dL Problem List/Assessment/Plan Problem List/Assessment/Plan ASSESSMENT AND PLAN: ID Problem List: \-- Cavitary pneumonia with concern for TB versus fungal versus other etiologies \-- TB rule out in progress \-- Bilateral lower extremity ulcers with Staphylococcus aureus (MSSA) and Enterobacter cloacae \-- Dementia (poor historian, A\&O x2) \-- Cachexia and weight loss \-- Hypertension \-- Social concerns: limited caregiver support ( unable to care for patient) Assessment: Ms. Jayleen Story is a 64 y.o. female with a past medical history of dementia and hypertension who presents with bilateral lower extremity wounds and a cavitary pulmonary lesion. She is a poor historian. On presentation she was afebrile with tachycardia and normal blood pressure. She appears cachectic and disheveled, with generalized weakness and multiple shallow ulcers on the dorsal, anterior, and posterior aspects of both legs, some extending to the subcutaneous tissue, but without lower extremity edema. Initial labs: WBC 9.2, Hgb 10.7, platelets 625. BUN reported as 139 and 10 in the transcript (value unclear), sodium 139, creatinine 0.47. TSH 1.16. Chest X?ray reportedly shows a left perihilar hazy opacity and a cystic/cavitary- appearing change in the left lung apex with surrounding opacification concerning for fungal versus TB pneumonia. She denies shortness of breath and dizziness but endorses weight loss and subjective fevers (amount unclear). No history of smoking, alcohol use, IV drug use, or travel. No prior surgeries per patient. No known allergies. She has undergone TB rule out with AFB smears negative 3, respiratory culture without growth, and MTB PCR negative 1 to date; QuantiFERON?TB Gold is negative. Wound cultures are growing MSSA and Enterobacter cloacae (not [facility]- induced, per report). She has been treated with vancomycin, piperacillin?tazobactam (Zosyn), and micafungin. Overall suspicion for active TB is low; fungal pneumonia remains a possible diagnosis along with other infectious and noninfectious causes. 09/15: AFB sputum stain negative x 3 and MTB pcr negative x 2 09/19: Zosyn stopped 09/20: BLE ulcers appear well off all antibiotics Plan: Cavitary pneumonia / possible TB vs fungal vs other etiologies \-- TB rule out in progress: continue airborne isolation per hospital protocol until rule out is complete. \-- AFB smears are negative 3; MTB PCR is negative 2 is negative. from infectious disease perspective, patient can be dced without isolation, patient can followup in infectious disease clinic in 1 week to continue to follow AFB sputum results (appt date on 10/02/24 at 1PM). defer to infection control team to remove isolation and would inform department of public health of discharge plans/coordination. \-- QuantiFERON?TB Gold is negative; overall clinical suspicion for active TB is low. \-- No need for empiric TB treatment at this time given low suspicion. \-- For possible fungal pneumonia: Obtain/continue routine sputum culture and monitor for fungal growth. Send/confirm fungal testing as planned: Aspergillus antibodies [place] fever (coccidioides) antibodies Fungitell Galactomannan \-- Results can be followed as an outpatient to determine if treatment for cavitary fungal pneumonia is warranted; no empiric micafungin is recommended at this time. \-- Differential for cavitary lesion includes: aspiration pneumonia, bacterial pneumonia, fungal pneumonia, AFB/NTM infection, and noninfectious etiologies including malignancy. \-- Recommend serial chest CT follow?up approximately every 3 months to ensure stability of the cavitary lesion and to monitor for progression. Bilateral lower extremity ulcers (MSSA and Enterobacter cloacae) sp 10 days course of Zosyn \-- Continue local wound care per primary/wound care team - ulcers appears noncellulitic at this point will monitor of all antibiotics Cachexia, weight loss, and wound healing support \-- Patient is cachectic with reported weight loss; this may impair wound healing. \-- Recommend formal nutrition evaluation. \-- Encourage increased protein intake to optimize wound healing, per nutrition guidance. Dementia, poor history, and social support concerns \-- Patient has dementia, is A\&O 2, and is a poor historian. She lives with her , who reports that he cannot adequately care for her. \-- Recommend social work consult to: Assess home safety and caregiving capacity. Arrange appropriate support services or alternative placement as needed. Assist with discharge planning in the context of cognitive impairment and limited caregiver support. Isolation Precautions: TB rule?out isolation per hospital protocol (in addition to standard precautions). Assessment and plan were discussed with the patient as able, given dementia. Plan is subject to change pending incorporation of new incoming information/diagnostics. Updates may be added as an addendum to this note. Thank you for involving Infectious Diseases in the care of this patient. ID will continue to follow. Please contact Infectious Disease with any questions or concerns. Yudy Garcia M.D. \ Physical Exam: General: Cachectic, disheveled-appearing female with generalized weakness. Neck: Supple. No masses. HEENT: PERRL. Normal lids and conjunctiva. Moist mucous membranes. Oropharynx without lesions, exudates or excessive erythema. Normal appearance of the external aspects of the nose and ears. Heart: Regular rhythm, normal rate. No murmur. No lower extremity edema. Lungs: Normal respiratory effort. Clear to auscultation bilaterally. No wheezes. No crackles. Abdomen: Soft. Non-tender. Non-distended. No masses or abdominal hernia. Msk: No digital cyanosis. Normal strength and tone in all 4 limbs, though overall generalized weakness noted clinically. Skin: Warm and dry, no rashes. Multiple shallow ulcers and scabs on the dorsal, anterior, and posterior aspects of both lower legs, some extending into subcutaneous tissue. Neuro: Alert. No facial droop or slurred speech. Extra-ocular movements intact. Sensation intact to soft touch in all 4 limbs. A\&O 2. Psych: Dementia present. Mood and affect otherwise appropriate as observed. Oriented to person and place only (A\&O 2). Dietary Evaluation Review Recommendations by RD: Increase Calorie Intake Comments: Nutrition Recommendation 1) Ensure high protein 240ml TID 2) Lukas 1 pk BID 3) Monitor PO intake, lab values, weight trend, and I/O Expected Outcomes/Goals: Gain/maintain body weight Wound to improve FU 3-5 days Body Fat Depletion (Severe): Mod to Severe Depletion Muscle Mass (Severe): Mod to Severe Depletion Fluid Accumulation (Non Severe: Mild fluid retention Protein Calorie Malnutrition: Severe YUDY GARCIA MD Sep 26, 2025 02:25
--- NOTE | 2025-09-26 16:34 | DVHPN2 ---
Subjective No complaints Reviewed: Care Plan, H&P, Labs, Medications, Previous Orders Changes from previous H/P or p: Changes General: Per HPI Eyes: No Pain, No Vision change, No Conjunctivae inflammation, No Eyelid inflammation, No Other, No Redness ENT: No Ear pain, No Ear discharge, No Nose pain, No Nose discharge, No Nose congestion, No Mouth pain, No Mouth swelling, No Throat pain, No Throat swelling, No Other Cardiovascular: No Chest Pain, No Palpitations, No Orthopnea, No Paroxysmal Noc. Dyspnea; Edema (Lower extremity); No Lt Headedness, No Other Respiratory: No Cough, No Dry, No Shortness of breath, No SOB with excertion, No Wheezing, No Hemoptysis, No Pleuritic Pain, No Sputum, No Other Gastrointestinal: No Nausea, No Vomiting, No Abdominal Pain, No Diarrhea, No Constipation, No Melena, No Hematochezia, No Other Genitourinary: No Dysuria, No Frequency, No Incontinence, No Hematuria, No Retention, No Other Musculoskeletal: No other, No neck pain, No shoulder pain, No arm pain, No back pain, No hand pain, No leg pain, No foot pain Skin: No Rash, No Lesions, No Jaundice, No Bruising; Other (Open wound bilateral legs) Objective Vitals Vital Signs Date Time Temp Pulse Resp B/P (MAP) Pulse Ox O2 Delivery O2 Flow Rate FiO2 09/26/25 12:46 97.9 78 16 153/65 (94) 97 97.9 09/26/25 08:30 Room Air* 0 21 Intake/Output Intake and Output 09/26/25 07:00 Intake Total 800 ml Balance 800 ml Intake Oral 800 ml # Voids 18 # Bowel Movements 4 General Appearance: Alert, Oriented X3, Cooperative, No acute distress HEENT: Atraumatic, PERRLA, EOMI, Mucous membr. moist/pink Lungs: Clear to auscultation, Normal air movement Cardiovascular: Regular rate, Normal S1, Normal S2, No murmurs, Gallops, Rubs Abdomen: Normal bowel sounds, Soft, No tenderness Medications Current Medications Medications Dose Ordered Sig/Denae Route Start Time Stop Time Status Last Admin Dose Admin Amlodipine Besylate 5 mg DAILY PO 09/05/25 10:00 09/26/25 10:19 5 MG Clonidine HCl 0.1 mg Q4HP PRN PO 09/04/25 23:45 09/23/25 09:29 0.1 MG Ondansetron HCl 4 mg Q4HP PRN IV 09/04/25 23:45 Docusate Sodium 100 mg BIDPRN PRN PO 09/04/25 23:45 Zinc Sulfate 220 mg DAILY PO 09/05/25 10:00 09/26/25 10:19 220 MG Ascorbic Acid 500 mg BID PO 09/05/25 10:00 09/26/25 10:20 500 MG Multivitamins 1 tab DAILY PO 09/05/25 10:00 09/26/25 10:59 1 TAB Acetaminophen 650 mg Q6HP PRN PO 09/04/25 23:45 09/22/25 14:15 650 MG Nitroglycerin 0.4 mg Q5MINP PRN SL 09/04/25 23:45 Aspirin 81 mg DAILY PO 09/05/25 10:00 09/26/25 10:19 81 MG Vancomycin HCl 0 ml @ 0 mls/hr PER PHARMACY IV 09/05/25 23:45 Cancel Atorvastatin Calcium 40 mg HS PO 09/11/25 22:00 09/25/25 21:32 40 MG Laboratory Results Laboratory Tests 09/18/25 06:08 Urinalysis Test 09/06/25 02:06 Urine Color Light-yellow (Yellow) Urine Clarity Clear (Clear) Urine pH 8.0 (5.0-9.0) Urine Specific [place] 1.015 (1.001-1.035) Urine Protein Negative (Negative) Urine Ketones Negative (Negative) Urine Blood 1+ /uL (Negative) H Urine Nitrite Negative (Negative) Urine Bilirubin Negative (Negative) Urine Urobilinogen Normal mg/dL (Negative) Urine Leukocyte Esterase Negative /uL (Negative) Urine RBC 36 /hpf (0 - 4) Urine Microscopic WBC 1 /HPF (0-5) Urine Squamous Epithelial Cells None seen /hpf (<5) Urine Bacteria None seen /hpf (None Seen) Urine Glucose Normal mg/dL (Normal) Microbiology Microbiology Date/Time Source Procedure Growth Status 09/09/25 10:43 Sputum AFB Broth Culture Pending Resulted 09/09/25 10:43 Sputum - Final Resulted 09/09/25 10:43 Sputum - Final Resulted 09/09/25 10:43 Sputum Acid Fast Bacilli Culture Pending Resulted 09/06/25 03:30 Nose MRSA Screen - Final Complete 09/06/25 02:06 Voided Urine Urine Culture - Final Complete 09/04/25 21:29 Blood Blood Culture - Final NO GROWTH AFTER 5 DAYS OF INCUBATION. Complete Assessment/Plan Assessment/Plan We had a lengthy discussion with the at the bedside with the family The patient is able to ambulate with assistance She is able to get out of bed and use the commode The family welfare social work professor has been looking for a [facility] facility for her but no success yet however the patient does not seem to require rehab at this point since she has been improving and she is ambulating well The is willing to take her home with home health and therefore we will switch the orders for her for home health with physical therapy and occupational therapy at home Discharge planning for tomorrow Plan discussed with: Patient, Spouse Date of Service: Sep 26, 2025 Billing Provider: CRYSTAL ROMEO MD Common Visit Codes: [id number] INP/OBS CARE(MOD) CRYSTAL ROMEO MD Sep 26, 2025 16:34
--- NOTE | 2025-09-26 20:07 | DVHPN2 ---
Progress Note - Dictate Date Seen: Sep 26, 2025 Medical Necessity Reason Pt with a Central, PICC or Fol: No The following are medically ne: Rivas Catheter Subjective Patient was seen and evaluated in follow up. No complaints are voiced at this time. SNF arrangements are in progress. vital signs Vital Sign Date Time Temp Pulse Resp B/P (MAP) Pulse Ox O2 Delivery O2 Flow Rate FiO2 09/26/25 12:46 97.9 78 16 153/65 (94) 97 97.9 09/26/25 08:30 Room Air* 0 21 Total Intake and Output 09/25/25 09/25/25 09/26/25 14:59 22:59 06:59 Intake Total 800 ml Balance 800 ml medications Current Medications Medications Dose Ordered Sig/Denae Route Start Time Stop Time Status Last Admin Dose Admin Amlodipine Besylate 5 mg DAILY PO 09/05/25 10:00 09/26/25 10:19 5 MG Clonidine HCl 0.1 mg Q4HP PRN PO 09/04/25 23:45 09/23/25 09:29 0.1 MG Ondansetron HCl 4 mg Q4HP PRN IV 09/04/25 23:45 Docusate Sodium 100 mg BIDPRN PRN PO 09/04/25 23:45 Zinc Sulfate 220 mg DAILY PO 09/05/25 10:00 09/26/25 10:19 220 MG Ascorbic Acid 500 mg BID PO 09/05/25 10:00 09/26/25 10:20 500 MG Multivitamins 1 tab DAILY PO 09/05/25 10:00 09/26/25 10:59 1 TAB Acetaminophen 650 mg Q6HP PRN PO 09/04/25 23:45 09/22/25 14:15 650 MG Nitroglycerin 0.4 mg Q5MINP PRN SL 09/04/25 23:45 Aspirin 81 mg DAILY PO 09/05/25 10:00 09/26/25 10:19 81 MG Vancomycin HCl 0 ml @ 0 mls/hr PER PHARMACY IV 09/05/25 23:45 Cancel Atorvastatin Calcium 40 mg HS PO 09/11/25 22:00 09/25/25 21:32 40 MG objective GENERAL: Alert and oriented x 3. No acute distress. Thin, frail EYES: PERRL, EOMI. Anicteric. HENT: Moist mucous membranes. LUNGS: Clear to auscultation bilaterally. CARDIOVASCULAR: Regular rate and rhythm. ABDOMEN: Soft, nontender and nondistended. EXTREMITIES: No edema. SKIN: Multiple wounds to bilateral lower extremities, covered at this time. laboratory and microbiology Laboratory Tests 09/18/25 06:08 Test 09/18/25 06:08 Range/Units Serum Glucose 79 74-106 mg/dL Problem List Rule out severe aortic valve stenosis. Rule out tuberculosis. Hypertension. Dyslipidemia. Hypokalemia. Thrombocythemia. Tobacco use. Assessment/Plan Continued all current supportive medical care. Amlodipine, Clonidine. Aspirin, Lipitor. GI prophylactics. Additional plan as per the hospital course. Dietary Evaluation Review Recommendations by RD: Increase Calorie Intake Comments: Nutrition Recommendation 1) Ensure high protein 240ml TID 2) Lukas 1 pk BID 3) Monitor PO intake, lab values, weight trend, and I/O Expected Outcomes/Goals: Gain/maintain body weight Wound to improve FU 3-5 days Body Fat Depletion (Severe): Mod to Severe Depletion Muscle Mass (Severe): Mod to Severe Depletion Fluid Accumulation (Non Severe: Mild fluid retention Protein Calorie Malnutrition: Severe Plan discussed with: Patient JOSE MIKE MD Sep 26, 2025 14:39
[2025-09-27] VITALS (7 sets, daily range): BP systolic 100–131; BP diastolic 63–75; PULSE 59–73; RESP 14–20; TEMP 97.6–98; O2SAT 96–99
--- NOTE | 2025-09-27 20:29 | DVHPNRES ---
Progress Note Date Seen: Sep 27, 2025 Resident Creating Document: BETTIE CERRATO Medical Necessity Reason Pt with a Central, PICC or Fol: No The following are medically ne: Rivas Catheter Subjective Review of Systems Patient was seen and examined at bedside today. Overnight events were reviewed. The patient reports feeling better. She is A xO 1. NO other complaints reported. Objective vital signs Vital Sign Date Time Temp Pulse Resp B/P (MAP) Pulse Ox O2 Delivery O2 Flow Rate FiO2 09/27/25 17:00 97.6 61 18 131/75 (93) 97 97.6 09/27/25 08:30 Room Air* 0 21 Total Intake and Output 09/26/25 09/26/25 09/27/25 15:00 23:00 07:00 Intake Total 1100 ml 200 ml Balance 1100 ml 200 ml medications Current Medications Medications Dose Ordered Sig/Denae Route Start Time Stop Time Status Last Admin Dose Admin Amlodipine Besylate 5 mg DAILY PO 09/05/25 10:00 09/27/25 10:06 5 MG Clonidine HCl 0.1 mg Q4HP PRN PO 09/04/25 23:45 09/23/25 09:29 0.1 MG Ondansetron HCl 4 mg Q4HP PRN IV 09/04/25 23:45 Docusate Sodium 100 mg BIDPRN PRN PO 09/04/25 23:45 Zinc Sulfate 220 mg DAILY PO 09/05/25 10:00 09/27/25 10:01 220 MG Ascorbic Acid 500 mg BID PO 09/05/25 10:00 09/27/25 10:01 500 MG Multivitamins 1 tab DAILY PO 09/05/25 10:00 09/27/25 10:02 1 TAB Acetaminophen 650 mg Q6HP PRN PO 09/04/25 23:45 09/22/25 14:15 650 MG Nitroglycerin 0.4 mg Q5MINP PRN SL 09/04/25 23:45 Aspirin 81 mg DAILY PO 09/05/25 10:00 09/27/25 10:01 81 MG Vancomycin HCl 0 ml @ 0 mls/hr PER PHARMACY IV 09/05/25 23:45 Cancel Atorvastatin Calcium 40 mg HS PO 09/11/25 22:00 09/26/25 21:40 40 MG Examination General Appearance: Alert, Oriented X3, Cooperative, Mild distress HEENT: Atraumatic, Mucous membranes moist/pink Respiratory: Clear to auscultation, Normal air movement, No added sounds Cardiovascular: Regular rate, Normal S1, Normal S2, No murmurs Abdominal/ : Active bowel sounds, Soft, no distention, no tenderness Extremities: No edema, Normal pulses, No tenderness/swelling Skin: 4x4 cm ulcer over right rivera, ulcer over left leg. Neuro: Normal speech, sensorimotor deficits none Psych/Mental Status: Mental status NL, Mood NL Nurse was there as superior court judge during examination laboratory and microbiology Laboratory Tests 09/18/25 06:08 Test 09/18/25 06:08 Range/Units Serum Glucose 79 74-106 mg/dL Microbiology Date/Time Source Procedure Growth Status 09/09/25 10:43 Sputum AFB Broth Culture Pending Resulted 09/09/25 10:43 Sputum - Final Resulted 09/09/25 10:43 Sputum - Final Resulted 09/09/25 10:43 Sputum Acid Fast Bacilli Culture Pending Resulted 09/06/25 03:30 Nose MRSA Screen - Final Complete 09/06/25 02:06 Voided Urine Urine Culture - Final Complete 09/04/25 21:29 Blood Blood Culture - Final NO GROWTH AFTER 5 DAYS OF INCUBATION. Complete Labs and/or images reviewed: Labs reviewed by me, Image(s) reviewed by me Problem List/Assessment/Plan Problem List/Assessment/Plan Acute respiratory failure, resolved Community-acquired pneumonia Gram-positive were negative, ID help on board. Sepsis POA, resolved, status post Zosyn,Vancomycin and Micafungin for 7 days Left pleural effusion mild, resolved Cellulitis of bilateral limbs due to MSSA and Enterobacter cloacae status post IV antibiotic on wound care Hypertensive heart disease Aortic sclerosis, moderate to severe aortic stenosis Hypokalemia, resolved Chronic normocytic anemia, H&H stable Reactive thrombocytosis, no need to follow up Severe protein energy malnutrition, RD on board continue dietary supplements Dementia, TSH, vitamin B12 within normal limits, further workup in progress, mini-mental status exam score 17, moderate to severe cognitive impairment. Acute care myopathy, deconditioned, fall precaution, nutrition, SNF for rehab Clinically stable for placement, pending SNF acceptance, social workers on board. GI prophylaxis: Pantoprazole DVT prophylaxis: Lovenox Diet: Cardiac Goals of care discussed with the patient for more than 27 minutes: Full code status Case discussed with Dr. Grijalva, patient and RN Plan discussed with: Patient, Other (RN) Plan discussed with: Patient, Other (RN) Dietary Evaluation Review Recommendations by RD: Increase Calorie Intake Comments: Nutrition Recommendation 1) Ensure high protein 240ml TID 2) Lukas 1 pk BID 3) Monitor PO intake, lab values, weight trend, and I/O Expected Outcomes/Goals: Gain/maintain body weight Wound to improve FU 3-5 days Body Fat Depletion (Severe): Mod to Severe Depletion Muscle Mass (Severe): Mod to Severe Depletion Fluid Accumulation (Non Severe: Mild fluid retention Protein Calorie Malnutrition: Severe Visit Coding STANDARD RES Billing Provider: CRYSTAL GRIJALVA MD Date of Service if different f: Sep 28, 2025 Common Visit Codes: [id number] INP/OBS CARE(HIGH) BETTIE CERRATO RESIDENT Sep 27, 2025 20:29
--- NOTE | 2025-09-27 23:55 | DVHPN2 ---
Progress Note - Dictate Date Seen: Sep 27, 2025 Medical Necessity Reason Pt with a Central, PICC or Fol: No The following are medically ne: Rivas Catheter Subjective Patient was seen and evaluated in follow up. No overnight events. Patient is stable on room air. Patient received wound care. Patient is pending SNF placement. vital signs Vital Sign Date Time Temp Pulse Resp B/P (MAP) Pulse Ox O2 Delivery O2 Flow Rate FiO2 09/27/25 21:00 97.6 73 14 122/69 (86) 99 97.6 09/27/25 08:30 Room Air* 0 21 Total Intake and Output 09/26/25 09/26/25 09/27/25 15:00 23:00 07:00 Intake Total 1100 ml 200 ml Balance 1100 ml 200 ml medications Current Medications Medications Dose Ordered Sig/Denae Route Start Time Stop Time Status Last Admin Dose Admin Amlodipine Besylate 5 mg DAILY PO 09/05/25 10:00 09/27/25 10:06 5 MG Clonidine HCl 0.1 mg Q4HP PRN PO 09/04/25 23:45 09/23/25 09:29 0.1 MG Ondansetron HCl 4 mg Q4HP PRN IV 09/04/25 23:45 Docusate Sodium 100 mg BIDPRN PRN PO 09/04/25 23:45 Zinc Sulfate 220 mg DAILY PO 09/05/25 10:00 09/27/25 10:01 220 MG Ascorbic Acid 500 mg BID PO 09/05/25 10:00 09/27/25 21:39 500 MG Multivitamins 1 tab DAILY PO 09/05/25 10:00 09/27/25 10:02 1 TAB Acetaminophen 650 mg Q6HP PRN PO 09/04/25 23:45 09/22/25 14:15 650 MG Nitroglycerin 0.4 mg Q5MINP PRN SL 09/04/25 23:45 Aspirin 81 mg DAILY PO 09/05/25 10:00 09/27/25 10:01 81 MG Vancomycin HCl 0 ml @ 0 mls/hr PER PHARMACY IV 09/05/25 23:45 Cancel Atorvastatin Calcium 40 mg HS PO 09/11/25 22:00 09/27/25 21:39 40 MG objective GENERAL: Alert and oriented x 3. No acute distress. Thin, frail EYES: PERRL, EOMI. Anicteric. HENT: Moist mucous membranes. LUNGS: Clear to auscultation bilaterally. CARDIOVASCULAR: Regular rate and rhythm. ABDOMEN: Soft, nontender and nondistended. EXTREMITIES: No edema. SKIN: Multiple wounds to bilateral lower extremities, covered at this time. laboratory and microbiology Laboratory Tests 09/18/25 06:08 Test 09/18/25 06:08 Range/Units Serum Glucose 79 74-106 mg/dL Problem List Rule out severe aortic valve stenosis. Rule out tuberculosis. Hypertension. Dyslipidemia. Hypokalemia. Thrombocythemia. Tobacco use. Assessment/Plan Continued all current supportive medical care. Amlodipine, Clonidine. Aspirin, Lipitor. GI prophylactics. Additional plan as per the hospital course. Dietary Evaluation Review Recommendations by RD: Increase Calorie Intake Comments: Nutrition Recommendation 1) Ensure high protein 240ml TID 2) Lukas 1 pk BID 3) Monitor PO intake, lab values, weight trend, and I/O Expected Outcomes/Goals: Gain/maintain body weight Wound to improve FU 3-5 days Body Fat Depletion (Severe): Mod to Severe Depletion Muscle Mass (Severe): Mod to Severe Depletion Fluid Accumulation (Non Severe: Mild fluid retention Protein Calorie Malnutrition: Severe Plan discussed with: Patient JOSE MIKE MD Sep 27, 2025 23:55
--- NOTE | 2025-09-28 00:15 | DVHPN2 ---
Consult Progress Note Date Seen: Sep 26, 2025 Subjective Patient reports: No new complaints, Feels better (AFB sputums are negative to date) Objective vital signs Vital Sign Date Time Temp Pulse Resp B/P (MAP) Pulse Ox O2 Delivery O2 Flow Rate FiO2 09/27/25 21:00 97.6 73 14 122/69 (86) 99 97.6 09/27/25 08:30 Room Air* 0 21 Total Intake and Output 09/27/25 09/27/25 09/28/25 15:00 23:00 07:00 Intake Total 610 ml Balance 610 ml medications Current Medications Medications Dose Ordered Sig/Denae Route Start Time Stop Time Status Last Admin Dose Admin Amlodipine Besylate 5 mg DAILY PO 09/05/25 10:00 09/27/25 10:06 5 MG Clonidine HCl 0.1 mg Q4HP PRN PO 09/04/25 23:45 09/23/25 09:29 0.1 MG Ondansetron HCl 4 mg Q4HP PRN IV 09/04/25 23:45 Docusate Sodium 100 mg BIDPRN PRN PO 09/04/25 23:45 Zinc Sulfate 220 mg DAILY PO 09/05/25 10:00 09/27/25 10:01 220 MG Ascorbic Acid 500 mg BID PO 09/05/25 10:00 09/27/25 21:39 500 MG Multivitamins 1 tab DAILY PO 09/05/25 10:00 09/27/25 10:02 1 TAB Acetaminophen 650 mg Q6HP PRN PO 09/04/25 23:45 09/22/25 14:15 650 MG Nitroglycerin 0.4 mg Q5MINP PRN SL 09/04/25 23:45 Aspirin 81 mg DAILY PO 09/05/25 10:00 09/27/25 10:01 81 MG Vancomycin HCl 0 ml @ 0 mls/hr PER PHARMACY IV 09/05/25 23:45 Cancel Atorvastatin Calcium 40 mg HS PO 09/11/25 22:00 09/27/25 21:39 40 MG laboratory and microbiology Laboratory Tests 09/18/25 06:08 Test 09/18/25 06:08 Range/Units Serum Glucose 79 74-106 mg/dL Problem List/Assessment/Plan Problems(with codes): (1) Pneumonia (2) Physical deconditioning (3) Pedal edema (4) Generalized weakness (5) Open wound of right lower leg (6) Pneumonia, unspecified organism (7) Thrombocytosis Problem List/Assessment/Plan ASSESSMENT AND PLAN: ID Problem List: \-- Cavitary pneumonia with concern for TB versus fungal versus other etiologies \-- TB rule out in progress \-- Bilateral lower extremity ulcers with Staphylococcus aureus (MSSA) and Enterobacter cloacae \-- Dementia (poor historian, A\&O x2) \-- Cachexia and weight loss \-- Hypertension \-- Social concerns: limited caregiver support ( unable to care for patient) Assessment: Ms. Jayleen Story is a 64 y.o. female with a past medical history of dementia and hypertension who presents with bilateral lower extremity wounds and a cavitary pulmonary lesion. She is a poor historian. On presentation she was afebrile with tachycardia and normal blood pressure. She appears cachectic and disheveled, with generalized weakness and multiple shallow ulcers on the dorsal, anterior, and posterior aspects of both legs, some extending to the subcutaneous tissue, but without lower extremity edema. Initial labs: WBC 9.2, Hgb 10.7, platelets 625. BUN reported as 139 and 10 in the transcript (value unclear), sodium 139, creatinine 0.47. TSH 1.16. Chest X?ray reportedly shows a left perihilar hazy opacity and a cystic/cavitary- appearing change in the left lung apex with surrounding opacification concerning for fungal versus TB pneumonia. She denies shortness of breath and dizziness but endorses weight loss and subjective fevers (amount unclear). No history of smoking, alcohol use, IV drug use, or travel. No prior surgeries per patient. No known allergies. She has undergone TB rule out with AFB smears negative 3, respiratory culture without growth, and MTB PCR negative 1 to date; QuantiFERON?TB Gold is negative. Wound cultures are growing MSSA and Enterobacter cloacae (not [facility]- induced, per report). She has been treated with vancomycin, piperacillin?tazobactam (Zosyn), and micafungin. Overall suspicion for active TB is low; fungal pneumonia remains a possible diagnosis along with other infectious and noninfectious causes. 09/15: AFB sputum stain negative x 3 and MTB pcr negative x 2 09/19: Zosyn stopped 09/20: BLE ulcers appear well off all antibiotics 09/26: AFB sputums are negative to date Plan: Cavitary pneumonia / possible TB vs fungal vs other etiologies \-- TB rule out in progress: continue airborne isolation per hospital protocol until rule out is complete. \-- AFB smears are negative 3; MTB PCR is negative 2 is negative. from infectious disease perspective, patient can be dced without isolation, patient can followup in infectious disease clinic in 1 week to continue to follow AFB sputum results (appt date on 10/02/24 at 1PM). defer to infection control team to remove isolation and would inform department of public health of discharge plans/coordination. \-- QuantiFERON?TB Gold is negative; overall clinical suspicion for active TB is low. \-- No need for empiric TB treatment at this time given low suspicion. \-- For possible fungal pneumonia: Obtain/continue routine sputum culture and monitor for fungal growth. Send/confirm fungal testing as planned: Aspergillus antibodies [place] fever (coccidioides) antibodies Fungitell Galactomannan \-- Results can be followed as an outpatient to determine if treatment for cavitary fungal pneumonia is warranted; no empiric micafungin is recommended at this time. \-- Differential for cavitary lesion includes: aspiration pneumonia, bacterial pneumonia, fungal pneumonia, AFB/NTM infection, and noninfectious etiologies including malignancy. \-- Recommend serial chest CT follow?up approximately every 3 months to ensure stability of the cavitary lesion and to monitor for progression. Bilateral lower extremity ulcers (MSSA and Enterobacter cloacae) sp 10 days course of Zosyn \-- Continue local wound care per primary/wound care team - ulcers appears noncellulitic at this point will monitor of all antibiotics Cachexia, weight loss, and wound healing support \-- Patient is cachectic with reported weight loss; this may impair wound healing. \-- Recommend formal nutrition evaluation. \-- Encourage increased protein intake to optimize wound healing, per nutrition guidance. Dementia, poor history, and social support concerns \-- Patient has dementia, is A\&O 2, and is a poor historian. She lives with her , who reports that he cannot adequately care for her. \-- Recommend social work consult to: Assess home safety and caregiving capacity. Arrange appropriate support services or alternative placement as needed. Assist with discharge planning in the context of cognitive impairment and limited caregiver support. Isolation Precautions: TB rule?out isolation per hospital protocol (in addition to standard precautions). Assessment and plan were discussed with the patient as able, given dementia. Plan is subject to change pending incorporation of new incoming information/diagnostics. Updates may be added as an addendum to this note. Thank you for involving Infectious Diseases in the care of this patient. ID will continue to follow. Please contact Infectious Disease with any questions or concerns. Yudy Garcia M.D. \ Physical Exam: General: Cachectic, disheveled-appearing female with generalized weakness. Neck: Supple. No masses. HEENT: PERRL. Normal lids and conjunctiva. Moist mucous membranes. Oropharynx without lesions, exudates or excessive erythema. Normal appearance of the external aspects of the nose and ears. Heart: Regular rhythm, normal rate. No murmur. No lower extremity edema. Lungs: Normal respiratory effort. Clear to auscultation bilaterally. No wheezes. No crackles. Abdomen: Soft. Non-tender. Non-distended. No masses or abdominal hernia. Msk: No digital cyanosis. Normal strength and tone in all 4 limbs, though overall generalized weakness noted clinically. Skin: Warm and dry, no rashes. Multiple shallow ulcers and scabs on the dorsal, anterior, and posterior aspects of both lower legs, some extending into subcutaneous tissue. Neuro: Alert. No facial droop or slurred speech. Extra-ocular movements intact. Sensation intact to soft touch in all 4 limbs. A\&O 2. Psych: Dementia present. Mood and affect otherwise appropriate as observed. Oriented to person and place only (A\&O 2). Plan discussed with: Patient Dietary Evaluation Review Recommendations by RD: Increase Calorie Intake Comments: Nutrition Recommendation 1) Ensure high protein 240ml TID 2) Lukas 1 pk BID 3) Monitor PO intake, lab values, weight trend, and I/O Expected Outcomes/Goals: Gain/maintain body weight Wound to improve FU 3-5 days Body Fat Depletion (Severe): Mod to Severe Depletion Muscle Mass (Severe): Mod to Severe Depletion Fluid Accumulation (Non Severe: Mild fluid retention Protein Calorie Malnutrition: Severe YUDY GARCIA MD Sep 28, 2025 00:15
[2025-09-28 05:00] VITALS: BP 112/65; PULSE 69; RESP 14; TEMP 97.3; O2SAT 96
[2025-09-28 08:00] VITALS: PULSE 82; RESP 16; O2SAT 94
[2025-09-28 09:00] VITALS: BP 142/85; PULSE 82; RESP 16; TEMP 97.2; O2SAT 94
[2025-09-28 13:00] VITALS: BP 128/71; PULSE 68; RESP 18; TEMP 98.1; O2SAT 99
--- NOTE | 2025-09-28 21:44 | DVHPN2 ---
Consult Progress Note Date Seen: Sep 28, 2025 Subjective Patient reports: Feels better (leg ulcers are closed) Objective vital signs Vital Sign Date Time Temp Pulse Resp B/P (MAP) Pulse Ox O2 Delivery O2 Flow Rate FiO2 09/28/25 13:00 98.1 68 18 128/71 (90) 99 98.1 09/28/25 08:00 Room Air* 0 21 Total Intake and Output 09/27/25 09/27/25 09/28/25 15:00 23:00 07:00 Intake Total 610 ml 300 ml Balance 610 ml 300 ml medications Current Medications Medications Dose Ordered Sig/Denae Route Start Time Stop Time Status Last Admin Dose Admin Vancomycin HCl 0 ml @ 0 mls/hr PER PHARMACY IV 09/05/25 23:45 Cancel laboratory and microbiology Laboratory Tests 09/18/25 06:08 Test 09/18/25 06:08 Range/Units Serum Glucose 79 74-106 mg/dL Problem List/Assessment/Plan Problem List/Assessment/Plan ASSESSMENT AND PLAN: ID Problem List: \-- Cavitary pneumonia with concern for TB versus fungal versus other etiologies \-- TB rule out in progress \-- Bilateral lower extremity ulcers with Staphylococcus aureus (MSSA) and Enterobacter cloacae \-- Dementia (poor historian, A\&O x2) \-- Cachexia and weight loss \-- Hypertension \-- Social concerns: limited caregiver support ( unable to care for patient) Assessment: Ms. Jayleen Story is a 64 y.o. female with a past medical history of dementia and hypertension who presents with bilateral lower extremity wounds and a cavitary pulmonary lesion. She is a poor historian. On presentation she was afebrile with tachycardia and normal blood pressure. She appears cachectic and disheveled, with generalized weakness and multiple shallow ulcers on the dorsal, anterior, and posterior aspects of both legs, some extending to the subcutaneous tissue, but without lower extremity edema. Initial labs: WBC 9.2, Hgb 10.7, platelets 625. BUN reported as 139 and 10 in the transcript (value unclear), sodium 139, creatinine 0.47. TSH 1.16. Chest X?ray reportedly shows a left perihilar hazy opacity and a cystic/cavitary- appearing change in the left lung apex with surrounding opacification concerning for fungal versus TB pneumonia. She denies shortness of breath and dizziness but endorses weight loss and subjective fevers (amount unclear). No history of smoking, alcohol use, IV drug use, or travel. No prior surgeries per patient. No known allergies. She has undergone TB rule out with AFB smears negative 3, respiratory culture without growth, and MTB PCR negative 1 to date; QuantiFERON?TB Gold is negative. Wound cultures are growing MSSA and Enterobacter cloacae (not [facility]- induced, per report). She has been treated with vancomycin, piperacillin?tazobactam (Zosyn), and micafungin. Overall suspicion for active TB is low; fungal pneumonia remains a possible diagnosis along with other infectious and noninfectious causes. 09/15: AFB sputum stain negative x 3 and MTB pcr negative x 2 09/19: Zosyn stopped 09/20: BLE ulcers appear well off all antibiotics 09/26: no respiratory symptoms, afb sputum remain negative to date 09/28: BLE ulcers are closed Plan: Cavitary pneumonia / possible TB vs fungal vs other etiologies \-- TB rule out in progress: continue airborne isolation per hospital protocol until rule out is complete. \-- AFB smears are negative 3; MTB PCR is negative 2 is negative. from infectious disease perspective, patient can be dced without isolation, patient can followup in infectious disease clinic in 1 week to continue to follow AFB sputum results (appt date on 10/02/24 at 1PM). defer to infection control team to remove isolation and would inform department of public health of discharge plans/coordination. \-- QuantiFERON?TB Gold is negative; overall clinical suspicion for active TB is low. \-- No need for empiric TB treatment at this time given low suspicion. \-- For possible fungal pneumonia: Obtain/continue routine sputum culture and monitor for fungal growth. Send/confirm fungal testing as planned: Aspergillus antibodies [place] fever (coccidioides) antibodies Fungitell Galactomannan \-- Results can be followed as an outpatient to determine if treatment for cavitary fungal pneumonia is warranted; no empiric micafungin is recommended at this time. \-- Differential for cavitary lesion includes: aspiration pneumonia, bacterial pneumonia, fungal pneumonia, AFB/NTM infection, and noninfectious etiologies including malignancy. \-- Recommend serial chest CT follow?up approximately every 3 months to ensure stability of the cavitary lesion and to monitor for progression. Bilateral lower extremity ulcers (MSSA and Enterobacter cloacae) sp 10 days course of Zosyn \-- Continue local wound care per primary/wound care team - ulcers appears noncellulitic at this point will monitor of all antibiotics Cachexia, weight loss, and wound healing support \-- Patient is cachectic with reported weight loss; this may impair wound healing. \-- Recommend formal nutrition evaluation. \-- Encourage increased protein intake to optimize wound healing, per nutrition guidance. Dementia, poor history, and social support concerns \-- Patient has dementia, is A\&O 2, and is a poor historian. She lives with her , who reports that he cannot adequately care for her. \-- Recommend social work consult to: Assess home safety and caregiving capacity. Arrange appropriate support services or alternative placement as needed. Assist with discharge planning in the context of cognitive impairment and limited caregiver support. Isolation Precautions: TB rule?out isolation per hospital protocol (in addition to standard precautions). Assessment and plan were discussed with the patient as able, given dementia. Plan is subject to change pending incorporation of new incoming information/diagnostics. Updates may be added as an addendum to this note. Thank you for involving Infectious Diseases in the care of this patient. ID will continue to follow. Please contact Infectious Disease with any questions or concerns. Yudy Garcia M.D. \ Physical Exam: General: Cachectic, disheveled-appearing female with generalized weakness. Neck: Supple. No masses. HEENT: PERRL. Normal lids and conjunctiva. Moist mucous membranes. Oropharynx without lesions, exudates or excessive erythema. Normal appearance of the external aspects of the nose and ears. Heart: Regular rhythm, normal rate. No murmur. No lower extremity edema. Lungs: Normal respiratory effort. Clear to auscultation bilaterally. No wheezes. No crackles. Abdomen: Soft. Non-tender. Non-distended. No masses or abdominal hernia. Msk: No digital cyanosis. Normal strength and tone in all 4 limbs, though overall generalized weakness noted clinically. Skin: Warm and dry, no rashes. Multiple shallow ulcers and scabs on the dorsal, anterior, and posterior aspects of both lower legs, some extending into subcutaneous tissue. Neuro: Alert. No facial droop or slurred speech. Extra-ocular movements intact. Sensation intact to soft touch in all 4 limbs. A\&O 2. Psych: Dementia present. Mood and affect otherwise appropriate as observed. Oriented to person and place only (A\&O 2). Plan discussed with: Patient Dietary Evaluation Review Recommendations by RD: Increase Calorie Intake Comments: Nutrition Recommendation 1) Ensure high protein 240ml TID 2) Lukas 1 pk BID 3) Monitor PO intake, lab values, weight trend, and I/O Expected Outcomes/Goals: Gain/maintain body weight Wound to improve FU 3-5 days Body Fat Depletion (Severe): Mod to Severe Depletion Muscle Mass (Severe): Mod to Severe Depletion Fluid Accumulation (Non Severe: Mild fluid retention Protein Calorie Malnutrition: Severe YUDY GARCIA MD Sep 28, 2025 21:44
--- NOTE | 2025-09-29 00:04 | DVHPN2 ---
Progress Note - Dictate Date Seen: Sep 28, 2025 Medical Necessity Reason Pt with a Central, PICC or Fol: No The following are medically ne: Rivas Catheter Subjective Patient was seen and evaluated in follow-up. Patient has no new complaints at this time. Patient denies any cardiac symptoms. Patient is cardiac stable for discharge. vital signs Vital Sign Date Time Temp Pulse Resp B/P (MAP) Pulse Ox O2 Delivery O2 Flow Rate FiO2 09/28/25 13:00 98.1 68 18 128/71 (90) 99 98.1 09/28/25 08:00 Room Air* 0 21 Total Intake and Output 09/27/25 09/27/25 09/28/25 15:00 23:00 07:00 Intake Total 610 ml 300 ml Balance 610 ml 300 ml medications Current Medications Medications Dose Ordered Sig/Denae Route Start Time Stop Time Status Last Admin Dose Admin Vancomycin HCl 0 ml @ 0 mls/hr PER PHARMACY IV 09/05/25 23:45 Cancel objective GENERAL: Alert and oriented x 3. No acute distress. Thin, frail EYES: PERRL, EOMI. Anicteric. HENT: Moist mucous membranes. LUNGS: Clear to auscultation bilaterally. CARDIOVASCULAR: Regular rate and rhythm. ABDOMEN: Soft, nontender and nondistended. EXTREMITIES: No edema. SKIN: Multiple wounds to bilateral lower extremities, covered at this time. laboratory and microbiology Laboratory Tests 09/18/25 06:08 Test 09/18/25 06:08 Range/Units Serum Glucose 79 74-106 mg/dL Problem List Rule out severe aortic valve stenosis. Rule out tuberculosis. Hypertension. Dyslipidemia. Hypokalemia. Thrombocythemia. Tobacco use. Assessment/Plan Continued all current supportive medical care. Amlodipine, Clonidine. Aspirin, Lipitor. GI prophylactics. Additional plan as per the hospital course. Dietary Evaluation Review Recommendations by RD: Increase Calorie Intake Comments: Nutrition Recommendation 1) Ensure high protein 240ml TID 2) Lukas 1 pk BID 3) Monitor PO intake, lab values, weight trend, and I/O Expected Outcomes/Goals: Gain/maintain body weight Wound to improve FU 3-5 days Body Fat Depletion (Severe): Mod to Severe Depletion Muscle Mass (Severe): Mod to Severe Depletion Fluid Accumulation (Non Severe: Mild fluid retention Protein Calorie Malnutrition: Severe Plan discussed with: Patient JOSE MIKE MD Sep 28, 2025 14:32
== END 2025-09-28 13:20 | disposition home health service (06) | DRG 871 ==
LOC: EDBD 16:32 → ER 16:32 → OVERFLOW 23:36 → TELE-CENTR 09-05 03:24 → TELE-WESTW 09-05 15:08 → WEST WING 09-15 07:53
PROVIDERS: ADMIT Internal Medicine Geriatric Medicine; ATTEND Internal Medicine Geriatric Medicine
DX: A41.50 Gram-negative sepsis, unspecified (principal); E43 Unspecified severe protein-calorie malnutrition; I50.33 Acute on chronic diastolic (congestive) heart failure; J15.69 Pneumonia due to other Gram-negative bacteria; J96.01 Acute respiratory failure with hypoxia; J15.9 Unspecified bacterial pneumonia; J69.0 Pneumonitis due to inhalation of food and vomit; R64 Cachexia; I11.0 Hypertensive heart disease with heart failure; J90 Pleural effusion, not elsewhere classified; L03.116 Cellulitis of left lower limb; L03.115 Cellulitis of right lower limb; D64.9 Anemia, unspecified; F03.90 Unspecified dementia, unspecified severity, without behavioral disturbance, psychotic disturbance, mood disturbance, and anxiety; I35.0 Nonrheumatic aortic (valve) stenosis; L97.919 Non-pressure chronic ulcer of unspecified part of right lower leg with unspecified severity; L97.929 Non-pressure chronic ulcer of unspecified part of left lower leg with unspecified severity; Z68.1 Body mass index [BMI] 19.9 or less, adult; Z20.822 Contact with and (suspected) exposure to COVID-19; D75.839 Thrombocytosis, unspecified; E87.6 Hypokalemia; E78.5 Hyperlipidemia, unspecified; S81.801A Unspecified open wound, right lower leg, initial encounter; X58.XXXA Exposure to other specified factors, initial encounter; Y93.89 Activity, other specified; Z87.891 Personal history of nicotine dependence; Y92.89 Other specified places as the place of occurrence of the external cause; Y99.8 Other external cause status
CPT/HCPCS: 36415; 36600; 71045; 71250; 73700; 80048; 80053; 80061; 80076; 80202; 80307; 81001; 82306; 82565; 82607; 82805; 83036; 83605; 83735; 83880; 84100; 84439; 84443; 84484; 85025; 85610; 85652; 85730; 86141; 86606; 86612; 86635; 86698; 87040; 87070; 87077; 87081; 87086; 87186; 87205; 87426; 87804; 93005; 93306; 93970; 97110; 97116; 97163; 97530; G0378; J0696; J2248; J2470; J2543